=== PATIENT | female | born 1940 | race Caucasian/White ===

== ENCOUNTER 2019-02-13 02:14 | Inpatient (IN) | payer OTHER ==
[~2019-02-13] VITALS: Ht 139.7 cm; Wt 64.0 kg
[2019-02-13] VITALS (17 sets, daily range): BP systolic 117–200; BP diastolic 66–151
[2019-02-13 02:47] LABS: BASO # 0.1 x10^3/uL (0.0-0.2); BASO % 0 % (0-3); EOS % 0 % (0-3); HEMOGLOBIN 13.2 g/dL (12.0-15.5); LYMPH # 1.2 x10^3/uL (1.0-4.8); LYMPH % 4 % (24-48); MEAN CORPUSCULAR HEMOGLOBIN 31 pg (25-35); MEAN CORPUSCULAR HGB CONC 33 g/dL (31-37); MEAN CORPUSCULAR VOLUME 93 fL (79-100); MONO # 1.6 x10^3/uL (0.0-1.1); MONO % 6 % (0-9); NEUT # 24.7 x10^3uL (1.8-7.7); NEUT % 90 % (31-73); PLATELET COUNT 408 x10^3/uL (140-400); RED CELL DISTRIBUTION WIDTH 14.1 % (11.5-14.5); WHITE BLOOD COUNT 27.4 x10^3/uL (4.0-11.0)
--- NOTE | 2019-02-13 02:49 | PHYS DOC ---
Past Medical History Past Medical History: CAD, High Cholesterol, Hypertension Past Surgical History: Coronary Bypass Surgery, Hysterectomy, Oophorectomy, Other (double mastectomy) Smoking: Less than 1pk/day (2 cigarettes per day) Alcohol Use: None Drug Use: None Adult General Chief Complaint Chief Complaint: NAUSEA/VOMITING/DIARRHA HPI HPI Patient is a 78 year old female who presents with nausea and vomiting. Patient states that 3:30 this afternoon she started to experience some nausea and vomited a total of 6 times throughout the afternoon. She states her first episode of vomiting have deferred that she ate for breakfast and agreement. She denies any blood in any of her vomits. Patient also states that she's been having diarrhea today. Her last solid bowel movement was 2 days ago. Food and liquids makes her nausea and vomiting worse. Nothing improves her symptoms. Patient denies any chest pain, shortness of breath, hematochezia, lightheadedness, or dizziness. Review of Systems Review of Systems Constitutional: Denies fever or chills [] Eyes: Denies redness, or eye pain [] HENT: Denies nasal congestion or sore throat [] Respiratory: Denies cough or shortness of breath [] Cardiovascular: Denies chest pain or palpitations[] GI: Reports nausea, vomiting, and diarrhea. Denies abdominal pain and bloody stools[] : Denies dysuria or hematuria [] Musculoskeletal: Denies back pain or joint pain [] Integument: Denies rash or skin lesions [] Neurologic: Denies headache, focal weakness Complete systems were reviewed and found to be within normal limits, except as documented in this note. Current Medications Current Medications Current Medications Medications (Trade) Dose Ordered Sig/Mackenzie Start Time Stop Time Status Last Admin Dose Admin Cefepime HCl (Maxipime) 2 gm 1X ONCE 02/13/19 03:30 02/13/19 03:31 DC 02/13/19 04:01 2 GM Famotidine (Pepcid Vial) 20 mg 1X ONCE 02/13/19 03:00 02/13/19 03:01 DC 02/13/19 02:46 20 MG Hyoscyamine (Anaspaz) 0.125 mg 1X ONCE 02/13/19 03:00 02/13/19 03:01 DC 02/13/19 02:47 0.125 MG Ondansetron HCl (Zofran) 4 mg 1X ONCE 02/13/19 03:30 02/13/19 03:31 DC 02/13/19 03:03 4 MG Sodium Chloride 1,000 ml @ 1,000 mls/hr 1X ONCE 02/13/19 03:30 02/13/19 04:29 DC 02/13/19 04:10 1,000 MLS/HR Allergies Allergies Allergies Coded Allergies Type Severity Reaction Last Updated Verified morphine Allergy Intermediate 02/13/19 Yes Physical Exam Physical Exam Constitutional: Slightly dehydrated, non-toxic appearance. [] HENT: Normocephalic, atraumatic, dry mucous membranes. [] Eyes: EOMI, conjunctiva normal [] Neck: Normal range of motion, no tenderness [] Cardiovascular:Heart rate regular rhythm, no murmur [] Lungs & Thorax: Bilateral breath sounds clear to auscultation, no rhonchi, rails, or wheezes [] Abdomen: Hypoactive bowel sounds, soft, diffuse tenderness, no rebound or rigidity. [] Skin: Warm, dry. [] Back: No tenderness, no CVA tenderness. [] Extremities: No cyanosis, no edema. [] Neurologic: Alert and oriented X 3, no focal deficits noted. [] Psychologic: Affect normal, mood normal. [] Current Patient Data Vital Signs Vital Signs Date Time Temp Pulse Resp B/P (MAP) Pulse Ox O2 Delivery O2 Flow Rate FiO2 02/13/19 02:14 98.2 107 20 194/125 (148) 96 Room Air 98.2 Lab Values Laboratory Tests Test 02/13/19 02:36 02/13/19 03:30 White Blood Count 27.4 x10^3/uL (4.0-11.0) H Red Blood Count 4.30 x10^6/uL (3.50-5.40) Hemoglobin 13.2 g/dL (12.0-15.5) Hematocrit 40.0 % (36.0-47.0) Mean Corpuscular Volume 93 fL (79-100) Mean Corpuscular Hemoglobin 31 pg (25-35) Mean Corpuscular Hemoglobin Concent 33 g/dL (31-37) Red Cell Distribution Width 14.1 % (11.5-14.5) Platelet Count 408 x10^3/uL (140-400) H Neutrophils (%) (Auto) 90 % (31-73) H Lymphocytes (%) (Auto) 4 % (24-48) L Monocytes (%) (Auto) 6 % (0-9) Eosinophils (%) (Auto) 0 % (0-3) Basophils (%) (Auto) 0 % (0-3) Neutrophils # (Auto) 24.7 x10^3uL (1.8-7.7) H Lymphocytes # (Auto) 1.2 x10^3/uL (1.0-4.8) Monocytes # (Auto) 1.6 x10^3/uL (0.0-1.1) H Eosinophils # (Auto) 0.0 x10^3/uL (0.0-0.7) Basophils # (Auto) 0.1 x10^3/uL (0.0-0.2) Segmented Neutrophils % 92 % (35-66) H Lymphocytes % 4 % (24-48) L Monocytes % 4 % (0-10) Hypersegmented Neutrophils Present Toxic Vacuolation Slight Platelet Estimate Adequate (ADEQUATE) Anisocytosis Slight Crenated Cell Present Prothrombin Time 12.3 SEC (11.7-14.0) Prothrombin Time INR 0.9 (0.8-1.1) PTT 29 SEC (24-38) Sodium Level 139 mmol/L (136-145) Potassium Level 2.8 mmol/L (3.5-5.1) *L Chloride Level 95 mmol/L (98-107) L Carbon Dioxide Level 18 mmol/L (21-32) L Anion Gap 26 (6-14) H Blood Urea Nitrogen 32 mg/dL (7-20) H Creatinine 2.7 mg/dL (0.6-1.0) H Estimated GFR (Cockcroft-Gault) 17.1 BUN/Creatinine Ratio 12 (6-20) Glucose Level 226 mg/dL (70-99) H Lactic Acid Level 9.3 mmol/L (0.4-2.0) *H Calcium Level 12.1 mg/dL (8.5-10.1) *H Magnesium Level 1.5 mg/dL (1.8-2.4) L Total Bilirubin 0.4 mg/dL (0.2-1.0) Aspartate Amino Transferase (AST) 44 U/L (15-37) H Alanine Aminotransferase (ALT) 50 U/L (14-59) Alkaline Phosphatase 94 U/L (46-116) Creatine Kinase 223 U/L (26-192) H Creatine Kinase MB (Mass) 4.9 ng/mL (0.0-3.6) H Creatine Kinase MB Relative Index 2.2 % (0-4) Total Protein 8.1 g/dL (6.4-8.2) Albumin 3.5 g/dL (3.4-5.0) Albumin/Globulin Ratio 0.8 (1.0-1.7) L Lipase 312 U/L (73-393) Urine Collection Type Unknown Urine Color Yellow Urine Clarity Cloudy Urine pH 5.5 Urine Specific [place] 1.015 Urine Protein 100 mg/dL (NEG-TRACE) Urine Glucose (UA) Negative mg/dL (NEG) Urine Ketones (Stick) 15 mg/dL (NEG) Urine Blood Large (NEG) Urine Nitrite Negative (NEG) Urine Bilirubin Negative (NEG) Urine Urobilinogen Dipstick 0.2 mg/dL (0.2 mg/dL) Urine Leukocyte Esterase Moderate (NEG) Urine RBC Tntc /HPF (0-2) Urine WBC Tntc /HPF (0-4) Urine Squamous Epithelial Cells Few /LPF Urine Bacteria Many /HPF (0-FEW) Laboratory Tests 02/13/19 02:36 Laboratory Tests 02/13/19 02:36 EKG EKG [] Radiology/Procedures Radiology/Procedures PROCEDURE: CT ABDOMEN PELVIS WO CONTRAST Abdominal and Pelvis CT, Without Contrast: History: Diffuse abdominal pain and nausea and vomiting Comparison: None. Procedure: Axial images are obtained of the abdomen and pelvis, without IV or oral contrast. CT Abdomen without Contrast: Findings: Evaluation of solid organs is limited without contrast. Evaluation of stomach and bowel is limited without oral contrast. Liver: Normal. Spleen: Normal. Pancreas: Normal. Adrenal Glands: Normal. Kidneys: Prominence of the renal pelvises is likely extrarenal pelvises. There is a nonobstructive stone in the left renal pelvis. There is no free air or free fluid. There is no lymphadenopathy. Impression: Please see CT Pelvis without Contrast. End Impression. CT Pelvis without Contrast: Findings: The urinary bladder appears normal. There is no free fluid. There is no lymphadenopathy. There is no pericolonic inflammation identified. The appendix is not seen. Impression: No acute findings. End impression PQRS Compliance Statement: One or more of the following individualized dose reduction techniques were utilized for this examination: 1. Automated exposure control 2. Adjustment of the mA and/or kV according to patient size 3. Use of iterative reconstruction technique Electronically signed by: Joo Galicia III, MD (02/13/2019 3:32 AM) [facility][] Course & Med Decision Making Course & Med Decision Making 78-year-old female presented to the emergency department via EMS for nausea and vomiting. She states she has been nauseous and vomiting since 3:30 this afternoon. She's had a total of 6 episodes of non-bilious nonbloody vomit. Patient received antinausea medication as well as fluids with interval improvement. Pertinent Labs and Imaging studies reviewed. Lab values indicated elevated white blood cell count, and elevated lactic acid. Septic protocol initiated. Symptomatic treatment provided with interval improvement. Patient requiring admission for further evaluation and treatment. Discussed with Dr. Payan who is in agreement with admission. Discussed findings and plan with patient and family, who acknowledge understanding and agreement. (See chart for details) [] Dragon Disclaimer Dragon Disclaimer This electronic medical record was generated, in whole or in part, using a voice recognition dictation system. Departure Departure Impression: Primary Impression: Septic shock Additional Impressions: Nausea and vomiting Hypercalcemia Hypokalemia Hypomagnesemia Lactic acidosis Disposition: ADMITTED INPATIENT Admitting Physician: Edilson Payan Condition: GUARDED Date and Time of Reassessment Date: Feb 13, 2019 Time: 05:33 Fluid Challenge Is the fluid challenge complet: Yes Blood Culture TIme: 03:45 Time Antibiotics Given: 04:01 Vital Signs Vital Signs: Vital Signs Date Time Temp Pulse Resp B/P (MAP) Pulse Ox O2 Delivery O2 Flow Rate FiO2 02/13/19 02:14 98.2 107 20 194/125 (148) 96 Room Air 98.2 Temperature Source: Oral Respirations Respiratory Effort: Normal Respiratory Pattern: Normal Cardiovascular Pulse Rhythm: Regular Heart: Nml rate, reg. rhythm Lung Sounds Breath Sounds: Clear Capillary Refil Capillary Refill: Rt Hand < 3 seconds Peripheral Pulse Pulse Location: Radial Pulse Strength: Normal (2+) Pulse Assessment Method: Monitor Integumentary Skin: Warm, Dry Skin Moisture: Dry Skin Turgor: Normal Skin Color: warm, dry Fingernail Color: WNL Critical Care Time Critical care time was 30 minutes which includes time at bedside, spent in discussion of patient's care with specialists and/or family members, with interpretation of laboratory and/or radiological studies and is exclusive of procedures.. Problem Qualifiers Additional Impressions: Nausea and vomiting Vomiting type: unspecified Vomiting Intractability: unspecified Qualified Codes: R11.2 - Nausea with vomiting, unspecified FABI LU DO Feb 13, 2019 02:49
[2019-02-13 02:55] LABS: PROTHROMBIN TIME PATIENT 12.3 SEC (11.7-14.0)
[2019-02-13] MEDS ORDERED: ONDANSETRON PF 4 MG/2 ML VIAL. IV ONE ×2 (03:00→03:30)
[2019-02-13] MEDS ORDERED: FAMOTIDINE 20 MG/2 ML VIAL IVP ONE (03:00)
[2019-02-13] MEDS ORDERED: IV NORMAL SALINE 1000ML BAG 1,000 ML IV ONE ×2 (03:00→03:30)
[2019-02-13] MEDS ORDERED: HYOSCYAMINE 0.125 MG TAB.RAPDIS PO ONE (03:00)
[2019-02-13 03:02] LABS: ALBUMIN 3.5 g/dL (3.4-5.0); ALBUMIN/GLOBULIN RATIO 0.8 (1.0-1.7); CREATININE 2.7 mg/dL (0.6-1.0); GFR 17.1; MAGNESIUM 1.5 mg/dL (1.8-2.4); TOTAL BILIRUBIN 0.4 mg/dL (0.2-1.0); TOTAL PROTEIN 8.1 g/dL (6.4-8.2)
[2019-02-13 03:05] LABS: CALCIUM 12.1 mg/dL (8.5-10.1); POTASSIUM 2.8 mmol/L (3.5-5.1)
[2019-02-13 03:12] LABS: % LYMPHS 4 % (24-48); % MONOS 4 % (0-10); % SEGS 92 % (35-66); PLT ESTIMATE ADEQUATE (ADEQUATE)
[2019-02-13 03:30] LABS: ANISOCYTOSIS SLIGHT; HYPERSEGS PRESENT; TOXIC VACUOLATION SLIGHT
[2019-02-13] MEDS ORDERED: CEFEPIME HCL IV Push 2 GM VIAL. IVP ONE (03:30)
--- NOTE | 2019-02-13 03:35 | RAD ---
Abdominal and Pelvis CT, Without Contrast: History: Diffuse abdominal pain and nausea and vomiting Comparison: None. Procedure: Axial images are obtained of the abdomen and pelvis, without IV or oral contrast. CT Abdomen without Contrast: Findings: Evaluation of solid organs is limited without contrast. Evaluation of stomach and bowel is limited without oral contrast. Liver: Normal. Spleen: Normal. Pancreas: Normal. Adrenal Glands: Normal. Kidneys: Prominence of the renal pelvises is likely extrarenal pelvises. There is a nonobstructive stone in the left renal pelvis. There is no free air or free fluid. There is no lymphadenopathy. Impression: Please see CT Pelvis without Contrast. End Impression. CT Pelvis without Contrast: Findings: The urinary bladder appears normal. There is no free fluid. There is no lymphadenopathy. There is no pericolonic inflammation identified. The appendix is not seen. Impression: No acute findings. End impression PQRS Compliance Statement: One or more of the following individualized dose reduction techniques were utilized for this examination: 1. Automated exposure control 2. Adjustment of the mA and/or kV according to patient size 3. Use of iterative reconstruction technique Electronically signed by: Joo Galicia III, MD (02/13/2019 3:32 AM) [id number]
[2019-02-13 03:47] LABS: BILIRUBIN,URINE NEGATIVE (NEG); CLARITY,URINE CLOUDY; COLOR,URINE YELLOW; NITRITE,URINE NEGATIVE (NEG); PH,URINE 5.5; PROTEIN,URINE 100 mg/dL (NEG-TRACE); UROBILINOGEN,URINE 0.2 mg/dL (0.2 mg/dL)
[2019-02-13] MEDS ORDERED: ONDANSETRON PF 4 MG/2 ML VIAL. IV PRN (04:00)
[2019-02-13 04:02] LABS: BACTERIA,URINE MANY /HPF (0-FEW); RBC,URINE TNTC /HPF (0-2); SQUAMOUS EPITHELIAL CELL,UR FEW /LPF; WBC,URINE TNTC /HPF (0-4)
[2019-02-13] MEDS ORDERED: POTASSIUM CL 40MEQ IN 0.9%NACL 1,000 ML IV ONE (04:30)
[2019-02-13] MEDS ORDERED: METOCLOPRAMIDE HCL 10 MG/2 ML VIAL. IV ONE (04:30)
[2019-02-13] MEDS ORDERED: LABETALOL 20 MG/4 ML DISP.SYRIN. IVP ONE (04:30)
[2019-02-13] MEDS ORDERED: hydrALAZINE 20 MG/ML VIAL. IVP ONE (05:30)
[2019-02-13] MEDS: POTASSIUM CHLORIDE 10MEQ 100 ML IV SCH ×2 (06:15→07:53)
[2019-02-13] MEDS ORDERED: METOPROLOL TARTRATE 5 MG/5 ML VIAL. IVP PRN (07:30)
--- NOTE | 2019-02-13 07:56 | PDOC ---
Infectious Disease Note Vital Sign Vital Signs Vital Signs Date Time Temp Pulse Resp B/P (MAP) Pulse Ox O2 Delivery O2 Flow Rate FiO2 02/13/19 06:30 112 16 171/107 (128) 98 Room Air 02/13/19 06:00 98.0 98.0 Labs Lab Laboratory Tests Test 02/13/19 02:36 02/13/19 03:30 02/13/19 06:40 White Blood Count 27.4 x10^3/uL (4.0-11.0) Red Blood Count 4.30 x10^6/uL (3.50-5.40) Hemoglobin 13.2 g/dL (12.0-15.5) Hematocrit 40.0 % (36.0-47.0) Mean Corpuscular Volume 93 fL (79-100) Mean Corpuscular Hemoglobin 31 pg (25-35) Mean Corpuscular Hemoglobin Concent 33 g/dL (31-37) Red Cell Distribution Width 14.1 % (11.5-14.5) Platelet Count 408 x10^3/uL (140-400) Neutrophils (%) (Auto) 90 % (31-73) Lymphocytes (%) (Auto) 4 % (24-48) Monocytes (%) (Auto) 6 % (0-9) Eosinophils (%) (Auto) 0 % (0-3) Basophils (%) (Auto) 0 % (0-3) Neutrophils # (Auto) 24.7 x10^3uL (1.8-7.7) Lymphocytes # (Auto) 1.2 x10^3/uL (1.0-4.8) Monocytes # (Auto) 1.6 x10^3/uL (0.0-1.1) Eosinophils # (Auto) 0.0 x10^3/uL (0.0-0.7) Basophils # (Auto) 0.1 x10^3/uL (0.0-0.2) Segmented Neutrophils % 92 % (35-66) Lymphocytes % 4 % (24-48) Monocytes % 4 % (0-10) Hypersegmented Neutrophils Present Toxic Vacuolation Slight Platelet Estimate Adequate (ADEQUATE) Anisocytosis Slight Crenated Cell Present Prothrombin Time 12.3 SEC (11.7-14.0) Prothromb Time International Ratio 0.9 (0.8-1.1) Activated Partial Thromboplast Time 29 SEC (24-38) Sodium Level 139 mmol/L (136-145) Potassium Level 2.8 mmol/L (3.5-5.1) Chloride Level 95 mmol/L (98-107) Carbon Dioxide Level 18 mmol/L (21-32) Anion Gap 26 (6-14) Blood Urea Nitrogen 32 mg/dL (7-20) Creatinine 2.7 mg/dL (0.6-1.0) Estimated GFR (Cockcroft-Gault) 17.1 BUN/Creatinine Ratio 12 (6-20) Glucose Level 226 mg/dL (70-99) Lactic Acid Level 9.3 mmol/L (0.4-2.0) 3.3 mmol/L (0.4-2.0) Calcium Level 12.1 mg/dL (8.5-10.1) Magnesium Level 1.5 mg/dL (1.8-2.4) Total Bilirubin 0.4 mg/dL (0.2-1.0) Aspartate Amino Transf (AST/SGOT) 44 U/L (15-37) Alanine Aminotransferase (ALT/SGPT) 50 U/L (14-59) Alkaline Phosphatase 94 U/L (46-116) Creatine Kinase 223 U/L (26-192) Creatine Kinase MB (Mass) 4.9 ng/mL (0.0-3.6) Creatine Kinase MB Relative Index 2.2 % (0-4) Total Protein 8.1 g/dL (6.4-8.2) Albumin 3.5 g/dL (3.4-5.0) Albumin/Globulin Ratio 0.8 (1.0-1.7) Lipase 312 U/L (73-393) Urine Collection Type Unknown Urine Color Yellow Urine Clarity Cloudy Urine pH 5.5 Urine Specific [place] 1.015 Urine Protein 100 mg/dL (NEG-TRACE) Urine Glucose (UA) Negative mg/dL (NEG) Urine Ketones (Stick) 15 mg/dL (NEG) Urine Blood Large (NEG) Urine Nitrite Negative (NEG) Urine Bilirubin Negative (NEG) Urine Urobilinogen Dipstick 0.2 mg/dL (0.2 mg/dL) Urine Leukocyte Esterase Moderate (NEG) Urine RBC Tntc /HPF (0-2) Urine WBC Tntc /HPF (0-4) Urine Squamous Epithelial Cells Few /LPF Urine Bacteria Many /HPF (0-FEW) Troponin I Quantitative 0.050 ng/mL (0.000-0.055) Objective Assessment Sepsis - POA HTN crisis UTI- POA based on UA 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
--- NOTE | 2019-02-13 08:30 | NUR ---
Consult called for GI as pt with abd pain, nausea unrelieved by Zofran 4mg. [employer] here to see pt and Zofran dose increased. Emesis dark. Abd pain lower abd. No stool. BP up. PRN med rec'd from Dr Payan
--- NOTE | 2019-02-13 09:03 | PDOC2 ---
GI CONSULT Reason For Consult: Abd pain, n/v, diarrhea, lactic acidosis HPI: HPI: Pleasant 78 y/o female evaluated in ER for n/v and abd pain. Initially reported acute onset of symptoms at 3:00 p.m. yesterday, but then says she might have felt achy for a couple days prior and also vomited once on Monday night. Ate fruit for breakfast on Monday. Tells me most abd pain is in the middle and thinks related to retching. Multiple lab abnormalities in the ER - WBC 27.4, Cr 2.7, K 2.8, lactic 9.3 (now 3.3), Ca 12.1, AST 44. Tntc WBC on UA. CT unrevealing. Feels a little better this morning. RN asks for more help w/ additional anti-emetics. Might have had a little reflux before vomiting began but typically no issues w/ this. No dysphagia. No hematemesis. No chronic n/v or abd pain. Had a soft stool on Monday - denies diarrhea and constipation. No hematochezia or melena. No weight loss. Reports normal EGD and colonoscopy @[facility] [place] in 2004. No liver or PUD history. H/o biliary pancreatitis in 2014 when she had a heart attack - cholecystectomy ~9 months later. H/o CAD on Plavix and arthritis on hydrocodone. No NSAIDs. PMH: PMH: CAD s/p CABG and stents, [place], HTN, HLD, CKD, UTI, OA, pancreatitis hysterectomy w/ BSO, cholecystectomy, bilateral mastectomy (benign) FH: Family History: Cancer (breast) Social History: Smoke: <1 pack per day (2 cigarettes daily) ALCOHOL: none ROS: GEN: Denies fevers, chills, sweats HEENT: Denies blurred vision, sore throat CV: Denies chest pain RESP: Denies shortness of air, cough GI: Per HPI : Denies hematuria, dysuria ENDO: Denies weight changes NEURO: Denies confusion, dizziness MSK: +chronic neck and shoulder pain SKIN: Denies jaundice, pruritus Vitals: Vitals: Vital Signs Date Time Temp Pulse Resp B/P (MAP) Pulse Ox O2 Delivery O2 Flow Rate FiO2 02/13/19 07:47 110 199/115 02/13/19 06:30 16 98 Room Air 02/13/19 06:00 98.0 98.0 Labs: Labs: Laboratory Tests Test 02/13/19 02:36 02/13/19 03:30 02/13/19 06:40 White Blood Count 27.4 x10^3/uL (4.0-11.0) Red Blood Count 4.30 x10^6/uL (3.50-5.40) Hemoglobin 13.2 g/dL (12.0-15.5) Hematocrit 40.0 % (36.0-47.0) Mean Corpuscular Volume 93 fL (79-100) Mean Corpuscular Hemoglobin 31 pg (25-35) Mean Corpuscular Hemoglobin Concent 33 g/dL (31-37) Red Cell Distribution Width 14.1 % (11.5-14.5) Platelet Count 408 x10^3/uL (140-400) Neutrophils (%) (Auto) 90 % (31-73) Lymphocytes (%) (Auto) 4 % (24-48) Monocytes (%) (Auto) 6 % (0-9) Eosinophils (%) (Auto) 0 % (0-3) Basophils (%) (Auto) 0 % (0-3) Neutrophils # (Auto) 24.7 x10^3uL (1.8-7.7) Lymphocytes # (Auto) 1.2 x10^3/uL (1.0-4.8) Monocytes # (Auto) 1.6 x10^3/uL (0.0-1.1) Eosinophils # (Auto) 0.0 x10^3/uL (0.0-0.7) Basophils # (Auto) 0.1 x10^3/uL (0.0-0.2) Segmented Neutrophils % 92 % (35-66) Lymphocytes % 4 % (24-48) Monocytes % 4 % (0-10) Hypersegmented Neutrophils Present Toxic Vacuolation Slight Platelet Estimate Adequate (ADEQUATE) Anisocytosis Slight Crenated Cell Present Prothrombin Time 12.3 SEC (11.7-14.0) Prothromb Time International Ratio 0.9 (0.8-1.1) Activated Partial Thromboplast Time 29 SEC (24-38) Sodium Level 139 mmol/L (136-145) Potassium Level 2.8 mmol/L (3.5-5.1) Chloride Level 95 mmol/L (98-107) Carbon Dioxide Level 18 mmol/L (21-32) Anion Gap 26 (6-14) Blood Urea Nitrogen 32 mg/dL (7-20) Creatinine 2.7 mg/dL (0.6-1.0) Estimated GFR (Cockcroft-Gault) 17.1 BUN/Creatinine Ratio 12 (6-20) Glucose Level 226 mg/dL (70-99) Lactic Acid Level 9.3 mmol/L (0.4-2.0) 3.3 mmol/L (0.4-2.0) Calcium Level 12.1 mg/dL (8.5-10.1) Magnesium Level 1.5 mg/dL (1.8-2.4) Total Bilirubin 0.4 mg/dL (0.2-1.0) Aspartate Amino Transf (AST/SGOT) 44 U/L (15-37) Alanine Aminotransferase (ALT/SGPT) 50 U/L (14-59) Alkaline Phosphatase 94 U/L (46-116) Creatine Kinase 223 U/L (26-192) Creatine Kinase MB (Mass) 4.9 ng/mL (0.0-3.6) Creatine Kinase MB Relative Index 2.2 % (0-4) Total Protein 8.1 g/dL (6.4-8.2) Albumin 3.5 g/dL (3.4-5.0) Albumin/Globulin Ratio 0.8 (1.0-1.7) Lipase 312 U/L (73-393) Urine Collection Type Unknown Urine Color Yellow Urine Clarity Cloudy Urine pH 5.5 Urine Specific [place] 1.015 Urine Protein 100 mg/dL (NEG-TRACE) Urine Glucose (UA) Negative mg/dL (NEG) Urine Ketones (Stick) 15 mg/dL (NEG) Urine Blood Large (NEG) Urine Nitrite Negative (NEG) Urine Bilirubin Negative (NEG) Urine Urobilinogen Dipstick 0.2 mg/dL (0.2 mg/dL) Urine Leukocyte Esterase Moderate (NEG) Urine RBC Tntc /HPF (0-2) Urine WBC Tntc /HPF (0-4) Urine Squamous Epithelial Cells Few /LPF Urine Bacteria Many /HPF (0-FEW) Troponin I Quantitative 0.050 ng/mL (0.000-0.055) Allergies: Coded Allergies: morphine (Verified Allergy, Intermediate, 4/3/19) Medications: Current Medications Medications (Trade) Dose Ordered Sig/Mackenzie Route PRN Reason Start Time Stop Time Status Last Admin Dose Admin Ondansetron HCl (Zofran) 4 mg 1X ONCE IV 02/13/19 03:00 02/13/19 03:01 DC 02/13/19 02:40 Famotidine (Pepcid Vial) 20 mg 1X ONCE IVP 02/13/19 03:00 02/13/19 03:01 DC 02/13/19 02:46 Sodium Chloride 1,000 ml @ 1,000 mls/hr 1X ONCE IV 02/13/19 03:00 02/13/19 03:59 DC 02/13/19 02:44 Hyoscyamine (Anaspaz) 0.125 mg 1X ONCE PO 02/13/19 03:00 02/13/19 03:01 DC 02/13/19 02:47 Ondansetron HCl (Zofran) 4 mg 1X ONCE IV 02/13/19 03:30 02/13/19 03:31 DC 02/13/19 03:03 Sodium Chloride 1,000 ml @ 1,000 mls/hr 1X ONCE IV 02/13/19 03:30 02/13/19 04:29 DC 02/13/19 04:10 Cefepime HCl (Maxipime) 2 gm 1X ONCE IVP 02/13/19 03:30 02/13/19 03:31 DC 02/13/19 04:01 Metronidazole 100 ml @ 100 mls/hr 1X ONCE IV 02/13/19 04:30 02/13/19 05:29 DC 02/13/19 04:46 Labetalol HCl (Normodyne Iv Push) 10 mg 1X ONCE IVP 02/13/19 04:30 02/13/19 04:31 DC 02/13/19 04:15 Ondansetron HCl (Zofran) 4 mg PRN Q8HRS PRN IV NAUSEA/VOMITING 1ST CHOICE 02/13/19 04:00 02/14/19 03:59 02/13/19 06:20 Potassium Chloride/Water 100 ml @ 100 mls/hr Q1H IV 02/13/19 05:00 02/13/19 06:59 DC 02/13/19 07:53 Potassium Chloride/Sodium Chloride 1,000 ml @ 125 mls/hr 1X ONCE IV 02/13/19 04:30 02/13/19 12:29 02/13/19 04:45 Metoclopramide HCl (Reglan Vial) 10 mg 1X ONCE IV 02/13/19 04:30 02/13/19 04:31 DC 02/13/19 04:20 Hydralazine HCl (Apresoline Inj) 20 mg 1X ONCE IVP 02/13/19 05:30 02/13/19 05:31 DC 02/13/19 05:25 Metoprolol Tartrate (Lopressor Vial) 10 mg Q4HRS PRN IVP ELEVATED BP, SEE COMMENTS 02/13/19 07:30 02/13/19 07:47 Imaging: Imaging: CT A/P w/o contrast 02/13/19 Impression: No acute findings. PE: GEN: NAD - holding emesis basin HEENT: Atraumatic, PERRL LUNGS: CTAB HEART: tachycardic ABD: quiet BS, soft, non-distended, vague periumbilical discomfort EXTREMITY: SCDs SKIN: No rashes, no jaundice NEURO/PSYCH: A & O 3 A/P: A/P: N/v, abd pain Leukocytosis, lactic acidosis, hypercalcemia, hypokalemia, JUAN CARLOS/CKD, UTI HTN, CAD - on Plavix ?GERD CRC screen - reportedly normal colonoscopy in 2004 @ [facility] [place] H/o biliary pancreatitis, s/p cholecystectomy Chronic pain on hydrocodone -- Supportive care including anti-emetics - can continue Zofran, added Compazine, note also received Reglan x 1. Empiric PPI - IV for now. Recheck calcium and follow troponin. Still nauseated - if improves, consider trying clears. Called by RN - ongoing nausea and abd pain, asks about ischemic colitis possibility - CT (non-contrast) was unrevealing, hasn't stooled, no bleeding. Reviewed chart - has been hypertensive but better now. Is tachycardic and now w / mild elevation in troponin. Cardiology consult pending. Note calcium now normal. Reviewed w/ Dr. Cunha - add Reglan PRN. Will also check KUB. FELIPA JOHN Feb 13, 2019 09:03
[2019-02-13] MEDS: PROCHLORPERAZINE 10 MG/2 ML VIAL. IV PRN ×3 (09:42→23:52)
[2019-02-13] MEDS: DAPTOmycin (GENERIC) IVPB 340 MG in IV NORMAL SALINE 50ML 50 ML IV SCH (09:43)
[2019-02-13] MEDS ORDERED: IV NORMAL SALINE 1000ML BAG 1,000 ML IV SCH (09:45)
[2019-02-13] MEDS: PIPERACILLIN/TAZOBACTAM 2.25 GM in IV NORMAL SALINE 50ML 50 ML IV SCH ×3 (09:51→17:36)
[2019-02-13 10:38] LABS: CREATININE 1.9 mg/dL (0.6-1.0); GFR 25.7; POTASSIUM 3.6 mmol/L (3.5-5.1)
[2019-02-13] MEDS: hydrALAZINE 20 MG/ML VIAL. IVP PRN (10:39)
[2019-02-13] MEDS: PANTOPRAZOLE IV PUSH 40 MG VIAL. IVP SCH (10:39)
--- NOTE | 2019-02-13 10:57 | PDOC ---
Provider Note Provider Note Patient seen. History and Physical dictated. See dictation# [id number] MARLY CHAVARRIA MD Feb 13, 2019 10:57
[2019-02-13] MEDS: ONDANSETRON PF 4 MG/2 ML VIAL. IV PRN (11:21)
--- NOTE | 2019-02-13 11:30 | HP ---
ADMIT DATE: 02/13/2019 HISTORY OF PRESENT ILLNESS: This 78-year-old female started having nausea, vomiting and diarrhea yesterday. Her vomiting was much worse and she also had diffuse abdominal pain and so she came to the Emergency Room. In the Emergency Room, she was noted to have WBC count of 27.4, hemoglobin 13.2. Sodium was 139, potassium was 2.8, BUN 32, creatinine 2.7 and bicarbonate 18, calcium was 12.1, magnesium was 1.5. Lactic acid was 9.3. Albumin was 3.5, total protein 8.1, lipase 312. CK 223, CK-MB 2.2. Urinalysis showed large blood, nitrite negative, rbc's too numerous to count, wbc's too numerous to count and many bacteria. A CT scan of abdomen did not show any acute changes. Because of her sepsis and UTI, abdominal pain with possibility of ischemic colitis, hypokalemia, hypercalcemia and multiple other factors including hypertensive crisis, the patient was admitted for further evaluation and management. The patient's blood pressure in the Emergency Room was 199/108 and currently is 187/95. REVIEW OF SYSTEMS: The patient complains of some diffuse abdominal pain. She denies any nausea or vomiting at this time. She had nausea medication. She denies any fever, chills, cold, cough, congestion, leg pain, dizziness, palpitations, back pain. She recently has not taken any antibiotics. She was recently seen in the office on 01/24/2019, her creatinine was 1.7, BUN 26, calcium 9.9 and WBC count was 9.8. Other systems reviewed and are negative. PAST MEDICAL HISTORY: The patient has a history of coronary artery disease, hyperlipidemia, hypertension that has recently not been controlled. PAST SURGICAL HISTORY: The patient has a history of CABG, hysterectomy, oophorectomy, double mastectomy. SOCIAL HISTORY: Smokes less than 2 cigarettes per day. No history of alcoholism or drug abuse. ALLERGIES: MORPHINE. MEDICATIONS: Reviewed. We will need to reconcile with home medications. Discussed with staff. PHYSICAL EXAMINATION GENERAL: The patient is an elderly female who is alert, oriented, not in acute distress. VITAL SIGNS: Temperature 98, pulse 109 per minute, blood pressure 187/95 mmHg, respirations 18 per minute. LUNGS: Decreased breath sounds at bases. CARDIOVASCULAR: S1, S2 regular. EYES: Pupils equal, reacting to light. Conjunctivae pale. Sclerae muddy. HEENT: Unremarkable. NECK: Supple. JVP normal. No thyromegaly. Trachea midline. ABDOMEN: Soft, mild diffuse tenderness. There is no guarding, no rigidity. Bowel sounds present. EXTREMITIES: No edema. CENTRAL NERVOUS SYSTEM: Alert and oriented. LABORATORY FINDINGS: As noted earlier. IMAGING: CT scan of abdomen and pelvis did not show any acute changes. IMPRESSION: 1. Sepsis, clinically improving. Lactic acid level has decreased to 3. 2. Hypertensive crisis. 3. Urinary tract infection. 4. Abdominal pain, rule out ischemic colitis, possible gastroenteritis. 5. Acute renal failure with chronic kidney disease. 6. Coronary artery disease, status post coronary artery bypass graft. PLAN: Continue IV labetalol and hydralazine. The patient is n.p.o. at this time. If no improvement, she will need IV Nipride. Consult Dr. Kemp for cardiology evaluation and management. For sepsis, consult Dr. Fajardo. She has been started on IV daptomycin, metronidazole, Zosyn and cefepime. Consult Dr. Rodríguez for GI evaluation and management. Keep n.p.o., continue IV fluids, replace potassium, monitor labs. Obtain cultures. Last potassium is 3.6, BUN has decreased to 25 and creatinine is 1.9 and calcium level is decreased to 10. The patient is admitted to ICU, clinically improving. For details, please refer the orders. MARLY CHAVARRIA MD DR: GABBY/isael JOB#: [id number] / [id number]
--- NOTE | 2019-02-13 12:00 | NUR ---
Pt still with unrelieved nausea after extra zofran and compazine as well as cont abd discomfort. 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 Card consult called and elevated Trop reported to her(SHUTTLE VENEERING SUPERVISOR Payton).
[2019-02-13] MEDS ORDERED: METOCLOPRAMIDE HCL 10 MG/2 ML VIAL. IV PRN (12:45)
--- NOTE | 2019-02-13 13:07 | EKG ---
[facility] [address] [place] [address] Test Date: 2019-02-13 Test Time: 12:58:00 Pat Name: ADALBERTO MULLINS Department: Room: 103 1 Gender: F Speech Pathologist Assistant: AT : 1940 Requested By: RENO PINEDA Order Number: [id number] Reading MD: Lei Calderon MD Measurements Intervals Moody Rate: 108 P: LA: QRS: 48 QRSD: 94 T: 5 QT: 378 QTc: 511 Interpretive Statements PROBABLE SR PAC'S NON-SPECIFIC ST/T CHANGES Electronically Signed On 02-14-2019 9:47:25 CDT by Lei Calderon MD
[2019-02-13] MEDS ORDERED: HYDR12.575 PO (13:28)
[2019-02-13] MEDS ORDERED: TIZA4TAB PO (13:28)
[2019-02-13] MEDS ORDERED: ESCITALOPRAM OX10 MG PO (13:28)
[2019-02-13] MEDS ORDERED: DICL100G18 TP (13:28)
[2019-02-13] MEDS ORDERED: CLOP75TA PO (13:28)
[2019-02-13] MEDS ORDERED: TRIA15OI TP (13:28)
[2019-02-13] MEDS ORDERED: OMEG1CAP6 PO (13:28)
[2019-02-13] MEDS ORDERED: ATORVASTATIN CA80 MG PO (13:28)
[2019-02-13] MEDS ORDERED: ASCO-78 PO (13:28)
[2019-02-13] MEDS ORDERED: CLON0.2T PO (13:28)
[2019-02-13] MEDS ORDERED: DILT240C2 PO (13:28)
[2019-02-13] MEDS ORDERED: HYDR-2761 PO (13:28)
[2019-02-13] MEDS ORDERED: MIRT15TA3 PO (13:28)
[2019-02-13] MEDS ORDERED: METO100T7 PO (13:28)
[2019-02-13] MEDS ORDERED: CHOL10003 PO (13:28)
[2019-02-13] MEDS ORDERED: LOSA100T14 PO (13:28)
--- NOTE | 2019-02-13 13:43 | PDOC2 ---
KARLEY PHAN LICENSED HOME INSPECTOR 02/13/19 1343: CARDIAC CONSULT DATE OF CONSULT Date of Consult DATE: 02/13/19 TIME: 13:37 REASON FOR CONSULT Reason for Consult: Hypertensive crisis REFERRING PHYSICIAN Referring Physician: Dr. Paayn SOURCE Source: Chart review, Patient HISTORY OF PRESENT ILLNESS HISTORY OF PRESENT ILLNESS This is a 78 yo female who presented secondary to nausea/vomiting. Symptoms began yesterday. Persisted throughout the day. Was extremely weak. Had soft stools, but no diarrhea. May have had some mild abdominal pain. Multiple lab abnormalities upon arrival. CT abdomen/pelvis unrevealing. BP noted to be elevated upon arrival, which prompted this consult. Was not able to take routine oral meds due to persistent N/V. Patient has a history of hypertension, hyperlipidemia, CKD, and CAD s/p CABG x3 in 2000 and subsequent stenting in 2014, which were conducted at [facility]. 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 No recent echo or stress test. PAST MEDICAL HISTORY Cardiovascular: CAD, HTN, Hyperlipidemia Pulmonary: No pertinent hx CENTRAL NERVOUS SYSTEM: Other (no pertinent hx) GI: GERD, Other (pancreatitis ) Heme/Onc: No pertinent hx Hepatobiliary: No pertinent hx Psych: No pertinent hx Musculoskeletal: Osteoarthritis Rheumatologic: No pertinent hx Infectious disease: No pertinent hx ENT: No pertinent hx Renal/: Chronic renal insuff Endocrine: No pertinent hx Dermatology: No pertinent hx PAST SURGICAL HISTORY Past Surgical History: CABG, Hysterectomy, Other (bilateral mastectomy ) FAMILY HISTORY Family History: Cancer (breast), Hypertension SOCIAL HISTORY Smoke: <1 pack per day (2/day) ALCOHOL: none Drugs: None Lives: Alone CURRENT MEDICATIONS CURRENT MEDICATIONS Current Medications Medications (Trade) Dose Ordered Sig/Mackenzie Route PRN Reason Start Time Stop Time Status Last Admin Dose Admin Ondansetron HCl (Zofran) 4 mg 1X ONCE IV 02/13/19 03:00 02/13/19 03:01 DC 02/13/19 02:40 Famotidine (Pepcid Vial) 20 mg 1X ONCE IVP 02/13/19 03:00 02/13/19 03:01 DC 02/13/19 02:46 Sodium Chloride 1,000 ml @ 1,000 mls/hr 1X ONCE IV 02/13/19 03:00 02/13/19 03:59 DC 02/13/19 02:44 Hyoscyamine (Anaspaz) 0.125 mg 1X ONCE PO 02/13/19 03:00 02/13/19 03:01 DC 02/13/19 02:47 Ondansetron HCl (Zofran) 4 mg 1X ONCE IV 02/13/19 03:30 02/13/19 03:31 DC 02/13/19 03:03 Sodium Chloride 1,000 ml @ 1,000 mls/hr 1X ONCE IV 02/13/19 03:30 02/13/19 04:29 DC 02/13/19 04:10 Cefepime HCl (Maxipime) 2 gm 1X ONCE IVP 02/13/19 03:30 02/13/19 03:31 DC 02/13/19 04:01 Metronidazole 100 ml @ 100 mls/hr 1X ONCE IV 02/13/19 04:30 02/13/19 05:29 DC 02/13/19 04:46 Labetalol HCl (Normodyne Iv Push) 10 mg 1X ONCE IVP 02/13/19 04:30 02/13/19 04:31 DC 02/13/19 04:15 Ondansetron HCl (Zofran) 4 mg PRN Q8HRS PRN IV NAUSEA/VOMITING 1ST CHOICE 02/13/19 04:00 02/13/19 09:14 DC 02/13/19 06:20 Potassium Chloride/Water 100 ml @ 100 mls/hr Q1H IV 02/13/19 05:00 02/13/19 06:59 DC 02/13/19 07:53 Potassium Chloride/Sodium Chloride 1,000 ml @ 125 mls/hr 1X ONCE IV 02/13/19 04:30 02/13/19 12:29 DC 02/13/19 04:45 Metoclopramide HCl (Reglan Vial) 10 mg 1X ONCE IV 02/13/19 04:30 02/13/19 04:31 DC 02/13/19 04:20 Hydralazine HCl (Apresoline Inj) 20 mg 1X ONCE IVP 02/13/19 05:30 02/13/19 05:31 DC 02/13/19 05:25 Hydralazine HCl (Apresoline Inj) 10 mg PRN Q4HRS PRN IVP ELEVATED BP, SEE COMMENTS 02/13/19 07:30 02/13/19 10:39 Metoprolol Tartrate (Lopressor Vial) 10 mg Q4HRS PRN IVP ELEVATED BP, SEE COMMENTS 02/13/19 07:30 02/13/19 07:47 Piperacillin Sod/ Tazobactam Sod 2.25 gm/Sodium Chloride 50 ml @ 100 mls/hr Q6HRS IV 02/13/19 08:00 02/13/19 12:23 Daptomycin 340 mg/ Sodium Chloride 50 ml @ 100 mls/hr Q24H IV 02/13/19 08:00 02/13/19 09:43 Ondansetron HCl (Zofran) 8 mg PRN Q8HRS PRN IV NAUSEA/VOMITING 1ST CHOICE 02/13/19 09:15 02/13/19 11:21 Prochlorperazine Edisylate (Compazine) 10 mg PRN Q6HRS PRN IV NAUSEA/VOMITING 02/13/19 09:15 02/13/19 09:42 Pantoprazole Sodium (PROTONIX VIAL for IV PUSH) 40 mg DAILYAC IVP 02/13/19 10:00 02/13/19 10:39 Potassium Chloride/Sodium Chloride 1,000 ml @ 100 mls/hr Q10H IV 02/13/19 11:30 02/13/19 12:21 ALLERGIES ALLERGIES: Coded Allergies: morphine (Verified Allergy, Intermediate, 02/13/19) ROS Review of System 14 point ROS conducted with pertinent positives noted above in HPI. PHYSICAL EXAM General: Alert, Oriented X3, Cooperative, No acute distress, Other (fatigued ) HEENT: Atraumatic, Mucous membr. moist/pink Lungs: Clear to auscultation Heart: Regular rate (SR/ST), Normal S1, Normal S2 Abdomen: Soft, Other (diffuse tenderness) Extremities: No edema, Normal pulses Skin: No breakdown, No significant lesion Neuro: Normal speech, Sensation intact Psych/Mental Status: Mental status NL, Mood NL MUSCULOSKELETAL: Osteoarthritic changes both hands VITALS VITALS Vital Signs Date Time Temp Pulse Resp B/P (MAP) Pulse Ox O2 Delivery O2 Flow Rate FiO2 02/13/19 13:00 100 28 117/66 (83) 98 Room Air 02/13/19 06:00 98.0 98.0 LABS Lab: Laboratory Tests Test 02/13/19 02:36 02/13/19 03:30 02/13/19 06:40 4/3/19 09:50 White Blood Count 27.4 x10^3/uL (4.0-11.0) Red Blood Count 4.30 x10^6/uL (3.50-5.40) Hemoglobin 13.2 g/dL (12.0-15.5) Hematocrit 40.0 % (36.0-47.0) Mean Corpuscular Volume 93 fL (79-100) Mean Corpuscular Hemoglobin 31 pg (25-35) Mean Corpuscular Hemoglobin Concent 33 g/dL (31-37) Red Cell Distribution Width 14.1 % (11.5-14.5) Platelet Count 408 x10^3/uL (140-400) Neutrophils (%) (Auto) 90 % (31-73) Lymphocytes (%) (Auto) 4 % (24-48) Monocytes (%) (Auto) 6 % (0-9) Eosinophils (%) (Auto) 0 % (0-3) Basophils (%) (Auto) 0 % (0-3) Neutrophils # (Auto) 24.7 x10^3uL (1.8-7.7) Lymphocytes # (Auto) 1.2 x10^3/uL (1.0-4.8) Monocytes # (Auto) 1.6 x10^3/uL (0.0-1.1) Eosinophils # (Auto) 0.0 x10^3/uL (0.0-0.7) Basophils # (Auto) 0.1 x10^3/uL (0.0-0.2) Segmented Neutrophils % 92 % (35-66) Lymphocytes % 4 % (24-48) Monocytes % 4 % (0-10) Hypersegmented Neutrophils Present Toxic Vacuolation Slight Platelet Estimate Adequate (ADEQUATE) Anisocytosis Slight Crenated Cell Present Prothrombin Time 12.3 SEC (11.7-14.0) Prothromb Time International Ratio 0.9 (0.8-1.1) Activated Partial Thromboplast Time 29 SEC (24-38) Sodium Level 139 mmol/L (136-145) 142 mmol/L (136-145) Potassium Level 2.8 mmol/L (3.5-5.1) 3.6 mmol/L (3.5-5.1) Chloride Level 95 mmol/L (98-107) 103 mmol/L (98-107) Carbon Dioxide Level 18 mmol/L (21-32) 22 mmol/L (21-32) Anion Gap 26 (6-14) 17 (6-14) Blood Urea Nitrogen 32 mg/dL (7-20) 25 mg/dL (7-20) Creatinine 2.7 mg/dL (0.6-1.0) 1.9 mg/dL (0.6-1.0) Estimated GFR (Cockcroft-Gault) 17.1 25.7 BUN/Creatinine Ratio 12 (6-20) Glucose Level 226 mg/dL (70-99) 154 mg/dL (70-99) Lactic Acid Level 9.3 mmol/L (0.4-2.0) 3.3 mmol/L (0.4-2.0) Calcium Level 12.1 mg/dL (8.5-10.1) 10.0 mg/dL (8.5-10.1) Magnesium Level 1.5 mg/dL (1.8-2.4) Total Bilirubin 0.4 mg/dL (0.2-1.0) Aspartate Amino Transf (AST/SGOT) 44 U/L (15-37) Alanine Aminotransferase (ALT/SGPT) 50 U/L (14-59) Alkaline Phosphatase 94 U/L (46-116) Creatine Kinase 223 U/L (26-192) Creatine Kinase MB (Mass) 4.9 ng/mL (0.0-3.6) Creatine Kinase MB Relative Index 2.2 % (0-4) Total Protein 8.1 g/dL (6.4-8.2) Albumin 3.5 g/dL (3.4-5.0) Albumin/Globulin Ratio 0.8 (1.0-1.7) Lipase 312 U/L (73-393) Urine Collection Type Unknown Urine Color Yellow Urine Clarity Cloudy Urine pH 5.5 Urine Specific Savanna 1.015 Urine Protein 100 mg/dL (NEG-TRACE) Urine Glucose (UA) Negative mg/dL (NEG) Urine Ketones (Stick) 15 mg/dL (NEG) Urine Blood Large (NEG) Urine Nitrite Negative (NEG) Urine Bilirubin Negative (NEG) Urine Urobilinogen Dipstick 0.2 mg/dL (0.2 mg/dL) Urine Leukocyte Esterase Moderate (NEG) Urine RBC Tntc /HPF (0-2) Urine WBC Tntc /HPF (0-4) Urine Squamous Epithelial Cells Few /LPF Urine Bacteria Many /HPF (0-FEW) Troponin I Quantitative 0.050 ng/mL (0.000-0.055) 0.204 ng/mL (0.000-0.055) Ionized Calcium 1.24 mmol/L (1.13-1.32) ASSESSMENT/PLAN ASSESSMENT/PLAN 1. Malignant hypertension; labile 2. Mild troponin elevation; highest 0.2. type II, demand ischemic. Multifactorial 3. Nausea/vomiting/diarrhea 4. Severe hypokalemia, hypomagnesemia; replaced 5. Leukocytosis, lactic acidosis, ? sepsis; per ID 6. JUAN CARLOS on CKD; improved 7. CAD s/p remote CABG in 2000 with subsequent stents in 2014 8. Hyperlipidemia Recommendations Trend troponin, lipids Echo to assess LV systolic function Obtain cardiac records from [facility] Metoprolol IV q6 while NPO hydralazine IV PRN No ACEi with JUAN CARLOS Caution aggressive BP treatment with underling sepsis. Further recommendations pending review of above. LISA NICOLE MD 02/13/19 1647: CARDIAC CONSULT ASSESSMENT/PLAN ASSESSMENT/PLAN Patient seen and examined. Agree with TALKBACK HOST's assessment and plan. Slight troponin elevation probably demand ischemia. 2-D echo showed normal LV function without any wall motion abnormalities. CAD status clinically stable. Agree with intravenous metoprolol to able to take by mouth for control of blood pressure Potassium and magnesium replaced Continue workup and treatment of N/V/D per IM Thank you for your consultation KARLEY PHAN APRN Feb 13, 2019 13:43 LISA NICOLE MD Feb 13, 2019 16:47
[2019-02-13] MEDS: ASPIRIN ENTERIC COATED 81 MG TABLET.DR. PO SCH (14:30)
--- NOTE | 2019-02-13 15:26 | RAD ---
EXAM: Abdomen, single view. HISTORY: Pain and nausea. COMPARISON: CT obtained on the same date. FINDINGS: A frontal supine view the abdomen is obtained. There are nonspecific air-filled loops of bowel within the abdomen. There is no evidence of bowel obstruction. There is a calcification overlying the inferior left renal shadow due to a renal stone or dystrophic ossification. There are cholecystectomy clips. There is rotatory scoliosis of the lumbar spine and multilevel degenerative change primarily the lower lumbar levels. IMPRESSION: Nonobstructive bowel gas pattern. Electronically signed by: Mirtha Higgins MD (02/13/2019 3:23 PM) [place] [id number]
--- NOTE | 2019-02-13 15:49 | CARD ---
MR#: [id number] Date of Study: 02/13/2019 Ordering Physician: KARLEY PHAN, Referring Physician: MARLY CHAVARRIA, Tech: Yeni Dunham APPROVED REPORT EXAM: Two-dimensional and M-mode echocardiogram with Doppler and color Doppler. Other Information Quality : FairHR: 121bpm Technically limited study due to High Heart Rate INDICATION CAD Elevated Troponin Surgery/Intervention CABG: RISK FACTORS Hypertension Hyperlipidemia 2D DIMENSIONS RVDd3.6 (2.9-3.5cm)Left Atrium(2D)3.7 (1.6-4.0cm) IVSd1.1 (0.7-1.1cm)Aortic Root(2D)2.4 (2.0-3.7cm) LVDd4.5 (3.9-5.9cm)LVOT Diameter2.1 (1.8-2.4cm) PWd1.1 (0.7-1.1cm)LVDs2.4 (2.5-4.0cm) FS (%) 46.2 %SV71.2 ml LVEF(%)77.7 (>50%) Aortic Valve AoV Peak Kaiser.190.9cm/sAoV VTI31.7cm AO Peak GR.14.6mmHgLVOT VTI 15.63cm AO Mean GR.11mmHg Mitral Valve MV E Ozatlzjk34.6cm/sMV DECEL [id number] MV A Nfccuajs77.0cm/sE/A Ratio1.1 TDI Lateral E' P. V9.53cm/sMedial E' P. V6.63cm/s E/Lateral E'7.1E/Medial E'10.2 Tricuspid Valve TR P. Hwixjcfo175mn/sRAP [id number] TR Peak Gr.71txNeVQYH30cpEf LEFT VENTRICLE The left ventricle is normal size. There is borderline to mild concentric left ventricular hypertroph y. The left ventricular systolic function is normal. The Ejection Fraction is 60%. There is normal LV segmental wall motion. The left ventricular diastolic function and filling is normal for age. RIGHT VENTRICLE The right ventricle is normal size. There is normal right ventricular wall thickness. The right ventr icular systolic function is normal. ATRIA The left atrium size is normal. The right atrium size is normal. The interatrial septum is intact wit h no evidence for an atrial septal defect or patent foramen ovale as noted on 2-D or Doppler imaging. AORTIC VALVE The aortic valve is normal in structure and function. Doppler and Color Flow revealed no significant aortic regurgitation. There is no significant aortic valvular stenosis. MITRAL VALVE The mitral valve is normal in structure and function. There is no evidence of mitral valve prolapse. There is no mitral valve stenosis. Doppler and Color-flow revealed trace to mild mitral regurgitation . TRICUSPID VALVE The tricuspid valve is normal in structure and function. Doppler and Color Flow revealed trace tricus pid regurgitation with an estimated PAP of 39 mmHg. There is mild pulmonary hypertension. There is no tricuspid valve stenosis. PULMONIC VALVE The pulmonic valve is not well visualized. Doppler and Color Flow revealed no pulmonic valvular regur gitation. GREAT VESSELS The aortic root is normal in size. The IVC is normal in size and collapses >50% with inspiration. PERICARDIAL EFFUSION There is no evidence of significant pericardial effusion. Critical Notification Critical Value: No <Conclusion> The left ventricular systolic function is normal. The Ejection Fraction is 60%. Trace to mild mitral regurgitation. Trace tricuspid regurgitation with an estimated PAP of 39 mmHg. There is no evidence of significant pericardial effusion. Signed by : Will Isabel, Electronically Approved : 02/13/2019 15:48:42
--- NOTE | 2019-02-13 16:08 | NUR ---
SS following for discharge planning. SS reviewed pt chart. Pt is from home and is currently on room air. SS received referral for DPOA information. SS will provide information to pt.
--- NOTE | 2019-02-13 17:00 | NUR ---
Ptwith occ periods of rambling words. Will answer name,date,family names approp. Low grade temp persists as well as persistent nausea and abd discomfort lower abd. Dr Payan updated on neg KUB, and AMS. CT head no contrast done and reported neg. Dr Lee consult called and he was updated. Ty;enol supp given. Compazine for nausea and pt went to sleep. BP better controlled. Armendariz placed earlier as it was diff for pt to get oob( tachycardia) and pt could not use bedpan. Pt talked to her nephew Primo on the phone earlier. Will cont to monitor closely
--- NOTE | 2019-02-13 17:24 | RAD ---
PQRS Compliance statement: One or more of the following individualized dose reduction techniques were utilized for this examination: 1. Automated exposure control. 2. Adjustment of the mA and/or kV according to patient size. 3. Use of iterative reconstruction technique. Indication:CONFUSION, NO PRIORS TECHNIQUE: CT head without IV contrast COMPARISON:None FINDINGS: No pathologic extra-axial or intra-axial fluid collection. The ventricles and basal cisterns are within normal limits. No acute intracranial bleed. No focal loss of fam-white differentiation. Orbits within normal limits. No suspicious calvarial lesion. Visualized paranasal sinuses and mastoid air cells are clear. IMPRESSION: No acute intracranial process. If concern for acute ischemic stroke is high, please consider MRI brain. Electronically signed by: Perez Payan DO (02/13/2019 5:21 PM) [facility]
[2019-02-13] MEDS: ACETAMINOPHEN 650 MG SUPP.RECT. PR PRN (17:26)
[2019-02-13] MEDS: METOPROLOL TARTRATE 5 MG/5 ML VIAL. IVP SCH (17:36)
--- NOTE | 2019-02-13 20:22 | CONS ---
DATE OF CONSULTATION: 02/13/2019 LOCATION: The patient is in room ICU 3. REQUESTING PHYSICIAN: Dr. Barajas in the ER. REASON FOR CONSULTATION: Septic shock. HISTORY OF PRESENT ILLNESS: The patient is a 78-year-old female who lives in assisted living. Does have a history of hypertension for the last several months and a history of heart disease. For the last several days, she has been complaining of increasing abdominal discomfort as well as some nausea, vomiting and frequent stooling, although not a lot of gross diarrhea. She denies any blood in her stool or vomit. She denies any ill contacts. She has been having some fevers, chills and sweats and mild headaches, no change in vision. No sore throat. No cough. Denies any complications with her urine and no rashes. Because of the nausea, vomiting and abdominal discomfort, she presented to [facility] Emergency Room and was found to have a white blood cell count of 27.4 with 92 segs, 4 lymphs. Creatinine of 2.7, glucose of 226, calcium was 12.1. Lactic acid initially was 9.3, but improved to 3.3, creatinine kinase was 223, lipase was 312. Urinalysis is concerning for urinary tract infection. She underwent a CT scan of the abdomen and pelvis without contrast, which showed no acute findings. She has received a dose of metronidazole and a dose of cefepime and has been admitted to the Intensive Care Unit. She has been afebrile; however, blood pressure was 194/125 at presentation and has gone as high as 246/108. PAST MEDICAL HISTORY: Positive for hypertension, hypercholesterolemia, coronary artery disease. PAST SURGICAL HISTORY: Positive for tonsillectomy, cholecystectomy, appendectomy, hysterectomy with bilateral salpingo-oophorectomy, double mastectomy and coronary artery bypass grafting. REVIEW OF SYSTEMS: Otherwise negative except as mentioned above. SOCIAL HISTORY: She continues to smoke. Denies any alcohol. She has a cat. FAMILY HISTORY: Noncontributory. ALLERGIES: SHE IS ALLERGIC TO MORPHINE. CURRENT MEDICATIONS: Metronidazole, cefepime x 1, Pepcid, hydralazine, Reglan, Zofran. PHYSICAL EXAMINATION: VITAL SIGNS: She has been afebrile. Most recent temperature 98, pulse 112, respirations 16, blood pressure 171/107, satting 98% on room air. CONSTITUTIONAL: She is sitting upright in bed. She is cooperative. Looks tired, a little uncomfortable. She is wearing glasses. HEENT: Pupils equal and reactive. Normal conjunctivae. Oral cavity, pharynx is clear. NECK: Supple. Good range of motion. LUNGS: Clear to auscultation. HEART: S1, S2, mild tachycardic. ABDOMEN: Soft, minimally distended. There is tenderness to palpation. There is no guarding and no gross rebound. EXTREMITIES: No clubbing or cyanosis. No gross edema. SKIN: Warm to touch without signs of rash. IV site is clean. NEUROLOGIC: She is nonfocal and appropriate. PSYCHIATRIC: Affect is appropriate. LABORATORY VALUES: White count 27.4, hemoglobin 13.2, platelets of 408, segs 92, lymphs are 4. Lactic acid has improved to 3.3. Troponin of 0.5, creatinine kinase 223, AST 44, ALT 50, alkaline phosphatase 94, initial calcium was 12.1, glucose of 226, creatinine of 2.7, potassium was 28. RADIOLOGY: Reviewed in the history of present illness. IMPRESSION: 1. Sepsis present on admission. 2. Hypertension crisis. 3. Urinary tract infection based on urinalysis. 4. Acute kidney injury on chronic kidney disease, stage 2 to 3. 5. Leukocytosis. RECOMMENDATIONS: We will dose daptomycin, Zosyn and follow up lab and cultures. Electrolyte abnormalities and blood pressure per primary. Await GI evaluation. This was discussed with nursing. TIME SPENT: I spent 35 minutes critical care time. Thank you for allowing me to participate in the patient's care. Should you have any further questions, please do not hesitate to contact me. JUANA ZHAO MD DR: KEO/isael JOB#: [id number] / [id number]
[2019-02-14] VITALS (25 sets, daily range): BP systolic 115–175; BP diastolic 72–98
[2019-02-14] MEDS: METOPROLOL TARTRATE 5 MG/5 ML VIAL. IVP SCH ×4 (00:04→17:07)
[2019-02-14] MEDS: PIPERACILLIN/TAZOBACTAM 2.25 GM in IV NORMAL SALINE 50ML 50 ML IV SCH ×5 (00:05→23:58)
[2019-02-14 05:42] LABS: BASO % 0 % (0-3); EOS % 0 % (0-3); HEMATOCRIT 33.6 % (36.0-47.0); LYMPH # 0.6 x10^3/uL (1.0-4.8); LYMPH % 2 % (24-48); MEAN CORPUSCULAR HEMOGLOBIN 31 pg (25-35); MEAN CORPUSCULAR HGB CONC 33 g/dL (31-37); MEAN CORPUSCULAR VOLUME 95 fL (79-100); MONO # 1.6 x10^3/uL (0.0-1.1); MONO % 6 % (0-9); NEUT # 25.4 x10^3uL (1.8-7.7); NEUT % 92 % (31-73); PLATELET COUNT 288 x10^3/uL (140-400); RED BLOOD COUNT 3.56 x10^6/uL (3.50-5.40); RED CELL DISTRIBUTION WIDTH 14.4 % (11.5-14.5); WHITE BLOOD COUNT 27.6 x10^3/uL (4.0-11.0)
[2019-02-14] MEDS: fentaNYL PF VIAL 100 MCG/2 ML VIAL IV PRN ×3 (05:48→10:35)
[2019-02-14 06:00] LABS: ALBUMIN 2.7 g/dL (3.4-5.0); ALBUMIN/GLOBULIN RATIO 0.8 (1.0-1.7); CREATININE 1.8 mg/dL (0.6-1.0); GFR 27.4; MAGNESIUM 1.3 mg/dL (1.8-2.4); POTASSIUM 3.3 mmol/L (3.5-5.1); TOTAL BILIRUBIN 0.3 mg/dL (0.2-1.0)
--- NOTE | 2019-02-14 06:15 | PDOC ---
Infectious Disease Note Subjective Subjective Still some pain and nausea but more comfortable NO F/C/S/SOA/Rash ROS ROS o/w neg Vital Sign Vital Signs Vital Signs Date Time Temp Pulse Resp B/P (MAP) Pulse Ox O2 Delivery O2 Flow Rate FiO2 02/14/19 06:00 85 20 154/87 (109) 97 Room Air 02/14/19 04:00 98.8 98.8 Physical Exam PHYSICAL EXAM CONSTITUTIONAL: She is sitting upright in bed. She is cooperative. Looks tired, more comfortable. HEENT: Pupils equal and reactive. Normal conjunctivae. Oral cavity, pharynx is clear. NECK: Supple. Good range of motion. LUNGS: Clear to auscultation. HEART: S1, S2, mild tachycardic. ABDOMEN: Soft, minimally distended. There is less tenderness to palpation. There is no guarding and no gross rebound. : - lawson EXTREMITIES: No clubbing or cyanosis. No gross edema. SKIN: Warm to touch without signs of rash. IV site is clean. NEUROLOGIC: She is nonfocal and appropriate. PSYCHIATRIC: Affect is appropriate Labs Lab Laboratory Tests Test 02/13/19 06:40 02/13/19 09:50 02/13/19 13:55 02/14/19 04:35 Lactic Acid Level 3.3 mmol/L (0.4-2.0) 1.5 mmol/L (0.4-2.0) Troponin I Quantitative 0.050 ng/mL (0.000-0.055) 0.204 ng/mL (0.000-0.055) 0.421 ng/mL (0.000-0.055) Triglycerides Level 184 mg/dL (0-150) Cholesterol Level 142 mg/dL (0-200) LDL Cholesterol, Calculated 57 mg/dL (0-100) VLDL Cholesterol, Calculated 37 mg/dL (0-40) Non-HDL Cholesterol Calculated 94 mg/dL (0-129) HDL Cholesterol 48 mg/dL (40-60) Cholesterol/HDL Ratio 3.0 Sodium Level 142 mmol/L (136-145) 148 mmol/L (136-145) Potassium Level 3.6 mmol/L (3.5-5.1) 3.3 mmol/L (3.5-5.1) Chloride Level 103 mmol/L (98-107) 111 mmol/L (98-107) Carbon Dioxide Level 22 mmol/L (21-32) 19 mmol/L (21-32) Anion Gap 17 (6-14) 18 (6-14) Blood Urea Nitrogen 25 mg/dL (7-20) 22 mg/dL (7-20) Creatinine 1.9 mg/dL (0.6-1.0) 1.8 mg/dL (0.6-1.0) Estimated GFR (Cockcroft-Gault) 25.7 27.4 Glucose Level 154 mg/dL (70-99) 100 mg/dL (70-99) Calcium Level 10.0 mg/dL (8.5-10.1) 9.0 mg/dL (8.5-10.1) Ionized Calcium 1.24 mmol/L (1.13-1.32) White Blood Count 27.6 x10^3/uL (4.0-11.0) Red Blood Count 3.56 x10^6/uL (3.50-5.40) Hemoglobin 11.0 g/dL (12.0-15.5) Hematocrit 33.6 % (36.0-47.0) Mean Corpuscular Volume 95 fL (79-100) Mean Corpuscular Hemoglobin 31 pg (25-35) Mean Corpuscular Hemoglobin Concent 33 g/dL (31-37) Red Cell Distribution Width 14.4 % (11.5-14.5) Platelet Count 288 x10^3/uL (140-400) Neutrophils (%) (Auto) 92 % (31-73) Lymphocytes (%) (Auto) 2 % (24-48) Monocytes (%) (Auto) 6 % (0-9) Eosinophils (%) (Auto) 0 % (0-3) Basophils (%) (Auto) 0 % (0-3) Neutrophils # (Auto) 25.4 x10^3uL (1.8-7.7) Lymphocytes # (Auto) 0.6 x10^3/uL (1.0-4.8) Monocytes # (Auto) 1.6 x10^3/uL (0.0-1.1) Eosinophils # (Auto) 0.0 x10^3/uL (0.0-0.7) Basophils # (Auto) 0.0 x10^3/uL (0.0-0.2) BUN/Creatinine Ratio 12 (6-20) Magnesium Level 1.3 mg/dL (1.8-2.4) Total Bilirubin 0.3 mg/dL (0.2-1.0) Aspartate Amino Transf (AST/SGOT) 66 U/L (15-37) Alanine Aminotransferase (ALT/SGPT) 44 U/L (14-59) Alkaline Phosphatase 62 U/L (46-116) Total Protein 6.0 g/dL (6.4-8.2) Albumin 2.7 g/dL (3.4-5.0) Albumin/Globulin Ratio 0.8 (1.0-1.7) Micro Microbiology 02/13/19 Blood Culture - Preliminary, Resulted NO GROWTH AFTER 1 DAY Objective Assessment Sepsis - POA - Lactic acid better - clinically looks some better Leukocytosis - stable but still elevated HTN crisis - better UTI- POA based on UA Elevated Troponin - increasing JUAN CARLOS on CKD stage 2 to 3 -stable Encephalopathy - better likely lack of sleep/metabolic Electrolyte abnormalities Plan Plan of Care Add Procalcitonin to this am although maybe elevated with Increased Cr Check TSH given increased BP and HTN Await further Card eval Cont Daptomycin and Zosyn F/u labs and cults Electrolyte abnormalities and BP per primary D/w nursing Critically ill JUANA ZHAO MD Feb 14, 2019 06:15
[2019-02-14] MEDS: PANTOPRAZOLE IV PUSH 40 MG VIAL. IVP SCH (07:29)
[2019-02-14] MEDS: ASPIRIN ENTERIC COATED 81 MG TABLET.DR. PO SCH (08:00)
[2019-02-14] MEDS: DAPTOmycin (GENERIC) IVPB 340 MG in IV NORMAL SALINE 50ML 50 ML IV SCH (08:03)
[2019-02-14] MEDS: hydrALAZINE 20 MG/ML VIAL. IVP PRN (09:17)
--- NOTE | 2019-02-14 09:39 | PDOC ---
Subjective: Subjective: Ongoing nausea and pain. Objective: Vital Signs: Vital Signs Date Time Temp Pulse Resp B/P (MAP) Pulse Ox O2 Delivery O2 Flow Rate FiO2 02/14/19 09:17 120 168/98 02/14/19 09:00 28 Room Air 02/14/19 07:00 98.5 96 98.5 Labs: Laboratory Tests Test 02/13/19 09:50 02/13/19 13:55 02/14/19 04:35 Sodium Level 142 mmol/L 148 mmol/L Potassium Level 3.6 mmol/L 3.3 mmol/L Chloride Level 103 mmol/L 111 mmol/L Carbon Dioxide Level 22 mmol/L 19 mmol/L Anion Gap 17 18 Blood Urea Nitrogen 25 mg/dL 22 mg/dL Creatinine 1.9 mg/dL 1.8 mg/dL Estimated GFR (Cockcroft-Gault) 25.7 27.4 Glucose Level 154 mg/dL 100 mg/dL Calcium Level 10.0 mg/dL 9.0 mg/dL Ionized Calcium 1.24 mmol/L Troponin I Quantitative 0.204 ng/mL 0.421 ng/mL Lactic Acid Level 1.5 mmol/L White Blood Count 27.6 x10^3/uL Red Blood Count 3.56 x10^6/uL Hemoglobin 11.0 g/dL Hematocrit 33.6 % Mean Corpuscular Volume 95 fL Mean Corpuscular Hemoglobin 31 pg Mean Corpuscular Hemoglobin Concent 33 g/dL Red Cell Distribution Width 14.4 % Platelet Count 288 x10^3/uL Neutrophils (%) (Auto) 92 % Lymphocytes (%) (Auto) 2 % Monocytes (%) (Auto) 6 % Eosinophils (%) (Auto) 0 % Basophils (%) (Auto) 0 % Neutrophils # (Auto) 25.4 x10^3uL Lymphocytes # (Auto) 0.6 x10^3/uL Monocytes # (Auto) 1.6 x10^3/uL Eosinophils # (Auto) 0.0 x10^3/uL Basophils # (Auto) 0.0 x10^3/uL BUN/Creatinine Ratio 12 Magnesium Level 1.3 mg/dL Total Bilirubin 0.3 mg/dL Aspartate Amino Transf (AST/SGOT) 66 U/L Alanine Aminotransferase (ALT/SGPT) 44 U/L Alkaline Phosphatase 62 U/L Total Protein 6.0 g/dL Albumin 2.7 g/dL Albumin/Globulin Ratio 0.8 Procalcitonin 0.36 ng/mL Thyroid Stimulating Hormone (TSH) 0.389 uIU/mL BLOOD CULTURE Preliminary NO GROWTH AFTER 1 DAY Imaging: KUB 02/13 IMPRESSION: Nonobstructive bowel gas pattern. CT Head 02/13 IMPRESSION: No acute intracranial process. If concern for acute ischemic stroke is high, please consider MRI brain. Echocardiogram 02/13 <Conclusion> The left ventricular systolic function is normal. The Ejection Fraction is 60%. Trace to mild mitral regurgitation. Trace tricuspid regurgitation with an estimated PAP of 39 mmHg. There is no evidence of significant pericardial effusion. PE: GEN: uncomfortable LUNGS: CTAB HEART: tachycardic ABD: quiet, soft, periumbilical tenderness NEURO/PSYCH: A & O 3 A/P: Nausea, abd pain Leukocytosis (stable), lactic acidosis (improved), JUAN CARLOS (better), mildly elevated troponin, UTI HTN -- Ongoing symptoms - will review w/ Dr. Cunha. FELIPA JOHN Feb 14, 2019 09:39
[2019-02-14] MEDS: ACETAMINOPHEN 650 MG SUPP.RECT. PR PRN (10:12)
[2019-02-14] MEDS: ONDANSETRON PF 4 MG/2 ML VIAL. IV PRN (10:12)
--- NOTE | 2019-02-14 11:15 | PDOC ---
KARLEY PHAN METAL TUBE CUTTER 02/14/19 1114: CARDIO Progress Notes Date and Time Date of Service 02/14/19 Time of Evaluation 1045 Subjective Subjective: Other (confused ) Vitals Vitals Vital Signs Date Time Temp Pulse Resp B/P (MAP) Pulse Ox O2 Delivery O2 Flow Rate FiO2 02/14/19 11:00 106 30 137/76 (96) 96 Room Air 02/14/19 07:00 98.5 98.5 Weight Weight [ ] Input and Output Intake and Output Intake and Output 02/14/19 07:00 Intake Total 1500 ml Output Total 2200 ml Balance -700 ml Intake Oral 0 ml IV Total 1500 ml Output Urine Total 2200 ml Laboratory Labs Laboratory Tests Test 02/13/19 13:55 02/14/19 04:35 Lactic Acid Level 1.5 mmol/L (0.4-2.0) Troponin I Quantitative 0.421 ng/mL (0.000-0.055) White Blood Count 27.6 x10^3/uL (4.0-11.0) Red Blood Count 3.56 x10^6/uL (3.50-5.40) Hemoglobin 11.0 g/dL (12.0-15.5) Hematocrit 33.6 % (36.0-47.0) Mean Corpuscular Volume 95 fL (79-100) Mean Corpuscular Hemoglobin 31 pg (25-35) Mean Corpuscular Hemoglobin Concent 33 g/dL (31-37) Red Cell Distribution Width 14.4 % (11.5-14.5) Platelet Count 288 x10^3/uL (140-400) Neutrophils (%) (Auto) 92 % (31-73) Lymphocytes (%) (Auto) 2 % (24-48) Monocytes (%) (Auto) 6 % (0-9) Eosinophils (%) (Auto) 0 % (0-3) Basophils (%) (Auto) 0 % (0-3) Neutrophils # (Auto) 25.4 x10^3uL (1.8-7.7) Lymphocytes # (Auto) 0.6 x10^3/uL (1.0-4.8) Monocytes # (Auto) 1.6 x10^3/uL (0.0-1.1) Eosinophils # (Auto) 0.0 x10^3/uL (0.0-0.7) Basophils # (Auto) 0.0 x10^3/uL (0.0-0.2) Sodium Level 148 mmol/L (136-145) Potassium Level 3.3 mmol/L (3.5-5.1) Chloride Level 111 mmol/L (98-107) Carbon Dioxide Level 19 mmol/L (21-32) Anion Gap 18 (6-14) Blood Urea Nitrogen 22 mg/dL (7-20) Creatinine 1.8 mg/dL (0.6-1.0) Estimated GFR (Cockcroft-Gault) 27.4 BUN/Creatinine Ratio 12 (6-20) Glucose Level 100 mg/dL (70-99) Calcium Level 9.0 mg/dL (8.5-10.1) Magnesium Level 1.3 mg/dL (1.8-2.4) Total Bilirubin 0.3 mg/dL (0.2-1.0) Aspartate Amino Transf (AST/SGOT) 66 U/L (15-37) Alanine Aminotransferase (ALT/SGPT) 44 U/L (14-59) Alkaline Phosphatase 62 U/L (46-116) Total Protein 6.0 g/dL (6.4-8.2) Albumin 2.7 g/dL (3.4-5.0) Albumin/Globulin Ratio 0.8 (1.0-1.7) Procalcitonin 0.36 ng/mL (0.00-0.10) Thyroid Stimulating Hormone (TSH) 0.389 uIU/mL (0.358-3.74) Microbiology Micro Microbiology 02/13/19 Blood Culture - Preliminary, Resulted NO GROWTH AFTER 1 DAY Physical Exam HEENT: Neck Supple W Full Motion Chest: Symmetric LUNGS: Clear to Auscultation, Other (diminished bases) Heart: S1S2, RRR (SR/ST) Abdomen: Other (tenderness) Extremities: No Edema Neurology: alert, confused Assessment Assessment 1. Malignant hypertension; better 2. Mild troponin elevation; highest 0.4. Most probably type II, demand ischemic. Multifactorial. Echo showed preserved LV function 3. Nausea/vomiting/diarrhea; CT abd/pelvis and KUB without acute findings. GI following 4. Severe hypokalemia, hypomagnesemia; replaced 5. Leukocytosis, lactic acidosis, UTI, ? sepsis; blood cultures o growth so far. per ID 6. Tachycardia, sinus. Reactive. Possible arrhythmia; concerns for possible A- flutter. Tele full disclosure review, stirps in concern are artifact due to shaking/tremors 7. JUAN CARLOS on CKD 8. CAD s/p remote CABG in 2000 with subsequent stents in 2014 9. Hyperlipidemia 10. Hypomagnesemia 11. Metabolic encephalopathy Recommendations Repeat troponin to note peak Metoprolol IV q6 while NPO Hydralazine IV PRN Replace Mg, monitor lytes Supportive care. LISA NICOLE MD 02/15/19 0728: CARDIO Progress Notes Assessment Assessment Patient seen and examined 02/14/19. Agree with CUSTODIAN MANAGER's assessment and plan. Non-STEMI most probably type 2/demand ischemia Blood pressure continues to be labile Continue current management for sepsis We will consider ischemic evaluation once active issues resolve KARLEY PHAN APRN Feb 14, 2019 11:14 LISA NICOLE MD Feb 15, 2019 07:28
--- NOTE | 2019-02-14 12:44 | NUR ---
See nursing communication. Dr. Ellis notified of procalcitonin level 0.36. Payton Chirinos ARCHITECTURE CONSULTANT here at 1200 and notified of patient tachycardia and tachypnea, a-flutter uncontrolled, she compared production lead with strips and states patient is sinus tach., flutter waves from patient frequent movement of arms; she was also notified of potassium level 3.3 and magnesium 1.3. Patient forgetful, confused and restless. Her nephew Jesse has called times two to check her status and she verb. understanding and was able to give RN phone number for her assisted living place for him to call. Continue close monitor.
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
[2019-02-14] MEDS ORDERED: MAGNESIUM SULFATE 2GM 50 ML IV ONE (14:00)
--- NOTE | 2019-02-14 14:43 | NUR ---
See nursing communication, troponin 1.379 called to Payton Aguero Cardiac PHOTOGRAPHIC EQUIPMENT TECHNICIAN, to d/w lead applications developer.
--- NOTE | 2019-02-14 15:42 | PDOC ---
PROGRESS NOTES Subjective Subjective pt awake denies pain Objective Objective Vital Signs Date Time Temp Pulse Resp B/P (MAP) Pulse Ox O2 Delivery O2 Flow Rate FiO2 02/14/19 15:00 126 32 140/84 (102) 96 Room Air 02/14/19 12:00 98.4 98.4 Intake and Output 02/14/19 07:00 Intake Total 1500 ml Output Total 2200 ml Balance -700 ml Intake Oral 0 ml IV Total 1500 ml Output Urine Total 2200 ml Physical Exam Abdomen: Soft, Other (diffuse tenderness) Heart: Regular rate (SR/ST), Normal S1, Normal S2 Extremities: No edema, Normal pulses General: Alert, Oriented X3, Cooperative, No acute distress, Other (fatigued ) HEENT: Atraumatic, Mucous membr. moist/pink Lungs: Clear to auscultation MUSCULOSKELETAL: Osteoarthritic changes both hands Neuro: Normal speech, Sensation intact Psych/Mental Status: Mental status NL, Mood NL Skin: No breakdown, No significant lesion Diagnosis Problem List Problems Medical Problems: (1) Hypokalemia Status: Acute (2) Hypomagnesemia Status: Acute (3) Lactic acidosis Status: Acute Assessment Assessment Problems Medical Problems: (1) Hypokalemia Status: Acute (2) Hypomagnesemia Status: Acute (3) Lactic acidosis Status: Acute MPRESSION: luis eduardo troponin 1.3, non stemi 1. Sepsis, clinically improving. Lactic acid level has decreased to 3. 2. Hypertensive crisis. 3. Urinary tract infection. 4. Abdominal pain, rule out ischemic colitis, possible gastroenteritis. 5. Acute renal failure with chronic kidney disease. 6. Coronary artery disease, status post coronary artery bypass graft. PLAN: ? central line iv daptomycin+zosyn. iv fluids ct scan abd and pelvis -ve ct head -neg. blood c/s neg. urine c/s pending seen in ICU wbc 27 high Continue IV labetalol and hydralazine. The patient is n.p.o. at this time. If no improvement, she will need IV Nipride. Consult Dr. Kemp for cardiology evaluation and management. For sepsis, consult Dr. Fajardo. She has been started on IV daptomycin, metronidazole, Zosyn and cefepime. Consult Dr. Rodríguez for GI evaluation and management. Keep n.p.o., continue IV fluids, replace potassium, monitor labs. Obtain cultures. Last potassium is 3.6, BUN has decreased to 25 and creatinine is 1.9 and calcium level is decreased to 10. The patient is admitted to ICU, clinically improving. For details, please refer the orders. Plan Plan of Care Problems Medical Problems: (1) Hypokalemia Status: Acute (2) Hypomagnesemia Status: Acute (3) Lactic acidosis Status: Acute Comment Review of Relevant I have reviewed the following items fartun (where applicable) has been applied. Labs Laboratory Tests Test 02/14/19 04:35 White Blood Count 27.6 x10^3/uL (4.0-11.0) Red Blood Count 3.56 x10^6/uL (3.50-5.40) Hemoglobin 11.0 g/dL (12.0-15.5) Hematocrit 33.6 % (36.0-47.0) Mean Corpuscular Volume 95 fL (79-100) Mean Corpuscular Hemoglobin 31 pg (25-35) Mean Corpuscular Hemoglobin Concent 33 g/dL (31-37) Red Cell Distribution Width 14.4 % (11.5-14.5) Platelet Count 288 x10^3/uL (140-400) Neutrophils (%) (Auto) 92 % (31-73) Lymphocytes (%) (Auto) 2 % (24-48) Monocytes (%) (Auto) 6 % (0-9) Eosinophils (%) (Auto) 0 % (0-3) Basophils (%) (Auto) 0 % (0-3) Neutrophils # (Auto) 25.4 x10^3uL (1.8-7.7) Lymphocytes # (Auto) 0.6 x10^3/uL (1.0-4.8) Monocytes # (Auto) 1.6 x10^3/uL (0.0-1.1) Eosinophils # (Auto) 0.0 x10^3/uL (0.0-0.7) Basophils # (Auto) 0.0 x10^3/uL (0.0-0.2) Sodium Level 148 mmol/L (136-145) Potassium Level 3.3 mmol/L (3.5-5.1) Chloride Level 111 mmol/L (98-107) Carbon Dioxide Level 19 mmol/L (21-32) Anion Gap 18 (6-14) Blood Urea Nitrogen 22 mg/dL (7-20) Creatinine 1.8 mg/dL (0.6-1.0) Estimated GFR (Cockcroft-Gault) 27.4 BUN/Creatinine Ratio 12 (6-20) Glucose Level 100 mg/dL (70-99) Calcium Level 9.0 mg/dL (8.5-10.1) Magnesium Level 1.3 mg/dL (1.8-2.4) Total Bilirubin 0.3 mg/dL (0.2-1.0) Aspartate Amino Transf (AST/SGOT) 66 U/L (15-37) Alanine Aminotransferase (ALT/SGPT) 44 U/L (14-59) Alkaline Phosphatase 62 U/L (46-116) Troponin I Quantitative 1.379 ng/mL (0.000-0.055) Total Protein 6.0 g/dL (6.4-8.2) Albumin 2.7 g/dL (3.4-5.0) Albumin/Globulin Ratio 0.8 (1.0-1.7) Procalcitonin 0.36 ng/mL (0.00-0.10) Thyroid Stimulating Hormone (TSH) 0.389 uIU/mL (0.358-3.74) Microbiology 02/13/19 Blood Culture - Preliminary, Resulted NO GROWTH AFTER 1 DAY Medications Current Medications Acetaminophen (Tylenol Supp) 650 mg PRN Q6HRS PRN [place] MILD PAIN / TEMP Last administered on 02/14/19at 10:12; Start 02/13/19 at 17:15 Magnesium Sulfate 50 ml @ 25 mls/hr 1X ONCE IV Last administered on 02/14/19at 14:30; Start 02/14/19 at 14:00; Stop 02/14/19 at 15:59 Metoprolol Tartrate (Lopressor Vial) 5 mg Q6HRS IVP Last administered on at 12:06; Start 02/13/19 at 18:00 Vitals/I & O Vital Sign - Last 24 Hours 02/13/19 02/13/19 02/13/19 02/13/19 16:00 16:00 17:00 17:36 Temp 98.6 98.6 Pulse 100 116 118 Resp 25 20 B/P (MAP) 173/79 (110) Pulse Ox 100 95 O2 Delivery Room Air Room Air Room Air 02/13/19 02/13/19 02/13/19 02/13/19 18:00 20:00 20:03 21:00 Temp 98.9 98.9 Pulse 92 94 108 Resp 20 18 20 B/P (MAP) 163/85 (111) 171/93 (119) Pulse Ox 96 96 96 O2 Delivery Room Air Room Air Room Air Room Air 02/13/19 02/13/19 02/13/19 02/14/19 22:00 23:00 23:59 00:00 Temp 99.0 98.8 99.0 98.8 Pulse 114 110 100 Resp 20 18 20 B/P (MAP) 171/85 (113) 183/89 (120) 175/91 (119) Pulse Ox 97 95 95 O2 Delivery Nasal Cannula Room Air Room Air Room Air 02/14/19 02/14/19 02/14/19 02/14/19 00:04 01:00 02:00 03:00 Pulse 104 100 102 100 Resp 20 20 20 B/P (MAP) 175/91 158/88 (111) 161/90 (113) 162/84 (110) Pulse Ox 95 96 94 O2 Delivery Room Air Room Air Nasal Cannula 02/14/19 02/14/19 02/14/19 02/14/19 04:00 04:00 05:00 05:36 Temp 98.8 98.8 Pulse 106 102 118 Resp 20 20 B/P (MAP) 162/84 (110) 167/86 (113) 167/96 Pulse Ox 97 98 O2 Delivery Room Air Room Air Room Air 02/14/19 02/14/19 02/14/19 02/14/19 05:48 06:00 07:00 07:50 Temp 98.5 98.5 Pulse 85 106 Resp 20 20 27 B/P (MAP) 154/87 (109) 166/85 (112) Pulse Ox 96 97 96 O2 Delivery Room Air Room Air Room Air Room Air 02/14/19 02/14/19 02/14/19 02/14/19 08:00 08:15 09:00 09:17 Pulse 116 120 120 Resp 29 24 28 B/P (MAP) 164/94 (117) 168/98 (121) 168/98 O2 Delivery Room Air Room Air Room Air 02/14/19 02/14/19 02/14/19/4/19 10:00 10:35 11:00 11:05 Pulse 128 106 Resp 32 30 30 28 B/P (MAP) 119/72 (88) 137/76 (96) Pulse Ox 96 94 96 95 O2 Delivery Room Air Room Air Room Air Room Air 02/14/19 02/14/19 02/14/19 02/14/19 12:00 12:00 12:06 13:00 Temp 98.4 98.4 Pulse 120 124 108 Resp 26 22 B/P (MAP) 142/81 (101) 142/90 148/72 (97) Pulse Ox 94 O2 Delivery Room Air Room Air Room Air 02/14/19 02/14/19 14:00 15:00 Pulse 115 126 Resp 28 32 B/P (MAP) 115/76 (89) 140/84 (102) Pulse Ox 97 96 O2 Delivery Room Air Room Air Intake and Output 02/13/19 02/13/19 02/14/19 15:00 23:00 07:00 Intake Total 1000 ml 500 ml 0 ml Output Total 1030 ml 420 ml 750 ml Balance -30 ml 80 ml -750 ml Nutrition Consultation Dietary Evaluation: Comments: Advance diet per GI-will follow GI recommendations Expected Outcomes/Goals: Diet advancement-once advanced P.O. intake to meet >75% estimated needs Interpretation of weight loss: >5% in 1 month Malnutrition Findings: Weight Status: Overweight RAFIQ SALAS MD Feb 14, 2019 15:41
--- NOTE | 2019-02-14 15:44 | NUR ---
Dr. Oakley here to see patient. Patient more alert, knows she is in ICU, name and birthdate. Speech clear, she verb. understanding anesthesia for Central Line insertion. glass vial filler Larissa and another RN unable to find IV access, patient only has left AC IV. Dr. Oakley ordered anesth. for CL placement. Anesthesia paged. Patient verb. understanding POC, states she has had a CL before. Consents witnessed. Will notify patient's nephew Primo.
--- NOTE | 2019-02-14 15:49 | NUR ---
Anesth. Dr. Aguero states IR does CL. Tiny in IR notified, they are to do CL. See orders.
--- NOTE | 2019-02-14 15:54 | NUR ---
Patient's nephew Primo notified patient to have CL insertion and update on her status, he is going by her apartment and to look for cell phone belt molder she is requesting.
--- NOTE | 2019-02-14 15:58 | EKG ---
[facility] [address] [place] [address] Test Date: 2019-02-14 Test Time: 15:50:50 Pat Name: ADALBERTO MULLINS Department: Room: 103 1 Gender: F [employer]: ANDRE : 1940 Requested By: WILLIAMS FAUST Order Number: [id number] Reading MD: Lei Calderon MD Measurements Intervals [place] Rate: 133 P: HI: QRS: 81 QRSD: 86 T: -47 QT: 336 QTc: 501 Interpretive Statements SVT PROBALBLE FLUTTER Electronically Signed On 02-18-2019 15:51:37 CDT by Lei Calderon MD
--- NOTE | 2019-02-14 16:37 | NUR ---
CL insertion RIJ per Dr. Martinez confirmed by PCXR, see CL insertion record, OK for use.
--- NOTE | 2019-02-14 17:04 | RAD ---
EXAM: Chest, single view. HISTORY: Atrial fibrillation. Central venous catheter placement. COMPARISON: None. FINDINGS: A frontal view of the chest is obtained. There is a right internal jugular central venous catheter with the tip in the right atrium. There is suspected mild pulmonary congestion. There is mild cardiomegaly and evidence of prior CABG. There is no pleural effusion or pneumothorax. There are right axillary clips. IMPRESSION: 1. Right internal jugular catheter with the tip in the right atrium. 2. Suspected mild pulmonary congestion and cardiomegaly. Electronically signed by: Mirtha Higgins MD (02/14/2019 5:02 PM) [place] [id number]
--- NOTE | 2019-02-14 17:28 | NUR ---
RIJ TL CL with good blood return patent for IVF, no swelling or bleeding at site. Patient resting comfortably. Continue cares and monitor.
[2019-02-15] VITALS (13 sets, daily range): BP systolic 103–166; BP diastolic 58–105
[2019-02-15] MEDS: fentaNYL PF VIAL 100 MCG/2 ML VIAL IV PRN ×3 (00:01→05:38)
[2019-02-15] MEDS: METOPROLOL TARTRATE 5 MG/5 ML VIAL. IVP SCH ×2 (00:02→06:00)
[2019-02-15] MEDS: ONDANSETRON PF 4 MG/2 ML VIAL. IV PRN (00:49)
[2019-02-15] MEDS: PIPERACILLIN/TAZOBACTAM 2.25 GM in IV NORMAL SALINE 50ML 50 ML IV SCH ×3 (05:43→17:54)
[2019-02-15 06:06] LABS: BASO % 0 % (0-3); EOS % 0 % (0-3); HEMATOCRIT 31.2 % (36.0-47.0); HEMOGLOBIN 10.3 g/dL (12.0-15.5); LYMPH # 0.7 x10^3/uL (1.0-4.8); LYMPH % 4 % (24-48); MEAN CORPUSCULAR HEMOGLOBIN 32 pg (25-35); MEAN CORPUSCULAR HGB CONC 33 g/dL (31-37); MEAN CORPUSCULAR VOLUME 95 fL (79-100); MONO # 1.2 x10^3/uL (0.0-1.1); MONO % 6 % (0-9); NEUT # 18.4 x10^3uL (1.8-7.7); NEUT % 90 % (31-73); PLATELET COUNT 223 x10^3/uL (140-400); RED BLOOD COUNT 3.27 x10^6/uL (3.50-5.40); RED CELL DISTRIBUTION WIDTH 14.9 % (11.5-14.5); WHITE BLOOD COUNT 20.4 x10^3/uL (4.0-11.0)
[2019-02-15 06:17] LABS: CALCIUM 8.8 mg/dL (8.5-10.1); CREATININE 1.9 mg/dL (0.6-1.0); GFR 25.7; POTASSIUM 3.9 mmol/L (3.5-5.1)
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
[2019-02-15] MEDS: ASPIRIN ENTERIC COATED 81 MG TABLET.DR. PO SCH ×2 (08:00→10:03)
[2019-02-15] MEDS: PANTOPRAZOLE IV PUSH 40 MG VIAL. IVP SCH (08:51)
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
--- NOTE | 2019-02-15 09:14 | PDOC ---
Subjective: Subjective: "Not too good." Has nausea but less. Upper abd and chest pain. Objective: Vital Signs: Vital Signs Date Time Temp Pulse Resp B/P (MAP) Pulse Ox O2 Delivery O2 Flow Rate FiO2 02/15/19 07:00 97.9 124 17 162/101 (121) 96 Room Air 97.9 Labs: Laboratory Tests Test 02/15/19 05:45 White Blood Count 20.4 x10^3/uL Red Blood Count 3.27 x10^6/uL Hemoglobin 10.3 g/dL Hematocrit 31.2 % Mean Corpuscular Volume 95 fL Mean Corpuscular Hemoglobin 32 pg Mean Corpuscular Hemoglobin Concent 33 g/dL Red Cell Distribution Width 14.9 % Platelet Count 223 x10^3/uL Neutrophils (%) (Auto) 90 % Lymphocytes (%) (Auto) 4 % Monocytes (%) (Auto) 6 % Eosinophils (%) (Auto) 0 % Basophils (%) (Auto) 0 % Neutrophils # (Auto) 18.4 x10^3uL Lymphocytes # (Auto) 0.7 x10^3/uL Monocytes # (Auto) 1.2 x10^3/uL Eosinophils # (Auto) 0.0 x10^3/uL Basophils # (Auto) 0.0 x10^3/uL Sodium Level 154 mmol/L Potassium Level 3.9 mmol/L Chloride Level 119 mmol/L Carbon Dioxide Level 17 mmol/L Anion Gap 18 Blood Urea Nitrogen 24 mg/dL Creatinine 1.9 mg/dL Estimated GFR (Cockcroft-Gault) 25.7 Glucose Level 99 mg/dL Calcium Level 8.8 mg/dL Magnesium Level 2.0 mg/dL Troponin I Quantitative 1.479 ng/mL PE: GEN: uncomfortable LUNGS: clear anteriorly HEART: tachycardic ABD: quiet BS, soft, epigastric discomfort into substernal region/midchest NEURO/PSYCH: A & O 3 A/P: Nausea, upper abd/chest pain UTI/sepsis - WBC improved CKD/JUAN CARLOS NSTEMI, h/o CAD - previous cardiology recs for possible ischemia eval once acute issues resolve -- Slow/mild elevation in troponin w/ sepsis. So far, recs for medical therapy per cardiology. Okay to try diet per GI. FELIPA JOHN Feb 15, 2019 09:14
--- NOTE | 2019-02-15 09:31 | NUR ---
SS following up with discharge planning. SS met with pt and provided information on DPOA paperwork. Pt requested that SS leave in her room and she would review it with her nephew. Pt is from [facility]. No discharge needs noted at this time. SS will continue to follow for discharge planning.
--- NOTE | 2019-02-15 10:02 | PDOC ---
PROGRESS NOTES Subjective Subjective pt want to eat Objective Objective Vital Signs Date Time Temp Pulse Resp B/P (MAP) Pulse Ox O2 Delivery O2 Flow Rate FiO2 02/15/19 09:00 97.9 130 16 141/89 (106) 96 Room Air 97.9 Intake and Output 02/15/19 07:00 Intake Total 3410 ml Output Total 1271 ml Balance 2139 ml IV Total 3410 ml Output Urine Total 1271 ml Physical Exam Abdomen: Soft, Other (diffuse tenderness) Heart: Regular rate (SR/ST), Normal S1, Normal S2 Extremities: No edema, Normal pulses General: Alert, Oriented X3, Cooperative, No acute distress, Other (fatigued ) HEENT: Atraumatic, Mucous membr. moist/pink Lungs: Clear to auscultation MUSCULOSKELETAL: Osteoarthritic changes both hands Neuro: Normal speech, Sensation intact Psych/Mental Status: Mental status NL, Mood NL Skin: No breakdown, No significant lesion COMMENT lawson+central line Diagnosis Problem List Problems Medical Problems: (1) Hypokalemia Status: Acute (2) Hypomagnesemia Status: Acute (3) Lactic acidosis Status: Acute Assessment Assessment Problems Medical Problems: (1) Hypokalemia Status: Acute (2) Hypomagnesemia Status: Acute (3) Lactic acidosis Status: Acute IMPRESSION: * luis eduardo troponin 1.3, non stemi 1. Sepsis, clinically improving. Lactic acid level has decreased to 3. 2. Hypertensive crisis. 3. Urinary tract infection. 4. Abdominal pain, rule out ischemic colitis, possible gastroenteritis. 5. Acute renal failure with chronic kidney disease. 6. Coronary artery disease, status post coronary artery bypass graft. PLAN: central line placed iv daptomycin+zosyn. wbc [address] scan abd and pelvis -ve ct head -neg. blood c/s neg. urine c/s E Coli seen in ICU Na 153 , cr 1.9 plocalamine, luis eduardo troponin non stemi Plan Plan of Care Problems Medical Problems: (1) Hypokalemia Status: Acute (2) Hypomagnesemia Status: Acute (3) Lactic acidosis Status: Acute Comment Review of Relevant I have reviewed the following items fartun (where applicable) has been applied. Labs Laboratory Tests Test 02/15/19 05:45 White Blood Count 20.4 x10^3/uL (4.0-11.0) Red Blood Count 3.27 x10^6/uL (3.50-5.40) Hemoglobin 10.3 g/dL (12.0-15.5) Hematocrit 31.2 % (36.0-47.0) Mean Corpuscular Volume 95 fL (79-100) Mean Corpuscular Hemoglobin 32 pg (25-35) Mean Corpuscular Hemoglobin Concent 33 g/dL (31-37) Red Cell Distribution Width 14.9 % (11.5-14.5) Platelet Count 223 x10^3/uL (140-400) Neutrophils (%) (Auto) 90 % (31-73) Lymphocytes (%) (Auto) 4 % (24-48) Monocytes (%) (Auto) 6 % (0-9) Eosinophils (%) (Auto) 0 % (0-3) Basophils (%) (Auto) 0 % (0-3) Neutrophils # (Auto) 18.4 x10^3uL (1.8-7.7) Lymphocytes # (Auto) 0.7 x10^3/uL (1.0-4.8) Monocytes # (Auto) 1.2 x10^3/uL (0.0-1.1) Eosinophils # (Auto) 0.0 x10^3/uL (0.0-0.7) Basophils # (Auto) 0.0 x10^3/uL (0.0-0.2) Sodium Level 154 mmol/L (136-145) Potassium Level 3.9 mmol/L (3.5-5.1) Chloride Level 119 mmol/L (98-107) Carbon Dioxide Level 17 mmol/L (21-32) Anion Gap 18 (6-14) Blood Urea Nitrogen 24 mg/dL (7-20) Creatinine 1.9 mg/dL (0.6-1.0) Estimated GFR (Cockcroft-Gault) 25.7 Glucose Level 99 mg/dL (70-99) Calcium Level 8.8 mg/dL (8.5-10.1) Magnesium Level 2.0 mg/dL (1.8-2.4) Troponin I Quantitative 1.479 ng/mL (0.000-0.055) Microbiology 02/13/19 Blood Culture - Preliminary, Resulted NO GROWTH AFTER 2 DAYS 02/13/19 Urine Culture - Preliminary, Resulted 02/13/19 Urine Culture Result 1 (ABI) - Preliminary, Resulted Medications Current Medications Magnesium Sulfate 50 ml @ 25 mls/hr 1X ONCE IV Last administered on 02/14/19at 14:30; Start 02/14/19 at 14:00; Stop 02/14/19 at 15:59; Status DC Vitals/I & O Vital Sign - Last 24 Hours 02/14/19 02/14/19 02/14/19 02/14/19 10:35 11:00 12:00 12:00 Temp 98.4 98.4 Pulse 106 120 Resp 30 30 26 B/P (MAP) 137/76 (96) 142/81 (101) Pulse Ox 94 96 O2 Delivery Room Air Room Air Room Air Room Air 02/14/19 02/14/19 02/14/19 02/14/19 12:06 13:00 14:00 15:00 Pulse 124 108 115 126 Resp 22 28 32 B/P (MAP) 142/90 148/72 (97) 115/76 (89) 140/84 (102) Pulse Ox 94 97 96 O2 Delivery Room Air Room Air Room Air 02/14/19 02/14/19 02/14/19 02/14/19 16:00 16:00 17:00 17:07 Temp 98.5 98.5 Pulse 128 112 112 Resp 24 23 B/P (MAP) 143/80 (101) 152/85 (107) 152/85 Pulse Ox 97 96 O2 Delivery Room Air Room Air Room Air 02/14/19 02/14/19 02/14/19 02/14/19 18:00 19:00 20:00 20:00 Pulse 103 125 122 Resp 25 33 24 B/P (MAP) 146/82 (103) 133/77 (95) 150/98 (115) Pulse Ox 96 96 96 O2 Delivery Room Air Room Air Room Air Room Air 02/14/19 02/14/19 02/14/19 02/14/19 21:00 22:00 23:00 23:59 Temp 99.3 99.3 Pulse 111 97 111 Resp 31 28 31 B/P (MAP) 151/93 (112) 144/84 (104) 152/96 (114) Pulse Ox 95 98 98 O2 Delivery Room Air Room Air Room Air Room Air 02/14/19 02/15/19 02/15/19 02/15/19 23:59 00:01 00:02 00:31 Temp 97.3 97.3 Pulse 123 110 Resp 20 28 22 B/P (MAP) 149/88 (108) 149/88 Pulse Ox 97 98 O2 Delivery Room Air Room Air 02/15/19 02/15/19 02/15/19 02/15/19 01:00 02:00 02:40 03:00 Pulse 120 113 97 Resp 28 34 32 B/P (MAP) 135/87 (103) 138/84 (102) 112/72 (85) Pulse Ox 96 95 95 98 O2 Delivery Room Air Room Air Room Air Room Air 02/15/19 02/15/19 02/15/19 02/15/19 04:00 04:00 05:00 05:38 Temp 98.3 98.3 Pulse 126 97 Resp 28 32 B/P (MAP) 120/88 (99) 158/79 (105) Pulse Ox 98 98 98 O2 Delivery Room Air Room Air Room Air Room Air 02/15/19 02/15/19 02/15/19 02/15/19 06:00 06:04 06:34 07:00 Temp 97.9 97.9 Pulse 126 93 124 Resp 28 17 B/P (MAP) 158/79 103/58 (73) 162/101 (121) Pulse Ox 99 99 96 O2 Delivery Room Air Room Air Room Air 02/15/19 02/15/19 02/15/19 08:00 08:00 09:00 Temp 98.0 97.9 98.0 97.9 Pulse 128 130 Resp 16 16 B/P (MAP) 157/102 (120) 141/89 (106) Pulse Ox 96 96 O2 Delivery Room Air Room Air Room Air Intake and Output 02/14/19 02/14/19 02/15/19 15:00 23:00 07:00 Intake Total 1100 ml 1010 ml 1300 ml Output Total 691 ml 440 ml 140 ml Balance 409 ml 570 ml 1160 ml Nutrition Consultation Dietary Evaluation: Comments: Advance diet per GI-will follow GI recommendations Expected Outcomes/Goals: Diet advancement-once advanced P.O. intake to meet >75% estimated needs Interpretation of weight loss: >5% in 1 month Malnutrition Findings: Weight Status: Overweight RAFIQ SALAS MD Feb 15, 2019 10:02
[2019-02-15] MEDS: AMINO AC 3%/ELECTROLYTE/GLYCER 1,000 ML IV SCH ×2 (11:04→22:38)
[2019-02-15] MEDS: CITALOPRAM 20 MG TABLET. PO SCH (11:04)
[2019-02-15] MEDS: CLOPIDOGREL BISULFATE 75 MG TABLET PO SCH (11:04)
[2019-02-15] MEDS: METOPROLOL TART IMMED RELEASE 50 MG TABLET. PO SCH ×2 (11:05→20:43)
[2019-02-15] MEDS: DICLOFENAC SODIUM 1% TOPICAL GEL 100GM TUBE. TP SCH ×2 (11:05→20:46)
--- NOTE | 2019-02-15 11:40 | PDOC ---
WILLIAMS FAUST [employer] 02/15/19 1139: CARDIO Progress Notes Date and Time Date of Service 02/15/2019 Time of Evaluation 1100 Subjective Subjective: No Chest Pain, No shortness of breath, No Palpitations, Other ( wants to go home) Vitals Vitals Vital Signs Date Time Temp Pulse Resp B/P (MAP) Pulse Ox O2 Delivery O2 Flow Rate FiO2 02/15/19 11:05 127 144/89 02/15/19 09:00 97.9 16 96 Room Air 97.9 Weight Weight [ ] Input and Output Intake and Output Intake and Output 02/15/19 07:00 Intake Total 3410 ml Output Total 1271 ml Balance 2139 ml IV Total 3410 ml Output Urine Total 1271 ml Laboratory Labs Laboratory Tests Test 02/15/19 05:45 White Blood Count 20.4 x10^3/uL (4.0-11.0) Red Blood Count 3.27 x10^6/uL (3.50-5.40) Hemoglobin 10.3 g/dL (12.0-15.5) Hematocrit 31.2 % (36.0-47.0) Mean Corpuscular Volume 95 fL (79-100) Mean Corpuscular Hemoglobin 32 pg (25-35) Mean Corpuscular Hemoglobin Concent 33 g/dL (31-37) Red Cell Distribution Width 14.9 % (11.5-14.5) Platelet Count 223 x10^3/uL (140-400) Neutrophils (%) (Auto) 90 % (31-73) Lymphocytes (%) (Auto) 4 % (24-48) Monocytes (%) (Auto) 6 % (0-9) Eosinophils (%) (Auto) 0 % (0-3) Basophils (%) (Auto) 0 % (0-3) Neutrophils # (Auto) 18.4 x10^3uL (1.8-7.7) Lymphocytes # (Auto) 0.7 x10^3/uL (1.0-4.8) Monocytes # (Auto) 1.2 x10^3/uL (0.0-1.1) Eosinophils # (Auto) 0.0 x10^3/uL (0.0-0.7) Basophils # (Auto) 0.0 x10^3/uL (0.0-0.2) Sodium Level 154 mmol/L (136-145) Potassium Level 3.9 mmol/L (3.5-5.1) Chloride Level 119 mmol/L (98-107) Carbon Dioxide Level 17 mmol/L (21-32) Anion Gap 18 (6-14) Blood Urea Nitrogen 24 mg/dL (7-20) Creatinine 1.9 mg/dL (0.6-1.0) Estimated GFR (Cockcroft-Gault) 25.7 Glucose Level 99 mg/dL (70-99) Calcium Level 8.8 mg/dL (8.5-10.1) Magnesium Level 2.0 mg/dL (1.8-2.4) Troponin I Quantitative 1.479 ng/mL (0.000-0.055) Microbiology Micro Microbiology 02/13/19 Blood Culture - Preliminary, Resulted NO GROWTH AFTER 2 DAYS 02/13/19 Urine Culture - Preliminary, Resulted 02/13/19 Urine Culture Result 1 (ABI) - Preliminary, Resulted Physical Exam HEENT: Neck Supple W Full Motion Chest: Symmetric LUNGS: Other (diminished bases) Heart: S1S2, irregularly irregular (AFIB RVR) Abdomen: Soft N/T Extremities: No Edema, No Calf Tenderness, Other (trace LE edema) Neurology: alert, oriented, follow commands, confused Assessment Assessment 1. Malignant hypertension; labile episodes but better. 2. NSTEMI: peaked at 1.4, multifactorial, no cardiac symptoms. Type 2, demand mediated. 3. Nausea/vomiting/diarrhea; better 4. Severe hypokalemia, hypomagnesemia: normalized 5. Sepsis POA/UTI: ID following 6. PAFIB/flutter: verbalized past hx. Continue to have paroxysmal episode, currently RVR. 7. JUAN CARLOS on CKD3 with hypernatremia: Cr improving. 8. CAD s/p remote CABG in 2000 with subsequent stents in 2015: clinically stable. EF and WM nml. 9. Hyperlipidemia: TG mild elevated otherwise on goal 10. Metabolic encephalopathy: resolved Recommendations 1. Now able to take PO. DC IV lopressor and restart home dose metoprolol. Dig IV x1. 2. Continue with ASA/plavix. No ACEi/ARB for now. Hydralazine IV PRN 3. Continue with secondary prevention measures. 4. Outpt stress test. 5. Will consider for MCOT and note AFIB burden and note any further need for NOAC, LISA NICOLE MD 02/15/192021: CARDIO Progress Notes Assessment Assessment Patient seen and examined. Agree with RADIO RECORDER's assessment and plan. Plan event monitor and stress test as outpatient Continue current treatment for sepsis Follow up with our office as scheduled WILLIAMS FAUST APRN Feb 15, 2019 11:39 LISA NICOLE MD Feb 15, 2019 20:22
[2019-02-15] MEDS ORDERED: DIGOXIN IV 500 MCG/2 ML AMPUL. IV ONE (11:45)
--- NOTE | 2019-02-15 13:03 | RAD ---
Procedure: Ultrasound-guided placement of right internal jugular central venous catheter02/15/2019 1:00 PM Clinical Indication: Chronically ill. Need for central venous access for multiple IV medications Discussion: The risks and benefits of the procedure were discussed the patient and/or their healthcare sales representative. Informed consent was obtained. A timeout procedure was performed. All elements of maximal sterile barrier technique including the use of a cap, mask, sterile gown, sterile gloves, large sterile sheet, appropriate hand hygiene, and 2% chlorhexidine for cutaneous antisepsis (or acceptable alternative antiseptic per current guidelines) were followed for this procedure. The patient was prepped and draped in the usual sterile fashion. Ultrasound interrogation of the right neck revealed patency and compressibility of the right internal jugular vein. A 21-gauge micropuncture was then used to gain access to this vein under ultrasound guidance. A hard copy ultrasound image was recorded. A guidewire was advanced centrally. 5 Burkinan sheath was placed. Over a wire following dilatation, a triple-lumen central venous catheter was advanced centrally. Catheter was found to flush and aspirate normally. Follow-up chest radiograph demonstrates tip at the cavoatrial junction. Catheter secured in place and a sterile dressing was applied. No immediate complications were identified. Impression: Successful ultrasound-guided placement of right internal jugular triple-lumen central venous catheter
[2019-02-15] MEDS: MIRTAZAPINE 15 MG TABLET PO SCH (20:42)
[2019-02-15] MEDS: ATORVASTATIN CALCIUM 40 MG TABLET. PO SCH (20:42)
--- NOTE | 2019-02-15 22:17 | NUR ---
Patient request "Something to help me sleep." Call to Dr. Edilson Payan's service at [phone]. Service gave number to call Dr. Oakley at [phone]. Called Dr. Oakley and received order for Tiffanie diaz.
[2019-02-15] MEDS: ZOLPIDEM 5 MG TABLET. PO PRN (22:38)
[2019-02-16] MEDS: PIPERACILLIN/TAZOBACTAM 2.25 GM in IV NORMAL SALINE 50ML 50 ML IV SCH ×2 (00:41→06:46)
[2019-02-16 02:58] VITALS: BP 150/103
[2019-02-16 06:04] LABS: BASO % 0 % (0-3); CALCIUM 8.6 mg/dL (8.5-10.1); EOS % 0 % (0-3); GFR 24.2; HEMATOCRIT 30.6 % (36.0-47.0); HEMOGLOBIN 10.2 g/dL (12.0-15.5); LYMPH # 1.3 x10^3/uL (1.0-4.8); LYMPH % 8 % (24-48); MEAN CORPUSCULAR HEMOGLOBIN 32 pg (25-35); MEAN CORPUSCULAR HGB CONC 33 g/dL (31-37); MEAN CORPUSCULAR VOLUME 95 fL (79-100); MONO % 6 % (0-9); NEUT # 14.9 x10^3uL (1.8-7.7); NEUT % 86 % (31-73); PLATELET COUNT 220 x10^3/uL (140-400); POTASSIUM 4.1 mmol/L (3.5-5.1); RED BLOOD COUNT 3.21 x10^6/uL (3.50-5.40); RED CELL DISTRIBUTION WIDTH 15.5 % (11.5-14.5); WHITE BLOOD COUNT 17.3 x10^3/uL (4.0-11.0)
[2019-02-16 07:24] VITALS: BP 155/107
[2019-02-16] MEDS: PANTOPRAZOLE IV PUSH 40 MG VIAL. IVP SCH (08:53)
[2019-02-16] MEDS: METOPROLOL TART IMMED RELEASE 50 MG TABLET. PO SCH ×2 (08:54→21:00)
[2019-02-16] MEDS: ASPIRIN ENTERIC COATED 81 MG TABLET.DR. PO SCH (08:54)
[2019-02-16] MEDS: CITALOPRAM 20 MG TABLET. PO SCH (08:54)
[2019-02-16] MEDS: CLOPIDOGREL BISULFATE 75 MG TABLET PO SCH (08:54)
[2019-02-16] MEDS: DICLOFENAC SODIUM 1% TOPICAL GEL 100GM TUBE. TP SCH ×2 (08:55→21:00)
--- NOTE | 2019-02-16 09:13 | PDOC ---
Infectious Disease Note Subjective Subjective Feeling better, hungry BM last evening Denies F/C/S/SOA/Rash/N/V ROS ROS per HPI Vital Sign Vital Signs Vital Signs Date Time Temp Pulse Resp B/P (MAP) Pulse Ox O2 Delivery O2 Flow Rate FiO2 02/16/19 08:54 107 155/107 02/16/19 07:24 98.0 18 96 Room Air 98.0 Physical Exam PHYSICAL EXAM GENERAL: Propped up in bed, alert, NAD HEENT: Pupils equal and reactive. Normal conjunctivae. Oral cavity, pharynx clear, dentures NECK: Supple. Good range of motion. LUNGS: Clear to auscultation. HEART: S1, S2 ABDOMEN: Soft, no gross distension, nontender : [place] EXTREMITIES: No clubbing or cyanosis. No gross edema. SKIN: Warm to touch without signs of rash. NEUROLOGIC: Nonfocal and appropriate RIJ clean Labs Lab Laboratory Tests Test 02/16/19 05:40 White Blood Count 17.3 x10^3/uL (4.0-11.0) Red Blood Count 3.21 x10^6/uL (3.50-5.40) Hemoglobin 10.2 g/dL (12.0-15.5) Hematocrit 30.6 % (36.0-47.0) Mean Corpuscular Volume 95 fL (79-100) Mean Corpuscular Hemoglobin 32 pg (25-35) Mean Corpuscular Hemoglobin Concent 33 g/dL (31-37) Red Cell Distribution Width 15.5 % (11.5-14.5) Platelet Count 220 x10^3/uL (140-400) Neutrophils (%) (Auto) 86 % (31-73) Lymphocytes (%) (Auto) 8 % (24-48) Monocytes (%) (Auto) 6 % (0-9) Eosinophils (%) (Auto) 0 % (0-3) Basophils (%) (Auto) 0 % (0-3) Neutrophils # (Auto) 14.9 x10^3uL (1.8-7.7) Lymphocytes # (Auto) 1.3 x10^3/uL (1.0-4.8) Monocytes # (Auto) 1.0 x10^3/uL (0.0-1.1) Eosinophils # (Auto) 0.0 x10^3/uL (0.0-0.7) Basophils # (Auto) 0.0 x10^3/uL (0.0-0.2) Sodium Level 143 mmol/L (136-145) Potassium Level 4.1 mmol/L (3.5-5.1) Chloride Level 111 mmol/L (98-107) Carbon Dioxide Level 19 mmol/L (21-32) Anion Gap 13 (6-14) Blood Urea Nitrogen 29 mg/dL (7-20) Creatinine 2.0 mg/dL (0.6-1.0) Estimated GFR (Cockcroft-Gault) 24.2 Glucose Level 122 mg/dL (70-99) Calcium Level 8.6 mg/dL (8.5-10.1) Micro 02/13/19 Blood Culture - Preliminary, Resulted NO GROWTH AFTER 3 DAYS URINE CULTURE RES 1 Final Escherichia coli MICS are expressed in micrograms per mL Antibiotic RSLT#1 Amoxicillin/Clavulanic Acid S<=2 Ampicillin S =8 Cefepime S<=0.12 Ceftriaxone S<=0.25 Cefuroxime S =4 Ciprofloxacin R>=4 Ertapenem S<=0.12 Gentamicin S<=1 Imipenem S<=0.25 Levofloxacin R>=8 Meropenem S<=0.25 Nitrofurantoin S<=16 Piperacillin/Tazobactam S<=4 Tetracycline S =2 Tobramycin S<=1 Trimethoprim/Sulfa S<=20 Objective Assessment Sepsis - POA - Lactic acid better - clinically looks some better. Elevated Procalcitonin but also some renal failure. TSH nml Leukocytosis - improving HTN crisis - better Encephalopathy Ecoli UTI- POA 4/3 Elevated Troponin - increasing JUAN CARLOS on CKD stage 2 to 3 -stable Electrolyte abnormalities Plan Plan of Care Await further Card eval Discont Daptomycin with neg blood cult and cont Zosyn F/u labs and cults D/w nursing Critically ill Attending Co-Sign The patient was seen and interviewed as well as examined at the bedside. The chart was reviewed. The case was discussed. Agree with the plan of care. D/C HERNDON change zosyn to po STEPHANIE Underwood APRN Feb 16, 2019 09:13 ALEIDA WILLIAMSON MD Feb 16, 2019 10:57
[2019-02-16] MEDS: AMINO AC 3%/ELECTROLYTE/GLYCER 1,000 ML IV SCH (11:00)
[2019-02-16 11:31] VITALS: BP 145/89
--- NOTE | 2019-02-16 11:33 | PDOC ---
PROGRESS NOTES Subjective Subjective pt feels better, on soft diet Objective Objective Vital Signs Date Time Temp Pulse Resp B/P (MAP) Pulse Ox O2 Delivery O2 Flow Rate FiO2 02/16/19 08:54 107 155/107 02/16/19 08:00 Room Air 02/16/19 07:24 98.0 18 96 98.0 Intake and Output 02/16/19 07:00 Intake Total 1300 ml Output Total 560 ml Balance 740 ml Intake Oral 300 ml IV Total 1000 ml Output Urine Total 560 ml # Bowel Movements 4 Physical Exam Abdomen: Soft, Other (diffuse tenderness) Heart: Regular rate (SR/ST), Normal S1, Normal S2 Extremities: No edema, Normal pulses General: Alert, Oriented X3, Cooperative, No acute distress, Other (fatigued ) HEENT: Atraumatic, Mucous membr. moist/pink Lungs: Clear to auscultation MUSCULOSKELETAL: Osteoarthritic changes both hands Neuro: Normal speech, Sensation intact Psych/Mental Status: Mental status NL, Mood NL Skin: No breakdown, No significant lesion COMMENT lawson+central line Diagnosis Problem List Problems Medical Problems: (1) Hypokalemia Status: Acute (2) Hypomagnesemia Status: Acute (3) Lactic acidosis Status: Acute Assessment Assessment Problems Medical Problems: (1) Hypokalemia Status: Acute (2) Hypomagnesemia Status: Acute (3) Lactic acidosis Status: Acute IMPRESSION: * luis eduardo troponin 1.3, non stemi 1. Sepsis, clinically improving. Lactic acid level has decreased to 3. 2. Hypertensive crisis. 3. Urinary tract infection. 4. Abdominal pain, rule out ischemic colitis, possible gastroenteritis. 5. Acute renal failure with chronic kidney disease. 6. Coronary artery disease, status post coronary artery bypass graft. PLAN: central line placed d/c iv daptomycin+zosyn. wbc [address] scan abd and pelvis -ve ct head -neg. blood c/s neg. urine c/s E Coli seen in ICU Na 143 , cr 2.0 plocalamine, spoke with ID, po eugenio Plan Plan of Care Problems Medical Problems: (1) Hypokalemia Status: Acute (2) Hypomagnesemia Status: Acute (3) Lactic acidosis Status: Acute Comment Review of Relevant I have reviewed the following items fartun (where applicable) has been applied. Labs Laboratory Tests Test 02/16/19 05:40 White Blood Count 17.3 x10^3/uL (4.0-11.0) Red Blood Count 3.21 x10^6/uL (3.50-5.40) Hemoglobin 10.2 g/dL (12.0-15.5) Hematocrit 30.6 % (36.0-47.0) Mean Corpuscular Volume 95 fL (79-100) Mean Corpuscular Hemoglobin 32 pg (25-35) Mean Corpuscular Hemoglobin Concent 33 g/dL (31-37) Red Cell Distribution Width 15.5 % (11.5-14.5) Platelet Count 220 x10^3/uL (140-400) Neutrophils (%) (Auto) 86 % (31-73) Lymphocytes (%) (Auto) 8 % (24-48) Monocytes (%) (Auto) 6 % (0-9) Eosinophils (%) (Auto) 0 % (0-3) Basophils (%) (Auto) 0 % (0-3) Neutrophils # (Auto) 14.9 x10^3uL (1.8-7.7) Lymphocytes # (Auto) 1.3 x10^3/uL (1.0-4.8) Monocytes # (Auto) 1.0 x10^3/uL (0.0-1.1) Eosinophils # (Auto) 0.0 x10^3/uL (0.0-0.7) Basophils # (Auto) 0.0 x10^3/uL (0.0-0.2) Sodium Level 143 mmol/L (136-145) Potassium Level 4.1 mmol/L (3.5-5.1) Chloride Level 111 mmol/L (98-107) Carbon Dioxide Level 19 mmol/L (21-32) Anion Gap 13 (6-14) Blood Urea Nitrogen 29 mg/dL (7-20) Creatinine 2.0 mg/dL (0.6-1.0) Estimated GFR (Cockcroft-Gault) 24.2 Glucose Level 122 mg/dL (70-99) Calcium Level 8.6 mg/dL (8.5-10.1) Microbiology 02/13/19 Blood Culture - Preliminary, Resulted NO GROWTH AFTER 3 DAYS 02/13/19 Urine Culture - Final, Complete 02/13/19 Urine Culture Result 1 (ABI) - Final, Complete 02/13/19 Antimicrobic Susceptibility - Final, Complete Medications Current Medications Atorvastatin Calcium (Lipitor) 80 mg QHS PO Last administered on 02/15/19 20:42 ; Start 02/15/19 at 21:00 Cefdinir (Omnicef) 300 mg BID PO ; Start 02/16/19 at 12:00 Digoxin (Lanoxin) 500 mcg 1X ONCE IV Last administered on 02/15/19 12:19; Start 02/15/19 at 11:45; Stop 02/15/19 at 11:46; Status DC Mirtazapine (Remeron) 15 mg QHS PO Last administered on 02/15/19at 20:42; Start 02/15/19 at 21:00 Zolpidem Tartrate (Ambien) 5 mg PRN QHS PRN PO INSOMNIA Last administered on 02/15/19at 22:38; Start 02/15/19 at 22:30 Vitals/I & O Vital Sign - Last 24 Hours 02/15/19 02/15/19 02/15/19 02/15/19 12:19 19:33 20:30 20:43 Temp 98.6 98.6 Pulse 130 105 98 Resp 16 B/P (MAP) 145/86 157/93 (114) 154/102 Pulse Ox 95 O2 Delivery Room Air Room Air 02/15/19 02/15/19 02/16/19 02/16/19 22:20 22:39 02:58 07:24 Temp 99.1 97.5 98.0 99.1 97.5 98.0 Pulse 97 80 64 107 Resp 16 18 18 B/P (MAP) 166/105 (125) 157/96 (116) 150/103 (119) 155/107 (123) Pulse Ox 94 95 96 O2 Delivery Room Air Room Air Room Air 02/16/19 02/16/19 08:00 08:54 Pulse 107 B/P (MAP) 155/107 O2 Delivery Room Air Intake and Output 02/15/19 02/15/19 02/16/19 15:00 23:00 07:00 Intake Total 0 ml 1000 ml 300 ml Output Total 160 ml 400 ml Balance -160 ml 1000 ml -100 ml Nutrition Consultation Dietary Evaluation: Recommendations by RD: Increase Calorie Intake, Protein supplementation Comments: Advance diet when able per GI/cardiac, goal diet cardiac, possibly renal restrictions pending labs and pt PO intake REC glucerna (chocolate) BID Expected Outcomes/Goals: Diet advancement-once advanced P.O. intake to meet >75% estimated needs - not met, goal ongoing Interpretation of weight loss: >5% in 1 month Malnutrition Findings: Weight Status: Overweight RAFIQ SALAS MD Feb 16, 2019 11:33
[2019-02-16] MEDS: CEFDINIR 300 MG CAPSULE PO SCH ×2 (13:43→21:00)
[2019-02-16 14:58] VITALS: BP 137/84
--- NOTE | 2019-02-16 16:07 | PDOC ---
PROGRESS NOTES Assessment Problems Medical Problems: (1) Hypokalemia Status: Acute (2) Hypomagnesemia Status: Acute (3) Lactic acidosis Status: Acute Metabolic encephalopathy, with sepsis, lactic acidosis, leukocytosis, hypertensive crisis, urinary tract infection, elevated troponin, acute on chronic kidney injury, and electrolyte disturbances. I find no evidence of stroke, seizure, or intracranial infection. She is improving More insight into delusions Plan Holding off on additional neurological studies. Avoid neuroleptics Observation Subjective no complaints, denies pain Objective Vital Signs Date Time Temp Pulse Resp B/P (MAP) Pulse Ox O2 Delivery O2 Flow Rate FiO2 02/16/19 14:58 97.5 86 18 137/84 (101) 97 Room Air 97.5 Intake and Output 02/16/19 07:00 Intake Total 1300 ml Output Total 560 ml Balance 740 ml Intake Oral 300 ml IV Total 1000 ml Output Urine Total 560 ml # Bowel Movements 4 PHYSICAL EXAM Alert. Oriented to time, place and person, now believes delusion that her boyfriend killed her girlfriend or sister was "long ago" or maybe not real PERRL. EOMI. CN: no focal findings. Muscle tone: normal. Muscle strength: 5/5 DTR: 2+ Plantar reflex: flexor Gait: not examined in bed. Sensory exam: no abnormal findings. No cerebellar signs elicited. Review of Relevant I have reviewed the following items fartun (where applicable) has been applied. Labs Laboratory Tests Test 02/15/19 05:45 02/15/19 18:15 02/16/19 05:40 White Blood Count 20.4 x10^3/uL (4.0-11.0) 17.3 x10^3/uL (4.0-11.0) Red Blood Count 3.27 x10^6/uL (3.50-5.40) 3.21 x10^6/uL (3.50-5.40) Hemoglobin 10.3 g/dL (12.0-15.5) 10.2 g/dL (12.0-15.5) Hematocrit 31.2 % (36.0-47.0) 30.6 % (36.0-47.0) Mean Corpuscular Volume 95 fL (79-100) 95 fL (79-100) Mean Corpuscular Hemoglobin 32 pg (25-35) 32 pg (25-35) Mean Corpuscular Hemoglobin Concent 33 g/dL (31-37) 33 g/dL (31-37) Red Cell Distribution Width 14.9 % (11.5-14.5) 15.5 % (11.5-14.5) Platelet Count 223 x10^3/uL (140-400) 220 x10^3/uL (140-400) Neutrophils (%) (Auto) 90 % (31-73) 86 % (31-73) Lymphocytes (%) (Auto) 4 % (24-48) 8 % (24-48) Monocytes (%) (Auto) 6 % (0-9) 6 % (0-9) Eosinophils (%) (Auto) 0 % (0-3) 0 % (0-3) Basophils (%) (Auto) 0 % (0-3) 0 % (0-3) Neutrophils # (Auto) 18.4 x10^3uL (1.8-7.7) 14.9 x10^3uL (1.8-7.7) Lymphocytes # (Auto) 0.7 x10^3/uL (1.0-4.8) 1.3 x10^3/uL (1.0-4.8) Monocytes # (Auto) 1.2 x10^3/uL (0.0-1.1) 1.0 x10^3/uL (0.0-1.1) Eosinophils # (Auto) 0.0 x10^3/uL (0.0-0.7) 0.0 x10^3/uL (0.0-0.7) Basophils # (Auto) 0.0 x10^3/uL (0.0-0.2) 0.0 x10^3/uL (0.0-0.2) Sodium Level 154 mmol/L (136-145) 143 mmol/L (136-145) Potassium Level 3.9 mmol/L (3.5-5.1) 4.1 mmol/L (3.5-5.1) Chloride Level 119 mmol/L (98-107) 111 mmol/L (98-107) Carbon Dioxide Level 17 mmol/L (21-32) 19 mmol/L (21-32) Anion Gap 18 (6-14) 13 (6-14) Blood Urea Nitrogen 24 mg/dL (7-20) 29 mg/dL (7-20) Creatinine 1.9 mg/dL (0.6-1.0) 2.0 mg/dL (0.6-1.0) Estimated GFR (Cockcroft-Gault) 25.7 24.2 Glucose Level 99 mg/dL (70-99) 122 mg/dL (70-99) Calcium Level 8.8 mg/dL (8.5-10.1) 8.6 mg/dL (8.5-10.1) Magnesium Level 2.0 mg/dL (1.8-2.4) Troponin I Quantitative 1.479 ng/mL (0.000-0.055) Clostridium difficile Toxin B Gene Negative (Negative) Laboratory Tests Test 02/15/19 18:15 02/16/19 05:40 Clostridium difficile Toxin B Gene Negative (Negative) White Blood Count 17.3 x10^3/uL (4.0-11.0) Red Blood Count 3.21 x10^6/uL (3.50-5.40) Hemoglobin 10.2 g/dL (12.0-15.5) Hematocrit 30.6 % (36.0-47.0) Mean Corpuscular Volume 95 fL (79-100) Mean Corpuscular Hemoglobin 32 pg (25-35) Mean Corpuscular Hemoglobin Concent 33 g/dL (31-37) Red Cell Distribution Width 15.5 % (11.5-14.5) Platelet Count 220 x10^3/uL (140-400) Neutrophils (%) (Auto) 86 % (31-73) Lymphocytes (%) (Auto) 8 % (24-48) Monocytes (%) (Auto) 6 % (0-9) Eosinophils (%) (Auto) 0 % (0-3) Basophils (%) (Auto) 0 % (0-3) Neutrophils # (Auto) 14.9 x10^3uL (1.8-7.7) Lymphocytes # (Auto) 1.3 x10^3/uL (1.0-4.8) Monocytes # (Auto) 1.0 x10^3/uL (0.0-1.1) Eosinophils # (Auto) 0.0 x10^3/uL (0.0-0.7) Basophils # (Auto) 0.0 x10^3/uL (0.0-0.2) Sodium Level 143 mmol/L (136-145) Potassium Level 4.1 mmol/L (3.5-5.1) Chloride Level 111 mmol/L (98-107) Carbon Dioxide Level 19 mmol/L (21-32) Anion Gap 13 (6-14) Blood Urea Nitrogen 29 mg/dL (7-20) Creatinine 2.0 mg/dL (0.6-1.0) Estimated GFR (Cockcroft-Gault) 24.2 Glucose Level 122 mg/dL (70-99) Calcium Level 8.6 mg/dL (8.5-10.1) Microbiology 02/13/19 Blood Culture - Preliminary, Resulted NO GROWTH AFTER 3 DAYS 02/13/19 Urine Culture - Final, Complete 02/13/19 Urine Culture Result 1 (ABI) - Final, Complete 02/13/19 Antimicrobic Susceptibility - Final, Complete Medications Current Medications Ondansetron HCl (Zofran) 4 mg 1X ONCE IV Last administered on 02/13/19at 02:40; Start 02/13/19 at 03:00; Stop 02/13/19 at 03:01; Status DC Famotidine (Pepcid Vial) 20 mg 1X ONCE IVP Last administered on 02/13/19at 02:46 ; Start 02/13/19 at 03:00; Stop 02/13/19 at 03:01; Status DC Sodium Chloride 1,000 ml @ 1,000 mls/hr 1X ONCE IV Last administered on at 02:44; Start 02/13/19 at 03:00; Stop 02/13/19 at 03:59; Status DC Hyoscyamine (Anaspaz) 0.125 mg 1X ONCE PO Last administered on 02/13/19at 02:47 ; Start 02/13/19 at 03:00; Stop 02/13/19 at 03:01; Status DC Ondansetron HCl (Zofran) 4 mg 1X ONCE IV Last administered on 02/13/19at 03:03; Start 02/13/19 at 03:30; Stop 02/13/19 at 03:31; Status DC Sodium Chloride 1,000 ml @ 1,000 mls/hr 1X ONCE IV Last administered on 04:10; Start 02/13/19 at 03:30; Stop 02/13/19 at 04:29; Status DC Cefepime HCl (Maxipime) 2 gm 1X ONCE IVP Last administered on 02/13/19 04:01; Start 02/13/19 at 03:30; Stop 02/13/19 at 03:31; Status DC Metronidazole 100 ml @ 100 mls/hr 1X ONCE IV Last administered on 02/13/19 04 :46; Start 02/13/19 at 04:30; Stop 02/13/19 at 05:29; Status DC Labetalol HCl (Normodyne Iv Push) 10 mg 1X ONCE IVP Last administered on 04:15; Start 02/13/19 at 04:30; Stop 02/13/19 at 04:31; Status DC Ondansetron HCl (Zofran) 4 mg PRN Q8HRS PRN IV NAUSEA/VOMITING 1ST CHOICE Last administered on 02/13/19 06:20; Start 02/13/19 at 04:00; Stop 02/13/19 at 09:14; Status DC Fentanyl Citrate (Fentanyl 2ml Vial) 50 mcg PRN Q2HRS PRN IV SEVERE PAIN Last administered on 02/15/19 05:38; Start 02/13/19 at 04:00 Potassium Chloride/Water 100 ml @ 100 mls/hr Q1H IV Last administered on 07:53; Start 02/13/19 at 05:00; Stop 02/13/19 at 06:59; Status DC Potassium Chloride/Sodium Chloride 1,000 ml @ 125 mls/hr 1X ONCE IV Last administered on 02/13/19 04:45; Start 02/13/19 at 04:30; Stop 02/13/19 at 12:29; Status DC Metoclopramide HCl (Reglan Vial) 10 mg 1X ONCE IV Last administered on 04:20; Start 02/13/19 at 04:30; Stop 02/13/19 at 04:31; Status DC Hydralazine HCl (Apresoline Inj) 20 mg 1X ONCE IVP Last administered on 05:25; Start 02/13/19 at 05:30; Stop 02/13/19 at 05:31; Status DC Hydralazine HCl (Apresoline Inj) 10 mg PRN Q4HRS PRN IVP ELEVATED BP, SEE COMMENTS Last administered on 02/14/19at 09:17; Start 02/13/19 at 07:30 Metoprolol Tartrate (Lopressor Vial) 10 mg Q4HRS PRN IVP ELEVATED BP, SEE COMMENTS Last administered on 02/13/19at 07:47; Start 02/13/19 at 07:30; Stop at 15:47; Status DC Piperacillin Sod/ Tazobactam Sod 2.25 gm/Sodium Chloride 50 ml @ 100 mls/hr Q6HRS IV Last administered on 02/16/19at 06:46; Start 02/13/19 at 08:00; Stop 02/16 at 10:59; Status DC Daptomycin 340 mg/ Sodium Chloride 50 ml @ 100 mls/hr Q24H IV Last administered on 02/14/19at 08:03; Start 02/13/19 at 08:00; Stop 02/15/19 at 07:35; Status DC Ondansetron HCl (Zofran) 8 mg PRN Q8HRS PRN IV NAUSEA/VOMITING 1ST CHOICE Last administered on 02/15/19at 00:49; Start 02/13/19 at 09:15 Prochlorperazine Edisylate (Compazine) 10 mg PRN Q6HRS PRN IV NAUSEA/VOMITING, 2ND CHOICE Last administered on 02/13/19at 23:52; Start 02/13/19 at 09:15 Pantoprazole Sodium (PROTONIX VIAL for IV PUSH) 40 mg DAILYAC IVP Last administered on 02/16/19at 08:53; Start 02/13/19 at 10:00 Sodium Chloride 1,000 ml @ 100 mls/hr Q10H IV ; Start 02/13/19 at 09:45; Stop at 10:57; Status DC Potassium Chloride/Sodium Chloride 1,000 ml @ 100 mls/hr Q10H IV Last administered on 02/15/19at 04:23; Start 02/13/19 at 11:30; Stop 02/15/19 at 10:06; Status DC Metoclopramide HCl (Reglan Vial) 5 mg PRN Q6HRS PRN IV NAUSEA/VOMITING, 3RD CHOICE Last administered on 02/13/19 15:00; Start 02/13/19 at 12:45 Aspirin (Ecotrin) 81 mg [id number] PO Last administered on 02/16/19 08:54; Start 02/13/19 at 14:30 Metoprolol Tartrate (Lopressor Vial) 5 mg Q6HRS IVP Last administered on 06:00; Start 02/13/19 at 18:00; Stop 02/15/19 at 11:29; Status DC Acetaminophen (Tylenol Supp) 650 mg PRN Q6HRS PRN AR MILD PAIN / TEMP Last administered on 02/14/19 10:12; Start 02/13/19 at 17:15 Magnesium Sulfate 50 ml @ 25 mls/hr 1X ONCE IV Last administered on 02/14/19 14:30; Start 02/14/19 at 14:00; Stop 02/14/19 at 15:59; Status DC Amino Acids/ Glycerin/ Electrolytes 1,000 ml @ 80 mls/hr [id number] IV Last administered on 02/15/19 22:38; Start 02/15/19 at 10:00 Clopidogrel Bisulfate (Plavix) 75 mg DAILY PO Last administered on 02/16/19 08: 54; Start 02/15/19 at 10:00 Diclofenac Sodium (Voltaren) 1 pauline BID TP Last administered on 02/15/19 11:05; Start 02/15/19 at 10:00 Atorvastatin Calcium (Lipitor) 80 mg QHS PO Last administered on 02/15/19 20:42 ; Start 02/15/19 at 21:00 Citalopram Hydrobromide (CeleXA) 20 mg DAILY PO Last administered on 02/16/19 08:54; Start 02/15/19 at 11:00 Metoprolol Tartrate (Lopressor) 100 mg BID PO Last administered on 02/16/19 08: 54; Start 02/15/19 at 10:00 Mirtazapine (Remeron) 15 mg QHS PO Last administered on 02/15/19 20:42; Start 02/15/19 at 21:00 Digoxin (Lanoxin) 500 mcg 1X ONCE IV Last administered on 4/5/19at 12:19; Start 02/15/19 at 11:45; Stop 02/15/19 at 11:46; Status DC Zolpidem Tartrate (Ambien) 5 mg PRN QHS PRN PO INSOMNIA Last administered on 02/15/19at 22:38; Start 02/15/19 at 22:30 Cefdinir (Omnicef) 300 mg BID PO Last administered on 02/16/19at 13:43; Start 02/16/19 at 12:00 Active Scripts Active Reported Triamcinolone Acetonide 0.1% Oint (Triamcinolone Acetonide) 15 Gm Oint...g. 1 Pauline TP BID MIX WITH EUCERIN DIRECTED BY PHYSICIAN Hydrocodone-Apap 5-325 (Hydrocodone Bit/Acetaminophen) 1 Tab Tablet 1 Tab PO PRN Q6HRS PRN Voltaren (Diclofenac Sodium) 100 Gm Gel..gram. 1 Gm TP BID Vitamin D3 (Cholecalciferol (Vitamin D3)) 1,000 Unit Tablet 2 Tab PO DAILY Vitamin C (Ascorbate Calcium) 500 Mg Tablet 500 Mg PO DAILY Tizanidine Hcl 4 Mg Tablet 1 Tab PO QHS Clopidogrel (Clopidogrel Bisulfate) 75 Mg Tablet 1 Tab PO DAILY Mirtazapine 15 Mg Tablet 1 Tab PO QHS Metoprolol Tartrate 100 Mg Tablet 1 Tab PO BID Losartan Potassium 100 Mg Tablet 100 Mg PO DAILY Escitalopram Oxalate 10 Mg Tablet 1 Tab PO DAILY Hydrochlorothiazide Capsule (Hydrochlorothiazide) 12.5 Mg Capsule 25 Mg PO DAILY Fish Oil 1,000 Mg Capsule (Cumming-3 Fatty Acids/Fish Oil) 1 Each Capsule 2 Each PO BID Clonidine Hcl 0.2 Mg Tablet 1 Tab PO TID Cardizem Cd (Diltiazem Hcl) 240 Mg Cap.er.24h 0.5 Cap PO DAILY Atorvastatin Calcium 80 Mg Tablet 1 Tab PO DAILY Vitals/I & O Vital Sign - Last 24 Hours 02/15/19 02/15/19 02/15/19 02/15/19 19:33 20:30 20:43 22:20 Temp 98.6 99.1 98.6 99.1 Pulse 105 98 97 Resp 16 16 B/P (MAP) 157/93 (114) 154/102 166/105 (125) Pulse Ox 95 94 O2 Delivery Room Air Room Air Room Air 02/15/19 02/16/19 02/16/196/19 22:39 02:58 07:24 08:00 Temp 97.5 98.0 97.5 98.0 Pulse 80 64 107 Resp 18 B/P (MAP) 157/96 (116) 150/103 (119) 155/107 (123) Pulse Ox 95 96 O2 Delivery Room Air Room Air Room Air 02/16/19 02/16/19 02/16/19 08:54 11:31 14:58 Temp 98.3 97.5 98.3 97.5 Pulse 107 107 86 Resp 18 B/P (MAP) 155/107 145/89 (107) 137/84 (101) Pulse Ox 96 97 O2 Delivery Room Air Room Air Intake and Output 02/15/19 02/15/19 02/16/19 15:00 23:00 07:00 Intake Total 0 ml 1000 ml 300 ml Output Total 160 ml 400 ml Balance -160 ml 1000 ml -100 ml MACKENZIE BAILEY MD Feb 16, 2019 16:06
[2019-02-16 19:20] VITALS: BP 160/99
[2019-02-16] MEDS: MIRTAZAPINE 15 MG TABLET PO SCH (21:00)
[2019-02-16] MEDS: ZOLPIDEM 5 MG TABLET. PO PRN (21:00)
[2019-02-16] MEDS: ATORVASTATIN CALCIUM 40 MG TABLET. PO SCH (21:01)
[2019-02-16 23:42] VITALS: BP 155/92
[2019-02-17 03:51] VITALS: BP 171/92
[2019-02-17] MEDS: fentaNYL PF VIAL 100 MCG/2 ML VIAL IV PRN ×2 (04:28→08:54)
[2019-02-17 04:48] LABS: BASO % 0 % (0-3); EOS % 0 % (0-3); LYMPH # 1.1 x10^3/uL (1.0-4.8); LYMPH % 9 % (24-48); MEAN CORPUSCULAR HEMOGLOBIN 32 pg (25-35); MEAN CORPUSCULAR HGB CONC 33 g/dL (31-37); MEAN CORPUSCULAR VOLUME 95 fL (79-100); MONO # 0.9 x10^3/uL (0.0-1.1); MONO % 7 % (0-9); NEUT # 10.8 x10^3uL (1.8-7.7); NEUT % 84 % (31-73); PLATELET COUNT 204 x10^3/uL (140-400); RED BLOOD COUNT 3.16 x10^6/uL (3.50-5.40); RED CELL DISTRIBUTION WIDTH 15.4 % (11.5-14.5); WHITE BLOOD COUNT 12.9 x10^3/uL (4.0-11.0)
[2019-02-17 05:20] LABS: CREATININE 1.8 mg/dL (0.6-1.0); GFR 27.4
[2019-02-17] MEDS: PANTOPRAZOLE IV PUSH 40 MG VIAL. IVP SCH (06:05)
[2019-02-17 07:29] VITALS: BP 152/98
[2019-02-17] MEDS: CEFDINIR 300 MG CAPSULE PO SCH ×2 (08:48→21:09)
[2019-02-17] MEDS: CLOPIDOGREL BISULFATE 75 MG TABLET PO SCH (08:49)
[2019-02-17] MEDS: CITALOPRAM 20 MG TABLET. PO SCH (08:49)
[2019-02-17] MEDS: METOPROLOL TART IMMED RELEASE 50 MG TABLET. PO SCH ×2 (08:49→21:09)
[2019-02-17] MEDS: DICLOFENAC SODIUM 1% TOPICAL GEL 100GM TUBE. TP SCH ×2 (08:49→21:08)
[2019-02-17] MEDS: ASPIRIN ENTERIC COATED 81 MG TABLET.DR. PO SCH (08:49)
--- NOTE | 2019-02-17 09:21 | PDOC ---
Infectious Disease Note Subjective Subjective Comfortable, denies pain Had a "wonderful breakfast" Walked some walker No further diarrhea Denies F/C/S/SOA/Rash/N/V/D ROS ROS per HPI Vital Sign Vital Signs Vital Signs Date Time Temp Pulse Resp B/P (MAP) Pulse Ox O2 Delivery O2 Flow Rate FiO2 02/17/19 08:54 16 Room Air 02/17/19 08:49 88 152/98 02/17/19 07:29 98.0 99 98.0 Physical Exam PHYSICAL EXAM GENERAL: Propped up in bed, alert, smiling HEENT: Pupils equal and reactive. Normal conjunctivae. Oral cavity, pharynx clear, dentures NECK: Supple. Good range of motion. LUNGS: Clear to auscultation. HEART: S1, S2 ABDOMEN: Soft and nontender EXTREMITIES: No clubbing or cyanosis. No gross edema. SKIN: Warm to touch without signs of rash. NEUROLOGIC: Alert, oriented and appropriate [facility] clean Labs Lab Laboratory Tests Test 02/17/19 04:40 White Blood Count 12.9 x10^3/uL (4.0-11.0) Red Blood Count 3.16 x10^6/uL (3.50-5.40) Hemoglobin 10.0 g/dL (12.0-15.5) Hematocrit 30.0 % (36.0-47.0) Mean Corpuscular Volume 95 fL (79-100) Mean Corpuscular Hemoglobin 32 pg (25-35) Mean Corpuscular Hemoglobin Concent 33 g/dL (31-37) Red Cell Distribution Width 15.4 % (11.5-14.5) Platelet Count 204 x10^3/uL (140-400) Neutrophils (%) (Auto) 84 % (31-73) Lymphocytes (%) (Auto) 9 % (24-48) Monocytes (%) (Auto) 7 % (0-9) Eosinophils (%) (Auto) 0 % (0-3) Basophils (%) (Auto) 0 % (0-3) Neutrophils # (Auto) 10.8 x10^3uL (1.8-7.7) Lymphocytes # (Auto) 1.1 x10^3/uL (1.0-4.8) Monocytes # (Auto) 0.9 x10^3/uL (0.0-1.1) Eosinophils # (Auto) 0.0 x10^3/uL (0.0-0.7) Basophils # (Auto) 0.0 x10^3/uL (0.0-0.2) Sodium Level 141 mmol/L (136-145) Potassium Level 4.0 mmol/L (3.5-5.1) Chloride Level 109 mmol/L (98-107) Carbon Dioxide Level 20 mmol/L (21-32) Anion Gap 12 (6-14) Blood Urea Nitrogen 28 mg/dL (7-20) Creatinine 1.8 mg/dL (0.6-1.0) Estimated GFR (Cockcroft-Gault) 27.4 Glucose Level 102 mg/dL (70-99) Calcium Level 9.0 mg/dL (8.5-10.1) Micro 02/13/19 Blood Culture - Preliminary, Resulted NO GROWTH AFTER 4 DAYS URINE CULTURE RES 1 Final Escherichia coli MICS are expressed in micrograms per mL Antibiotic RSLT#1 Amoxicillin/Clavulanic Acid S<=2 Ampicillin S =8 Cefepime S<=0.12 Ceftriaxone S<=0.25 Cefuroxime S =4 Ciprofloxacin R>=4 Ertapenem S<=0.12 Gentamicin S<=1 Imipenem S<=0.25 Levofloxacin R>=8 Meropenem S<=0.25 Nitrofurantoin S<=16 Piperacillin/Tazobactam S<=4 Tetracycline S =2 Tobramycin S<=1 Trimethoprim/Sulfa S<=20 Objective Assessment Sepsis - POA - Lactic acid better - clinically looks some better. Elevated Procalcitonin but also some renal failure. 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 diff neg, 4/5 Plan Plan of Care Clinically improving Continue cefdinir PT/OT Attending Co-Sign The patient was seen and interviewed as well as examined at the bedside. The chart was reviewed. The case was discussed. Agree with the plan of care. STEPHANIE RENEE APRN Feb 17, 2019 09:21 ALEIDA WILLIAMSON MD Feb 17, 2019 09:44
--- NOTE | 2019-02-17 10:16 | PDOC ---
PROGRESS NOTES Subjective Subjective feeling better Objective Objective Vital Signs Date Time Temp Pulse Resp B/P (MAP) Pulse Ox O2 Delivery O2 Flow Rate FiO2 02/17/19 08:54 16 Room Air 02/17/19 08:49 88 152/98 02/17/19 07:29 98.0 99 98.0 Intake and Output 02/17/19 06:59 Intake Total 760 ml Output Total 100 ml Balance 660 ml Intake Oral 760 ml Output Urine Total 100 ml # Voids 2 Physical Exam Abdomen: Soft, Other (diffuse tenderness) Heart: Regular rate (SR/ST), Normal S1, Normal S2 Extremities: No edema, Normal pulses General: Alert, Oriented X3, Cooperative, No acute distress, Other (fatigued ) HEENT: Atraumatic, Mucous membr. moist/pink Lungs: Clear to auscultation MUSCULOSKELETAL: Osteoarthritic changes both hands Neuro: Normal speech, Sensation intact Psych/Mental Status: Mental status NL, Mood NL Skin: No breakdown, No significant lesion COMMENT d/kristina lawson+central line present Diagnosis Problem List Problems Medical Problems: (1) Hypokalemia Status: Acute (2) Hypomagnesemia Status: Acute (3) Lactic acidosis Status: Acute Assessment Assessment Problems Medical Problems: (1) Hypokalemia Status: Acute (2) Hypomagnesemia Status: Acute (3) Lactic acidosis Status: Acute IMPRESSION:E coli sepsis * luis eduardo troponin 1.3, non stemi, demand ischemia 1. Sepsis, clinically improving. Lactic acid level has decreased to 3. 2. Hypertensive crisis. 3. Urinary tract infection. 4. Abdominal pain, rule out ischemic colitis, possible gastroenteritis. 5. Acute renal failure with chronic kidney disease. 6. Coronary artery disease, status post coronary artery bypass graft. PLAN: d/c central line d/kristina iv antibiotics wbc [address] scan abd and pelvis -ve ct head -neg. blood c/s neg. urine c/s E Coli Na 143 , cr 1.9 spoke with ID, po vantin home with home health Plan Plan of Care Problems Medical Problems: (1) Hypokalemia Status: Acute (2) Hypomagnesemia Status: Acute (3) Lactic acidosis Status: Acute Comment Review of Relevant I have reviewed the following items fartun (where applicable) has been applied. Labs Laboratory Tests Test 02/17/19 04:40 White Blood Count 12.9 x10^3/uL (4.0-11.0) Red Blood Count 3.16 x10^6/uL (3.50-5.40) Hemoglobin 10.0 g/dL (12.0-15.5) Hematocrit 30.0 % (36.0-47.0) Mean Corpuscular Volume 95 fL (79-100) Mean Corpuscular Hemoglobin 32 pg (25-35) Mean Corpuscular Hemoglobin Concent 33 g/dL (31-37) Red Cell Distribution Width 15.4 % (11.5-14.5) Platelet Count 204 x10^3/uL (140-400) Neutrophils (%) (Auto) 84 % (31-73) Lymphocytes (%) (Auto) 9 % (24-48) Monocytes (%) (Auto) 7 % (0-9) Eosinophils (%) (Auto) 0 % (0-3) Basophils (%) (Auto) 0 % (0-3) Neutrophils # (Auto) 10.8 x10^3uL (1.8-7.7) Lymphocytes # (Auto) 1.1 x10^3/uL (1.0-4.8) Monocytes # (Auto) 0.9 x10^3/uL (0.0-1.1) Eosinophils # (Auto) 0.0 x10^3/uL (0.0-0.7) Basophils # (Auto) 0.0 x10^3/uL (0.0-0.2) Sodium Level 141 mmol/L (136-145) Potassium Level 4.0 mmol/L (3.5-5.1) Chloride Level 109 mmol/L (98-107) Carbon Dioxide Level 20 mmol/L (21-32) Anion Gap 12 (6-14) Blood Urea Nitrogen 28 mg/dL (7-20) Creatinine 1.8 mg/dL (0.6-1.0) Estimated GFR (Cockcroft-Gault) 27.4 Glucose Level 102 mg/dL (70-99) Calcium Level 9.0 mg/dL (8.5-10.1) Microbiology 02/13/19 Blood Culture - Preliminary, Resulted NO GROWTH AFTER 4 DAYS 02/13/19 Urine Culture - Final, Complete 02/13/19 Urine Culture Result 1 (ABI) - Final, Complete 4/3/19 Antimicrobic Susceptibility - Final, Complete Medications Current Medications Acetaminophen/ Hydrocodone Bitart (Lortab 5/325) 1 tab PRN Q4HRS PRN PO PAIN; Start 02/17/19 at 10:15 Cefdinir (Omnicef) 300 mg BID PO Last administered on 02/17/19at 08:48; Start 02/16/19 at 12:00 Vitals/I & O Vital Sign - Last 24 Hours 02/16/19 02/16/19 02/16/19 02/16/19 11:31 14:58 19:20 20:00 Temp 98.3 97.5 97.6 98.3 97.5 97.6 Pulse 107 86 98 Resp 18 18 18 B/P (MAP) 145/89 (107) 137/84 (101) 160/99 (119) Pulse Ox 96 97 96 O2 Delivery Room Air Room Air Room Air Room Air 02/16/19 02/16/19 02/17/19 02/17/19 21:00 23:42 03:51 07:29 Temp 97.8 97.8 98.0 97.8 97.8 98.0 Pulse 98 83 110 88 Resp 17 24 18 B/P (MAP) 160/99 155/92 (113) 171/92 (118) 152/98 (116) Pulse Ox 96 96 99 O2 Delivery Room Air Room Air Room Air 02/17/19 02/17/19 02/17/19 08:17 08:49 08:54 Pulse 88 Resp 16 B/P (MAP) 152/98 O2 Delivery Room Air Room Air Intake and Output 02/16/19 02/16/19 02/17/19 14:59 22:59 06:59 Intake Total 180 ml 180 ml 400 ml Output Total 100 ml Balance 80 ml 180 ml 400 ml Nutrition Consultation Dietary Evaluation: Recommendations by RD: Increase Calorie Intake, Protein supplementation Comments: Advance diet when able per GI/cardiac, goal diet cardiac, possibly renal restrictions pending labs and pt PO intake REC glucerna (chocolate) BID Expected Outcomes/Goals: Diet advancement-once advanced P.O. intake to meet >75% estimated needs - not met, goal ongoing Interpretation of weight loss: >5% in 1 month Malnutrition Findings: Weight Status: Overweight RAFIQ SALAS MD Feb 17, 2019 10:16
[2019-02-17 11:36] VITALS: BP 135/82
[2019-02-17] MEDS: HYDROcodone/APAP 5/325MG 1 TAB TABLET PO PRN ×2 (12:47→17:10)
[2019-02-17 14:46] VITALS: BP 143/90
[2019-02-17 19:20] VITALS: BP 154/87
[2019-02-17] MEDS: MIRTAZAPINE 15 MG TABLET PO SCH (21:09)
[2019-02-17] MEDS: ATORVASTATIN CALCIUM 40 MG TABLET. PO SCH (21:09)
[2019-02-17] MEDS: ZOLPIDEM 5 MG TABLET. PO PRN (21:12)
[2019-02-17 23:05] VITALS: BP 171/77
--- NOTE | 2019-02-18 02:30 | NUR ---
pt is agitated, saying someone woke her up asking her all kinds of questions. pt requested a pain pill for pain in her neck which she says is chronic. bp at 184/91. pt doesnt want to be woke up. lcrn
[2019-02-18] MEDS: HYDROcodone/APAP 5/325MG 1 TAB TABLET PO PRN ×3 (02:34→11:48)
[2019-02-18 03:19] VITALS: BP 184/91
[2019-02-18 07:00] VITALS: BP 147/83
[2019-02-18] MEDS: PANTOPRAZOLE IV PUSH 40 MG VIAL. IVP SCH (07:30)
[2019-02-18] MEDS: ASPIRIN ENTERIC COATED 81 MG TABLET.DR. PO SCH (07:52)
[2019-02-18] MEDS: CEFDINIR 300 MG CAPSULE PO SCH (07:52)
[2019-02-18] MEDS: CITALOPRAM 20 MG TABLET. PO SCH (07:52)
[2019-02-18] MEDS: CLOPIDOGREL BISULFATE 75 MG TABLET PO SCH (07:52)
[2019-02-18] MEDS: DICLOFENAC SODIUM 1% TOPICAL GEL 100GM TUBE. TP SCH (07:53)
[2019-02-18] MEDS: METOPROLOL TART IMMED RELEASE 50 MG TABLET. PO SCH (07:53)
--- NOTE | 2019-02-18 09:01 | PDOC ---
Subjective: Subjective: Feeling better - tolerating PO, likes breakfast the best. Stooling without issue. Chronic neck pain. Objective: Objective: D/w RN - DC today? Looks like IV PPI has been held - no IV access. Vital Signs: Vital Signs Date Time Temp Pulse Resp B/P (MAP) Pulse Ox O2 Delivery O2 Flow Rate FiO2 02/18/19 07:53 82 147/83 02/18/19 07:52 20 97 Room Air 02/18/19 07:00 97.7 97.7 PE: GEN: NAD - eating eggs and toast, looks much better compared to last week LUNGS: room air HEART: RRR ABD: S/ND/NT NEURO/PSYCH: A & O 3 A/P: Nausea, upper abd/chest pain - resolved NSTEMI and h/o CAD, UTI, CKD Normocytic anemia -- Improved. DC per primary. Follow-up w/ GI PRN - consider screening colonoscopy (as last done in [address] @ [facility] – [place] ). FELIPA JOHN Feb 18, 2019 09:01
--- NOTE | 2019-02-18 09:26 | PDOC ---
Infectious Disease Note Subjective Subjective feeling good ROS ROS no n/v/d/sob Vital Sign Vital Signs Vital Signs Date Time Temp Pulse Resp B/P (MAP) Pulse Ox O2 Delivery O2 Flow Rate FiO2 02/18/19 08:52 20 97 Room Air 02/18/19 07:53 82 147/83 02/18/19 07:00 97.7 97.7 Physical Exam PHYSICAL EXAM GENERAL: Propped up in bed, alert, smiling HEENT: Pupils equal and reactive. Normal conjunctivae. Oral cavity, pharynx clear, dentures NECK: Supple. Good range of motion. LUNGS: Clear to auscultation. HEART: S1, S2 ABDOMEN: Soft and nontender EXTREMITIES: No clubbing or cyanosis. No gross edema. SKIN: Warm to touch without signs of rash. NEUROLOGIC: Alert, oriented and appropriate ME[facility] clean Labs Micro Microbiology 02/13/19 Blood Culture - Final, Complete NO GROWTH AFTER 5 DAYS 02/13/19 Urine Culture - Final, Complete 02/13/19 Urine Culture Result 1 (ABI) - Final, Complete 02/13/19 Antimicrobic Susceptibility - Final, Complete Objective Assessment Sepsis - POA - Lactic acid better - clinically looks some better. Elevated Procalcitonin but also some renal failure. 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 diff neg, 02/15 Plan Plan of Care Clinically improving Continue cefdinir x 7 days PT/OT ok to d/c ALEIDA WILLIAMSON MD Feb 18, 2019 09:26
[2019-02-18] MEDS ORDERED: ASPI-612 PO (09:27)
[2019-02-18] MEDS ORDERED: CEFD300C PO (09:27)
--- NOTE | 2019-02-18 10:46 | SNU/HH DC ---
DISCHARGE WITH HOME HEALTH DISCHARGE INFORMATION: Final Diagnosis: Problems Medical Problems: (1) Hypokalemia Status: Acute (2) Hypomagnesemia Status: Acute (3) Lactic acidosis Status: Acute Condition on Discharge: Stable HOME HEALTH: Face to Face: I certify this patient is under my care and that I, or a nurse practitioner or physician's scheduling assistant working with me, had a face to face encounter that meets the physician face to face encounter requirements with this patient on February 18, 2019. Medical Complications: Other (sepsis) RN For Eval/Treatment: Yes Physical Therapy For: Evalulation/Treatment Pt Meets Homebound Status: Fatigue w/ amb. POST DISCHARGE ORDERS: Activity Instructions for Disc: Activity as tolerated DIET AFTER DISCHARGE: Cardiac Wound/Incision Care: No wound care needed CHECKS AFTER DISCHARGE: Checks after discharge: Check blood press - daily FOLLOW-UP: Follow up with: Amy for event monitor/stress test as outpatient. Follow Up With: Dr. MARLY Chavarria in 5 days TREATMENT/EQUIPMENT ORDERS: Adaptive Equipment Issued: Walker CERTIFICATION STATEMENT: Certification Statement: Certification Statement: Based on the above finding, I certify that this patient is confined to the home and needs intermittent detention care, physical therapy and/or speech therapy, or continues to need occupational therapy.~ This patient is under my care, and I have initiated the establishment of the plan of care.~ This patient will be followed by myself or a community physician who will periodically review the plan of care. Home Meds Active Scripts Aspirin (ASPIRIN EC) 81 Mg Tablet., 81 MG PO DAILYWBKFT for CAD for 30 Days, # 30 TAB.SR 4 Refills Prov:MARLY CHAVARRIA MD 02/18/19 Cefdinir (CEFDINIR) 300 Mg Capsule, 300 MG PO BID for UTI for 7 Days, #14 CAP Prov:MARLY CHAVARRIA MD 02/18/19 Reported Medications Triamcinolone Acetonide (TRIAMCINOLONE ACETONIDE 0.1% OINT) 15 Gm Oint...g., 1 LIMA TP BID for WOUND CARE, #1 TUBE MIX WITH EUCERIN DIRECTED BY PHYSICIAN 02/13/19 Hydrocodone Bit/Acetaminophen (HYDROCODONE-APAP 5-325 ) 1 Tab Tablet, 1 TAB PO PRN Q6HRS PRN for PAIN, TAB 0 Refills 02/13/19 Diclofenac Sodium (VOLTAREN) 100 Gm Gel..gram., 1 GM TP BID for pain, #100 GM 2 Refills 02/13/19 Cholecalciferol (Vitamin D3) (VITAMIN D3) 1,000 Unit Tablet, 2 TAB PO DAILY for vitamin supplement, #30 TAB 5 Refills 02/13/19 Ascorbate Calcium (VITAMIN C) 500 Mg Tablet, 500 MG PO DAILY for vitamin supplement, TAB 02/13/19 Clopidogrel Bisulfate (CLOPIDOGREL) 75 Mg Tablet, 1 TAB PO DAILY for antoplatelet, #90 TAB 1 Refill 02/13/19 Mirtazapine (MIRTAZAPINE) 15 Mg Tablet, 1 TAB PO QHS for antipepressant, #30 TAB 3 Refills 02/13/19 Metoprolol Tartrate (METOPROLOL TARTRATE) 100 Mg Tablet, 1 TAB PO BID for hypertension, #60 TAB 5 Refills 02/13/19 Losartan Potassium (LOSARTAN POTASSIUM) 100 Mg Tablet, 100 MG PO DAILY for HYPERTENSION, TAB 02/13/19 Escitalopram Oxalate (ESCITALOPRAM OXALATE) 10 Mg Tablet, 1 TAB PO DAILY for anti dep, #30 TAB 3 Refills 02/13/19 Hydrochlorothiazide (HYDROCHLOROTHIAZIDE CAPSULE ) 12.5 Mg Capsule, 25 MG PO DAILY for DIURETIC, CAP 0 Refills 02/13/19 [place]-3 Fatty Acids/Fish Oil (FISH OIL 1,000 MG CAPSULE) 1 Each Capsule, 2 EACH PO BID for cardiac, CAP 02/13/19 Diltiazem Hcl (CARDIZEM CD) 240 Mg Cap.er.24h, 0.5 CAP PO DAILY for hypertension , #30 CAP 5 Refills 02/13/19 Atorvastatin Calcium (ATORVASTATIN CALCIUM) 80 Mg Tablet, 1 TAB PO DAILY for cholestrol, #30 TAB 5 Refills 02/13/19 Discontinued Reported Medications Tizanidine Hcl (TIZANIDINE HCL) 4 Mg Tablet, 1 TAB PO QHS for muscle relaxant, # 30 TAB 02/13/19 Clonidine Hcl (CLONIDINE HCL) 0.2 Mg Tablet, 1 TAB PO TID for hypertension, #60 TAB 5 Refills 02/13/19 MARLY CHAVARRIA MD Feb 18, 2019 10:46
--- NOTE | 2019-02-18 10:52 | PDOC3 ---
IM DISCHARGE SUMMARY Date of Admission Date of Admission Date of Admission: Feb 13, 2019 at 03:55 Date of Discharge Date of Discharge February 18, 2019 Primary Diagnosis Primary Diagnosis 1. Sepsis, due to Escherichia coli infection. 2. Hypertensive crisis. 3. Urinary tract infection. 4. Abdominal pain, rule out ischemic colitis, possible gastroenteritis. 5. Acute renal failure with chronic kidney disease. 6. Coronary artery disease, status post coronary artery bypass graft. 7. Escherichia coli UTI. Consults Consults Douglas Ramirez MD Labs Labs Laboratory Tests Test 02/15/19 18:15 02/16/19 05:40 02/17/19 04:40 Clostridium difficile Toxin B Gene Negative (Negative) White Blood Count 17.3 x10^3/uL (4.0-11.0) 12.9 x10^3/uL (4.0-11.0) Red Blood Count 3.21 x10^6/uL (3.50-5.40) 3.16 x10^6/uL (3.50-5.40) Hemoglobin 10.2 g/dL (12.0-15.5) 10.0 g/dL (12.0-15.5) Hematocrit 30.6 % (36.0-47.0) 30.0 % (36.0-47.0) Mean Corpuscular Volume 95 fL (79-100) 95 fL (79-100) Mean Corpuscular Hemoglobin 32 pg (25-35) 32 pg (25-35) Mean Corpuscular Hemoglobin Concent 33 g/dL (31-37) 33 g/dL (31-37) Red Cell Distribution Width 15.5 % (11.5-14.5) 15.4 % (11.5-14.5) Platelet Count 220 x10^3/uL (140-400) 204 x10^3/uL (140-400) Neutrophils (%) (Auto) 86 % (31-73) 84 % (31-73) Lymphocytes (%) (Auto) 8 % (24-48) 9 % (24-48) Monocytes (%) (Auto) 6 % (0-9) 7 % (0-9) Eosinophils (%) (Auto) 0 % (0-3) 0 % (0-3) Basophils (%) (Auto) 0 % (0-3) 0 % (0-3) Neutrophils # (Auto) 14.9 x10^3uL (1.8-7.7) 10.8 x10^3uL (1.8-7.7) Lymphocytes # (Auto) 1.3 x10^3/uL (1.0-4.8) 1.1 x10^3/uL (1.0-4.8) Monocytes # (Auto) 1.0 x10^3/uL (0.0-1.1) 0.9 x10^3/uL (0.0-1.1) Eosinophils # (Auto) 0.0 x10^3/uL (0.0-0.7) 0.0 x10^3/uL (0.0-0.7) Basophils # (Auto) 0.0 x10^3/uL (0.0-0.2) 0.0 x10^3/uL (0.0-0.2) Sodium Level 143 mmol/L (136-145) 141 mmol/L (136-145) Potassium Level 4.1 mmol/L (3.5-5.1) 4.0 mmol/L (3.5-5.1) Chloride Level 111 mmol/L (98-107) 109 mmol/L (98-107) Carbon Dioxide Level 19 mmol/L (21-32) 20 mmol/L (21-32) Anion Gap 13 (6-14) 12 (6-14) Blood Urea Nitrogen 29 mg/dL (7-20) 28 mg/dL (7-20) Creatinine 2.0 mg/dL (0.6-1.0) 1.8 mg/dL (0.6-1.0) Estimated GFR (Cockcroft-Gault) 24.2 27.4 Glucose Level 122 mg/dL (70-99) 102 mg/dL (70-99) Calcium Level 8.6 mg/dL (8.5-10.1) 9.0 mg/dL (8.5-10.1) Brief hospital course Brief hospital course This 78-year-old female started having nausea, vomiting and diarrhea yesterday. Her vomiting was much worse and she also had diffuse abdominal pain and so she came to the Emergency Room. In the Emergency Room, she was noted to have WBC count of 27.4, hemoglobin 13.2. Sodium was 139, potassium was 2.8, BUN 32, creatinine 2.7 and bicarbonate 18, calcium was 12.1, magnesium was 1.5. Lactic acid was 9.3. Albumin was 3.5, total protein 8.1, lipase 312. CK 223, CK-MB 2.2. Urinalysis showed large blood, nitrite negative, rbc's too numerous to count, wbc's too numerous to count and many bacteria. A CT scan of abdomen did not show any acute changes. Because of her sepsis and UTI, abdominal pain with possibility of ischemic colitis, hypokalemia, hypercalcemia and multiple other factors including hypertensive crisis, the patient was admitted for further evaluation and management. The patient's blood pressure in the Emergency Room was 199/108 and currently is 187/95. For more details regarding the past history, family history, social history, surgical history and other details, please refer to History and Physical. Continue IV labetalol and hydralazine. The patient is n.p.o. at this time. If no improvement, she will need IV Nipride. Consult Dr. Kemp for cardiology evaluation and management. For sepsis, consult Dr. Fajardo. She has been started on IV daptomycin, metronidazole, Zosyn and cefepime. Consult Dr. Rodríguez for GI evaluation and management. Keep n.p.o., continue IV fluids, replace potassium, monitor labs. Obtain cultures. Last potassium is 3.6, BUN has decreased to 25 and creatinine is 1.9 and calcium level is decreased to 10. The patient is initially admitted to ICU and then and then transferred to the telemetry unit. Patient was noted to have Escherichia coli UTI and also Escherichia coli sepsis but the blood cultures were negative. He responded to IV antibodies. WBC count was 12.9 yesterday and creatinine 1.8. Clinically improving. She is starting to get mild fluid retention. Clinically she is doing better. She does not want to go to a shelter unit so she'll be discharged home with home health services. She'll see me in the office in 5 days where we'll recheck her labs. Restart hydrochlorothiazide tomorrow morning. Continue to hold her clonidine and tizanidine at home. If the blood pressure starts going up we'll reconsider restarting clonidine. Continue cefdinir 300 mg twice daily for 7 days. Condition at the time of discharge much better. Patient will also follow-up with Dr. Kemp as outpatient for event monitor and possible stress test. Medications Medications reviewed and reconciled for discharge. Allergy Allergies Coded Allergies Type Severity Reaction Last Updated Verified morphine Allergy Intermediate 02/17/19 Yes Follow up in 5 days. DISPOSITION: Home health services Comments Discharge Management - 35 minutes. For other details please refer to discharge instructions MARLY CHAVARRIA MD Feb 18, 2019 10:52
[2019-02-18 11:05] VITALS: BP 138/74
--- NOTE | 2019-02-18 11:11 | NUR ---
SS following for discharge planning. SS reviewed pt chart. PT recommended [facility]. SS met with pt to discuss [facility] unit and discharge planning. Pt reported that she lives in an [facility] residential community and receives a lot of help at home. Pt declined [facility] unit and reported that she would be agreeable to home healthcare. Chanel from [facility] met with pt to provide education and information about home healthcare. Pt agreeable to [facility], ; fax [phone], at discharge. Pt's RN notified.
--- NOTE | 2019-02-18 11:21 | NUR ---
SS following for discharge planning. Discharge orders received for home healthcare. SS phoned and faxed discharge orders and referral to [facility], ; fax [phone]. Pt's RN notified.
[2019-02-18] MEDS ORDERED: PANTOPRAZOLE 40 MG TABLET.DR. PO SCH (11:30)
--- NOTE | 2019-02-18 13:34 | PDOC ---
KARLEY PHAN AGRICULTURAL SALES REPRESENTATIVE 02/18/19 1334: CARDIO Progress Notes Date and Time Date of Service 02/18/19 Time of Evaluation 1140 Subjective Subjective: No Chest Pain, No shortness of breath, No Palpitations Vitals Vitals Vital Signs Date Time Temp Pulse Resp B/P (MAP) Pulse Ox O2 Delivery O2 Flow Rate FiO2 02/18/19 11:48 Room Air 02/18/19 11:05 98.3 76 16 138/74 (95) 95 98.3 Weight Weight [ ] Input and Output Intake and Output Intake and Output 02/18/19 07:00 Intake Total 1180 ml Balance 1180 ml Intake Oral 1180 ml # Voids 1 Microbiology Micro Microbiology 02/13/19 Blood Culture - Final, Complete NO GROWTH AFTER 5 DAYS 02/13/19 Urine Culture - Final, Complete 02/13/19 Urine Culture Result 1 (ABI) - Final, Complete 02/13/19 Antimicrobic Susceptibility - Final, Complete Physical Exam HEENT: Neck Supple W Full Motion Chest: Symmetric LUNGS: Other (diminished bases) Heart: S1S2, irregularly irregular (AFIB RVR) Abdomen: Soft N/T Extremities: No Edema, No Calf Tenderness, Other (trace LE edema) Neurology: alert, oriented, follow commands, confused Assessment Assessment 1. Malignant hypertension; better controlled with resumption of oral meds 2. NSTEMI: peaked at 1.4, multifactorial, no cardiac symptoms. Type 2, demand mediated. 3. Nausea/vomiting/diarrhea; resolved 4. Severe hypokalemia, hypomagnesemia: normalized 5. Sepsis POA/UTI: ID following 6. PAFIB/flutter: maintaining SR 7. JUAN CARLOS on CKD3 with hypernatremia: Cr improved 8. CAD s/p remote CABG in 2000 with subsequent stents in 2014: clinically stable. EF and WM nml. 9. Hyperlipidemia: TG mild elevated otherwise on goal 10. Metabolic encephalopathy: resolved Recommendations Secondary prevention measures Continue with ASA/plavix. No ACEi/ARB for now with JUAN CARLOS. May discharge from a CV standpoint F/u in our office with Dr. Isabel in 1 month as scheduled Will arrange for outpatient stress test Also outpatient event monitor to note arrhythmias burden. LISA ISABEL MD 02/18/19 1632: CARDIO Progress Notes Assessment Assessment Patient seen and examined. Agree with WAIT STAFF's assessment and plan. Patient being discharged home today. Plan ischemic evaluation with [facility] as outpatient. KARLEY PHAN APRN Feb 18, 2019 13:34 LISA ISABEL MD Feb 18, 2019 16:32
--- NOTE | 2019-02-18 13:50 | NUR ---
Discharge Note: ANTONIO MULLINS [facility] Discharge instructions and discharge home medications reviewed with Patient and a copy given. All questions have been answered and understanding verbalized. The following instructions and handouts were given: discharge instructions, asa & cefdinir info. Discontinued lines and drains: Peripheral IV intact. Patient discharged to Home w/services with via wheelchair with transportation at 1350.
--- NOTE | 2019-02-18 14:27 | PDOC ---
PROGRESS NOTES Assessment Assessment IMPRESSION: Metabolic encephalopathy. Confusion. Delusion. Leukocytosis. Hypernatremia. Renal failure. CAD. Elevated Troponin. HTN. HLD. Obesity. RECOMMENDATIONS/PLAN: Continue Plavix 75 mg daily. Continue Lipitor HS. Treat medical diseases. OT/PT. Past Medical History Cardiovascular: CAD, HTN, MS, Hyperlipidemia Heme/Onc: Cancer (breast) Musculoskeletal: Osteoarthritis Renal/: Chronic renal insuff, UTI, Other (nephrolithiasis) Past Surgical History Cholecystectomy, CABG, Mastectomy, Hysterectomy, Other (coronary stent) Family History CAD Social History , no alcohol or tobacco Allergies Coded Allergies: Morphine (Verified Allergy, Intermediate, 02/13/19) ROS Negative for fever, chills, weight loss, shortness of breath, chest pain, indigestion, hematochezia, melena, and dysuria. Full 14-point review of systems is negative. MEDICATIONS: Refer to MAR PHYSICAL EXAMINATION: General appearance in no acute distress. HEENT: Normocephalic and nontraumatic. Eyes, nose, ears, and throat are unremarkable. Neck is supple. No lymphadenopathy. No bruits are heard over the carotid artery. No Crepitus. Cardiovascular: S1, S2, regular rate and rhythm. Pulmonary: Clear to auscultation bilaterally. Abdomen: Bowel sounds are positive. Extremities: No rash, lesions, or edema. No restriction of range of motion NEUROLOGICAL EXAMINATION: Awake. Oriented to time, place and person, but reaction was slow. PERRL. EOMI. CN: no focal findings. Muscle tone: within normal. Muscle strength: 4+ DTR: 2- Plantar reflex: Neutral response bilaterally Gait: not examined in chair. Sensory exam: no abnormal findings. No cerebellar signs elicited. F-T-N test fine. Objective Objective Vital Signs Date Time Temp Pulse Resp B/P (MAP) Pulse Ox O2 Delivery O2 Flow Rate FiO2 02/18/19 11:48 Room Air 02/18/19 11:05 98.3 76 16 138/74 (95) 95 98.3 Intake and Output 02/18/19 07:00 Intake Total 1180 ml Balance 1180 ml Intake Oral 1180 ml # Voids 1 Vitals Signs Vitals VS - Last 72 Hours, by Label Date Time Temp Pulse Resp B/P (MAP) Pulse Ox O2 Delivery O2 Flow Rate FiO2 02/18/19 11:48 Room Air 4/8/19 11:05 98.3 76 16 138/74 (95) 95 Room Air 98.3 02/18/19 08:52 20 97 Room Air 02/18/19 08:00 Room Air 02/18/19 07:53 82 147/83 02/18/19 07:52 20 97 Room Air 02/18/19 07:00 97.7 82 16 147/83 (104) 97 Room Air 97.7 02/18/19 03:19 98.2 77 18 184/91 (122) 97 Room Air 98.2 02/17/19 23:05 98.1 72 18 171/77 (108) 97 Room Air 98.1 02/17/19 21:09 83 154/87 02/17/19 20:00 Room Air 02/17/19 19:20 98.4 83 18 154/87 (109) 96 Room Air 98.4 02/17/19 17:10 18 02/17/19 14:46 98.2 84 18 143/90 (107) 93 Room Air 98.2 02/17/19 12:47 16 02/17/19 11:36 97.4 84 18 135/82 (99) 95 Room Air 97.4 02/17/19 09:24 16 Room Air 02/17/19 08:54 16 Room Air 02/17/19 08:49 88 152/98 02/17/19 08:17 Room Air 02/17/19 07:29 98.0 88 18 152/98 (116) 99 Room Air 98.0 Laboratory Laboratory Microbiology 02/13/19 Blood Culture - Final, Complete NO GROWTH AFTER 5 DAYS 02/13/19 Urine Culture - Final, Complete 02/13/19 Urine Culture Result 1 (ABI) - Final, Complete 02/13/19 Antimicrobic Susceptibility - Final, Complete Medication Medications Current Medications Pantoprazole Sodium (Protonix) 40 mg DAILYAC PO Last administered on 02/18/19at 11:45; Start 02/18/19 at 11:30 Comment Review of Relevant I have reviewed the following items fartun (where applicable) has been applied. SOLOMON DALLAS MD Feb 18, 2019 14:27
== END 2019-02-18 13:50 | disposition home health service (06) | DRG 871 ==
LOC: ER 02:14 → 1 WEST ICU 03:55 → 2 SOUTH 02-15 13:59
PROVIDERS: ADMIT Internal Medicine; ATTEND Internal Medicine
PROC: 02HV33Z Insertion of Infusion Device into Superior Vena Cava, Percutaneous Approach (ICD-10-PCS; principal; 2019-02-14)
PROC: B548ZZA Ultrasonography of Superior Vena Cava, Guidance (ICD-10-PCS; 2019-02-14)
DX: A41.51 Sepsis due to Escherichia coli [E. coli] (principal); G93.41 Metabolic encephalopathy; I21.4 Non-ST elevation (NSTEMI) myocardial infarction; E87.0 Hyperosmolality and hypernatremia; I16.9 Hypertensive crisis, unspecified; N17.9 Acute kidney failure, unspecified; N39.0 Urinary tract infection, site not specified; K55.9 Vascular disorder of intestine, unspecified; I48.92 Unspecified atrial flutter; I48.0 Paroxysmal atrial fibrillation; D64.9 Anemia, unspecified; E66.9 Obesity, unspecified; Z68.32 Body mass index [BMI] 32.0-32.9, adult; E78.00 Pure hypercholesterolemia, unspecified; E78.5 Hyperlipidemia, unspecified; E83.42 Hypomagnesemia; E83.52 Hypercalcemia; E87.6 Hypokalemia; F17.210 Nicotine dependence, cigarettes, uncomplicated; G89.29 Other chronic pain; I12.9 Hypertensive chronic kidney disease with stage 1 through stage 4 chronic kidney disease, or unspecified chronic kidney disease; K21.9 Gastro-esophageal reflux disease without esophagitis; N18.3 Chronic kidney disease, stage 3 (moderate); M19.90 Unspecified osteoarthritis, unspecified site; I25.10 Atherosclerotic heart disease of native coronary artery without angina pectoris; K52.9 Noninfective gastroenteritis and colitis, unspecified; F22 Delusional disorders; I25.2 Old myocardial infarction; Z79.02 Long term (current) use of antithrombotics/antiplatelets; Z80.3 Family history of malignant neoplasm of breast; Z82.49 Family history of ischemic heart disease and other diseases of the circulatory system; Z85.3 Personal history of malignant neoplasm of breast; Z87.442 Personal history of urinary calculi; Z90.13 Acquired absence of bilateral breasts and nipples; Z90.710 Acquired absence of both cervix and uterus; Z95.1 Presence of aortocoronary bypass graft; Z95.5 Presence of coronary angioplasty implant and graft; Z90.721 Acquired absence of ovaries, unilateral; Z88.5 Allergy status to narcotic agent; Z90.49 Acquired absence of other specified parts of digestive tract
CPT/HCPCS: 36415; 36556; 70450; 71045; 74018; 74176; 76937; 80048; 80053; 80061; 81001; 82310; 82553; 83605; 83690; 83735; 84145; 84443; 84484; 85007; 85025; 85610; 85730; 87040; 87086; 87186; 87493; 87641; 93005; 93306; 96361; 96365; 96375; 99291; C1892; C9113; J0360; J0692; J0780; J0878; J1160; J2405; J2543; J2765; J3010; J3475; J3480; J3490; J7030; 97116

== ENCOUNTER 2020-07-10 00:31 | Inpatient (IN) | payer OTHER ==
[~2020-07-10] VITALS: Ht 157.5 cm; Wt 68.1 kg
[~2020-07-10 00:31] MED LIST: ASCO-78 PO; ASPI-886 PO; ATORVASTATIN CA80 MG PO; CEFD300C PO; CHOL10003 PO; CLON0.2T PO; CLOP75TA PO; DICL100G54 TP; DILT240C2 PO; ESCITALOPRAM OX10 MG PO; HYDR-2761 PO; HYDR12.575 PO; LOSA100T14 PO; METO100T7 PO; MIRT15TA3 PO; OMEG1CAP6 PO; TIZA4TAB2 PO; TRIA15OI TP
[2020-07-10 01:03] LABS: BASO % 1 % (0-3); EOS # 0.2 x10^3/uL (0.0-0.7); EOS % 3 % (0-3); HEMATOCRIT 34.8 % (36.0-47.0); LYMPH # 1.8 x10^3/uL (1.0-4.8); LYMPH % 19 % (24-48); MEAN CORPUSCULAR HEMOGLOBIN 31 pg (25-35); MEAN CORPUSCULAR HGB CONC 34 g/dL (31-37); MEAN CORPUSCULAR VOLUME 90 fL (79-100); MONO # 0.8 x10^3/uL (0.0-1.1); MONO % 9 % (0-9); NEUT # 6.4 x10^3/uL (1.8-7.7); NEUT % 69 % (31-73); PLATELET COUNT 332 x10^3/uL (140-400); RED BLOOD COUNT 3.88 x10^6/uL (3.50-5.40); RED CELL DISTRIBUTION WIDTH 14.2 % (11.5-14.5); WHITE BLOOD COUNT 9.3 x10^3/uL (4.0-11.0)
--- NOTE | 2020-07-10 01:09 | PHYS DOC ---
Past Medical History Past Medical History: A-Fib, High Cholesterol, Hypertension, [place], Renal Failure Additional Past Medical Histor: STAGE II RENAL FAILURE Past Surgical History: Cholecystectomy, Coronary Bypass Surgery, Hysterectomy, Oophorectomy, Other Additional Past Surgical Histo: BILATERAL MASTECTOMY, STENT PLACMENT Smoking Status: Current Every Day Smoker Alcohol Use: None Drug Use: None General Adult EDM: Chief Complaint: WEAKNESS/GENERALIZED HPI: HPI: Patient is a 80 year old female who presents with generalized weakness. Patient has had nausea vomiting for about 10 days. 3 days ago she had a syncope event and fell and hit her head on the right side. Since then she has continued to have nausea vomiting and felt weak. Patient denies any fevers or chills. Patient denies any chest pain shortness of breath or cough. Patient has had a right-sided headache. Pain is mild in intensity and worse with activity. Review of Systems: Review of Systems: Constitutional: Denies fever or chills. [] Eyes: Denies change in visual acuity. [] HENT: Denies nasal congestion or sore throat. [] Respiratory: Denies cough or shortness of breath. [] Cardiovascular: Denies chest pain or edema. [] GI: Denies abdominal pain, but has nausea, and vomiting, denies diarrhea : Denies dysuria. [] Musculoskeletal: Denies back pain or joint pain. [] Integument: Denies rash. [] Neurologic: Complains of mild headache but no focal weakness or sensory changes. [] Endocrine: Denies polyuria or polydipsia. [] Lymphatic: Denies swollen glands. [] Psychiatric: Denies depression or anxiety. [] Heart Score: Risk Factors: Risk Factors: DM, Current or recent (<one month) smoker, HTN, HLP, family h istory of CAD, obesity. Risk Scores: Score 0 - 3: 2.5% MACE over next 6 weeks - Discharge Home Score 4 - 6: 20.3% MACE over next 6 weeks - Admit for Clinical Observation Score 7 - 10: 72.7% MACE over next 6 weeks - Early Invasive Strategies Allergies: Allergies: Allergies Coded Allergies Type Severity Reaction Last Updated Verified ciprofloxacin Allergy Severe 07/10/20 Yes morphine Allergy Intermediate 02/17/19 Yes senna Allergy Intermediate 07/10/20 Yes meperidine Adverse Reaction Intermediate 07/10/20 Yes Physical Exam: PE: Constitutional: Well developed, well nourished, no acute distress, non-toxic appearance. [] HENT: Right periorbital ecchymosis, bilateral external ears normal, oropharynx moist, no oral exudates, nose normal. [] Eyes: PERRLA, EOMI, conjunctiva normal, no discharge. [] Right periorbital ecchymosis Neck: Normal range of motion, no tenderness, supple, no stridor. [] Cardiovascular:Heart rate regular rhythm, cap refill brisk, peripheral pulses intact Lungs & Thorax: Bilateral breath sounds clear, no respiratory distress Abdomen: soft, no tenderness, no masses, no pulsatile masses. [] Skin: Warm, dry, no erythema, no rash. [] Back: No tenderness, no CVA tenderness. [] Extremities: No tenderness, no cyanosis, no clubbing, ROM intact, no edema. [] Neurologic: Alert and oriented X 3, normal motor function, normal sensory function, no focal deficits noted. [] Psychologic: Affect normal, judgement normal, mood normal. [] Current Patient Data: Labs: Laboratory Tests Test 07/10/20 00:45 White Blood Count 9.3 x10^3/uL (4.0-11.0) Red Blood Count 3.88 x10^6/uL (3.50-5.40) Hemoglobin 12.0 g/dL (12.0-15.5) Hematocrit 34.8 % (36.0-47.0) L Mean Corpuscular Volume 90 fL (79-100) Mean Corpuscular Hemoglobin 31 pg (25-35) Mean Corpuscular Hemoglobin Concent 34 g/dL (31-37) Red Cell Distribution Width 14.2 % (11.5-14.5) Platelet Count 332 x10^3/uL (140-400) Neutrophils (%) (Auto) 69 % (31-73) Lymphocytes (%) (Auto) 19 % (24-48) L Monocytes (%) (Auto) 9 % (0-9) Eosinophils (%) (Auto) 3 % (0-3) Basophils (%) (Auto) 1 % (0-3) Neutrophils # (Auto) 6.4 x10^3/uL (1.8-7.7) Lymphocytes # (Auto) 1.8 x10^3/uL (1.0-4.8) Monocytes # (Auto) 0.8 x10^3/uL (0.0-1.1) Eosinophils # (Auto) 0.2 x10^3/uL (0.0-0.7) Basophils # (Auto) 0.0 x10^3/uL (0.0-0.2) Laboratory Tests 07/10/20 00:45 Vital Signs: Vital Signs Date Time Temp Pulse Resp B/P (MAP) Pulse Ox O2 Delivery O2 Flow Rate FiO2 07/10/20 00:31 98.1 60 18 150/86 (107) 98 Room Air 98.1 EKG: EKG: EKG interpreted by ms sinus bradycardia rate of 58 normal axis normal intervals T wave inversions and V1 through V4 normal QTC [] Radiology/Procedures: Radiology/Procedures: [][address] [address] IMAGING REPORT Signed PATIENT: ADALBERTO MULLINS ACCOUNT: [id number] : 1940 LOCATION: ER AGE: 80 SEX: F EXAM STATUS: REG ER ORD. PHYSICIAN: SÁNCHEZ BAXTER MD REASON: FALL, SYNCOPE PROCEDURE: CT HEAD WO CONTRAST STUDY: CT head without contrast INDICATION: Fall. Syncope. COMPARISON: 02/13/2019 TECHNIQUE: Axial CT imaging through the head without the use of intravenous contrast. Sagittal and coronal reformats were obtained. One or more of the following individualized dose reduction techniques were utilized for this examination: 1. Automated exposure control 2. Adjustment of the mA and/or kV according to patient size 3. Use of iterative reconstruction technique. FINDINGS: No acute intracranial hemorrhage. No mass effect, midline shift or hydrocephalus. Grier-white matter differentiation is maintained. Parenchymal volume loss which is not atypical for patient age. Intracranial atherosclerotic calcifications. Intact calvarium. IMPRESSION: No acute intracranial abnormality by CT. No significant change from the 02/13/2019 comparison. Electronically signed by: SALVATORE GARRETT MD (07/10/2020 2:08 AM) [id number] DICTATED and SIGNED BY: SALVATORE GARRETT MD DATE: 07/10/20 0208 [address] [place] [address] IMAGING REPORT Signed PATIENT: ADALBERTO MULLINS ACCOUNT: [id number] : 1940 LOCATION: ER AGE: 80 SEX: F EXAM STATUS: REG ER ORD. PHYSICIAN: SÁNCHEZ BAXTER MD REASON: FALL PROCEDURE: PORTABLE CHEST 1V Study: CR PORTABLE CHEST 1V Indication: Fall. Comparison: 02/14/2019 Findings: Status post median sternotomy. Surgical clips projecting along the right lateral chest wall. Unchanged cardiomediastinal silhouette and haider. Atherosclerotic calcifications. No pneumothorax, large effusion or lobar consolidation. Redemonstration of generalized increased lung markings. Scattered chronic osseous findings to include a high riding left humeral head with remodeling of the acromial undersurface. Impression: No acute radiographic abnormality of the chest. Several chronic findings as discussed above. Electronically signed by: SALVATORE GARRETT MD (07/10/2020 2:27 AM) [id number] DICTATED and SIGNED BY: SALVATORE GARRETT MD DATE: 07/10/20 0227 Course & Med Decision Making: Course & Med Decision Making Pertinent Labs and Imaging studies reviewed. (See chart for details) [] 80-year-old female presents with generalized weakness and had a fall couple days ago. Due to her age and head injury a CT was done which was negative. Patient found to have a urinary tract infection was placed on antibiotics. Patient will be admitted to Dr. Payan for further evaluation treatment. Wilfredo Disclaimer: Wilfredo Disclaimer: This electronic medical record was generated, in whole or in part, using a voice recognition dictation system. Departure Departure Impression: Primary Impression: UTI (urinary tract infection) Additional Impressions: Weakness Vomiting Head injury Hyponatremia Disposition: ADMITTED INPATIENT Admitting Physician: Marly Payan Condition: STABLE Referrals: MARLY PAYAN MD (PCP) Justicifation of Admission Dx: Justifications for Admission: Justification of Admission Dx: Yes SÁNCHEZ BAXTER MD Jul 10, 2020 01:09
[2020-07-10 01:21] LABS: CALCIUM 10.8 mg/dL (8.5-10.1); CREATININE 2.4 mg/dL (0.6-1.0); GFR 19.5; POTASSIUM 3.4 mmol/L (3.5-5.1); PROTHROMBIN TIME PATIENT 12.4 SEC (11.7-14.0)
[2020-07-10 01:27] LABS: ALBUMIN 3.1 g/dL (3.4-5.0); ALBUMIN/GLOBULIN RATIO 0.9 (1.0-1.7); TOTAL BILIRUBIN 0.4 mg/dL (0.2-1.0); TOTAL PROTEIN 6.5 g/dL (6.4-8.2)
[2020-07-10] MEDS ORDERED: ONDANSETRON PF 4 MG/2 ML VIAL. IVP ONE (02:00)
--- NOTE | 2020-07-10 02:12 | RAD ---
STUDY: CT head without contrast INDICATION: Fall. Syncope. COMPARISON: 02/13/2019 TECHNIQUE: Axial CT imaging through the head without the use of intravenous contrast. Sagittal and coronal reformats were obtained. One or more of the following individualized dose reduction techniques were utilized for this examination: 1. Automated exposure control 2. Adjustment of the mA and/or kV according to patient size 3. Use of iterative reconstruction technique. FINDINGS: No acute intracranial hemorrhage. No mass effect, midline shift or hydrocephalus. Grier-white matter differentiation is maintained. Parenchymal volume loss which is not atypical for patient age. Intracranial atherosclerotic calcifications. Intact calvarium. IMPRESSION: No acute intracranial abnormality by CT. No significant change from the 02/13/2019 comparison. Electronically signed by: SALVATORE GARRETT MD (07/10/2020 2:08 AM) [id number]
--- NOTE | 2020-07-10 02:30 | RAD ---
Study: CR PORTABLE CHEST 1V Indication: Fall. Comparison: 02/14/2019 Findings: Status post median sternotomy. Surgical clips projecting along the right lateral chest wall. Unchanged cardiomediastinal silhouette and haider. Atherosclerotic calcifications. No pneumothorax, large effusion or lobar consolidation. Redemonstration of generalized increased lung markings. Scattered chronic osseous findings to include a high riding left humeral head with remodeling of the acromial undersurface. Impression: No acute radiographic abnormality of the chest. Several chronic findings as discussed above. Electronically signed by: SALVATORE GARRETT MD (07/10/2020 2:27 AM) [id number]
[2020-07-10] MEDS ORDERED: IV NORMAL SALINE 500ML BAG 500 ML IV ONE (03:00)
[2020-07-10 05:06] LABS: BILIRUBIN,URINE NEGATIVE (NEG); CLARITY,URINE CLEAR; COLOR,URINE YELLOW; NITRITE,URINE NEGATIVE (NEG); PROTEIN,URINE NEGATIVE (NEG-TRACE); UROBILINOGEN,URINE 0.2 mg/dL (0.2 mg/dL)
[2020-07-10 05:13] LABS: BACTERIA,URINE MANY /HPF (0-FEW); RBC,URINE OCC /HPF (0-2); SQUAMOUS EPITHELIAL CELL,UR MOD /LPF; WBC,URINE 20-40 /HPF (0-4)
[2020-07-10 05:14] LABS: HYALINE CASTS, URINE FEW /HPF
[2020-07-10] MEDS ORDERED: ONDANSETRON PF 4 MG/2 ML VIAL. IV PRN (05:30)
[2020-07-10] MEDS ORDERED: cefTRIAXone IV Push 1 GM VIAL. IVP ONE (06:00)
--- NOTE | 2020-07-10 07:19 | EKG ---
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
[2020-07-10] MEDS ORDERED: ACETAMINOPHEN 325 MG TABLET. PO PRN (09:30)
--- NOTE | 2020-07-10 10:34 | PDOC ---
Provider Note Provider Note H&P dictated #[id number] Justifications for Admission Other Justification MARLY CHAVARRIA MD Jul 10, 2020 10:34
--- NOTE | 2020-07-10 11:20 | HP ---
ADMIT DATE: 07/10/2020 HISTORY OF PRESENT ILLNESS: This 80-year-old female who was having nausea and vomiting, progressively getting worse for last 10 days. She was not eating well. She denied any fever, chills, or dysuria. However, 3 days ago on Monday, she fell and hit her right side of the head. She states that the retail assistant store manager at the facility saw her and she told her that she had passed out. However, she did not seek any medical attention at that time. She came to the Emergency Room as she keeps getting weaker and continued to have persistent nausea and vomiting. In the Emergency Room, the patient had a chest x-ray that did not show any acute abnormalities. CT scan of head showed no acute abnormalities. Urinalysis showed small blood in the urine, large leukocyte esterase, 20-40 wbc's, occasional rbc's, and many bacteria. The patient has a history of recurrent urinary tract infection. The patient's sodium was 129, potassium was 3.4, BUN 42, creatinine 2.4. Calcium was 10.8. BNP 1264. Troponin less than 0.017. Albumin 3.1. Lactic acid 0.7. WBC count 9.3 and hemoglobin 12. Because of the acute renal failure with her baseline creatinine around 1.8, syncope, head trauma, UTI, hyponatremia, hypokalemia, fall, and persistent vomiting, the patient is admitted for further evaluation and management. REVIEW OF SYSTEMS: The patient has had nausea, vomiting, weakness, headaches, dizziness. She denies any fever or chills. She denies any chest pains, palpitations, cold, cough, or congestion. She denies any diarrhea or constipation. She does admit to joint pains and weakness. Other systems reviewed and are negative. PAST MEDICAL HISTORY: The patient was last admitted here in 02/2019 for sepsis due to Escherichia coli infection as well as UTI. She has a history of hypertension with chronic kidney disease 3, hyperlipidemia, coronary artery disease. PAST SURGICAL HISTORY: Includes history of coronary artery bypass graft, hysterectomy, oophorectomy, double mastectomy. SOCIAL HISTORY: Past history of smoking less than 2 cigarettes per day. No history of alcoholism or drug abuse. ALLERGIES: ALLERGIC TO MORPHINE. MEDICATIONS: Reviewed and reconciled. PHYSICAL EXAMINATION: GENERAL: The patient is an elderly female who is alert and oriented. Has generalized weakness. She is in the ER at this time. She has bruising and laceration of the right forehead. There is a dressing in place. SKIN: Warm and dry. She has some bruising. EYES: Pupils reacting to light. Conjunctivae pale. Sclerae muddy. HENT: Unremarkable. NECK: JVP normal. No thyromegaly. LUNGS: Decreased breath sounds at bases. CARDIOVASCULAR: S1, S2 regular. ABDOMEN: Soft, nontender, no guarding, no rigidity. Bowel sounds present. EXTREMITIES: Trace edema of both lower extremities. No cyanosis or calf tenderness. CENTRAL NERVOUS SYSTEM: Alert and oriented, generalized weakness. Moves extremities. LABORATORY FINDINGS: As noted earlier. IMPRESSION: 1. Syncope with fall and head trauma, likely due to dehydration and urinary tract infection. 2. Persistent nausea and vomiting. 3. Acute renal failure with chronic kidney disease stage 3. 4. Urinary tract infection. 5. Hyponatremia. 6. Hypokalemia. 7. Physical deconditioning. 8. Osteoarthritis. 9. Coronary artery disease. 10. Status post CABG 11. Hypertension. 12. History of bilateral mastectomy. PLAN: 1. Syncope. This may be due to dehydration. Continue IV fluids. CT scan of head is negative. 2. Acute renal failure. Continue IV fluids with potassium supplements. 3. Acute urinary tract infection. Start IV Rocephin. The patient has a history of recurrent UTI. 4. Hyponatremia. Order IV normal saline. 5. Hypokalemia. Replace with IV potassium. 6. Vomiting. Consult Dr. Rodríguez for GI evaluation and management. 7. Falls. Consult Dr. Lopez for rehab evaluation and management. Order PT, OT. 8. I will also start her on Protonix for GI prophylaxis as well as subcutaneous heparin for DVT prophylaxis. For further details, please refer to the orders. MARLY CHAVARRIA MD DR: GABBY/isael JOB#: [id number] / [id number]
[2020-07-10] MEDS: ONDANSETRON PF 4 MG/2 ML VIAL. IVP PRN ×3 (11:31→22:08)
--- NOTE | 2020-07-10 11:39 | PDOC2 ---
GI CONSULT Date of Service: DATE: 07/10/20 TIME: 11:39 Reason For Consult: n/v HPI: HPI: 80 y/o female seen in ER. 10 days of not feeling well - nausea, not eating m uch, "a little" vomiting. Also reports hypotension and "passing out" a couple times - fell, has bruising on face. Ate breakfast this morning w/o issue. Has UTI. We saw her in 02/2019 for n/v - had NSTEMI and UTI then. Occasional reflux - untreated. No dysphagia, hematemesis, abd pain, diarrhea, constipation, hematochezia, or melena. Assumes weight loss. EGD and colonoscopy @ [facility] – [place] in 2004 - reportedly normal. H/o biliary pancreatitis in 2014 w/ WI, had cholecystectomy ~9 months ago. No liver or pUD history. H/o CAD on Plavix and ASA, h/o arthritis on hydrocodone. PMH: PMH: CAD s/p CABG and stents, WI, HTN, HLD, CKD, UTI, OA hysterectomy w/ BSO, cholecystectomy, bilateral mastectomy (benign) FH: Family History: Cancer (breast) Social History: Smoke: <1 pack per day ALCOHOL: none ROS: GEN: Denies fevers, chills, sweats HEENT: Denies blurred vision, sore throat CV: Denies chest pain RESP: Denies shortness of air, cough GI: Per HPI : Denies hematuria, dysuria ENDO: +weight loss NEURO: Denies confusion, dizziness MSK: +weakness +falls SKIN: +bruising Vitals: Vitals: Vital Signs Date Time Temp Pulse Resp B/P (MAP) Pulse Ox O2 Delivery O2 Flow Rate FiO2 07/10/20 06:06 54 100 07/10/20 00:31 98.1 18 150/86 (107) Room Air 98.1 Labs: Labs: Laboratory Tests Test 07/10/20 00:45 07/10/20 04:32 07/10/20 07:07 White Blood Count 9.3 x10^3/uL (4.0-11.0) Red Blood Count 3.88 x10^6/uL (3.50-5.40) Hemoglobin 12.0 g/dL (12.0-15.5) Hematocrit 34.8 % (36.0-47.0) Mean Corpuscular Volume 90 fL (79-100) Mean Corpuscular Hemoglobin 31 pg (25-35) Mean Corpuscular Hemoglobin Concent 34 g/dL (31-37) Red Cell Distribution Width 14.2 % (11.5-14.5) Platelet Count 332 x10^3/uL (140-400) Neutrophils (%) (Auto) 69 % (31-73) Lymphocytes (%) (Auto) 19 % (24-48) Monocytes (%) (Auto) 9 % (0-9) Eosinophils (%) (Auto) 3 % (0-3) Basophils (%) (Auto) 1 % (0-3) Neutrophils # (Auto) 6.4 x10^3/uL (1.8-7.7) Lymphocytes # (Auto) 1.8 x10^3/uL (1.0-4.8) Monocytes # (Auto) 0.8 x10^3/uL (0.0-1.1) Eosinophils # (Auto) 0.2 x10^3/uL (0.0-0.7) Basophils # (Auto) 0.0 x10^3/uL (0.0-0.2) Prothrombin Time 12.4 SEC (11.7-14.0) Prothromb Time International Ratio 1.0 (0.8-1.1) Activated Partial Thromboplast Time 29 SEC (24-38) Sodium Level 129 mmol/L (136-145) Potassium Level 3.4 mmol/L (3.5-5.1) Chloride Level 92 mmol/L (98-107) Carbon Dioxide Level 25 mmol/L (21-32) Anion Gap 12 (6-14) Blood Urea Nitrogen 42 mg/dL (7-20) Creatinine 2.4 mg/dL (0.6-1.0) Estimated GFR (Cockcroft-Gault) 19.5 BUN/Creatinine Ratio 18 (6-20) Glucose Level 104 mg/dL (70-99) Calcium Level 10.8 mg/dL (8.5-10.1) Total Bilirubin 0.4 mg/dL (0.2-1.0) Aspartate Amino Transf (AST/SGOT) 26 U/L (15-37) Alanine Aminotransferase (ALT/SGPT) 32 U/L (14-59) Alkaline Phosphatase 105 U/L (46-116) Troponin I Quantitative < 0.017 ng/mL (0.000-0.055) [id number]-Mvk-[id number]-Type Natriuretic Peptide 1264 pg/mL (0-449) Total Protein 6.5 g/dL (6.4-8.2) Albumin 3.1 g/dL (3.4-5.0) Albumin/Globulin Ratio 0.9 (1.0-1.7) Lipase 78 U/L (73-393) Urine Collection Type U cath Urine Color Yellow Urine Clarity Clear Urine pH 5.0 (<5.0-8.0) Urine Specific [place] 1.010 (1.000-1.030) Urine Protein Negative mg/dL (NEG-TRACE) Urine Glucose (UA) Negative mg/dL (NEG) Urine Ketones (Stick) Negative mg/dL (NEG) Urine Blood Small (NEG) Urine Nitrite Negative (NEG) Urine Bilirubin Negative (NEG) Urine Urobilinogen Dipstick 0.2 mg/dL (0.2 mg/dL) Urine Leukocyte Esterase Large (NEG) Urine RBC Occ /HPF (0-2) Urine WBC 20-40 /HPF (0-4) Urine Squamous Epithelial Cells Mod /LPF Urine Bacteria Many /HPF (0-FEW) Urine Hyaline Casts Few /HPF Urine Mucus Slight /LPF Lactic Acid Level 0.7 mmol/L (0.4-2.0) Allergies: Coded Allergies: ciprofloxacin (Verified Allergy, Severe, 07/10/20) morphine (Verified Allergy, Intermediate, 02/17/19) takes LORTAB at home senna (Verified Allergy, Intermediate, 07/10/20) meperidine (Verified Adverse Reaction, Intermediate, 07/10/20) Medications: Current Medications Medications (Trade) Dose Ordered Sig/Mackenzie Route PRN Reason Start Time Stop Time Status Last Admin Dose Admin Ondansetron HCl (Zofran) 4 mg 1X ONCE IVP 07/10/20 02:00 07/10/20 02:01 DC 07/10/20 01:45 Sodium Chloride 500 ml @ 500 mls/hr 1X ONCE IV 07/10/20 03:00 07/10/20 03:59 DC 07/10/20 04:44 Ceftriaxone Sodium (Rocephin) 1 gm 1X ONCE IVP 07/10/20 06:00 8/28/20 06:01 DC 07/10/20 06:31 Potassium Chloride/Sodium Chloride 1,000 ml @ 75 mls/hr [id number] IV 07/10/20 09:30 07/10/20 10:26 Ondansetron HCl (Zofran) 4 mg PRN Q6HRS PRN IVP Nausea 07/10/20 09:30 07/10/20 11:31 Imaging: Imaging: Head CT IMPRESSION: No acute intracranial abnormality by CT. No significant change from the 02/13/2019 comparison. CXR Impression: No acute radiographic abnormality of the chest. Several chronic findings as discussed above. PE: GEN: NAD HEENT: Atraumatic, PERRL LUNGS: CTAB HEART: RRR ABD: NABS, S/ND/NT EXTREMITY: No edema SKIN: right periorbital ecchymosis NEURO/PSYCH: A & O 3 A/P: A/P: Falls, ?syncope, n/v UTI, JUAN CARLOS/CKD, elevated BNP, hypercalcemia Heartburn - untreated, reports normal EGD in 2004 CRC screen - reportedly normal in 2004 H/o biliary pancreatitis, s/p cholecystectomy H/o CAD on Plavix and ASA Chronic pain on hydrocodone -- Ate breakfast, no vomiting. Treat other issues. Consider additional GI workup later if unimproved. PPI for GERD. KUB for completeness. FELIPA JOHN Jul 10, 2020 11:39
[2020-07-10] MEDS: PANTOPRAZOLE 40 MG TABLET.DR. PO SCH (14:20)
[2020-07-10] MEDS: HYDROcodone/APAP 5/325MG 1 TAB TABLET PO PRN ×2 (14:59→22:03)
--- NOTE | 2020-07-10 16:19 | RAD ---
Exam: Abdomen one view INDICATION: Nausea vomiting TECHNIQUE: Frontal view of the abdomen Comparisons: None FINDINGS: Air and stool are noted throughout the colon to level the rectum in a nonobstructive bowel gas pattern. No suspicious masses or calcifications. Multilevel degenerative change in lumbar spine with a scoliotic curvature. No acute fractures seen. IMPRESSION: Nonobstructive bowel gas pattern. Electronically signed by: Terri Oliver MD (07/10/2020 4:16 PM) [id number]
[2020-07-10 18:13] VITALS: BP 132/105
[2020-07-10] MEDS: DICLOFENAC SODIUM 1% TOPICAL GEL 100GM TUBE. TP SCH (21:00)
[2020-07-10] MEDS: METOPROLOL TART IMMED RELEASE 50 MG TABLET. PO SCH (22:07)
[2020-07-10 22:18] VITALS: BP 157/91
[2020-07-10] MEDS: MIRTAZAPINE 15 MG TABLET PO SCH (22:20)
[2020-07-10] MEDS: HEPARIN for SUB-Q USE 5,000 UNIT/ML VIAL. SQ SCH (22:23)
[2020-07-11] MEDS ORDERED: CLON0.3T PO (00:45)
[2020-07-11 03:00] VITALS: BP 134/76
[2020-07-11] MEDS: HYDROcodone/APAP 5/325MG 1 TAB TABLET PO PRN ×3 (04:11→16:53)
[2020-07-11 07:00] VITALS: BP 137/68
[2020-07-11 07:20] LABS: BASO # 0.1 x10^3/uL (0.0-0.2); BASO % 1 % (0-3); EOS # 0.2 x10^3/uL (0.0-0.7); EOS % 2 % (0-3); HEMATOCRIT 32.6 % (36.0-47.0); HEMOGLOBIN 11.1 g/dL (12.0-15.5); LYMPH # 1.5 x10^3/uL (1.0-4.8); LYMPH % 17 % (24-48); MEAN CORPUSCULAR HEMOGLOBIN 31 pg (25-35); MEAN CORPUSCULAR HGB CONC 34 g/dL (31-37); MEAN CORPUSCULAR VOLUME 91 fL (79-100); MONO % 12 % (0-9); NEUT # 6.1 x10^3/uL (1.8-7.7); NEUT % 69 % (31-73); PLATELET COUNT 312 x10^3/uL (140-400); RED CELL DISTRIBUTION WIDTH 14.5 % (11.5-14.5); WHITE BLOOD COUNT 8.8 x10^3/uL (4.0-11.0)
[2020-07-11 07:40] LABS: ALBUMIN 2.6 g/dL (3.4-5.0); ALBUMIN/GLOBULIN RATIO 0.8 (1.0-1.7); CALCIUM 9.4 mg/dL (8.5-10.1); CREATININE 1.7 mg/dL (0.6-1.0); GFR 29.1; MAGNESIUM 1.5 mg/dL (1.8-2.4); POTASSIUM 4.3 mmol/L (3.5-5.1); TOTAL BILIRUBIN 0.4 mg/dL (0.2-1.0); TOTAL PROTEIN 5.9 g/dL (6.4-8.2)
[2020-07-11] MEDS: PANTOPRAZOLE 40 MG TABLET.DR. PO SCH (08:27)
[2020-07-11] MEDS: CHOLECALCIFEROL (VITAMIN D3) 1,000 UNIT TABLET PO SCH (08:27)
[2020-07-11] MEDS: METOPROLOL TART IMMED RELEASE 50 MG TABLET. PO SCH ×2 (08:27→20:49)
[2020-07-11] MEDS: ASPIRIN ENTERIC COATED 81 MG TABLET.DR. PO SCH (08:27)
[2020-07-11] MEDS: CLOPIDOGREL BISULFATE 75 MG TABLET PO SCH (08:27)
[2020-07-11] MEDS: HEPARIN for SUB-Q USE 5,000 UNIT/ML VIAL. SQ SCH ×2 (08:38→21:01)
[2020-07-11] MEDS: DICLOFENAC SODIUM 1% TOPICAL GEL 100GM TUBE. TP SCH ×2 (09:00→20:52)
[2020-07-11] MEDS: cefTRIAXone IV Push 1 GM VIAL. IVP SCH (09:12)
--- NOTE | 2020-07-11 10:41 | PDOC ---
IM PROGRESS NOTES- Subjective Subjective No complaints of pain, dyspnea or abdominal pain. Still has nausea Objective Vitals/I&O Vital Signs Date Time Temp Pulse Resp B/P (MAP) Pulse Ox O2 Delivery O2 Flow Rate FiO2 07/11/20 10:21 Room Air 07/11/20 08:27 59 137/68 07/11/20 07:00 98.4 18 98 98.4 I & O 07/10/20 07/10/20 07/11/20 15:00 23:00 07:00 Intake Total 1170 ml Balance 1170 ml Physical Exam Physical Exam General appearance - alert,well appearing, and in no distress and oriented to person, place, and time Mental Status - alert, oriented to person, place, and time, affect appropriate to mood Head - normal Chest -decreased breath sounds at bases Heart - S1 and S2 normal Abdomen - soft, nontender Neurological - alert and oriented Extremities -decreased pedal edema Skin - warm and dry Labs Laboratory Tests Test 07/11/20 05:40 White Blood Count 8.8 x10^3/uL (4.0-11.0) Red Blood Count 3.60 x10^6/uL (3.50-5.40) Hemoglobin 11.1 g/dL (12.0-15.5) L Hematocrit 32.6 % (36.0-47.0) L Mean Corpuscular Volume 91 fL (79-100) Mean Corpuscular Hemoglobin 31 pg (25-35) Mean Corpuscular Hemoglobin Concent 34 g/dL (31-37) Red Cell Distribution Width 14.5 % (11.5-14.5) Platelet Count 312 x10^3/uL (140-400) Neutrophils (%) (Auto) 69 % (31-73) Lymphocytes (%) (Auto) 17 % (24-48) L Monocytes (%) (Auto) 12 % (0-9) H Eosinophils (%) (Auto) 2 % (0-3) Basophils (%) (Auto) 1 % (0-3) Neutrophils # (Auto) 6.1 x10^3/uL (1.8-7.7) Lymphocytes # (Auto) 1.5 x10^3/uL (1.0-4.8) Monocytes # (Auto) 1.0 x10^3/uL (0.0-1.1) Eosinophils # (Auto) 0.2 x10^3/uL (0.0-0.7) Basophils # (Auto) 0.1 x10^3/uL (0.0-0.2) Sodium Level 138 mmol/L (136-145) Potassium Level 4.3 mmol/L (3.5-5.1) Chloride Level 105 mmol/L (98-107) Carbon Dioxide Level 25 mmol/L (21-32) Anion Gap 8 (6-14) Blood Urea Nitrogen 30 mg/dL (7-20) H Creatinine 1.7 mg/dL (0.6-1.0) H Estimated GFR (Cockcroft-Gault) 29.1 BUN/Creatinine Ratio 18 (6-20) Glucose Level 77 mg/dL (70-99) Calcium Level 9.4 mg/dL (8.5-10.1) Magnesium Level 1.5 mg/dL (1.8-2.4) L Total Bilirubin 0.4 mg/dL (0.2-1.0) Aspartate Amino Transferase (AST) 27 U/L (15-37) Alanine Aminotransferase (ALT) 26 U/L (14-59) Alkaline Phosphatase 73 U/L (46-116) Total Protein 5.9 g/dL (6.4-8.2) L Albumin 2.6 g/dL (3.4-5.0) L Albumin/Globulin Ratio 0.8 (1.0-1.7) L Laboratory Tests 07/11/20 05:40 Laboratory Tests 07/11/20 05:40 Meds Current Medications Medications (Trade) Dose Ordered Sig/Mackenzie Route PRN Reason Start Time Stop Time Status Last Admin Dose Admin Heparin Sodium (Porcine) (Heparin Sodium) 5,000 unit Q12HR SQ 07/10/20 21:00 07/11/20 08:38 Aspirin (Ecotrin) 81 mg [id number] PO 07/11/20 08:00 07/11/20 08:27 Vitamin D (Vitamin D3) 2,000 unit DAILY PO 07/11/20 09:00 07/11/20 08:27 Clopidogrel Bisulfate (Plavix) 75 mg DAILY PO 07/11/20 09:00 07/11/20 08:27 Diltiazem HCl (Cardizem 24hr Cd) 120 mg DAILY PO 07/11/20 09:00 07/11/20 08:26 Mirtazapine (Remeron) 15 mg QHS PO 07/10/20 21:00 07/10/20 22:20 Metoprolol Tartrate (Lopressor) 100 mg BID PO 07/10/20 21:00 07/11/20 08:27 Ceftriaxone Sodium (Rocephin) 1 gm Q24H IVP 07/11/20 09:00 07/11/20 09:12 Pantoprazole Sodium (Protonix) 40 mg DAILYAC PO 07/10/20 12:00 07/11/20 08:27 Assessment Assessment 1. Syncope with fall and head trauma, likely due to dehydration and urinary tract infection. 2. Persistent nausea and vomiting. 3. Acute renal failure with chronic kidney disease stage 3. 4. Urinary tract infection. 5. Hyponatremia. 6. Hypokalemia. 7. Physical deconditioning. 8. Osteoarthritis. 9. Coronary artery disease. 10. Status post CABG 11. Hypertension. 12. History of bilateral mastectomy. PLAN: 1. Syncope. This may be due to dehydration. Continue IV fluids. CT scan of head is negative. 2. Acute renal failure. Continue IV fluids with potassium supplements. Improving. Creatinine has decreased to 1.7. 3. Acute urinary tract infection. Start IV Rocephin. The patient has a history of recurrent UTI. Urine culture shows 100,000 K gram-negative rods. 4. Hyponatremia. Order IV normal saline. Corrected. Sodium has increased to 138. 5. Hypokalemia. Replace with IV potassium. 6. Vomiting. Consult Dr. Rodríguez for GI evaluation and management. Still has nausea. 7. Falls. Consult Dr. Lopez for rehab evaluation and management. Order PT, OT. 8. I will also start her on Protonix for GI prophylaxis as well as subcutaneous heparin for DVT prophylaxis. For further details, please refer to the orders. Plan Plan For more details regarding further plans, please refer to the orders. Justifications for Admission Other Justification MARLY CHAVARRIA MD Jul 11, 2020 10:41
[2020-07-11 11:00] VITALS: BP 172/77
[2020-07-11] MEDS: ONDANSETRON PF 4 MG/2 ML VIAL. IVP PRN (11:03)
[2020-07-11] MEDS: cloNIDine HCL 0.3 MG TABLET PO SCH ×2 (12:16→20:48)
[2020-07-11 15:00] VITALS: BP 132/60
--- NOTE | 2020-07-11 18:42 | CONS ---
DATE OF CONSULTATION: 07/11/2020 LOCATION: She is in room 504. ATTENDING PHYSICIAN: Edilson Payan MD REASON FOR CONSULTATION: The patient was seen at the request of Dr. Payan for rehab. HISTORY OF PRESENT ILLNESS: This is a 80-year-old female who lives alone. No stairs for her to manage. The patient was admitted through the Emergency Room having nausea and vomiting, progressively getting worse for about 10 days, not eating well. Denied any fever, chills, dysuria. She fell on 07/07/2020 and hit the right side of her head. She had bruise to her right eye. She complains of chronic neck and shoulder area pain. She denies any radiation of pain to the hands or any tingling, numbness sensation in the hand. She admits to some left knee pain. She denies any giving out or locking up sensation of her knees. She apparently had passed out after the fall, she did not seek any medical attention at that time. The patient had chest x-ray, which failed to reveal any acute abnormality. CT scan of the brain failed to reveal any acute abnormalities. Urinalysis revealed small blood in the urine, large leukocyte esterase and 20-40 wbc's, occasional RBCs and many bacteria. The patient had history of recurrent urinary tract infection. The patient had history of chronic kidney disease with creatinine baseline at 1.8. She was noted with creatinine of 2.2 in the Emergency Room. The patient was admitted for further evaluation and treatment. She was also noted with hyponatremia and hypokalemia. PAST MEDICAL HISTORY: Includes urosepsis in 02/2019 due to Escherichia coli; hypertension; hyperlipidemia; coronary artery disease, status post coronary artery bypass graft; hysterectomy; oophorectomy; double mastectomy; history of smoking less than 2 cigarettes per day. KNOWN ALLERGIC TO MORPHINE. The patient had this neck and shoulder pain going on for about 6 years, had tried physical therapy 3 times without much help. PHYSICAL EXAMINATION: The patient on physical examination today revealed an elderly female. She is alert and oriented to time, place, person and circumstance and follows commands appropriately, moves all 4 extremities voluntarily where she had 4/5 to 4+/5 grade muscle strength with significant weakness of rotator cuff muscles and shoulder abductors, left side more than right side. She had crepitus on range of motion of her left knee and she had painful limited movements of her shoulders, especially on the left side, tenderness to palpation over cervical paraspinal and posterior shoulder girdle muscles both shoulders, both anterior and posterior aspect and over medial and lateral knee joint line. She had pain free range of motion of both hip joints. She had equal perception of touch and pinprick sensation bilaterally, absent knee and ankle jerks. She had mild knee joint effusion, left side more than right side. She is receiving IV fluids. She has been getting up and walking using a roller walker to the bathroom. She had a bruised skin around right eye. ASSESSMENT AND PLAN: Elderly female with recent urinary tract infection, hypokalemia, hyponatremia and acute kidney failure in a setting of chronic kidney disease, peripheral neuropathy, degenerative joint disease of both knees with painful left knee degenerative disk disease and degenerative joint disease of cervical vertebrae with cervical paraspinal and posterior shoulder girdle muscle strain, chronic and tendinitis, both shoulders with adhesive capsulitis, left shoulder. Hypertension, hyperlipidemia, coronary artery disease, status post coronary artery bypass graft and status post double mastectomy. RECOMMENDATIONS: Agree with the plans for physical therapy and occupational therapy to get her up as tolerated. Hopefully, home with outpatient followup when medically stable. Dr. Payan, I appreciate asking me to participate in the care of this interesting patient. I will be glad to see her for followup on as needed basis. At this time, she is not interested in any injection to her neck, shoulder and left knee. ALEX DALY MD DR: SPIKE/isael JOB#: [id number] / [id number]
[2020-07-11 19:00] VITALS: BP 106/64
[2020-07-11] MEDS: MIRTAZAPINE 15 MG TABLET PO SCH (20:48)
[2020-07-11] MEDS: LACTOBACILLUS RHAMNOSUS GG 1 CAPSULE. PO SCH (20:53)
[2020-07-11 23:02] VITALS: BP 97/49
[2020-07-12] MEDS: HYDROcodone/APAP 5/325MG 1 TAB TABLET PO PRN ×4 (00:04→18:15)
[2020-07-12 03:02] VITALS: BP 118/45
[2020-07-12] MEDS: PANTOPRAZOLE 40 MG TABLET.DR. PO SCH (05:56)
[2020-07-12 07:00] VITALS: BP 114/51
[2020-07-12] MEDS: cloNIDine HCL 0.3 MG TABLET PO SCH ×2 (09:28→21:04)
[2020-07-12] MEDS: cefTRIAXone IV Push 1 GM VIAL. IVP SCH (09:28)
[2020-07-12] MEDS: CLOPIDOGREL BISULFATE 75 MG TABLET PO SCH (09:28)
[2020-07-12] MEDS: ASPIRIN ENTERIC COATED 81 MG TABLET.DR. PO SCH (09:28)
[2020-07-12] MEDS: CHOLECALCIFEROL (VITAMIN D3) 1,000 UNIT TABLET PO SCH (09:28)
[2020-07-12] MEDS: LACTOBACILLUS RHAMNOSUS GG 1 CAPSULE. PO SCH ×2 (09:29→21:04)
--- NOTE | 2020-07-12 09:35 | PDOC ---
IM PROGRESS NOTES- Subjective Subjective No complaints of pain, dyspnea or abdominal pain. Still has nausea Objective Vitals/I&O Vital Signs Date Time Temp Pulse Resp B/P (MAP) Pulse Ox O2 Delivery O2 Flow Rate FiO2 07/12/20 07:08 18 98 Room Air 07/12/20 03:02 97.5 49 118/45 (69) 97.5 I & O 07/11/20 07/11/20 07/12/20 15:00 23:00 07:00 Intake Total 360 ml 220 ml Balance 360 ml 220 ml Physical Exam Physical Exam General appearance - alert,well appearing, and in no distress and oriented to person, place, and time Mental Status - alert, oriented to person, place, and time, affect appropriate to mood Head - normal Chest -decreased breath sounds at bases Heart - S1 and S2 normal Abdomen - soft, nontender Neurological - alert and oriented Extremities -decreased pedal edema Skin - warm and dry Meds Current Medications Medications (Trade) Dose Ordered Sig/Mackenzie Route PRN Reason Start Time Stop Time Status Last Admin Dose Admin Clonidine HCl (Catapres) 0.3 mg BID PO 07/11/20 11:30 07/11/20 20:48 Lactobacillus Rhamnosus (Culturelle) 1 cap BID PO 07/11/20 21:00 07/11/20 20:53 Assessment Assessment 1. Syncope with fall and head trauma, likely due to dehydration and urinary tract infection. 2. Persistent nausea and vomiting. 3. Acute renal failure with chronic kidney disease stage 3. 4. Urinary tract infection. 5. Hyponatremia. 6. Hypokalemia. 7. Physical deconditioning. 8. Osteoarthritis. 9. Coronary artery disease. 10. Status post CABG 11. Hypertension. 12. History of bilateral mastectomy. PLAN: 1. Syncope. This may be due to dehydration. Continue IV fluids. CT scan of head is negative. 2. Acute renal failure. Continue IV fluids with potassium supplements. Improving. Creatinine has decreased to 1.7. 3. Acute urinary tract infection. Start IV Rocephin. The patient has a history of recurrent UTI. Urine culture shows 100,000 K E. coli, sensitive to cephalosporins.. 4. Hyponatremia. Order IV normal saline. Corrected. Sodium has increased to 138. 5. Hypokalemia. Replace with IV potassium. 6. Vomiting. Consult Dr. Rodríguez for GI evaluation and management. Still has nausea. 7. Falls. Consult Dr. Lopez for rehab evaluation and management. Order PT, OT. 8. I will also start her on Protonix for GI prophylaxis as well as subcutaneous heparin for DVT prophylaxis. For further details, please refer to the orders. Plan Plan For more details regarding further plans, please refer to the orders. Justifications for Admission Other Justification MARLY CHAVARRIA MD Jul 12, 2020 09:35
[2020-07-12] MEDS: HEPARIN for SUB-Q USE 5,000 UNIT/ML VIAL. SQ SCH ×2 (09:37→21:25)
[2020-07-12] MEDS: DICLOFENAC SODIUM 1% TOPICAL GEL 100GM TUBE. TP SCH ×2 (09:37→21:00)
[2020-07-12 11:00] VITALS: BP 136/52
[2020-07-12] MEDS: ONDANSETRON PF 4 MG/2 ML VIAL. IVP PRN (11:01)
[2020-07-12] MEDS: METOPROLOL TART IMMED RELEASE 50 MG TABLET. PO SCH ×2 (12:14→21:04)
--- NOTE | 2020-07-12 12:44 | PDOC ---
G I PROGRESS NOTE Subjective Some nausea, but improved. Physical Exam Lungs clear. RRR Abdomen soft, not tender nor distended. Review of Relevant I have reviewed the following items fartun (where applicable) has been applied. Labs Laboratory Tests Test 07/11/20 05:40 White Blood Count 8.8 x10^3/uL (4.0-11.0) Red Blood Count 3.60 x10^6/uL (3.50-5.40) Hemoglobin 11.1 g/dL (12.0-15.5) Hematocrit 32.6 % (36.0-47.0) Mean Corpuscular Volume 91 fL (79-100) Mean Corpuscular Hemoglobin 31 pg (25-35) Mean Corpuscular Hemoglobin Concent 34 g/dL (31-37) Red Cell Distribution Width 14.5 % (11.5-14.5) Platelet Count 312 x10^3/uL (140-400) Neutrophils (%) (Auto) 69 % (31-73) Lymphocytes (%) (Auto) 17 % (24-48) Monocytes (%) (Auto) 12 % (0-9) Eosinophils (%) (Auto) 2 % (0-3) Basophils (%) (Auto) 1 % (0-3) Neutrophils # (Auto) 6.1 x10^3/uL (1.8-7.7) Lymphocytes # (Auto) 1.5 x10^3/uL (1.0-4.8) Monocytes # (Auto) 1.0 x10^3/uL (0.0-1.1) Eosinophils # (Auto) 0.2 x10^3/uL (0.0-0.7) Basophils # (Auto) 0.1 x10^3/uL (0.0-0.2) Sodium Level 138 mmol/L (136-145) Potassium Level 4.3 mmol/L (3.5-5.1) Chloride Level 105 mmol/L (98-107) Carbon Dioxide Level 25 mmol/L (21-32) Anion Gap 8 (6-14) Blood Urea Nitrogen 30 mg/dL (7-20) Creatinine 1.7 mg/dL (0.6-1.0) Estimated GFR (Cockcroft-Gault) 29.1 BUN/Creatinine Ratio 18 (6-20) Glucose Level 77 mg/dL (70-99) Calcium Level 9.4 mg/dL (8.5-10.1) Magnesium Level 1.5 mg/dL (1.8-2.4) Total Bilirubin 0.4 mg/dL (0.2-1.0) Aspartate Amino Transf (AST/SGOT) 27 U/L (15-37) Alanine Aminotransferase (ALT/SGPT) 26 U/L (14-59) Alkaline Phosphatase 73 U/L (46-116) Total Protein 5.9 g/dL (6.4-8.2) Albumin 2.6 g/dL (3.4-5.0) Albumin/Globulin Ratio 0.8 (1.0-1.7) Microbiology 07/10/20 Blood Culture - Preliminary, Resulted NO GROWTH AFTER 2 DAYS 07/10/20 Urine Culture - Final, Complete 07/10/20 Antimicrobic Susceptibility - Final, Complete Vitals/I & O Vital Sign - Last 24 Hours 07/11/20 07/11/20 07/11/20 07/11/20 15:00 16:53 18:28 19:00 Temp 98.7 98.0 98.7 98.0 Pulse 59 57 Resp 18 20 B/P (MAP) 132/60 (84) 106/64 (78) Pulse Ox 98 98 O2 Delivery Room Air Room Air Room Air 07/11/20 07/11/20 07/11/20 07/11/20 20:00 20:48 20:49 23:02 Temp 98.2 98.2 Pulse 57 57 54 Resp 16 B/P (MAP) 106/64 106/64 97/49 (65) Pulse Ox 99 O2 Delivery Room Air Room Air 07/12/20 07/12/20 07/12/20 07/12/20 00:04 01:04 03:02 05:56 Temp 97.5 97.5 Pulse 49 Resp 18 18 18 18 B/P (MAP) 118/45 (69) Pulse Ox 99 99 98 98 O2 Delivery Room Air Room Air Room Air Room Air 07/12/20 07/12/20 07/12/20 07/12/20 07:00 07:08 08:05 09:28 Temp 97.9 97.9 Pulse 53 53 Resp 16 18 B/P (MAP) 114/51 (72) 114/51 Pulse Ox 98 O2 Delivery Room Air Room Air 07/12/20 07/12/20 07/12/20 07/12/20 09:29 11:00 12:12 12:14 Temp 98.5 98.5 Pulse 53 60 60 Resp 16 B/P (MAP) 114/51 136/52 (80) 136/52 Pulse Ox 99 O2 Delivery Room Air Room Air Intake and Output 07/11/20 07/11/20 07/12/20 15:00 23:00 07:00 Intake Total 360 ml 220 ml Balance 360 ml 220 ml Problem List Problems Medical Problems: (1) Head injury Status: Acute (2) Hyponatremia Status: Acute (3) UTI (urinary tract infection) Status: Acute (4) Vomiting Status: Acute (5) Weakness Status: Acute Assessment Nausea, suspect from GERD. Improving. Plan of Care Note Continue PPI. Justicifation of Admission Dx: Justifications for Admission: Justification of Admission Dx: Yes FABI CAM MD Jul 12, 2020 12:44
[2020-07-12 15:30] VITALS: BP 127/52
[2020-07-12 19:00] VITALS: BP 119/47
[2020-07-12] MEDS: MIRTAZAPINE 15 MG TABLET PO SCH (21:04)
[2020-07-12 23:00] VITALS: BP 121/44
[2020-07-13] MEDS: HYDROcodone/APAP 5/325MG 1 TAB TABLET PO PRN ×2 (00:19→06:27)
[2020-07-13 03:00] VITALS: BP 122/38
[2020-07-13] MEDS: ONDANSETRON PF 4 MG/2 ML VIAL. IVP PRN (06:27)
[2020-07-13 07:00] VITALS: BP 131/59
[2020-07-13 07:23] LABS: CALCIUM 8.1 mg/dL (8.5-10.1); CREATININE 1.3 mg/dL (0.6-1.0); GFR 39.6; POTASSIUM 4.9 mmol/L (3.5-5.1)
[2020-07-13] MEDS: DICLOFENAC SODIUM 1% TOPICAL GEL 100GM TUBE. TP SCH (08:35)
[2020-07-13] MEDS: METOPROLOL TART IMMED RELEASE 50 MG TABLET. PO SCH (08:37)
[2020-07-13] MEDS: CLOPIDOGREL BISULFATE 75 MG TABLET PO SCH (08:38)
[2020-07-13] MEDS: cloNIDine HCL 0.3 MG TABLET PO SCH (08:38)
[2020-07-13] MEDS: ASPIRIN ENTERIC COATED 81 MG TABLET.DR. PO SCH (08:38)
[2020-07-13] MEDS: cefTRIAXone IV Push 1 GM VIAL. IVP SCH (08:38)
[2020-07-13] MEDS: LACTOBACILLUS RHAMNOSUS GG 1 CAPSULE. PO SCH (08:38)
[2020-07-13] MEDS: PANTOPRAZOLE 40 MG TABLET.DR. PO SCH (08:38)
[2020-07-13] MEDS: HEPARIN for SUB-Q USE 5,000 UNIT/ML VIAL. SQ SCH (08:46)
[2020-07-13] MEDS: CHOLECALCIFEROL (VITAMIN D3) 1,000 UNIT TABLET PO SCH (09:51)
[2020-07-13] MEDS ORDERED: PANT40TA77 PO (10:00)
[2020-07-13] MEDS ORDERED: ONDA4TAB12 PO (10:00)
[2020-07-13] MEDS ORDERED: CEPH-264 PO (10:00)
[2020-07-13] MEDS ORDERED: LACT1CAP19 PO (10:00)
--- NOTE | 2020-07-13 10:05 | SNU/HH DC ---
DISCHARGE WITH HOME HEALTH DISCHARGE INFORMATION: Final Diagnosis: Problems Medical Problems: (1) Head injury Status: Acute (2) Hyponatremia Status: Acute (3) UTI (urinary tract infection) Status: Acute (4) Vomiting Status: Acute (5) Weakness Status: Acute Condition on Discharge: Stable HOME HEALTH: Face to Face: I certify this patient is under my care and that I, or a nurse practitioner or physician's dental hygiene administrative assistant working with me, had a face to face encounter that meets the physician face to face encounter requirements with this patient on July 13, 2020. Medical Complications: Falls RN For Eval/Treatment: Yes Physical Therapy For: Evalulation/Treatment Occupational Therapy For: Evaluation/Treatment Pt Meets Homebound Status: Unsteady balance w/ amb, POST DISCHARGE ORDERS: Activity Instructions for Disc: No restrictions, Activity as tolerated (Walk with walker) DIET AFTER DISCHARGE: Cardiac Wound/Incision Care: No wound care needed CHECKS AFTER DISCHARGE: Checks after discharge: Check blood press - daily FOLLOW-UP: PCP to follow Home Health: Yes Follow up with: Dr. Marly Chavarria in 5 days TREATMENT/EQUIPMENT ORDERS: Adaptive Equipment Issued: Walker CERTIFICATION STATEMENT: Certification Statement: Certification Statement: Based on the above finding, I certify that this patient is confined to the home and needs intermittent halfway care, physical therapy and/or speech therapy, or continues to need occupational therapy.~ This patient is under my care, and I have initiated the establishment of the plan of care.~ This patient will be followed by myself or a community physician who will periodically review the plan of care. Home Meds Active Scripts Ondansetron (ONDANSETRON ODT) 4 Mg Tab.rapdis, 4 MG PO BID PRN for NAUSEA/VOMITING for 7 Days, #14 TAB Prov:MARLY CHAVARRIA MD 07/13/20 Cephalexin (KEFLEX) 500 Mg Capsule, 1 CAP PO BID for UTI for 7 Days, #14 CAP 0 Refills Prov:MARLY CHAVARRIA MD 07/13/20 Lactobacillus Rhamnosus Gg (CULTURELLE) 1 Each Cap.sprink, 1 CAP PO BID for antibiotic use for 14 Days, #28 CAP Prov:MARLY CHAVARRIA MD 07/13/20 Pantoprazole Sodium (PANTOPRAZOLE SODIUM ) 40 Mg Tablet.dr, 40 MG PO DAILYAC for GERD for 30 Days, #30 TAB.SR 5 Refills Prov:MARLY CHAVARRIA MD 07/13/20 Aspirin (ASPIRIN EC) 81 Mg Tablet.dr, 81 MG PO DAILYWBKFT for CAD for 30 Days, #30 TAB.SR 4 Refills Prov:MARLY CHAVARRIA MD 02/18/19 Reported Medications Clonidine Hcl (CLONIDINE HCL) 0.3 Mg Tablet, 0.3 MG PO BID for htn, TAB 07/11/20 Triamcinolone Acetonide (TRIAMCINOLONE ACETONIDE 0.1% OINT) 15 Gm Oint...g., 1 LIMA TP BID for WOUND CARE, #1 TUBE MIX WITH EUCERIN DIRECTED BY PHYSICIAN 02/13/19 Hydrocodone Bit/Acetaminophen (HYDROCODONE-APAP 5-325 ) 1 Tab Tablet, 1 TAB PO PRN Q6HRS PRN for PAIN, TAB 0 Refills 02/13/19 Diclofenac Sodium (VOLTAREN) 100 Gm Gel..gram., 1 GM TP BID for pain, #100 GM 2 Refills 02/13/19 Cholecalciferol (Vitamin D3) (VITAMIN D3) 1,000 Unit Tablet, 2 TAB PO DAILY for vitamin supplement, #30 TAB 5 Refills 02/13/19 Clopidogrel Bisulfate (CLOPIDOGREL) 75 Mg Tablet, 1 TAB PO DAILY for antoplatelet, #90 TAB 1 Refill 02/13/19 Mirtazapine (MIRTAZAPINE) 15 Mg Tablet, 1 TAB PO QHS for antipepressant, #30 TAB 3 Refills 02/13/19 Metoprolol Tartrate (METOPROLOL TARTRATE) 100 Mg Tablet, 1 TAB PO BID for hypertension, #60 TAB 5 Refills 02/13/19 Losartan Potassium (LOSARTAN POTASSIUM) 100 Mg Tablet, 100 MG PO DAILY for HYPERTENSION, TAB 02/13/19 Escitalopram Oxalate (ESCITALOPRAM OXALATE) 10 Mg Tablet, 1 TAB PO DAILY for anti dep, #30 TAB 3 Refills 02/13/19 Hydrochlorothiazide (HYDROCHLOROTHIAZIDE CAPSULE ) 12.5 Mg Capsule, 25 MG PO DAILY for DIURETIC, CAP 0 Refills 02/13/19 [place]-3 Fatty Acids/Fish Oil (FISH OIL 1,000 MG CAPSULE) 1 Each Capsule, 2 EACH PO BID for cardiac, CAP 02/13/19 Diltiazem Hcl (CARDIZEM CD) 240 Mg Cap.er.24h, 0.5 CAP PO DAILY for hypertension, #30 CAP 5 Refills 02/13/19 Atorvastatin Calcium (ATORVASTATIN CALCIUM) 80 Mg Tablet, 1 TAB PO DAILY for cholestrol, #30 TAB 5 Refills 02/13/19 Discontinued Reported Medications Ascorbate Calcium (VITAMIN C) 500 Mg Tablet, 500 MG PO DAILY for vitamin supplement, TAB 02/13/19 Discontinued Scripts Cefdinir (CEFDINIR) 300 Mg Capsule, 300 MG PO BID for UTI for 7 Days, #14 CAP Prov:MARLY CHAVARRIA MD 02/18/19 MARLY CHAVARRIA MD Jul 13, 2020 10:05
--- NOTE | 2020-07-13 10:08 | PDOC3 ---
IM DISCHARGE SUMMARY Date of Admission Date of Admission Date of Admission: Jul 10, 2020 at 06:31 Date of Discharge Date of Discharge July 13, 2020 Primary Diagnosis Primary Diagnosis 1. Syncope with fall and head trauma, likely due to dehydration and urinary tract infection. 2. Persistent nausea and vomiting. 3. Acute renal failure with chronic kidney disease stage 3. 4. Urinary tract infection. 5. Hyponatremia. 6. Hypokalemia. 7. Physical deconditioning. 8. Osteoarthritis. 9. Coronary artery disease. 10. Status post CABG 11. Hypertension. 12. History of bilateral mastectomy. Consults Consults Lalit Lopez MD; Xiang Rodríguez MD Labs Labs Laboratory Tests Test 07/13/20 05:10 Sodium Level 140 mmol/L (136-145) Potassium Level 4.9 mmol/L (3.5-5.1) Chloride Level 111 mmol/L (98-107) H Carbon Dioxide Level 21 mmol/L (21-32) Anion Gap 8 (6-14) Blood Urea Nitrogen 13 mg/dL (7-20) Creatinine 1.3 mg/dL (0.6-1.0) H Estimated GFR (Cockcroft-Gault) 39.6 Glucose Level 91 mg/dL (70-99) Calcium Level 8.1 mg/dL (8.5-10.1) L Laboratory Tests 07/13/20 05:10 Brief hospital course Brief hospital course This 80-year-old female who was having nausea and vomiting, progressively getting worse for last 10 days. She was not eating well. She denied any fever, chills, or dysuria. However, 3 days ago on Monday, she fell and hit her right side of the head. She states that the library technical assistant at the facility saw her and she told her that she had passed out. However, she did not seek any medical attention at that time. She came to the Emergency Room as she keeps getting weaker and continued to have persistent nausea and vomiting. In the Emergency Room, the patient had a chest x-ray that did not show any acute abnormalities. CT scan of head showed no acute abnormalities. Urinalysis showed small blood in the urine, large leukocyte esterase, 20-40 wbc's, occasional rbc's, and many bacteria. The patient has a history of recurrent urinary tract infection. The patient's sodium was 129, potassium was 3.4, BUN 42, creatinine 2.4. Calcium was 10.8. BNP 1264. Troponin less than 0.017. Albumin 3.1. Lactic acid 0.7. WBC count 9.3 and hemoglobin 12. Because of the acute renal failure with her baseline creatinine around 1.8, syncope, head trauma, UTI, hyponatremia, hypokalemia, fall, and persistent vomiting, the patient is admitted for further evaluation and management. For more details regarding the past history, family history, social history, surgical history and other details, please refer to History and Physical. 1. Syncope. This may be due to dehydration. Continue IV fluids. CT scan of head is negative. 2. Acute renal failure. Continue IV fluids with potassium supplements. Improving. Creatinine has decreased to 1.7. 3. Acute urinary tract infection. Start IV Rocephin. The patient has a history of recurrent UTI. Urine culture shows 100,000 K E. coli, sensitive to cephalosporins. Discharged on Keflex 500 mg p.o. twice daily for 7 days. 4. Hyponatremia. Order IV normal saline. Corrected. Sodium has increased to 138. 5. Hypokalemia. Replace with IV potassium. 6. Vomiting. Consult Dr. Rodríguez for GI evaluation and management. Still has nausea. 7. Falls. Consult Dr. Lopez for rehab evaluation and management. Order PT, OT. 8. I will also start her on Protonix for GI prophylaxis as well as subcutaneous heparin for DVT prophylaxis. The patient is improving and will discharge home with home health services. Medications Medications reviewed and reconciled for discharge. Allergy Allergies Coded Allergies Type Severity Reaction Last Updated Verified ciprofloxacin Allergy Severe 07/10/20 Yes morphine Allergy Intermediate 02/17/19 Yes senna Allergy Intermediate 07/10/20 Yes meperidine Adverse Reaction Intermediate 07/10/20 Yes Follow up in 5 days. DISPOSITION: Home health services Comments Discharge Management - 35 minutes. For other details please refer to discharge instructions Justicifation of Admission Dx: Justifications for Admission: Justification of Admission Dx: Yes MARLY CHAVARRIA MD Jul 13, 2020 10:08
[2020-07-13 10:57] VITALS: BP 143/53
--- NOTE | 2020-07-13 11:01 | NUR ---
SW following. Discussed with RN, pt from home alone (has nephew who helps), room air, cardiac diet. PT recommending home health. Discharge order for home with home health. Lizzy Buchanan RN checking if pt has had [facility] before and verifying insurance, then will meet with pt to discuss home health. SW will continue to follow. Addendum: 07/13/20 at 1258 by BELÉN KELLER Pt accepted with [facility]. Pt had services with [facility] in 2019. Transportation home arranged by RN for 1330. No further SW needs.
--- NOTE | 2020-07-13 11:15 | PDOC ---
Date of Service: DATE: 07/13/20 TIME: 11:11 Subjective: Subjective: Better - tolerating diet w/o vomiting. Occasional nausea. Stooling. Neck pain currently. Objective: Vital Signs: Vital Signs Date Time Temp Pulse Resp B/P (MAP) Pulse Ox O2 Delivery O2 Flow Rate FiO2 07/13/20 10:57 97.7 55 18 143/53 (83) 99 Room Air 97.7 Labs: Laboratory Tests Test 07/13/20 05:10 Sodium Level 140 mmol/L Potassium Level 4.9 mmol/L Chloride Level 111 mmol/L Carbon Dioxide Level 21 mmol/L Anion Gap 8 Blood Urea Nitrogen 13 mg/dL Creatinine 1.3 mg/dL Estimated GFR (Cockcroft-Gault) 39.6 Glucose Level 91 mg/dL Calcium Level 8.1 mg/dL BLOOD CULTURE Preliminary NO GROWTH AFTER 3 DAYS URINE CULTURE Final Final GREATER THAN 100,000 CFU/ML GRAM NEGATIVE RODS on 07/11/20 at 0959 FINAL ID= [ESCHERICHIA COLI] Imaging: KUB 07/10 IMPRESSION: Nonobstructive bowel gas pattern. PE: GEN: NAD LUNGS: CTAB HEART: RRR, ABD: NABS, S/ND/NT NEURO/PSYCH: A & O 3 A/P: UTI N/v - resolving H/o GERD -- Dc orders noted - okay per GI. 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 Follow-up w/ GI PRN. Justicifation of Admission Dx: Justifications for Admission: Justification of Admission Dx: Yes FELIPA JOHN Jul 13, 2020 11:15
--- NOTE | 2020-07-13 13:34 | PDOC ---
PROGRESS NOTES Date of Service DATE: 07/13/20 TIME: 13:31 Subjective Subjective She feels better and eager to go home. Objective Objective Vital Signs Date Time Temp Pulse Resp B/P (MAP) Pulse Ox O2 Delivery O2 Flow Rate FiO2 07/13/20 10:57 97.7 55 18 143/53 (83) 99 Room Air 97.7 Intake and Output 07/13/20 07:00 Intake Total 1540 ml Balance 1540 ml Intake Oral 540 ml IV Total 1000 ml # Voids 6 Physical Exam Physical Exam She continues with neck and shoulder area pain from DDD and DJD of cervical vertebrae with associated tendinitis of shoulders and chronic cervical paraspinal and posterior shoulder girdle muscle strain. She is not interested in injections to ease her pain at this time. Assessment Assessment Problems Medical Problems: (1) Head injury Status: Acute (2) Hyponatremia Status: Acute (3) UTI (urinary tract infection) Status: Acute (4) Vomiting Status: Acute (5) Weakness Status: Acute Plan Plan of Care Agree with plans for home with out patient follow up and I have reviewed with her home exercises and to use cane or walker while up. Comment Review of Relevant I have reviewed the following items fartun (where applicable) has been applied. Labs Laboratory Tests Test 07/13/20 05:10 Sodium Level 140 mmol/L (136-145) Potassium Level 4.9 mmol/L (3.5-5.1) Chloride Level 111 mmol/L (98-107) Carbon Dioxide Level 21 mmol/L (21-32) Anion Gap 8 (6-14) Blood Urea Nitrogen 13 mg/dL (7-20) Creatinine 1.3 mg/dL (0.6-1.0) Estimated GFR (Cockcroft-Gault) 39.6 Glucose Level 91 mg/dL (70-99) Calcium Level 8.1 mg/dL (8.5-10.1) Laboratory Tests Test 07/13/20 05:10 Sodium Level 140 mmol/L (136-145) Potassium Level 4.9 mmol/L (3.5-5.1) Chloride Level 111 mmol/L (98-107) Carbon Dioxide Level 21 mmol/L (21-32) Anion Gap 8 (6-14) Blood Urea Nitrogen 13 mg/dL (7-20) Creatinine 1.3 mg/dL (0.6-1.0) Estimated GFR (Cockcroft-Gault) 39.6 Glucose Level 91 mg/dL (70-99) Calcium Level 8.1 mg/dL (8.5-10.1) Microbiology 07/10/20 Blood Culture - Preliminary, Resulted NO GROWTH AFTER 3 DAYS 07/10/20 Urine Culture - Final, Complete 07/10/20 Antimicrobic Susceptibility - Final, Complete Medications Current Medications Ondansetron HCl (Zofran) 4 mg 1X ONCE IVP Last administered on 07/10/20at 01:45; Start 07/10/20 at 02:00; Stop 07/10/20 at 02:01; Status DC Sodium Chloride 500 ml @ 500 mls/hr 1X ONCE IV Last administered on 07/10/20at 04:44; Start 07/10/20 at 03:00; Stop 07/10/20 at 03:59; Status DC Ceftriaxone Sodium (Rocephin) 1 gm 1X ONCE IVP Last administered on 07/10/20at 06:31; Start 07/10/20 at 06:00; Stop 07/10/20 at 06:01; Status DC Ondansetron HCl (Zofran) 4 mg PRN Q8HRS PRN IV NAUSEA/VOMITING 1st choice; Start 07/10/20 at 05:30; Stop 07/11/20 at 05:29; Status DC Potassium Chloride/Sodium Chloride 1,000 ml @ 75 mls/hr [id number] IV Last administered on 07/13/20at 06:31; Start 07/10/20 at 09:30; Stop 07/13/20 at 09:55; Status DC Heparin Sodium (Porcine) (Heparin Sodium) 5,000 unit Q12HR SQ Last administered on 07/13/20at 08:46; Start 07/10/20 at 21:00 Aspirin (Ecotrin) 81 mg DAILYWBKFT PO Last administered on 07/13/20at 08:38; Start 07/11/20 at 08:00 Vitamin D (Vitamin D3) 2,000 unit DAILY PO Last administered on 07/13/20at 09:51; Start 07/11/20 at 09:00 Clopidogrel Bisulfate (Plavix) 75 mg DAILY PO Last administered on 07/13/20at 08:38; Start 07/11/20 at 09:00 Diclofenac Sodium (Voltaren) 1 pauline BID TP Last administered on 07/13/20 08:35; Start 07/10/20 at 21:00 Diltiazem HCl (Cardizem 24hr Cd) 120 mg DAILY PO Last administered on 07/13/20 08:38; Start 07/11/20 at 09:00 Acetaminophen/ Hydrocodone Bitart (Lortab 5/325) 1 tab PRN Q6HRS PRN PO MODERATE-SEVERE PAIN Last administered on 07/13/20 06:27; Start 07/10/20 at 09:30 Mirtazapine (Remeron) 15 mg QHS PO Last administered on 07/12/20 21:04; Start 07/10/20 at 21:00 Metoprolol Tartrate (Lopressor) 100 mg BID PO Last administered on 07/13/20 08:37; Start 07/10/20 at 21:00 Ondansetron HCl (Zofran) 4 mg PRN Q6HRS PRN IVP Nausea Last administered on 07/13/20 06:27; Start 07/10/20 at 09:30 Acetaminophen (Tylenol) 650 mg PRN Q6HRS PRN PO MILD PAIN / TEMP > 100.3'F; Start 07/10/20 at 09:30 Ceftriaxone Sodium (Rocephin) 1 gm Q24H IVP Last administered on 07/12/20 09:28; Start 07/11/20 at 09:00 Pantoprazole Sodium (Protonix) 40 mg DAILYAC PO Last administered on 07/13/20 08:38; Start 07/10/20 at 12:00 Clonidine HCl (Catapres) 0.3 mg BID PO Last administered on 07/13/20 08:38; Start 07/11/20 at 11:30 Lactobacillus Rhamnosus (Culturelle) 1 cap BID PO Last administered on 07/13/20 08:38; Start 07/11/20 at 21:00 Active Scripts Active Ondansetron Odt (Ondansetron) 4 Mg Tab.rapdis 4 Mg PO BID PRN 7 Days Keflex (Cephalexin) 500 Mg Capsule 1 Cap PO BID 7 Days Culturelle (Lactobacillus Rhamnosus Gg) 1 Each Cap.sprink 1 Cap PO BID 14 Days Pantoprazole Sodium (Pantoprazole Sodium) 40 Mg Tablet. 40 Mg PO DAILYAC 30 Days Aspirin Ec (Aspirin) 81 Mg Tablet. 81 Mg PO DAILYWBKFT 30 Days Reported Clonidine Hcl 0.3 Mg Tablet 0.3 Mg PO BID Triamcinolone Acetonide 0.1% Oint (Triamcinolone Acetonide) 15 Gm Oint...g. 1 Pauline TP BID MIX WITH EUCERIN DIRECTED BY PHYSICIAN Hydrocodone-Apap 5-325 (Hydrocodone Bit/Acetaminophen) 1 Tab Tablet 1 Tab PO PRN Q6HRS PRN Voltaren (Diclofenac Sodium) 100 Gm Gel..gram. 1 Gm TP BID Vitamin D3 (Cholecalciferol (Vitamin D3)) 1,000 Unit Tablet 2 Tab PO DAILY Clopidogrel (Clopidogrel Bisulfate) 75 Mg Tablet 1 Tab PO DAILY Mirtazapine 15 Mg Tablet 1 Tab PO QHS Metoprolol Tartrate 100 Mg Tablet 1 Tab PO BID Losartan Potassium 100 Mg Tablet 100 Mg PO DAILY Escitalopram Oxalate 10 Mg Tablet 1 Tab PO DAILY Hydrochlorothiazide Capsule (Hydrochlorothiazide) 12.5 Mg Capsule 25 Mg PO DAILY Fish Oil 1,000 Mg Capsule ([place]-3 Fatty Acids/Fish Oil) 1 Each Capsule 2 Each PO BID Cardizem Cd (Diltiazem Hcl) 240 Mg Cap.er.24h 0.5 Cap PO DAILY Atorvastatin Calcium 80 Mg Tablet 1 Tab PO DAILY Vitals/I & O Vital Sign - Last 24 Hours 07/12/20 07/12/20 07/12/20 07/12/20 15:30 18:15 19:00 19:21 Temp 97.5 97.6 97.5 97.6 Pulse 95 52 Resp 16 18 B/P (MAP) 127/52 (77) 119/47 (71) Pulse Ox 96 98 O2 Delivery Room Air Room Air Room Air Room Air 07/12/20 07/12/20 07/12/20 07/12/20 20:45 21:04 21:04 23:00 Temp 97.4 97.4 Pulse 52 52 48 Resp 16 B/P (MAP) 119/47 119/47 121/44 (69) Pulse Ox 97 O2 Delivery Room Air Room Air 07/13/20 07/13/20 07/13/20 07/13/20 00:19 01:19 03:00 06:27 Temp 97.6 97.6 Pulse 48 Resp 18 18 16 20 B/P (MAP) 122/38 (66) Pulse Ox 98 O2 Delivery Room Air Room Air Room Air Room Air 07/13/20 07/13/20 07/13/20 07/13/20 07:00 07:41 08:00 08:37 Temp 97.6 97.6 Pulse 62 62 Resp 18 B/P (MAP) 131/59 (83) 131/59 Pulse Ox 98 O2 Delivery Room Air Room Air Room Air 07/13/20 07/13/20 07/13/20 08:38 08:38 10:57 Temp 97.7 97.7 Pulse 62 62 55 Resp 18 B/P (MAP) 131/59 131/59 143/53 (83) Pulse Ox 99 O2 Delivery Room Air Intake and Output 07/12/20 07/12/20 07/13/20 15:00 23:00 07:00 Intake Total 240 ml 1200 ml 100 ml Balance 240 ml 1200 ml 100 ml Justifications for Admission Other Justification ALEX DALY MD Jul 13, 2020 13:34
--- NOTE | 2020-07-13 13:49 | NUR ---
Discharge Note: PT DISCHARGED HOME WITH [facility] AT 1340. PT LEFT FACILITY VIA [facility] TRANSPORT [facility]. PT STABLE AND ALERT UPON DISCHARGE. PT PIV REMOVED FROM R FA WITHOUT COMPLICATIONS, BANDAGE APPLIED. PT EDUCATED ABOUT DISCHARGE INSTRUCTIONS, DISCHARGE MEDICATIONS, AND FOLLOW-UP CARE. PT VOICED NO CONCERNS AT THIS TIME. PT LEFT WITH ALL PERSONAL BELONGINGS. JUNIOR MULLINS Discharge instructions and discharge home medications reviewed with Patient and a copy given. All questions have been answered and understanding verbalized.
== END 2020-07-13 13:40 | disposition home health service (06) | DRG 683 ==
LOC: ER 00:31 → ED HOLD 06:31 → 5 NORTH 17:41
PROVIDERS: ADMIT Internal Medicine; ATTEND Internal Medicine
DX: N17.9 Acute kidney failure, unspecified (principal); E87.1 Hypo-osmolality and hyponatremia; N39.0 Urinary tract infection, site not specified; E86.0 Dehydration; E78.00 Pure hypercholesterolemia, unspecified; E78.5 Hyperlipidemia, unspecified; E83.52 Hypercalcemia; E87.6 Hypokalemia; F17.210 Nicotine dependence, cigarettes, uncomplicated; I12.9 Hypertensive chronic kidney disease with stage 1 through stage 4 chronic kidney disease, or unspecified chronic kidney disease; I25.10 Atherosclerotic heart disease of native coronary artery without angina pectoris; I25.2 Old myocardial infarction; I48.91 Unspecified atrial fibrillation; K21.9 Gastro-esophageal reflux disease without esophagitis; M17.0 Bilateral primary osteoarthritis of knee; N18.3 Chronic kidney disease, stage 3 (moderate); B96.20 Unspecified Escherichia coli [E. coli] as the cause of diseases classified elsewhere; S00.83XA Contusion of other part of head, initial encounter; X58.XXXA Exposure to other specified factors, initial encounter; Z80.3 Family history of malignant neoplasm of breast; Z87.440 Personal history of urinary (tract) infections; Z88.5 Allergy status to narcotic agent; Z90.13 Acquired absence of bilateral breasts and nipples; Z90.49 Acquired absence of other specified parts of digestive tract; Z90.710 Acquired absence of both cervix and uterus; Z95.1 Presence of aortocoronary bypass graft; G62.9 Polyneuropathy, unspecified; M47.812 Spondylosis without myelopathy or radiculopathy, cervical region; Z88.8 Allergy status to other drugs, medicaments and biological substances; W18.39XA Other fall on same level, initial encounter; Y93.89 Activity, other specified; Y92.89 Other specified places as the place of occurrence of the external cause; Y99.8 Other external cause status
CPT/HCPCS: 36415; 70450; 71045; 74018; 80048; 80053; 81001; 83605; 83690; 83735; 83880; 84484; 85025; 85610; 85730; 87040; 87077; 87086; 87186; 93005; 96361; 96374; 96375; 99285; J0696; J1644; J2405; J3480; J7040; G0378

== ENCOUNTER 2020-11-30 16:45 | Inpatient (IN) | payer MEDICARE, OTHER ==
[~2020-11-30] VITALS: Ht 139.7 cm; Wt 54.2 kg
[~2020-11-30 16:45] MED LIST changes: +CEPH-264 PO; +CLON0.3T PO; +LACT1CAP19 PO; +MIRT-7 PO; -MIRT15TA3 PO; +ONDA4TAB12 PO; +PANT40TA77 PO
[2020-11-30] MEDS ORDERED: fentaNYL PF VIAL 100 MCG/2 ML VIAL IV PRN ×2 (17:30→23:00)
--- NOTE | 2020-11-30 17:51 | RAD ---
Single view chest dated 11/30/2020. Comparison made 07/10/2020. Clinical data indication: Weakness. FINDINGS: Single upright portable exam performed. Heart and mediastinal contours are stable. Patient is status post median sternotomy. Prominent linear markings at the perihilar regions, similar to prior study. N o consolidation or pleural effusion. No pneumothorax. IMPRESSION: 1. No acute radiographic abnormality. Stable findings compared to 07/10/2020. Electronically signed by: Xiang Vázquez MD (11/30/2020 5:49 PM) [id number]
--- NOTE | 2020-11-30 18:03 | RAD ---
Exam: CT head INDICATION: Weakness TECHNIQUE: Sequential axial images through the head were obtained without the administration of IV co ntrast. Comparisons: 07/10/2020 FINDINGS: No focal parenchymal lesion or hemorrhage is identified. There is no midline shift or sulcal effaceme nt. Patchy hypodensity in the periventricular white matter, similar to prior exam. No acute vascular terr itory infarction is identified. Grier-white distinction is preserved. The ventricular system is within normal limits without compression hydrocephalus. The basal cisterns are well maintained. The visualized portions of the paranasal sinuses and mastoid air cells are well-pneumatized. No acute fractures. IMPRESSION: No acute intracranial abnormality. Exposure: One or more of the following in the visualized dose reduction techniques were utilized for this examination: 1. Automated exposure control 2. Adjustment of the MA and/or KV according to patient size Use of iterative of reconstructive technique Electronically signed by: Terri Oliver MD (11/30/2020 6:01 PM) [id number]
[2020-11-30 18:12] LABS: BASO % 1 % (0-3); EOS # 0.1 x10^3/uL (0.0-0.7); EOS % 1 % (0-3); HEMATOCRIT 33.9 % (36.0-47.0); HEMOGLOBIN 11.5 g/dL (12.0-15.5); LYMPH # 1.3 x10^3/uL (1.0-4.8); LYMPH % 15 % (24-48); MEAN CORPUSCULAR HEMOGLOBIN 33 pg (25-35); MEAN CORPUSCULAR HGB CONC 34 g/dL (31-37); MEAN CORPUSCULAR VOLUME 98 fL (79-100); MONO # 0.7 x10^3/uL (0.0-1.1); MONO % 8 % (0-9); NEUT # 6.2 x10^3/uL (1.8-7.7); NEUT % 75 % (31-73); PLATELET COUNT 319 x10^3/uL (140-400); RED BLOOD COUNT 3.48 x10^6/uL (3.50-5.40); RED CELL DISTRIBUTION WIDTH 14.7 % (11.5-14.5); WHITE BLOOD COUNT 8.4 x10^3/uL (4.0-11.0)
[2020-11-30 18:24] LABS: CALCIUM 9.5 mg/dL (8.5-10.1); CREATININE 1.5 mg/dL (0.6-1.0); GFR 33.6; POTASSIUM 4.2 mmol/L (3.5-5.1)
[2020-11-30 18:33] LABS: ALBUMIN/GLOBULIN RATIO 0.5 (1.0-1.7); MAGNESIUM 1.9 mg/dL (1.8-2.4); TOTAL BILIRUBIN 0.4 mg/dL (0.2-1.0); TOTAL PROTEIN 5.7 g/dL (6.4-8.2)
--- NOTE | 2020-11-30 22:52 | PHYS DOC ---
Past Medical History Past Medical History: A-Fib, High Cholesterol, Hypertension, OH, Renal Failure Additional Past Medical Histor: STAGE II RENAL FAILURE Past Surgical History: Cholecystectomy, Coronary Bypass Surgery, Hysterectomy, Oophorectomy, Other Additional Past Surgical Histo: BILATERAL MASTECTOMY, STENT PLACMENT Smoking Status: Current Every Day Smoker Alcohol Use: None Drug Use: None General Adult EDM: Chief Complaint: WEAKNESS/GENERALIZED HPI: HPI: Patient is a 80 year old female with history of A. fib, hypertension, high cholesterol, OH, stage II kidney disease who presents to the ED today complaining of generalized weakness for the last 3 months that has progressively gotten worse that she states she cannot stand up and cook for herself. She states the last 1 or 2 weeks she is having difficult time standing on her feet to do any activity that involves standing. She states she is not been able to eat a decent meal for almost 1 week because she cannot be on her feet cooking due to weakness is also fear of falling. Denies any chest pain or shortness of breath. Denies any fever. She states her feet are also swollen more than normal. Denies any chest pain or shortness of breath. Review of Systems: Review of Systems: Constitutional: Reports generalized weakness. Denies fever or chills. [] Eyes: Denies change in visual acuity. [] HENT: Denies nasal congestion or sore throat. [] Respiratory: Denies cough or shortness of breath. [] Cardiovascular: Denies chest pain or edema. [] GI: Denies abdominal pain, nausea, vomiting, bloody stools or diarrhea. [] : Denies dysuria. [] Musculoskeletal: Reports lower extremity swelling. Denies back pain or joint pain. [] Integument: Denies rash. [] Neurologic: Denies headache, focal weakness or sensory changes. [] Psychiatric: Denies depression or anxiety. [] Heart Score: Risk Factors: Risk Factors: DM, Current or recent (<one month) smoker, HTN, HLP, family history of CAD, obesity. Risk Scores: Score 0 - 3: 2.5% MACE over next 6 weeks - Discharge Home Score 4 - 6: 20.3% MACE over next 6 weeks - Admit for Clinical Observation Score 7 - 10: 72.7% MACE over next 6 weeks - Early Invasive Strategies Current Medications: Current Medications Medications (Trade) Dose Ordered Sig/Mackenzie Start Time Stop Time Status Last Admin Dose Admin Fentanyl Citrate (Fentanyl 2ml Vial) 50 mcg PRN Q15MIN PRN 11/30/20 17:30 12/01/20 17:29 Allergies: Allergies: Allergies Coded Allergies Type Severity Reaction Last Updated Verified ciprofloxacin Allergy Severe 07/10/20 Yes morphine Allergy Intermediate 02/17/19 Yes senna Allergy Intermediate 07/10/20 Yes meperidine Adverse Reaction Intermediate 07/10/20 Yes Physical Exam: PE: Constitutional: Well developed, well nourished, no acute distress, non-toxic appearance. [] HENT: Normocephalic, atraumatic, bilateral external ears normal, oropharynx moist, no oral exudates, nose normal. [] Eyes: PERRLA, EOMI, conjunctiva normal, no discharge. [] Neck: Normal range of motion, no tenderness, supple, no stridor. [] Cardiovascular:Heart rate regular rhythm, no murmur [] Lungs & Thorax: Bilateral breath sounds clear to auscultation [] Abdomen: Bowel sounds normal, soft, no tenderness, no masses, no pulsatile masses. [] Skin: Warm, dry, no rash. [] Back: No tenderness, no CVA tenderness. [] Extremities: No tenderness, no cyanosis, no clubbing, ROM intact, +2 bilateral lower extremity edema, +1 right upper extremity edema. Neurologic: Alert and oriented X 3, normal motor function, normal sensory function, no focal deficits noted. Cranial nerves II through XII intact Psychologic: Affect normal, judgement normal, mood normal. [] Current Patient Data: Labs: Laboratory Tests Test 11/30/20 18:00 11/30/20 21:15 White Blood Count 8.4 x10^3/uL (4.0-11.0) Red Blood Count 3.48 x10^6/uL (3.50-5.40) L Hemoglobin 11.5 g/dL (12.0-15.5) L Hematocrit 33.9 % (36.0-47.0) L Mean Corpuscular Volume 98 fL (79-100) Mean Corpuscular Hemoglobin 33 pg (25-35) Mean Corpuscular Hemoglobin Concent 34 g/dL (31-37) Red Cell Distribution Width 14.7 % (11.5-14.5) H Platelet Count 319 x10^3/uL (140-400) Neutrophils (%) (Auto) 75 % (31-73) H Lymphocytes (%) (Auto) 15 % (24-48) L Monocytes (%) (Auto) 8 % (0-9) Eosinophils (%) (Auto) 1 % (0-3) Basophils (%) (Auto) 1 % (0-3) Neutrophils # (Auto) 6.2 x10^3/uL (1.8-7.7) Lymphocytes # (Auto) 1.3 x10^3/uL (1.0-4.8) Monocytes # (Auto) 0.7 x10^3/uL (0.0-1.1) Eosinophils # (Auto) 0.1 x10^3/uL (0.0-0.7) Basophils # (Auto) 0.0 x10^3/uL (0.0-0.2) Sodium Level 135 mmol/L (136-145) L Potassium Level 4.2 mmol/L (3.5-5.1) Chloride Level 102 mmol/L (98-107) Carbon Dioxide Level 24 mmol/L (21-32) Anion Gap 9 (6-14) Blood Urea Nitrogen 24 mg/dL (7-20) H Creatinine 1.5 mg/dL (0.6-1.0) H Estimated GFR (Cockcroft-Gault) 33.6 BUN/Creatinine Ratio 16 (6-20) Glucose Level 108 mg/dL (70-99) H Calcium Level 9.5 mg/dL (8.5-10.1) Magnesium Level 1.9 mg/dL (1.8-2.4) Total Bilirubin 0.4 mg/dL (0.2-1.0) Aspartate Amino Transferase (AST) 44 U/L (15-37) H Alanine Aminotransferase (ALT) 37 U/L (14-59) Alkaline Phosphatase 90 U/L (46-116) Troponin I Quantitative < 0.017 ng/mL (0.000-0.055) < 0.017 ng/mL (0.000-0.055) DK-Mui-X-Type Natriuretic Peptide 4248 pg/mL (0-449) H Total Protein 5.7 g/dL (6.4-8.2) L Albumin 2.0 g/dL (3.4-5.0) L Albumin/Globulin Ratio 0.5 (1.0-1.7) L Thyroid Stimulating Hormone (TSH) 1.436 uIU/mL (0.358-3.74) Laboratory Tests 11/30/20 18:00 Laboratory Tests 11/30/20 18:00 Vital Signs: Vital Signs Date Time Temp Pulse Resp B/P (MAP) Pulse Ox O2 Delivery O2 Flow Rate FiO2 11/30/20 21:30 54 20 99 11/30/20 17:01 98.6 139/71 (93) Room Air 98.6 EKG: EKG: [] Radiology/Procedures: Radiology/Procedures: []PROCEDURE: CT HEAD WO CONTRAST Exam: CT head INDICATION: Weakness TECHNIQUE: Sequential axial images through the head were obtained without the administration of IV contrast. Comparisons: 07/10/2020 FINDINGS: No focal parenchymal lesion or hemorrhage is identified. There is no midline shift or sulcal effacement. Patchy hypodensity in the periventricular white matter, similar to prior exam. No acute vascular territory infarction is identified. Grier-white distinction is preserved. The ventricular system is within normal limits without compression hydrocephalus. The basal cisterns are well maintained. The visualized portions of the paranasal sinuses and mastoid air cells are well-pneumatized. No acute fractures. IMPRESSION: No acute intracranial abnormality. Exposure: One or more of the following in the visualized dose reduction techniques were utilized for this examination: 1. Automated exposure control 2. Adjustment of the MA and/or KV according to patient size Use of iterative of reconstructive technique Electronically signed by: Terri Montalvo MD (11/30/2020 6:01 PM) [id number] DICTATED and SIGNED BY: TERRI MONTALVO MD DATE: 11/30/20 [id number] PROCEDURE: PORTABLE CHEST 1V Single view chest dated 11/30/2020. Comparison made 07/10/2020. Clinical data indication: Weakness. FINDINGS: Single upright portable exam performed. Heart and mediastinal contours are stable. Patient is status post median sternotomy. Prominent linear markings at the perihilar regions, similar to prior study. No consolidation or pleural effusion. No pneumothorax. IMPRESSION: 1. No acute radiographic abnormality. Stable findings compared to 07/10/2020. Electronically signed by: Xiang Vázquez MD (11/30/2020 5:49 PM) [id number] DICTATED and SIGNED BY: XIANG VÁZQUEZ MD DATE: 11/30/20 [id number] Course & Med Decision Making: Course & Med Decision Making Pertinent Labs and Imaging studies reviewed. (See chart for details) This is a 80-year-old female patient presenting to the ED today complaining of generalized weakness, bilateral lower extremity swelling, symptoms have been going on for 3 months and have gotten worse in the last [address] of the head is negative, chest x-ray is negative, patient's labs are negative for any acute findings. Spoke with Dr. Payan who accepted patient for admission He requested routine consult for Dr. Lopez which was done Wilfredo Disclaimer: Wilfredo Disclaimer: This electronic medical record was generated, in whole or in part, using a voice recognition dictation system. Departure Departure Impression: Primary Impression: Generalized weakness Additional Impression: Chronic kidney disease Qualified Codes: N18.2 - Chronic kidney disease, stage 2 (mild) Disposition: 09 ADMITTED INPT THIS HOSP Condition: STABLE Referrals: MARLY PAYAN MD (PCP) DENTON ALEJANDRA APRN Nov 30, 2020 22:52
[2020-11-30 23:47] LABS: BILIRUBIN,URINE NEGATIVE (NEG); CLARITY,URINE CLOUDY; COLOR,URINE YELLOW; NITRITE,URINE NEGATIVE (NEG); PROTEIN,URINE NEGATIVE (NEG-TRACE); UROBILINOGEN,URINE 0.2 mg/dL (0.2 mg/dL)
[2020-11-30 23:53] LABS: BARBITURATES NEG (NEG); BENZODIAZEPINES NEG (NEG); CANNABINOIDS NEG (NEG); COCAINE NEG (NEG); METHADONE NEG (NEG); OPIATES POS (NEG); PHENCYCLIDINE NEG (NEG)
[2020-11-30 23:54] LABS: AMPHETAMINE/METHAMPHETAMINE NEG (NEG)
[2020-12-01 00:06] LABS: BACTERIA,URINE MANY /HPF (0-FEW); HYALINE CASTS, URINE FEW /HPF; RBC,URINE OCC /HPF (0-2); WBC,URINE TNTC /HPF (0-4); YEAST,URINE PRESENT /HPF
[2020-12-01] MEDS: ONDANSETRON PF 4 MG/2 ML VIAL. IV PRN ×3 (00:48→21:36)
[2020-12-01 02:35] VITALS: BP 128/60
[2020-12-01] MEDS ORDERED: trazodone (03:09)
--- NOTE | 2020-12-01 05:13 | EKG ---
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
[2020-12-01 07:18] VITALS: BP 129/59
[2020-12-01] MEDS ORDERED: ACETAMINOPHEN 325 MG TABLET. PO PRN (09:30)
--- NOTE | 2020-12-01 10:28 | PDOC ---
Provider Note Date of Service: DATE: 12/01/20 TIME: 10:28 Provider Note H&P dictated #[id number] Justifications for Admission Other Justification MARLY CHAVARRIA MD Dec 01, 2020 10:28
[2020-12-01] MEDS: CHOLECALCIFEROL (VITAMIN D3) 1,000 UNIT TABLET PO SCH (10:29)
[2020-12-01] MEDS: ASPIRIN ENTERIC COATED 81 MG TABLET.DR. PO SCH (10:30)
[2020-12-01] MEDS: LOSARTAN POTASSIUM 50 MG TABLET. PO SCH (10:30)
[2020-12-01] MEDS: PANTOPRAZOLE 40 MG TABLET.DR. PO SCH (10:30)
[2020-12-01] MEDS: METOPROLOL TART IMMED RELEASE 50 MG TABLET. PO SCH ×2 (10:30→21:00)
[2020-12-01] MEDS: CLOPIDOGREL BISULFATE 75 MG TABLET PO SCH (10:30)
[2020-12-01] MEDS: HYDROcodone/APAP 5/325MG 1 TAB TABLET PO PRN ×3 (10:31→23:45)
[2020-12-01] MEDS: CITALOPRAM 20 MG TABLET. PO SCH (10:31)
--- NOTE | 2020-12-01 11:00 | HP ---
ADMIT DATE: 11/30/2020 HISTORY OF PRESENT ILLNESS: This 80-year-old female started getting very weak since last week. On Monday, she fell, that was 2 days ago prior to admission and EMT were called and they got her back up. However, she became so weak that she has remained in her chair and slept in her chair for last 2 days and finally yesterday she called the ambulance to come to the Emergency Room. She has remained very weak and has not been able to access food also. In the Emergency Room, the patient was noted to have significant weakness. She was given IV fluids and because of the weakness, the patient was admitted for further evaluation and management. She also was noted to have urinary tract infection on the urinalysis. Urinalysis shows large leukocyte esterase, wbc's count too numerous to count, urine bacteria many, urine yeast present. Toxicology is positive for opiates. Sodium 135, potassium 4.2, BUN 24, creatinine 1.5, magnesium 1.9, albumin 2. WBC count 8.4, hemoglobin 11.5, polys 75. CT scan of head was negative for any acute abnormalities. Chest x-ray was also negative for any acute abnormalities. Because of the weakness and UTI and recurrent falls, the patient was admitted for further evaluation and management. REVIEW OF SYSTEMS: The patient complains of weakness. No complaints of dysuria, fever, chills, cold, cough, congestion. She denies any abdominal pain, nausea, vomiting. Her oral intake has decreased, but her baseline creatinine is around 1.8. Other systems reviewed and are negative. PAST MEDICAL HISTORY: The patient was admitted last year in 06/2020 for syncope, UTI and dehydration and acute renal failure. She has a history of recurrent E. coli UTI, hypertension with chronic kidney disease 3, hyperlipidemia, and coronary artery disease. She has significant osteoarthritis and is on pain medications such as hydrocodone. PAST SURGICAL HISTORY: Includes history of coronary artery bypass graft, hysterectomy, oophorectomy, double mastectomy. SOCIAL HISTORY: Past history of smoking less than 2 cigarettes per day. No history of alcoholism or drug abuse. ALLERGIES: ALLERGIC TO MORPHINE. MEDICATIONS: Reviewed and reconciled. The patient is not taking clonidine. She is on metoprolol twice daily. PHYSICAL EXAMINATION: GENERAL: The patient is an elderly female who is alert, oriented and has generalized weakness. VITAL SIGNS: Temperature 97.4, pulse 61 per minute, yesterday the pulse was 53 per minute, respirations 20 per minute, blood pressure 128/60 mmHg. The patient is alert and oriented, not in acute distress. EYES: Pupils reacting to light. Conjunctivae pale. Sclerae muddy. HENT: Unremarkable. NECK: Supple. JVP normal. No thyromegaly. Trachea midline. LUNGS: Decreased breath sounds at bases. CARDIOVASCULAR: S1, S2 regular. ABDOMEN: Soft, nontender, no guarding, no rigidity. Bowel sounds present. EXTREMITIES: Trace to 1+ edema, chronic. CENTRAL NERVOUS SYSTEM: Generalized weakness, alert and oriented. LABORATORY FINDINGS: As noted in the history of present illness. BNP was 4248. TSH 1.436. Troponin less than 0.017. IMPRESSION: 1. Acute urinary tract infection. 2. Falls, frequent. 3. Weakness, severe. 4. Hypertension. 5. Coronary artery disease. 6. Status post coronary artery bypass grafting. 7. Chronic kidney disease 3. 8. Osteoarthritis. 9. Physical deconditioning. 10. History of bilateral mastectomy. PLAN: 1. UTI. Start IV Rocephin. Ordered a urine culture. 2. Physical deconditioning. Order PT, OT. Consult Dr. Lopez. COVID-19 test is pending. 3. Continue hydrocodone and other medications. Please refer to the orders. The patient was given IV fluids yesterday. We will monitor oral intake and give more IV fluids if needed. I will discontinue hydrochlorothiazide and clonidine. Continue metoprolol. Hold losartan today. For details, please refer to the orders. MARLY CHAVARRIA MD DR: GABBY/isael JOB#: [id number] / [id number]
[2020-12-01] MEDS: cefTRIAXone IV Push 1 GM VIAL. IVP SCH (11:07)
[2020-12-01 11:11] VITALS: BP 158/74
[2020-12-01 12:02] LABS: ALBUMIN 1.8 g/dL (3.4-5.0); ALBUMIN/GLOBULIN RATIO 0.5 (1.0-1.7); CALCIUM 9.2 mg/dL (8.5-10.1); CREATININE 1.5 mg/dL (0.6-1.0); GFR 33.6; POTASSIUM 4.8 mmol/L (3.5-5.1); TOTAL BILIRUBIN 0.3 mg/dL (0.2-1.0); TOTAL PROTEIN 5.2 g/dL (6.4-8.2)
--- NOTE | 2020-12-01 13:54 | NUR ---
SW following for discharge planning. Spoke with RN and reviewed chart. Pt from home with Lizzy KELLEY. ARIANNA coordinated care with Suze. Clinicals sent. PT/OT to evaluate. Pt COVID pending, IV pain medications, room air, cardiac diet. SW following.
[2020-12-01 15:00] VITALS: BP 120/60
[2020-12-01] MEDS: DICLOFENAC SODIUM 1% TOPICAL GEL 100GM TUBE. TP SCH ×2 (16:23→21:00)
[2020-12-01 19:00] VITALS: BP 132/68
[2020-12-01] MEDS: HEPARIN for SUB-Q USE 5,000 UNIT/ML VIAL. SQ SCH (21:34)
[2020-12-01] MEDS: LACTOBACILLUS RHAMNOSUS GG 1 CAPSULE. PO SCH (21:35)
[2020-12-01] MEDS: OMEGA-3 FATTY ACIDS/FISH OIL 1,000 MG CAPSULE. PO SCH (21:35)
[2020-12-01] MEDS: MIRTAZAPINE 15 MG TABLET PO SCH (21:35)
[2020-12-01] MEDS: ATORVASTATIN CALCIUM 40 MG TABLET. PO SCH (21:36)
[2020-12-01 23:00] VITALS: BP 130/74
[2020-12-02 03:13] VITALS: BP 125/62
[2020-12-02] MEDS: HYDROcodone/APAP 5/325MG 1 TAB TABLET PO PRN ×3 (07:43→20:03)
[2020-12-02] MEDS: CHOLECALCIFEROL (VITAMIN D3) 1,000 UNIT TABLET PO SCH (07:43)
[2020-12-02] MEDS: PANTOPRAZOLE 40 MG TABLET.DR. PO SCH (07:44)
[2020-12-02] MEDS: ASPIRIN ENTERIC COATED 81 MG TABLET.DR. PO SCH (07:44)
[2020-12-02] MEDS: METOPROLOL TART IMMED RELEASE 50 MG TABLET. PO SCH ×2 (07:44→20:01)
[2020-12-02] MEDS: LOSARTAN POTASSIUM 50 MG TABLET. PO SCH (07:44)
[2020-12-02] MEDS: MULTIVITAMIN with MINERAL TABLET. PO SCH (07:44)
[2020-12-02] MEDS: CLOPIDOGREL BISULFATE 75 MG TABLET PO SCH (07:44)
[2020-12-02] MEDS: LACTOBACILLUS RHAMNOSUS GG 1 CAPSULE. PO SCH ×2 (07:44→20:02)
[2020-12-02] MEDS: CITALOPRAM 20 MG TABLET. PO SCH (07:44)
[2020-12-02] MEDS: OMEGA-3 FATTY ACIDS/FISH OIL 1,000 MG CAPSULE. PO SCH ×2 (07:44→20:02)
[2020-12-02] MEDS: DICLOFENAC SODIUM 1% TOPICAL GEL 100GM TUBE. TP SCH ×2 (07:45→21:00)
[2020-12-02] MEDS: HEPARIN for SUB-Q USE 5,000 UNIT/ML VIAL. SQ SCH ×2 (07:55→20:04)
[2020-12-02 07:58] VITALS: BP 127/69
[2020-12-02 08:10] LABS: BASO % 0 % (0-3); EOS # 0.1 x10^3/uL (0.0-0.7); EOS % 2 % (0-3); HEMATOCRIT 31.7 % (36.0-47.0); HEMOGLOBIN 10.8 g/dL (12.0-15.5); LYMPH % 14 % (24-48); MEAN CORPUSCULAR HEMOGLOBIN 34 pg (25-35); MEAN CORPUSCULAR HGB CONC 34 g/dL (31-37); MEAN CORPUSCULAR VOLUME 99 fL (79-100); MONO # 0.5 x10^3/uL (0.0-1.1); MONO % 8 % (0-9); NEUT # 5.5 x10^3/uL (1.8-7.7); NEUT % 76 % (31-73); PLATELET COUNT 264 x10^3/uL (140-400); RED CELL DISTRIBUTION WIDTH 15.1 % (11.5-14.5); WHITE BLOOD COUNT 7.2 x10^3/uL (4.0-11.0)
[2020-12-02 08:43] LABS: CALCIUM 9.1 mg/dL (8.5-10.1); CREATININE 1.4 mg/dL (0.6-1.0); GFR 36.4; MAGNESIUM 1.8 mg/dL (1.8-2.4)
--- NOTE | 2020-12-02 09:28 | PDOC ---
IM PROGRESS NOTES- Subjective Subjective Complaints of joint pains and weakness. Objective Vitals/I&O Vital Signs Date Time Temp Pulse Resp B/P (MAP) Pulse Ox O2 Delivery O2 Flow Rate FiO2 12/02/20 07:58 97.2 63 18 127/69 (88) 96 Room Air 97.2 I & O 12/01/20 12/01/20 12/02/20 15:00 23:00 07:00 Intake Total 300 ml 250 ml 600 ml Balance 300 ml 250 ml 600 ml Physical Exam Physical Exam General appearance - alert,ill appearing, and in no distress and oriented to person, place, and time Mental Status - alert, oriented to person, place, and time, affect appropriate to mood Head - normal Chest -decreased breath sounds at bases Heart - S1 and S2 normal Abdomen - soft, non tender Neurological - alert and oriented Musculoskeletal -weak Extremities - no pedal edema Skin - warm and dry Labs Laboratory Tests Test 12/02/20 07:15 White Blood Count 7.2 x10^3/uL (4.0-11.0) Red Blood Count 3.20 x10^6/uL (3.50-5.40) L Hemoglobin 10.8 g/dL (12.0-15.5) L Hematocrit 31.7 % (36.0-47.0) L Mean Corpuscular Volume 99 fL (79-100) Mean Corpuscular Hemoglobin 34 pg (25-35) Mean Corpuscular Hemoglobin Concent 34 g/dL (31-37) Red Cell Distribution Width 15.1 % (11.5-14.5) H Platelet Count 264 x10^3/uL (140-400) Neutrophils (%) (Auto) 76 % (31-73) H Lymphocytes (%) (Auto) 14 % (24-48) L Monocytes (%) (Auto) 8 % (0-9) Eosinophils (%) (Auto) 2 % (0-3) Basophils (%) (Auto) 0 % (0-3) Neutrophils # (Auto) 5.5 x10^3/uL (1.8-7.7) Lymphocytes # (Auto) 1.0 x10^3/uL (1.0-4.8) Monocytes # (Auto) 0.5 x10^3/uL (0.0-1.1) Eosinophils # (Auto) 0.1 x10^3/uL (0.0-0.7) Basophils # (Auto) 0.0 x10^3/uL (0.0-0.2) Sodium Level 139 mmol/L (136-145) Potassium Level 4.0 mmol/L (3.5-5.1) Chloride Level 105 mmol/L (98-107) Carbon Dioxide Level 25 mmol/L (21-32) Anion Gap 9 (6-14) Blood Urea Nitrogen 20 mg/dL (7-20) Creatinine 1.4 mg/dL (0.6-1.0) H Estimated GFR (Cockcroft-Gault) 36.4 Glucose Level 79 mg/dL (70-99) Calcium Level 9.1 mg/dL (8.5-10.1) Magnesium Level 1.8 mg/dL (1.8-2.4) Laboratory Tests 12/02/20 07:15 Laboratory Tests 12/02/20 07:15 Meds Current Medications Medications (Trade) Dose Ordered Sig/Mackenzie Route PRN Reason Start Time Stop Time Status Last Admin Dose Admin Aspirin (Ecotrin) 81 mg DAILYWBKFT PO 12/01/20 10:30 12/02/20 07:44 Vitamin D (Vitamin D3) 2,000 unit DAILY PO 12/01/20 10:30 12/02/20 07:43 Clopidogrel Bisulfate (Plavix) 75 mg DAILY PO 12/01/20 10:30 12/02/20 07:44 Diltiazem HCl (Cardizem 24hr Cd) 120 mg DAILY PO 12/01/20 10:30 12/02/20 07:43 Acetaminophen/ Hydrocodone Bitart (Lortab 5/325) 1 tab PRN Q6HRS PRN PO MODERATE-SEVERE PAIN 12/01/20 09:30 12/02/20 07:43 Lactobacillus Rhamnosus (Culturelle) 1 cap BID PO 12/01/20 21:00 12/02/20 07:44 Mirtazapine (Remeron) 15 mg QHS PO 12/01/20 21:00 12/01/20 21:35 Fish Oil (Fish Oil) 1,000 mg BID PO 12/01/20 21:00 12/02/20 07:44 Pantoprazole Sodium (Protonix) 40 mg DAILYAC PO 12/01/20 10:30 12/02/20 07:44 Atorvastatin Calcium (Lipitor) 80 mg QHS PO 12/01/20 21:00 12/01/20 21:36 Citalopram Hydrobromide (CeleXA) 20 mg DAILY PO 12/01/20 10:30 12/02/20 07:44 Losartan Potassium (Cozaar) 100 mg DAILY PO 12/01/20 10:30 12/02/20 07:44 Metoprolol Tartrate (Lopressor) 100 mg BID PO 12/01/20 10:30 12/02/20 07:44 Ceftriaxone Sodium (Rocephin) 1 gm Q24H IVP 12/01/20 11:00 12/01/20 11:07 Heparin Sodium (Porcine) (Heparin Sodium) 5,000 unit Q12HR SQ 12/01/20 21:00 12/02/20 07:55 Multivitamins (Thera M Plus) 1 tab DAILY PO 12/02/20 09:00 12/02/20 07:44 Assessment Assessment 1. Acute urinary tract infection. 2. Falls, frequent. 3. Weakness, severe. 4. Hypertension. 5. Coronary artery disease. 6. Status post coronary artery bypass grafting. 7. Chronic kidney disease 3. 8. Osteoarthritis. 9. Physical deconditioning. 10. History of bilateral mastectomy. PLAN: 1. UTI. Start IV Rocephin. Urine culture shows E. coli. Sensitivity pending.. 2. Physical deconditioning. Order PT, OT. Consult Dr. Lopez. COVID-19 test is negative. Discussed with . He has ordered an MRI. Patient would like a wheelchair. 3. Continue hydrocodone and other medications. Please refer to the orders. The patient was given IV fluids yesterday. We will monitor oral intake and give more IV fluids if needed. I will discontinue hydrochlorothiazide and clonidine. Continue metoprolol. Hold losartan today. For details, please refer to the orders. COVID-19 PCR test is negative. Plan Plan For more details regarding further plans, please refer to the orders. Justifications for Admission Other Justification MARLY CHAVARRIA MD Dec 02, 2020 09:28
[2020-12-02] MEDS ORDERED: DOCUSATE SODIUM 283 MG/5 ML ENEMA. PR PRN (09:30)
[2020-12-02] MEDS ORDERED: BISACODYL 10 MG SUPP.RECT. PR PRN (09:30)
[2020-12-02] MEDS ORDERED: methylPREDNISolone ACETATE 40 MG/ML VIAL. IM ONE (09:45)
[2020-12-02] MEDS ORDERED: methylPREDNISolone ACETATE 40 MG/ML VIAL. INJ ONE (09:45)
[2020-12-02] MEDS ORDERED: BUPIVACAINE MPF 0.25% 10 ML VIAL. IJ ONE (09:45)
--- NOTE | 2020-12-02 10:16 | CONS ---
DATE OF CONSULTATION: 12/02/2020 ATTENDING PHYSICIAN: Dr. Edilson Payan. REASON FOR CONSULTATION: The patient was seen at the request of Dr. Payan for rehab evaluation. HISTORY OF PRESENT ILLNESS: This is a 80-year-old right-handed female, retired, lives alone. The patient had been independent with her mobility and self-care skills until about 3 months ago when she started suddenly with lower extremity weakness and unable to get up and walk without any assistive devices. Prior to that one, she used to walk without assistive devices. She has some chronic neck and lower back and shoulder area pain. The patient also admits chronic constipation, has to go to the bathroom only once in 4 days. The patient fell on 11/28/2020, and she became so weak, she remained in her chair and slept in the chair for about 2 days, and finally, on 11/30/2020, she called ambulance to come to the Emergency Room. She remained very weak and was unable to access to food also. In the Emergency Room, she was noted with significant weakness, given IV fluids. She is being treated with a tentative diagnosis of urinary tract infection. She denies any dysuria. Urinalysis revealed large leukocyte esterase, high wbc count and many bacteria. Toxicology was positive for opiates. The patient was noted with creatinine of 1.5. The patient had CT scan of the head, which was negative for any acute abnormalities. Chest x-ray was also negative. She was tested negative for COVID-19 infection. The patient was hospitalized last time at this medical center in 08/2020 for syncopal episode, urinary tract infection, dehydration and acute renal failure. Also, history of recurrent Escherichia coli urinary tract infections, hypertension, chronic kidney disease stage 3, hyperlipidemia, coronary artery disease, osteoarthritis of both shoulders and knees. The patient is status post coronary artery bypass graft, hysterectomy, oophorectomy, double mastectomies. Past history of smoking less than 2 cigarettes per day. ALLERGIES: SHE IS KNOWN ALLERGIC TO MORPHINE, CIPRO AND SENNA. PHYSICAL EXAMINATION: The patient on physical examination today revealed an elderly female. She is alert, oriented to time, place, person and circumstance, follows commands appropriately, moves all 4 extremities voluntarily where she had generalized muscle weakness, more so of shoulder girdle muscles and also relatively increased weakness of both hip abductors and adductors. She had decreased deep tendon reflexes overall with absent knee and ankle jerks, and she had decreased touch and pinprick sensation over both feet when compared to proximal aspects of her lower extremities. She had tenderness to palpation over cervical, thoracic and lumbar paraspinal muscles extending over to sacroiliac joint area and left trochanteric bursa and medial aspect of both knee joints and both shoulders. She had crepitus on range of motion of her shoulder and knee joints. Straight leg raising test is negative bilaterally. She had pain-free range of motion of both hip joints. She requires some help with bed mobility. I have not tested her transfers or ambulation skills at this time, but she was seen by Physical Therapy yesterday and she required minimal assistance with bed mobility and transfers, sit to stand using a roller walker; and with minimal assistance, she walked for 3 feet at bedside using a roller walker with slow liza step to gait, narrow base of support; and Physical Therapy recommended her to go to a fdc care unit. The patient would like to have a wheelchair when she goes home. ASSESSMENT: Mobility and self-care limitation in a patient with chronic neck and back pain, to rule out associated degenerative disk disease and degenerative joint disease of cervical, thoracic and lumbar vertebrae and also lumbar spinal stenosis; she also presents with degenerative joint disease of both knees and shoulders with bilateral rotator cuff arthropathy and left trochanteric bursitis, clinical evidence of peripheral neuropathy; the patient with chronic constipation and frequent urinary tract infections, to rule out neurogenic bladder and recent fall; the patient with known hypertension, coronary artery disease, status post coronary artery bypass graft, chronic kidney disease stage 3. RECOMMENDATIONS: To obtain MRI scan of her lumbar vertebrae to rule out lumbar spinal stenosis causing her lower extremity weakness. To obtain x-rays of her cervical and thoracic spine, both shoulders and knees. To start her on a bowel and bladder training program. To consider injecting painful sacroiliac joint area and left trochanteric bursa and knees and shoulders on an as-needed basis. Agree with the plans for transfer to skilled or rehab unit when medically stable. Dr. Payan, I appreciate asking me to participate in the care of this interesting patient. I will be glad to follow her with you on an as-needed basis. ALEX DALY MD DR: SPIKE/isael JOB#: [id number] / [id number]
[2020-12-02] MEDS: cefTRIAXone IV Push 1 GM VIAL. IVP SCH (10:38)
[2020-12-02] MEDS: BISACODYL 5 MG TABLET.DR. PO SCH (10:38)
[2020-12-02 11:18] VITALS: BP 144/73
[2020-12-02] MEDS: ONDANSETRON ODT 4 MG TAB.RAPDIS. PO PRN (12:07)
--- NOTE | 2020-12-02 12:48 | RAD ---
EXAM: Bilateral knees, standing view. HISTORY: Pain. COMPARISON: None. FINDINGS: A frontal standing view both knees is obtained. There is mild bilateral medial compartment joint space narrowing and spurring. There is suspected bone demineralization. There are vascular clip s within the left thigh and calf. IMPRESSION: 1. Mild medial compartment osteoarthritis of both knees. 2. Suspected bone demineralization. Electronically signed by: Mirtha Higgins MD (12/02/2020 12:46 PM) [id number]
[2020-12-02 15:11] VITALS: BP 134/70
--- NOTE | 2020-12-02 16:12 | RAD ---
EXAM: C-spine 3 views INDICATION: Neck pain. COMPARISON: None. TECHNIQUE: AP, lateral, and odontoid views of the cervical spine were obtained. FINDINGS: The cervical spine is straightened but shows grade 1 anterolisthesis of C2 on C3 of 2 mm, and of C3 o n C4 of 4 mm. The bones are demineralized. No acute fracture or aggressive osseous lesions are seen. The discs showed multilevel disc space narrowing, most conspicuously at C4-C5, C5-C6 and C7-T1. The facet joints show relatively minimal facet hypertrophic change. No jumped facets or fractures are apparent. Neuroforamina appear narrowed at C4-C5 and C5-C6. The prevertebral soft tissues show no swelling or abnormal soft tissue gas. There are calcifications in the neck suggesting carotid calcifications more conspicuous on the left. Post CABG surgical change s are incidentally noted in the included upper chest. IMPRESSION: 1. Multilevel cervical degenerative spondylosis with grade 1 anterolisthesis of C2 on C3 and C3 on C 4. No fracture or aggressive osseous lesions. 2. Left carotid calcifications. EXAM: Bilateral shoulders 3 views each. INDICATION: Severe bilateral shoulder pain. COMPARISON: None. TECHNIQUE: Internal rotation, external rotation and scapular Y views of the bilateral shoulders were obtained. FINDINGS: Right shoulder shows moderately advanced acromioclavicular joint degenerative changes with osteophyti c spurring. There is no shoulder dislocation, fracture or aggressive appearing bony lesion. There is mild narrowing of the subacromial space. Incidental surgical clips in the right axilla are also noted . No soft tissue calcifications or loose bodies are identified. Left shoulder shows acromioclavicular degenerative changes as well but there is cephalad migration of the humeral head with remodeling of the undersurface of the acromion, compatible with the sequelae o f chronic rotator cuff pathology. No acute fracture or aggressive appearing bony lesions are seen. No soft tissue calcifications or joint loose bodies are identified. IMPRESSION: Bilateral degenerative changes in the acromioclavicular joints with subacromial space narrowing sugge sting left greater than right rotator cuff pathology. No acute fracture or aggressive osseous lesions identified. No dislocation. Thoracic spine single view INDICATION: Back pain. COMPARISON: Portable chest x-ray of 07/10/2020 FINDINGS: The bones are demineralized. There is no listhesis. There is subtle loss of height at T11 that could be an artifact of scoliotic spinal curvature in positioning. No acute fracture is apparent. No parasp inal hematoma seen. There are trace bilateral pleural effusions. Post CABG surgical changes are incid entally noted. IMPRESSION: No acute pathology in the demineralized thoracic spine with subtle loss of height at T11 favored to r eflect artifact of scoliosis in positioning. This can be further evaluated if clinically warranted wi CT or MRI. Electronically signed by: Marcial Brito MD (12/02/2020 4:10 PM) [id number]
--- NOTE | 2020-12-02 16:34 | NUR ---
SW following for discharge planning. Spoke with RN and reviewed chart. Pt's COVID result came back negative. Pt on room air, IV Rocephin. Dr. Lopez and PT recommendation is SNU. ARIANNA met with pt. Pt stated she will consider SNU and call her landlord to see if she can feed her cat while in a SNU. Pt stated no preference in provider and agreed to allow SW to send out a referral. Patient choice of vendor form completed. Referral phoned and faxed to [facility]. ARIANNA following. Addendum: 12/02/20 at 1639 by SHIREEN KELLER ARIANNA also faxed a referral to [facility].
[2020-12-02 19:00] VITALS: BP 148/67
[2020-12-02] MEDS: MIRTAZAPINE 15 MG TABLET PO SCH (20:02)
[2020-12-02] MEDS: SENNOSIDES/DOCUSATE 8.6/50MG TABLET. PO SCH (20:02)
[2020-12-02] MEDS: ATORVASTATIN CALCIUM 40 MG TABLET. PO SCH (20:02)
[2020-12-02 23:00] VITALS: BP 134/61
[2020-12-03 03:00] VITALS: BP 125/58
[2020-12-03 07:00] VITALS: BP 137/101
[2020-12-03] MEDS: CHOLECALCIFEROL (VITAMIN D3) 1,000 UNIT TABLET PO SCH (08:21)
[2020-12-03] MEDS: CLOPIDOGREL BISULFATE 75 MG TABLET PO SCH (08:21)
[2020-12-03] MEDS: ASPIRIN ENTERIC COATED 81 MG TABLET.DR. PO SCH (08:21)
[2020-12-03] MEDS: MULTIVITAMIN with MINERAL TABLET. PO SCH (08:21)
[2020-12-03] MEDS: PANTOPRAZOLE 40 MG TABLET.DR. PO SCH (08:22)
[2020-12-03] MEDS: LACTOBACILLUS RHAMNOSUS GG 1 CAPSULE. PO SCH ×2 (08:22→21:34)
[2020-12-03] MEDS: METOPROLOL TART IMMED RELEASE 50 MG TABLET. PO SCH ×2 (08:22→21:35)
[2020-12-03] MEDS: CITALOPRAM 20 MG TABLET. PO SCH (08:22)
[2020-12-03] MEDS: OMEGA-3 FATTY ACIDS/FISH OIL 1,000 MG CAPSULE. PO SCH ×2 (08:22→21:00)
[2020-12-03] MEDS: LOSARTAN POTASSIUM 50 MG TABLET. PO SCH (08:22)
[2020-12-03] MEDS: DICLOFENAC SODIUM 1% TOPICAL GEL 100GM TUBE. TP SCH ×2 (08:23→21:00)
[2020-12-03] MEDS: HYDROcodone/APAP 5/325MG 1 TAB TABLET PO PRN ×2 (08:24→18:20)
[2020-12-03] MEDS: BISACODYL 5 MG TABLET.DR. PO SCH (08:24)
[2020-12-03] MEDS: SENNOSIDES/DOCUSATE 8.6/50MG TABLET. PO SCH ×2 (08:24→21:34)
[2020-12-03] MEDS: HEPARIN for SUB-Q USE 5,000 UNIT/ML VIAL. SQ SCH ×2 (08:25→21:41)
[2020-12-03] MEDS ORDERED: ACET325T9 PO (09:33)
--- NOTE | 2020-12-03 09:37 | SNU/HH DC ---
DISCHARGE ORDERS DISCHARGE INFORMATION: FINAL DIAGNOSIS Problems Medical Problems: (1) Chronic kidney disease Status: Acute (2) Generalized weakness Status: Acute CONDITION ON DISCHARGE: Stable SHELTER: SNF STAY <30 DAYS: Yes POST DISCHARGE ORDERS: ACTIVITY ORDERS: Activity as tolerated (With walker, wheelchair and physical therapy) WEIGHT BEARING STATUS: No restrictions, Full weight bearing, As tolerated DIET AFTER DISCHARGE: Cardiac WOUND/INCISION CARE: No wound care needed OTHER ORDERS: Fall precautions CHECKS AFTER DISCHARGE: CHECKS AFTER DISCHARGE: Check blood press - daily, Check your Temp as needed FOLLOW-UP: PHYSICIAN FOLLOW-UP: Dr.Pratip Chavarria in 5 days after discharge LAB ORDERS FOR FOLLOW-UP: CBC, CMP once a week for 3 weeks TREATMENT/EQUIPMENT ORDERS: ADAPTIVE EQUIPMENT NEEDED: None Physical Therapy For: Evalulation/Treatment Occupational Therapy For: Evaluation/Treatment DISCHARGE MEDICATIONS: Home Meds Active Scripts Acetaminophen (TYLENOL) 325 Mg Tablet, 650 MG PO PRN Q6HRS PRN for MILD PAIN / TEMP > 100.3'F for 14 Days, #30 TAB Prov:MARLY CHAVARRIA MD 12/03/20 Ondansetron (ONDANSETRON ODT) 4 Mg Tab.rapdis, 4 MG PO BID PRN for NAUSEA/VOMITING for 7 Days, #14 TAB Prov:MARLY CHAVARRIA MD 07/13/20 Cephalexin (KEFLEX) 500 Mg Capsule, 1 CAP PO BID for UTI for 7 Days, #14 CAP 0 Refills Prov:MARLY CHAVARRIA MD 07/13/20 Lactobacillus Rhamnosus Gg (CULTURELLE) 1 Each Cap.sprink, 1 CAP PO BID for antibiotic use for 14 Days, #28 CAP Prov:MARLY CHAVARRIA MD 07/13/20 Pantoprazole Sodium (PANTOPRAZOLE SODIUM ) 40 Mg Tablet., 40 MG PO DAILYAC for GERD for 30 Days, #30 TAB.SR 5 Refills Prov:MRALY CHAVARRIA MD 07/13/20 Aspirin (ASPIRIN EC) 81 Mg Tablet., 81 MG PO DAILYWBKFT for CAD for 30 Days, #30 TAB.SR 4 Refills Prov:MARLY CHAVARRIA MD 02/18/19 Reported Medications Clonidine Hcl (CLONIDINE HCL) 0.3 Mg Tablet, 0.3 MG PO BID for htn, TAB 07/11/20 Triamcinolone Acetonide (TRIAMCINOLONE ACETONIDE 0.1% OINT) 15 Gm Oint...g., 1 LIMA TP BID for WOUND CARE, #1 TUBE MIX WITH EUCERIN DIRECTED BY PHYSICIAN 02/13/19 Hydrocodone Bit/Acetaminophen (HYDROCODONE-APAP 5-325 ) 1 Tab Tablet, 1 TAB PO PRN Q6HRS PRN for PAIN, TAB 0 Refills 02/13/19 Diclofenac Sodium (VOLTAREN) 100 Gm Gel..gram., 1 GM TP BID for pain, #100 GM 2 Refills 02/13/19 Cholecalciferol (Vitamin D3) (VITAMIN D3) 1,000 Unit Tablet, 2 TAB PO DAILY for vitamin supplement, #30 TAB 5 Refills 02/13/19 Clopidogrel Bisulfate (CLOPIDOGREL) 75 Mg Tablet, 1 TAB PO DAILY for antoplatelet, #90 TAB 1 Refill 02/13/19 Mirtazapine (MIRTAZAPINE) 15 Mg Tablet, 1 TAB PO QHS for antipepressant, #30 TAB 3 Refills 02/13/19 Metoprolol Tartrate (METOPROLOL TARTRATE) 100 Mg Tablet, 1 TAB PO BID for hypertension, #60 TAB 5 Refills 02/13/19 Losartan Potassium (LOSARTAN POTASSIUM) 100 Mg Tablet, 100 MG PO DAILY for HYPERTENSION, TAB 02/13/19 Escitalopram Oxalate (ESCITALOPRAM OXALATE) 10 Mg Tablet, 1 TAB PO DAILY for anti dep, #30 TAB 3 Refills 02/13/19 Hydrochlorothiazide (HYDROCHLOROTHIAZIDE CAPSULE ) 12.5 Mg Capsule, 25 MG PO DAILY for DIURETIC, CAP 0 Refills 02/13/19 [place]-3 Fatty Acids/Fish Oil (FISH OIL 1,000 MG CAPSULE) 1 Each Capsule, 2 EACH PO BID for cardiac, CAP 02/13/19 Diltiazem Hcl (CARDIZEM CD) 240 Mg Cap.er.24h, 0.5 CAP PO DAILY for hypertension, #30 CAP 5 Refills 02/13/19 Atorvastatin Calcium (ATORVASTATIN CALCIUM) 80 Mg Tablet, 1 TAB PO DAILY for cholestrol, #30 TAB 5 Refills 02/13/19 Discontinued Reported Medications [trazodone] No Conflict Check 12/01/20 MARLY CHAVARRIA MD Dec 03, 2020 09:37
--- NOTE | 2020-12-03 09:41 | PDOC3 ---
IM DISCHARGE SUMMARY Date of Admission Date of Admission Date of Admission: Nov 30, 2020 at 21:37 Date of Discharge Date of Discharge December 04, 2020 Primary Diagnosis Primary Diagnosis 1. Acute urinary tract infection. 2. Falls, frequent. 3. Weakness, severe. 4. Hypertension. 5. Coronary artery disease. 6. Status post coronary artery bypass grafting. 7. Chronic kidney disease 3. 8. Osteoarthritis. 9. Physical deconditioning. 10. History of bilateral mastectomy. 11. Lumbar spinal stenosis with lumbar radiculopathy Consults Consults Lalit Lopez MD Brief hospital course Brief hospital course This 80-year-old female started getting very weak since last week. On Monday, she fell, that was 2 days ago prior to admission and EMT were called and they got her back up. However, she became so weak that she has remained in her chair and slept in her chair for last 2 days and finally yesterday she called the ambulance to come to the Emergency Room. She has remained very weak and has not been able to access food also. In the Emergency Room, the patient was noted to have significant weakness. She was given IV fluids and because of the weakness, the patient was admitted for further evaluation and management. She also was noted to have urinary tract infection on the urinalysis. Urinalysis shows large leukocyte esterase, wbc's count too numerous to count, urine bacteria many, urine yeast present. Toxicology is positive for opiates. Sodium 135, potassium 4.2, BUN 24, creatinine 1.5, magnesium 1.9, albumin 2. WBC count 8.4, hemoglobin 11.5, polys 75. CT scan of head was negative for any acute abnormalities. Chest x-ray was also negative for any acute abnormalities. Because of the weakness and UTI and recurrent falls, the patient was admitted for further evaluation and management. For more details regarding the past history, family history, social history, surgical history and other details, please refer to History and Physical. 1. UTI. Start IV Rocephin. Urine culture shows E. coli. Sensitive to cephalosporins. Change IV Rocephin to Keflex for 1 more week. 2. Physical deconditioning. Order PT, OT. Consult Dr. Lopez. COVID-19 test is negative. Discussed with . He has ordered an MRI. MRI is pending. Patient would like a wheelchair. 3. Continue hydrocodone and other medications. Please refer to the orders. The patient was given IV fluids yesterday. We will monitor oral intake and give more IV fluids if needed. I will discontinue hydrochlorothiazide and clonidine. Continue metoprolol. Hold losartan for 1 day.. For details, please refer to the orders. Lumbar radiculopathy and lumbar spinal stenosis MRI of the lumbar spine on December 03, 2020 IMPRESSION: The changes of degenerative disc disease are seen throughout the lumbar spine. These findings result in mild central spinal canal stenosis at L3- 4 and moderate to severe central spinal canal stenosis at L4-5. Mild bilateral neural foraminal stenosis is seen at L3-4. Mild to moderate bilateral neural foraminal stenosis is seen at L4-5. Mild left neural foraminal stenosis is seen at L5-S1. Discussed with Dr. Munoz. Patient needs surgery but patient does not want any surgery at this time. She wants a wheelchair. Continue PT OT. Transfer to intermediate unit for further management. Medications Current Medications Medications (Trade) Dose Ordered Sig/Mackenzie Route PRN Reason Start Time Stop Time Status Last Admin Dose Admin Bisacodyl (Dulcolax Tab) 10 mg DAILY PO 12/02/20 10:00 12/03/20 08:24 Senna/Docusate Sodium (Senna Plus) 1 tab BID PO 12/02/20 21:00 12/03/20 08:24 Medications reviewed and reconciled for discharge. Allergy Allergies Coded Allergies Type Severity Reaction Last Updated Verified ciprofloxacin Allergy Severe 07/10/20 Yes morphine Allergy Intermediate 02/17/19 Yes senna Allergy Intermediate 07/10/20 Yes meperidine Adverse Reaction Intermediate 07/10/20 Yes Follow up in 5 days. DISPOSITION: [facility] facility Comments Discharge Management - 35 minutes. For other details please refer to discharge instructions Justicifation of Admission Dx: Justifications for Admission: Justification of Admission Dx: Yes MARLY CHAVARRIA MD Dec 03, 2020 09:41
[2020-12-03] MEDS: cefTRIAXone IV Push 1 GM VIAL. IVP SCH (10:52)
[2020-12-03] MEDS: ONDANSETRON ODT 4 MG TAB.RAPDIS. PO PRN (11:01)
[2020-12-03 11:12] VITALS: BP 135/68
--- NOTE | 2020-12-03 12:48 | PDOC ---
PROGRESS NOTES Date of Service DATE: 12/03/20 TIME: 12:43 Subjective Subjective No new complaints. Objective Objective Vital Signs Date Time Temp Pulse Resp B/P (MAP) Pulse Ox O2 Delivery O2 Flow Rate FiO2 12/03/20 11:12 97.5 64 16 135/68 (90) 98 Room Air 97.5 Intake and Output 12/03/20 07:00 Intake Total 290 ml Output Total 1 ml Balance 289 ml Intake Oral 290 ml Output Urine/Stool Mix 1 ml # Voids 1 Physical Exam Physical Exam She is alert,sitting in bedside chair and seems to be comfortable and x-rays revealed narrowing of knee joint lines and severe rotator cuff arthropathy and DDD and DJD changes in cervical vertebrae. She wants to have a wheel chair for use at home at time of discharge and she is considering going home verses SNF transfer. Still waiting for mri scan to determine any lumbar spine pathology that is responsible for her lower extremity weakness and difficulty walking in the last 3 months. She is emptying her bladder godd and she had a bowel movement. Assessment Assessment Problems Medical Problems: (1) Chronic kidney disease Status: Acute (2) Generalized weakness Status: Acute Plan Plan of Care To await MRI scan results and she admits no significant knee joint pain for injection. To continue present rehab efforts as tolerated. Comment Review of Relevant I have reviewed the following items fartun (where applicable) has been applied. Labs Laboratory Tests Test 12/02/20 07:15 White Blood Count 7.2 x10^3/uL (4.0-11.0) Red Blood Count 3.20 x10^6/uL (3.50-5.40) Hemoglobin 10.8 g/dL (12.0-15.5) Hematocrit 31.7 % (36.0-47.0) Mean Corpuscular Volume 99 fL (79-100) Mean Corpuscular Hemoglobin 34 pg (25-35) Mean Corpuscular Hemoglobin Concent 34 g/dL (31-37) Red Cell Distribution Width 15.1 % (11.5-14.5) Platelet Count 264 x10^3/uL (140-400) Neutrophils (%) (Auto) 76 % (31-73) Lymphocytes (%) (Auto) 14 % (24-48) Monocytes (%) (Auto) 8 % (0-9) Eosinophils (%) (Auto) 2 % (0-3) Basophils (%) (Auto) 0 % (0-3) Neutrophils # (Auto) 5.5 x10^3/uL (1.8-7.7) Lymphocytes # (Auto) 1.0 x10^3/uL (1.0-4.8) Monocytes # (Auto) 0.5 x10^3/uL (0.0-1.1) Eosinophils # (Auto) 0.1 x10^3/uL (0.0-0.7) Basophils # (Auto) 0.0 x10^3/uL (0.0-0.2) Sodium Level 139 mmol/L (136-145) Potassium Level 4.0 mmol/L (3.5-5.1) Chloride Level 105 mmol/L (98-107) Carbon Dioxide Level 25 mmol/L (21-32) Anion Gap 9 (6-14) Blood Urea Nitrogen 20 mg/dL (7-20) Creatinine 1.4 mg/dL (0.6-1.0) Estimated GFR (Cockcroft-Gault) 36.4 Glucose Level 79 mg/dL (70-99) Calcium Level 9.1 mg/dL (8.5-10.1) Magnesium Level 1.8 mg/dL (1.8-2.4) Microbiology 12/01/20 Urine Culture - Final, Complete 12/01/20 Antimicrobic Susceptibility - Final, Complete Medications Current Medications Fentanyl Citrate (Fentanyl 2ml Vial) 50 mcg PRN Q15MIN PRN IV PAIN GREATER THAN 3/10 Last administered on 12/01/20at 00:48; Start 11/30/20 at 17:30; Stop 12/01/20 at 17:29; Status DC Ondansetron HCl (Zofran) 4 mg PRN Q8HRS PRN IV NAUSEA/VOMITING 1ST CHOICE Last administered on 12/01/20at 21:36; Start 11/30/20 at 23:00; Stop 12/01/20 at 22:59; Status DC Fentanyl Citrate (Fentanyl 2ml Vial) 50 mcg PRN Q1HR PRN IV SEVERE PAIN 7-10 Last administered on 12/01/20at 09:16; Start 11/30/20 at 23:00; Stop 12/01/20 at 22:59; Status DC Aspirin (Ecotrin) 81 mg DAILYWBKFT PO Last administered on 12/03/20at 08:21; Start 12/01/20 at 10:30 Vitamin D (Vitamin D3) 2,000 unit DAILY PO Last administered on 12/03/20at 08:21; Start 12/01/20 at 10:30 Clopidogrel Bisulfate (Plavix) 75 mg DAILY PO Last administered on 12/03/20at 08:21; Start 12/01/20 at 10:30 Diclofenac Sodium (Voltaren) 1 pauline BID TP ; Start 12/01/20 at 10:30 Diltiazem HCl (Cardizem 24hr Cd) 120 mg DAILY PO Last administered on 12/03/20at 08:21; Start 12/01/20 at 10:30 Acetaminophen/ Hydrocodone Bitart (Lortab 5/325) 1 tab PRN Q6HRS PRN PO MODERATE-SEVERE PAIN Last administered on 12/03/20at 08:24; Start 12/01/20 at 09:30 Lactobacillus Rhamnosus (Culturelle) 1 cap BID PO Last administered on 12/03/20at 08:22; Start 12/01/20 at 21:00 Mirtazapine (Remeron) 15 mg QHS PO Last administered on 12/02/20at 20:02; Start 12/01/20 at 21:00 Fish Oil (Fish Oil) 1,000 mg BID PO Last administered on 12/03/20at 08:22; Start 12/01/20 at 21:00 Ondansetron HCl (Zofran Odt) 4 mg PRN BID PRN PO NAUSEA/VOMITING Last administered on 12/03/20at 11:01; Start 12/01/20 at 09:30 Pantoprazole Sodium (Protonix) 40 mg DAILYAC PO Last administered on 12/03/20at 08:22; Start 12/01/20 at 10:30 Atorvastatin Calcium (Lipitor) 80 mg QHS PO Last administered on 12/02/20at 20:02; Start 12/01/20 at 21:00 Citalopram Hydrobromide (CeleXA) 20 mg DAILY PO Last administered on 12/03/20at 08:22; Start 12/01/20 at 10:30 Losartan Potassium (Cozaar) 100 mg DAILY PO Last administered on 12/03/20at 08:22; Start 12/01/20 at 10:30 Metoprolol Tartrate (Lopressor) 100 mg BID PO Last administered on 12/03/20at 08:22; Start 12/01/20 at 10:30 Acetaminophen (Tylenol) 650 mg PRN Q6HRS PRN PO MILD PAIN / TEMP > 100.3'F; Start 12/01/20 at 09:30 Ceftriaxone Sodium (Rocephin) 1 gm Q24H IVP Last administered on 12/03/20at 10:52; Start 12/01/20 at 11:00 Heparin Sodium (Porcine) (Heparin Sodium) 5,000 unit Q12HR SQ Last administered on 12/03/20at 08:25; Start 12/01/20 at 21:00 Multivitamins (Thera M Plus) 1 tab DAILY PO Last administered on 12/03/20at 08:21; Start 12/02/20 at 09:00 Bisacodyl (Dulcolax Tab) 10 mg DAILY PO Last administered on 12/03/20at 08:24; Start 12/02/20 at 10:00 Bisacodyl (Dulcolax Supp) 10 mg PRN DAILY PRN [place] CONSTIPATION; Start 12/02/20 at 09:30 Senna/Docusate Sodium (Senna Plus) 1 tab BID PO Last administered on 12/03/20at 08:24; Start 12/02/20 at 21:00 Docusate Sodium (Enemeez) 283 mg PRN DAILY PRN [place] CONSTIPATION; Start 12/02/20 at 09:30 Methylprednisolone Acetate (DEPO-Medrol 40MG VIAL) 40 mg 1X ONCE IM ; Start 12/02/20 at 09:45; Stop 12/02/20 at 09:46; Status DC Methylprednisolone Acetate (DEPO-Medrol 40MG VIAL) 40 mg 1X ONCE INJ ; Start 12/02/20 at 09:45; Stop 12/02/20 at 09:46; Status DC Bupivacaine HCl (Sensorcaine-Mpf 0.25%) 10 ml 1X ONCE IJ ; Start 12/02/20 at 09:45; Stop 12/02/20 at 09:46; Status DC Active Scripts Active Tylenol (Acetaminophen) 325 Mg Tablet 650 Mg PO PRN Q6HRS PRN 14 Days Ondansetron Odt (Ondansetron) 4 Mg Tab.rapdis 4 Mg PO BID PRN 7 Days Keflex (Cephalexin) 500 Mg Capsule 1 Cap PO BID 7 Days Culturelle (Lactobacillus Rhamnosus Gg) 1 Each Cap.sprink 1 Cap PO BID 14 Days Pantoprazole Sodium (Pantoprazole Sodium) 40 Mg Tablet. 40 Mg PO DAILYAC 30 Days Aspirin Ec (Aspirin) 81 Mg Tablet.dr 81 Mg PO DAILYWBKFT 30 Days Reported Clonidine Hcl 0.3 Mg Tablet 0.3 Mg PO BID Triamcinolone Acetonide 0.1% Oint (Triamcinolone Acetonide) 15 Gm Oint...g. 1 Pauline TP BID MIX WITH EUCERIN DIRECTED BY PHYSICIAN Hydrocodone-Apap 5-325 (Hydrocodone Bit/Acetaminophen) 1 Tab Tablet 1 Tab PO PRN Q6HRS PRN Voltaren (Diclofenac Sodium) 100 Gm Gel..gram. 1 Gm TP BID Vitamin D3 (Cholecalciferol (Vitamin D3)) 1,000 Unit Tablet 2 Tab PO DAILY Clopidogrel (Clopidogrel Bisulfate) 75 Mg Tablet 1 Tab PO DAILY Mirtazapine 15 Mg Tablet 1 Tab PO QHS Metoprolol Tartrate 100 Mg Tablet 1 Tab PO BID Losartan Potassium 100 Mg Tablet 100 Mg PO DAILY Escitalopram Oxalate 10 Mg Tablet 1 Tab PO DAILY Hydrochlorothiazide Capsule (Hydrochlorothiazide) 12.5 Mg Capsule 25 Mg PO DAILY Fish Oil 1,000 Mg Capsule ([place]-3 Fatty Acids/Fish Oil) 1 Each Capsule 2 Each PO BID Cardizem Cd (Diltiazem Hcl) 240 Mg Cap.er.24h 0.5 Cap PO DAILY Atorvastatin Calcium 80 Mg Tablet 1 Tab PO DAILY Vitals/I & O Vital Sign - Last 24 Hours 12/02/20 12/02/20 12/02/20 12/02/20 14:10 15:11 19:00 20:00 Temp 97.8 97.7 97.8 97.7 Pulse 55 60 Resp 18 17 B/P (MAP) 134/70 (91) 148/67 (94) Pulse Ox 94 96 O2 Delivery Room Air Room Air Room Air Room Air 12/02/20 12/02/20 12/02/20 12/03/20 20:01 20:03 23:00 03:00 Temp 97.8 97.7 97.8 97.7 Pulse 60 52 56 Resp 17 18 B/P (MAP) 148/67 134/61 (85) 125/58 (80) Pulse Ox 96 94 O2 Delivery Room Air Room Air Room Air 12/03/20 12/03/20 12/03/20 12/03/20 07:00 08:00 08:21 08:22 Temp 96.5 96.5 Pulse 88 88 88 Resp 18 B/P (MAP) 137/101 (113) 137/101 137/101 Pulse Ox 91 O2 Delivery Room Air Room Air 12/03/20 12/03/20 08:22 11:12 Temp 97.5 97.5 Pulse 88 64 Resp 16 B/P (MAP) 137/101 135/68 (90) Pulse Ox 98 O2 Delivery Room Air Intake and Output 12/02/20 12/02/20 12/03/20 15:00 23:00 07:00 Intake Total 170 ml 120 ml Output Total 1 ml Balance 169 ml 120 ml Justifications for Admission Other Justification ALEX DALY MD Dec 03, 2020 12:48
--- NOTE | 2020-12-03 14:30 | NUR ---
ARIANNA following for discharge planning. Spoke with RN and reviewed chart. Pt is actually being considered by [facility] and not [facility]. Spoke with pt and pt's nephew Primo and the long-term plan is for pt to move to [place] to be closer to Primo. ARIANNA called [facility] in [place] and [facility] in [place] and neither take pt's BCBS Medicare. ARIANNA did fax a referral to [facility] though per approval from pt and pt's nephew. Spoke with [facility] and they did accept pt clinically and got insurance approval for discharge on 12/04. Luli from the facility arranged for 11am transportation time and ARIANNA notified Dr. Payan and pt's nephew (pt sleeping). [facility] stated they will work with pt and family to assist with getting pt transitioned to [place] on discharge from their SNU. ARIANNA following.
[2020-12-03 15:59] VITALS: BP 148/70
--- NOTE | 2020-12-03 16:00 | RAD ---
MRI of the lumbar spine without contrast 12/03/2020 CLINICAL HISTORY: Low back pain. Lower extremity weakness. TECHNIQUE: Unenhanced T1-weighted and T2-weighted sagittal and axial and inversion recovery sagittal images of the lumbar spine were obtained. FINDINGS: Mild to moderate S-shaped curvature of the thoracolumbar spine is seen. Degenerative signal changes and loss of height are seen involving all of the disks of the lumbar spine. Degenerative sig nal changes are seen within the marrow surrounding these discs. The conus medullaris is normal morpho logy, position and signal characteristics. At the L1-2 disc space there is a mild generalized disc bulge. Degenerative changes are seen involvin g the facet joints bilaterally. There are small facet joint effusions bilaterally. There is mild liga mentum flavum hypertrophy bilaterally. These findings when combined do not result in significant cent ral spinal canal or neural foraminal stenosis. At the L2-3 disc space there is a mild generalized disc bulge. Degenerative changes are seen involvin g the facet joints bilaterally. There are small facet joint effusions bilaterally. There is mild to m oderate ligamentum flavum hypertrophy bilaterally. These findings when combined do not result in sign ificant central spinal canal stenosis. Mild to moderate right greater than left neural foraminal sten osis is seen. At the L3-4 disc space there is a mild generalized disc bulge. This is eccentric to the left. Degener ative changes are seen involving the facet joints bilaterally. These findings when combined result in mild central spinal canal stenosis. Mild bilateral neural foraminal stenosis is seen. At the L4-5 disc space there is a moderate generalized disc bulge. Degenerative changes are seen invo lving the facet joints bilaterally. There is mild ligamentum flavum hypertrophy bilaterally. These fi ndings when combined result in moderate to severe central spinal canal stenosis. Mild to moderate kathleen ateral neural foraminal stenosis is seen. At the L5-S1 disc space there is a mild generalized disc bulge. Degenerative changes are seen involvi ng the facet joints, left greater than right. There are small facet joint effusions bilaterally. Ther e is mild to moderate ligamentum flavum hypertrophy bilaterally. These findings when combined do not result in significant central spinal canal stenosis. Mild left neural foraminal stenosis is seen. The right neural foramen is patent. IMPRESSION: The changes of degenerative disc disease are seen throughout the lumbar spine. These find ings result in mild central spinal canal stenosis at L3-4 and moderate to severe central spinal canal stenosis at L4-5. Mild bilateral neural foraminal stenosis is seen at L3-4. Mild to moderate bilater al neural foraminal stenosis is seen at L4-5. Mild left neural foraminal stenosis is seen at L5-S1. Electronically signed by: Christiano Dior MD (12/03/2020 3:58 PM) [id number]
--- NOTE | 2020-12-03 18:07 | NUR ---
pt transferred to room 426. Report called to TONYA Romero via telephone. All belongings with patient at the time of transfer. Pt transported via telephone. Addendum: 12/03/20 at 1808 by VERONICA BEDOLLA RN Pt transported via wheelchair.
--- NOTE | 2020-12-03 18:14 | NUR ---
Pt. here from 674 and placed in bed, pt given call light. Rates pain at 7/10.
[2020-12-03 19:00] VITALS: BP 132/62
[2020-12-03] MEDS: ATORVASTATIN CALCIUM 40 MG TABLET. PO SCH (21:34)
[2020-12-03] MEDS: MIRTAZAPINE 15 MG TABLET PO SCH (21:34)
[2020-12-03 23:00] VITALS: BP 133/66
[2020-12-04 03:07] VITALS: BP 118/51
[2020-12-04 07:00] VITALS: BP 148/63
[2020-12-04] MEDS: PANTOPRAZOLE 40 MG TABLET.DR. PO SCH (07:12)
[2020-12-04] MEDS: HYDROcodone/APAP 5/325MG 1 TAB TABLET PO PRN (07:12)
[2020-12-04] MEDS: CITALOPRAM 20 MG TABLET. PO SCH (08:52)
[2020-12-04] MEDS: ASPIRIN ENTERIC COATED 81 MG TABLET.DR. PO SCH (08:52)
[2020-12-04] MEDS: CLOPIDOGREL BISULFATE 75 MG TABLET PO SCH (08:52)
[2020-12-04] MEDS: LACTOBACILLUS RHAMNOSUS GG 1 CAPSULE. PO SCH (08:53)
[2020-12-04] MEDS: LOSARTAN POTASSIUM 50 MG TABLET. PO SCH (08:53)
[2020-12-04] MEDS: OMEGA-3 FATTY ACIDS/FISH OIL 1,000 MG CAPSULE. PO SCH (08:53)
[2020-12-04] MEDS: BISACODYL 5 MG TABLET.DR. PO SCH (08:53)
[2020-12-04] MEDS: MULTIVITAMIN with MINERAL TABLET. PO SCH (08:53)
[2020-12-04] MEDS: CHOLECALCIFEROL (VITAMIN D3) 1,000 UNIT TABLET PO SCH (08:53)
[2020-12-04] MEDS: SENNOSIDES/DOCUSATE 8.6/50MG TABLET. PO SCH (08:53)
[2020-12-04] MEDS: DICLOFENAC SODIUM 1% TOPICAL GEL 100GM TUBE. TP SCH (08:55)
[2020-12-04] MEDS: METOPROLOL TART IMMED RELEASE 50 MG TABLET. PO SCH (08:55)
[2020-12-04] MEDS: HEPARIN for SUB-Q USE 5,000 UNIT/ML VIAL. SQ SCH (09:00)
--- NOTE | 2020-12-04 09:17 | PDOC ---
IM PROGRESS NOTES- Subjective Subjective Complaints of joint pains and weakness. Objective Vitals/I&O Vital Signs Date Time Temp Pulse Resp B/P (MAP) Pulse Ox O2 Delivery O2 Flow Rate FiO2 12/04/20 08:55 64 148/63 12/04/20 08:52 Room Air 12/04/20 07:00 98.3 18 93 98.3 I & O 12/03/20 12/03/20 12/04/20 15:00 23:00 07:00 Intake Total 380 ml 180 ml 120 ml Output Total 0 ml Balance 380 ml 180 ml 120 ml Physical Exam Physical Exam General appearance - alert,weak and in no distress and oriented to person, place, and time Mental Status - alert, oriented to person, place, and time, affect appropriate to mood Head - normal Chest -decreased breath sounds at bases Heart - S1 and S2 normal Abdomen - soft, non tender Neurological - alert and oriented Musculoskeletal -weak Extremities - no pedal edema Skin - warm and dry Assessment Assessment 1. Acute urinary tract infection. 2. Falls, frequent. 3. Weakness, severe. 4. Hypertension. 5. Coronary artery disease. 6. Status post coronary artery bypass grafting. 7. Chronic kidney disease 3. 8. Osteoarthritis. 9. Physical deconditioning. 10. History of bilateral mastectomy. PLAN: 1. UTI. Start IV Rocephin. Urine culture shows E. coli. Sensitivity pending.. 2. Physical deconditioning. Order PT, OT. Consult Dr. Lopez. COVID-19 test is negative. Discussed with . He has ordered an MRI. Patient would like a wheelchair. 3. Continue hydrocodone and other medications. Please refer to the orders. The patient was given IV fluids yesterday. We will monitor oral intake and give more IV fluids if needed. I will discontinue hydrochlorothiazide and clonidine. Continue metoprolol. Hold losartan for 1 day. for details, please refer to the orders. COVID-19 PCR test is negative. Lumbar radiculopathy and lumbar spinal stenosis MRI of the lumbar spine on December 03, 2020 IMPRESSION: The changes of degenerative disc disease are seen throughout the lumbar spine. These findings result in mild central spinal canal stenosis at L3- 4 and moderate to severe central spinal canal stenosis at L4-5. Mild bilateral neural foraminal stenosis is seen at L3-4. Mild to moderate bilateral neural foraminal stenosis is seen at L4-5. Mild left neural foraminal stenosis is seen at L5-S1. Discussed with Dr. Munoz. Patient needs surgery but patient does not want any surgery at this time. She wants a wheelchair. Continue PT OT. Transfer to halfway unit for further management. Plan Plan For more details regarding further plans, please refer to the orders. Justifications for Admission Other Justification MARLY CHAVARRIA MD Dec 04, 2020 09:17
--- NOTE | 2020-12-04 09:24 | PDOC ---
PROGRESS NOTES Date of Service DATE: 12/04/20 TIME: 09:20 Subjective Subjective No new complaints. 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 She complained more of neck pain to physical therapy yesterday and declined to get up. Assessment Assessment Problems Medical Problems: (1) Chronic kidney disease Status: Acute (2) Generalized weakness Status: Acute Plan Plan of Care Agree with plans for SNF transfer when medically stable. Comment Review of Relevant I have reviewed the following items fartun (where applicable) has been applied. Labs Microbiology 12/01/20 Urine Culture - Final, Complete 12/01/20 Antimicrobic Susceptibility - Final, Complete Medications Current Medications Fentanyl Citrate (Fentanyl 2ml Vial) 50 mcg PRN Q15MIN PRN IV PAIN GREATER THAN 3/10 Last administered on 12/01/20at 00:48; Start 11/30/20 at 17:30; Stop 12/01/20 at 17:29; Status DC Ondansetron HCl (Zofran) 4 mg PRN Q8HRS PRN IV NAUSEA/VOMITING 1ST CHOICE Last administered on 12/01/20at 21:36; Start 11/30/20 at 23:00; Stop 12/01/20 at 22:5 9; Status DC Fentanyl Citrate (Fentanyl 2ml Vial) 50 mcg PRN Q1HR PRN IV SEVERE PAIN 7-10 Last administered on 12/01/20at 09:16; Start 11/30/20 at 23:00; Stop 12/01/20 at 22:59; Status DC Aspirin (Ecotrin) 81 mg DAILYWBKFT PO Last administered on 12/04/20at 08:52; Start 12/01/20 at 10:30 Vitamin D (Vitamin D3) 2,000 unit DAILY PO Last administered on 12/04/20at 08:53; Start 12/01/20 at 10:30 Clopidogrel Bisulfate (Plavix) 75 mg DAILY PO Last administered on 12/04/20at 08:52; Start 12/01/20 at 10:30 Diclofenac Sodium (Voltaren) 1 pauline BID TP ; Start 12/01/20 at 10:30 Diltiazem HCl (Cardizem 24hr Cd) 120 mg DAILY PO Last administered on 12/04/20at 08:54; Start 12/01/20 at 10:30 Acetaminophen/ Hydrocodone Bitart (Lortab 5/325) 1 tab PRN Q6HRS PRN PO MODERATE-SEVERE PAIN Last administered on 12/04/20at 07:12; Start 12/01/20 at 09:30 Lactobacillus Rhamnosus (Culturelle) 1 cap BID PO Last administered on 12/04/20at 08:53; Start 12/01/20 at 21:00 Mirtazapine (Remeron) 15 mg QHS PO Last administered on 12/03/20at 21:34; Start 12/01/20 at 21:00 Fish Oil (Fish Oil) 1,000 mg BID PO Last administered on 12/03/20at 08:22; Start 12/01/20 at 21:00 Ondansetron HCl (Zofran Odt) 4 mg PRN BID PRN PO NAUSEA/VOMITING Last administered on 12/03/20at 11:01; Start 12/01/20 at 09:30 Pantoprazole Sodium (Protonix) 40 mg DAILYAC PO Last administered on 12/04/20at 07:12; Start 12/01/20 at 10:30 Atorvastatin Calcium (Lipitor) 80 mg QHS PO Last administered on 12/03/20at 21:34; Start 12/01/20 at 21:00 Citalopram Hydrobromide (CeleXA) 20 mg DAILY PO Last administered on 12/04/20at 08:52; Start 12/01/20 at 10:30 Losartan Potassium (Cozaar) 100 mg DAILY PO Last administered on 12/04/20at 08:53; Start 12/01/20 at 10:30 Metoprolol Tartrate (Lopressor) 100 mg BID PO Last administered on 12/03/20at 21:35; Start 12/01/20 at 10:30 Acetaminophen (Tylenol) 650 mg PRN Q6HRS PRN PO MILD PAIN / TEMP > 100.3'F; Start 12/01/20 at 09:30 Ceftriaxone Sodium (Rocephin) 1 gm Q24H IVP Last administered on 12/03/20at 10:52; Start 12/01/20 at 11:00 Heparin Sodium (Porcine) (Heparin Sodium) 5,000 unit Q12HR SQ Last administered on 12/04/20at 09:00; Start 12/01/20 at 21:00 Multivitamins (Thera M Plus) 1 tab DAILY PO Last administered on 12/04/20at 08:53; Start 12/02/20 at 09:00 Bisacodyl (Dulcolax Tab) 10 mg DAILY PO Last administered on 12/03/20at 08:24; Start 12/02/20 at 10:00 Bisacodyl (Dulcolax Supp) 10 mg PRN DAILY PRN AL CONSTIPATION; Start 12/02/20 at 09:30 Senna/Docusate Sodium (Senna Plus) 1 tab BID PO Last administered on 12/03/20at 21:34; Start 12/02/20 at 21:00 Docusate Sodium (Enemeez) 283 mg PRN DAILY PRN AL CONSTIPATION; Start 12/02/20 at 09:30 Methylprednisolone Acetate (DEPO-Medrol 40MG VIAL) 40 mg 1X ONCE IM ; Start 12/02/20 at 09:45; Stop 12/02/20 at 09:46; Status DC Methylprednisolone Acetate (DEPO-Medrol 40MG VIAL) 40 mg 1X ONCE INJ ; Start 12/02/20 at 09:45; Stop 12/02/20 at 09:46; Status DC Bupivacaine HCl (Sensorcaine-Mpf 0.25%) 10 ml 1X ONCE IJ ; Start 12/02/20 at 09:45; Stop 12/02/20 at 09:46; Status DC Active Scripts Active Tylenol (Acetaminophen) 325 Mg Tablet 650 Mg PO PRN Q6HRS PRN 14 Days Ondansetron Odt (Ondansetron) 4 Mg Tab.rapdis 4 Mg PO BID PRN 7 Days Keflex (Cephalexin) 500 Mg Capsule 1 Cap PO BID 7 Days Culturelle (Lactobacillus Rhamnosus Gg) 1 Each Cap.sprink 1 Cap PO BID 14 Days Pantoprazole Sodium (Pantoprazole Sodium) 40 Mg Tablet. 40 Mg PO DAILYAC 30 Days Aspirin Ec (Aspirin) 81 Mg Tablet. 81 Mg PO DAILYWBKFT 30 Days Reported Clonidine Hcl 0.3 Mg Tablet 0.3 Mg PO BID Triamcinolone Acetonide 0.1% Oint (Triamcinolone Acetonide) 15 Gm Oint...g. 1 Pauline TP BID MIX WITH EUCERIN DIRECTED BY PHYSICIAN Hydrocodone-Apap 5-325 (Hydrocodone Bit/Acetaminophen) 1 Tab Tablet 1 Tab PO PRN Q6HRS PRN Voltaren (Diclofenac Sodium) 100 Gm Gel..gram. 1 Gm TP BID Vitamin D3 (Cholecalciferol (Vitamin D3)) 1,000 Unit Tablet 2 Tab PO DAILY Clopidogrel (Clopidogrel Bisulfate) 75 Mg Tablet 1 Tab PO DAILY Mirtazapine 15 Mg Tablet 1 Tab PO QHS Metoprolol Tartrate 100 Mg Tablet 1 Tab PO BID Losartan Potassium 100 Mg Tablet 100 Mg PO DAILY Escitalopram Oxalate 10 Mg Tablet 1 Tab PO DAILY Hydrochlorothiazide Capsule (Hydrochlorothiazide) 12.5 Mg Capsule 25 Mg PO DAILY Fish Oil 1,000 Mg Capsule ([place]-3 Fatty Acids/Fish Oil) 1 Each Capsule 2 Each PO BID Cardizem Cd (Diltiazem Hcl) 240 Mg Cap.er.24h 0.5 Cap PO DAILY Atorvastatin Calcium 80 Mg Tablet 1 Tab PO DAILY Vitals/I & O Vital Sign - Last 24 Hours 12/03/20 12/03/20 12/03/20 12/03/20 11:12 15:59 18:20 19:00 Temp 97.5 98.5 97.7 97.5 98.5 97.7 Pulse 64 67 59 Resp 16 20 20 B/P (MAP) 135/68 (90) 148/70 (96) 132/62 (85) Pulse Ox 98 98 99 O2 Delivery Room Air Room Air Room Air Room Air 12/03/20 12/03/20 12/03/20 12/03/20 19:20 19:40 21:35 23:00 Temp 97.8 97.8 Pulse 59 61 Resp 20 20 B/P (MAP) 132/62 133/66 (88) Pulse Ox 97 O2 Delivery Room Air Room Air Room Air 12/04/20 12/04/20 12/04/20 12/04/20 03:07 07:00 07:12 07:20 Temp 97.6 98.3 97.6 98.3 Pulse 58 54 Resp 20 18 B/P (MAP) 118/51 (73) 148/63 (91) Pulse Ox 95 93 O2 Delivery Room Air Room Air Room Air Room Air 12/04/20 12/04/20 12/04/20 12/04/20 08:52 08:53 08:54 08:55 Pulse 54 64 64 B/P (MAP) 148/63 148/63 148/63 O2 Delivery Room Air Intake and Output 12/03/20 12/03/20 12/04/20 15:00 23:00 07:00 Intake Total 380 ml 180 ml 120 ml Output Total 0 ml Balance 380 ml 180 ml 120 ml Justifications for Admission Other Justification ALEX DALY MD Dec 04, 2020 09:24
--- NOTE | 2020-12-04 09:41 | SNU/HH DC ---
DISCHARGE WITH HOME HEALTH DISCHARGE INFORMATION: Final Diagnosis: Problems Medical Problems: (1) Chronic kidney disease Status: Acute (2) Generalized weakness Status: Acute Condition on Discharge: Stable HOME HEALTH: Face to Face: I certify this patient is under my care and that I, or a nurse practitioner or physician's assistant infant toddler teacher working with me, had a face to face encounter that meets the physician face to face encounter requirements with this patient on December 04, 2020 RN For Eval/Treatment: Yes Physical Therapy For: Evalulation/Treatment Occupational Therapy For: Evaluation/Treatment IT SECURITY CONSULTING DIRECTOR For: Community Resources Pt Meets Homebound Status: Unsteady balance w/ amb, POST DISCHARGE ORDERS: Activity Instructions for Disc: Activity as tolerated (With walker, wheelchair and physical therapy) Weight Bearing Status after Di: No restrictions, Full weight bearing, As tolerated DIET AFTER DISCHARGE: Cardiac Wound/Incision Care: No wound care needed DC TO SNF OTHER: Fall precautions CHECKS AFTER DISCHARGE: Checks after discharge: Check blood press - daily, Check your Temp as needed FOLLOW-UP: Follow up with: Dr.Pratip Chavarria in 5 days after discharge TREATMENT/EQUIPMENT ORDERS: Adaptive Equipment Issued: Wheelchair CERTIFICATION STATEMENT: Certification Statement: Certification Statement: Based on the above finding, I certify that this patient is confined to the home and needs intermittent shelter care, physical therapy and/or speech therapy, or continues to need occupational therapy.~ This patient is under my care, and I have initiated the establishment of the plan of care.~ This patient will be followed by myself or a community physician who will periodically review the plan of care. Home Meds Active Scripts Acetaminophen (TYLENOL) 325 Mg Tablet, 650 MG PO PRN Q6HRS PRN for MILD PAIN / TEMP > 100.3'F for 14 Days, #30 TAB Prov:MARLY CHAVARRIA MD 12/03/20 Ondansetron (ONDANSETRON ODT) 4 Mg Tab.rapdis, 4 MG PO BID PRN for NAUSEA/VOMITING for 7 Days, #14 TAB Prov:MARLY CHAVARRIA MD 07/13/20 Cephalexin (KEFLEX) 500 Mg Capsule, 1 CAP PO BID for UTI for 7 Days, #14 CAP 0 Refills Prov:MARLY CHAVARRIA MD 07/13/20 Lactobacillus Rhamnosus Gg (CULTURELLE) 1 Each Cap.sprink, 1 CAP PO BID for antibiotic use for 14 Days, #28 CAP Prov:MARLY CHAVARRIA MD 07/13/20 Pantoprazole Sodium (PANTOPRAZOLE SODIUM ) 40 Mg Tablet., 40 MG PO DAILYAC for GERD for 30 Days, #30 TAB.SR 5 Refills Prov:MARLY CHAVARRIA MD 07/13/20 Aspirin (ASPIRIN EC) 81 Mg Tablet., 81 MG PO DAILYWBKFT for CAD for 30 Days, #30 TAB.SR 4 Refills Prov:MARLY CHAVARRIA MD 02/18/19 Reported Medications Clonidine Hcl (CLONIDINE HCL) 0.3 Mg Tablet, 0.3 MG PO BID for htn, TAB 07/11/20 Triamcinolone Acetonide (TRIAMCINOLONE ACETONIDE 0.1% OINT) 15 Gm Oint...g., 1 LIMA TP BID for WOUND CARE, #1 TUBE MIX WITH EUCERIN DIRECTED BY PHYSICIAN 02/13/19 Hydrocodone Bit/Acetaminophen (HYDROCODONE-APAP 5-325 ) 1 Tab Tablet, 1 TAB PO PRN Q6HRS PRN for PAIN, TAB 0 Refills 02/13/19 Diclofenac Sodium (VOLTAREN) 100 Gm Gel..gram., 1 GM TP BID for pain, #100 GM 2 Refills 02/13/19 Cholecalciferol (Vitamin D3) (VITAMIN D3) 1,000 Unit Tablet, 2 TAB PO DAILY for vitamin supplement, #30 TAB 5 Refills 02/13/19 Clopidogrel Bisulfate (CLOPIDOGREL) 75 Mg Tablet, 1 TAB PO DAILY for antoplatelet, #90 TAB 1 Refill 02/13/19 Mirtazapine (MIRTAZAPINE) 15 Mg Tablet, 1 TAB PO QHS for antipepressant, #30 TAB 3 Refills 02/13/19 Metoprolol Tartrate (METOPROLOL TARTRATE) 100 Mg Tablet, 1 TAB PO BID for hypertension, #60 TAB 5 Refills 02/13/19 Losartan Potassium (LOSARTAN POTASSIUM) 100 Mg Tablet, 100 MG PO DAILY for HYPERTENSION, TAB 02/13/19 Escitalopram Oxalate (ESCITALOPRAM OXALATE) 10 Mg Tablet, 1 TAB PO DAILY for anti dep, #30 TAB 3 Refills 02/13/19 Hydrochlorothiazide (HYDROCHLOROTHIAZIDE CAPSULE ) 12.5 Mg Capsule, 25 MG PO DAILY for DIURETIC, CAP 0 Refills 02/13/19 [place]-3 Fatty Acids/Fish Oil (FISH OIL 1,000 MG CAPSULE) 1 Each Capsule, 2 EACH PO BID for cardiac, CAP 02/13/19 Diltiazem Hcl (CARDIZEM CD) 240 Mg Cap.er.24h, 0.5 CAP PO DAILY for hypertension, #30 CAP 5 Refills 02/13/19 Atorvastatin Calcium (ATORVASTATIN CALCIUM) 80 Mg Tablet, 1 TAB PO DAILY for cholestrol, #30 TAB 5 Refills 02/13/19 Discontinued Reported Medications [trazodone] No Conflict Check 12/01/20 MARLY CHAVARRIA MD Dec 04, 2020 09:41
--- NOTE | 2020-12-04 10:13 | NUR ---
SW following. Discussed with RN, per Lyn SHETTY's note, pt was to discharge to [facility] at 11am today. RN contacted SW to advise pt does not want to go to rehab and wants to go home. Dr. Payan changing discharge orders to home health. Pt current with [facility]. SW notified [facility] and [facility].
--- NOTE | 2020-12-04 10:26 | NUR ---
Cephalexin 500mg PO BID #14 called to [facility]. [phone]. They stated they would try to add it to pt's meds set to be delivered today.
[2020-12-04] MEDS: cefTRIAXone IV Push 1 GM VIAL. IVP SCH (10:50)
[2020-12-04 11:00] VITALS: BP 124/76
--- NOTE | 2020-12-04 12:00 | NUR ---
Pt. discharged to home with Rx, verbalized understanding of discharge instructions. Pt. taken home via per [facility] transportation van.
[2020-12-30] MEDS ORDERED: CLON0.1T PO (10:17)
[2020-12-30] MEDS ORDERED: NYST15PO2 TP (10:17)
[2020-12-30] MEDS ORDERED: METR500T PO (10:17)
[2020-12-30] MEDS ORDERED: POTA20TA4 PO (10:17)
[2020-12-30] MEDS ORDERED: HYDR-2869 PO (10:17)
[2020-12-30] MEDS ORDERED: CEFD300C PO (10:17)
== END 2020-12-04 12:02 | disposition home health service (06) | DRG 689 ==
LOC: ER 16:45 → ED HOLD 21:37 → 6 SOUTH 12-01 02:48 → 4 NORTH 12-03 18:02
PROVIDERS: ADMIT Internal Medicine; ATTEND Internal Medicine
DX: N39.0 Urinary tract infection, site not specified (principal); E43 Unspecified severe protein-calorie malnutrition; I12.9 Hypertensive chronic kidney disease with stage 1 through stage 4 chronic kidney disease, or unspecified chronic kidney disease; I25.10 Atherosclerotic heart disease of native coronary artery without angina pectoris; N18.30 Chronic kidney disease, stage 3 unspecified; M19.90 Unspecified osteoarthritis, unspecified site; Z90.13 Acquired absence of bilateral breasts and nipples; Z95.1 Presence of aortocoronary bypass graft; R29.6 Repeated falls; E78.00 Pure hypercholesterolemia, unspecified; E78.5 Hyperlipidemia, unspecified; G89.29 Other chronic pain; I48.91 Unspecified atrial fibrillation; K59.09 Other constipation; M19.011 Primary osteoarthritis, right shoulder; M19.012 Primary osteoarthritis, left shoulder; M48.061 Spinal stenosis, lumbar region without neurogenic claudication; M51.36 Other intervertebral disc degeneration, lumbar region; Z20.822 Contact with and (suspected) exposure to COVID-19; W18.39XA Other fall on same level, initial encounter; Z87.440 Personal history of urinary (tract) infections; Z87.891 Personal history of nicotine dependence; Z90.710 Acquired absence of both cervix and uterus; Z88.8 Allergy status to other drugs, medicaments and biological substances; I25.2 Old myocardial infarction; Y93.89 Activity, other specified; Y92.89 Other specified places as the place of occurrence of the external cause; Y99.8 Other external cause status; Z60.2 Problems related to living alone; B96.20 Unspecified Escherichia coli [E. coli] as the cause of diseases classified elsewhere
CPT/HCPCS: 36415; 70450; 71045; 72020; 72040; 72148; 73565; 80048; 80053; 80307; 81001; 83735; 83880; 84443; 84484; 85025; 87077; 87086; 87186; 93005; 96374; J0696; J1644; J2405; J3010; U0003; 73030-50; 97110-GO; 97110-GP; 97116-GP; 97530-GP; 97535-GO; 99285-25; G0378

== ENCOUNTER 2020-12-12 22:01 | Inpatient (IN) | payer MEDICARE ==
[~2020-12-12] VITALS: Ht 139.7 cm; Wt 54.6 kg
[~2020-12-12 22:01] MED LIST changes: +ACET325T9 PO; +trazodone
--- NOTE | 2020-12-12 23:19 | RAD ---
AP chest x-ray HISTORY: Shortness of breath. COMPARISON: Chest x-ray November 30, 2020. FINDINGS: Heart size stable. Coronary bypass surgery. Mild tortuosity thoracic aorta stable. No pneum othorax, pulmonary opacities or pleural effusions. Lower thoracic scoliosis. IMPRESSION: No acute process. Electronically signed by: Luis Lewis MD (12/12/2020 11:11 PM) [facility]
[2020-12-12 23:53] LABS: BASO % 0 % (0-3); EOS # 0.2 x10^3/uL (0.0-0.7); EOS % 2 % (0-3); HEMATOCRIT 29.3 % (36.0-47.0); LYMPH % 9 % (24-48); MEAN CORPUSCULAR HEMOGLOBIN 35 pg (25-35); MEAN CORPUSCULAR HGB CONC 34 g/dL (31-37); MEAN CORPUSCULAR VOLUME 101 fL (79-100); MONO # 1.1 x10^3/uL (0.0-1.1); MONO % 10 % (0-9); NEUT # 8.8 x10^3/uL (1.8-7.7); NEUT % 79 % (31-73); PLATELET COUNT 387 x10^3/uL (140-400); RED BLOOD COUNT 2.91 x10^6/uL (3.50-5.40); WHITE BLOOD COUNT 11.1 x10^3/uL (4.0-11.0)
[2020-12-13 00:04] LABS: CALCIUM 9.2 mg/dL (8.5-10.1); CREATININE 1.7 mg/dL (0.6-1.0); GFR 29.1; POTASSIUM 4.8 mmol/L (3.5-5.1)
[2020-12-13 00:09] LABS: ALBUMIN 1.8 g/dL (3.4-5.0); ALBUMIN/GLOBULIN RATIO 0.5 (1.0-1.7); TOTAL BILIRUBIN 0.3 mg/dL (0.2-1.0); TOTAL PROTEIN 5.6 g/dL (6.4-8.2)
--- NOTE | 2020-12-13 00:18 | PHYS DOC ---
Past Medical History Past Medical History: A-Fib, High Cholesterol, Hypertension, NE, Renal Failure Additional Past Medical Histor: STAGE II RENAL FAILURE Past Surgical History: Cholecystectomy, Coronary Bypass Surgery, Hysterectomy, Oophorectomy, Other Additional Past Surgical Histo: BILATERAL MASTECTOMY, STENT PLACMENT Smoking Status: Former Smoker Alcohol Use: None Drug Use: None General Adult EDM: Chief Complaint: LOWER EXTREMITY SWELLING HPI: HPI: Patient is a 80 year old female who was brought here by EMS from home due to right lower extremity swelling and generalized weakness.. Patient lives at home by herself, she had a history of lymphedema in her lower extremities, for the last 3 days her right lower extremity has been more swollen, warm to the touch, she was not able to ambulate around with a walker due to weakness. The swelling is getting worse so she called EMS to take her here for evaluation. Patient was admitted here on the of this month for generalized weakness and lower extremity swelling. Patient did receive physical therapy and she was discharged home. Patient denies any cough or fever. Patient denies any chest pain, no abdominal pain, no nausea vomiting. Patient denies any pain in her extremity. Review of Systems: Review of Systems: Constitutional: Denies fever or chills. [] Positive for generalized weakness. Eyes: Denies change in visual acuity. [] HENT: Denies nasal congestion or sore throat. [] Respiratory: Denies cough or shortness of breath. [] Cardiovascular: Denies chest pain or edema. [] GI: Denies abdominal pain, nausea, vomiting, bloody stools or diarrhea. [] : Denies dysuria. [] Musculoskeletal: Denies back pain or joint pain. Positive for right lower extremity swelling. Integument: Denies rash. [] Neurologic: Denies headache, focal weakness or sensory changes. [] Endocrine: Denies polyuria or polydipsia. [] Lymphatic: Denies swollen glands. [] Psychiatric: Denies depression or anxiety. [] Heart Score: Risk Factors: Risk Factors: DM, Current or recent (<one month) smoker, HTN, HLP, family history of CAD, obesity. Risk Scores: Score 0 - 3: 2.5% MACE over next 6 weeks - Discharge Home Score 4 - 6: 20.3% MACE over next 6 weeks - Admit for Clinical Observation Score 7 - 10: 72.7% MACE over next 6 weeks - Early Invasive Strategies Current Medications: Current Medications Medications (Trade) Dose Ordered Sig/Mackenzie Start Time Stop Time Status Last Admin Dose Admin Enoxaparin Sodium (Lovenox 60mg Syringe) 55 mg 1X ONCE 12/13/20 00:15 12/13/20 00:16 UNV Allergies: Allergies: Allergies Coded Allergies Type Severity Reaction Last Updated Verified ciprofloxacin Allergy Severe 07/10/20 Yes morphine Allergy Intermediate 02/17/19 Yes senna Allergy Intermediate 07/10/20 Yes meperidine Adverse Reaction Intermediate 07/10/20 Yes Physical Exam: PE: Constitutional: Well developed, well nourished, no acute distress, non-toxic appearance. [] HENT: Normocephalic, atraumatic, bilateral external ears normal, oropharynx moist, no oral exudates, nose normal. [] Eyes: PERRLA, EOMI, conjunctiva normal, no discharge. [] Neck: Normal range of motion, no tenderness, supple, no stridor. [] Cardiovascular:Heart rate regular rhythm, no murmur [] Lungs & Thorax: Bilateral breath sounds clear to auscultation [] Abdomen: Bowel sounds normal, soft, no tenderness, no masses, no pulsatile masses. [] Skin: Warm, dry, no erythema, no rash. [] Back: No tenderness, no CVA tenderness. [] Extremities: Right lower extremity is swollen significantly compared to the left, it is warm to touch. Neurologic: Alert and oriented X 3, normal motor function, normal sensory function, no focal deficits noted. [] Psychologic: Affect normal, judgement normal, mood normal. [] Current Patient Data: Labs: Laboratory Tests Test 12/12/20 22:48 White Blood Count 11.1 x10^3/uL (4.0-11.0) H Red Blood Count 2.91 x10^6/uL (3.50-5.40) L Hemoglobin 10.0 g/dL (12.0-15.5) L Hematocrit 29.3 % (36.0-47.0) L Mean Corpuscular Volume 101 fL (79-100) H Mean Corpuscular Hemoglobin 35 pg (25-35) Mean Corpuscular Hemoglobin Concent 34 g/dL (31-37) Red Cell Distribution Width 15.0 % (11.5-14.5) H Platelet Count 387 x10^3/uL (140-400) Neutrophils (%) (Auto) 79 % (31-73) H Lymphocytes (%) (Auto) 9 % (24-48) L Monocytes (%) (Auto) 10 % (0-9) H Eosinophils (%) (Auto) 2 % (0-3) Basophils (%) (Auto) 0 % (0-3) Neutrophils # (Auto) 8.8 x10^3/uL (1.8-7.7) H Lymphocytes # (Auto) 1.0 x10^3/uL (1.0-4.8) Monocytes # (Auto) 1.1 x10^3/uL (0.0-1.1) Eosinophils # (Auto) 0.2 x10^3/uL (0.0-0.7) Basophils # (Auto) 0.0 x10^3/uL (0.0-0.2) Sodium Level 137 mmol/L (136-145) Potassium Level 4.8 mmol/L (3.5-5.1) Chloride Level 103 mmol/L (98-107) Carbon Dioxide Level 26 mmol/L (21-32) Anion Gap 8 (6-14) Blood Urea Nitrogen 37 mg/dL (7-20) H Creatinine 1.7 mg/dL (0.6-1.0) H Estimated GFR (Cockcroft-Gault) 29.1 BUN/Creatinine Ratio 22 (6-20) H Glucose Level 81 mg/dL (70-99) Calcium Level 9.2 mg/dL (8.5-10.1) Magnesium Level 2.0 mg/dL (1.8-2.4) Total Bilirubin 0.3 mg/dL (0.2-1.0) Aspartate Amino Transferase (AST) 142 U/L (15-37) H Alanine Aminotransferase (ALT) 182 U/L (14-59) H Alkaline Phosphatase 98 U/L (46-116) Troponin I Quantitative < 0.017 ng/mL (0.000-0.055) DA-Lll-K-Type Natriuretic Peptide 6474 pg/mL (0-449) H Total Protein 5.6 g/dL (6.4-8.2) L Albumin 1.8 g/dL (3.4-5.0) L Albumin/Globulin Ratio 0.5 (1.0-1.7) L Laboratory Tests 12/12/20 22:48 Laboratory Tests 12/12/20 22:48 Vital Signs: Vital Signs Date Time Temp Pulse Resp B/P (MAP) Pulse Ox O2 Delivery O2 Flow Rate FiO2 12/12/20 22:05 98.4 73 20 120/57 (78) 98 Room Air 98.4 EKG: EKG: [] Radiology/Procedures: Radiology/Procedures: [][facility] [address] [place] [address] IMAGING REPORT Signed PATIENT: ADALBERTO MULLINS ACCOUNT: [id number] : 1940 LOCATION: ER AGE: 80 SEX: F EXAM STATUS: REG ER ORD. PHYSICIAN: ELENI RO DO REASON: soa PROCEDURE: CHEST AP ONLY AP chest x-ray HISTORY: Shortness of breath. COMPARISON: Chest x-ray November 30, 2020. FINDINGS: Heart size stable. Coronary bypass surgery. Mild tortuosity thoracic aorta stable. No pneumothorax, pulmonary opacities or pleural effusions. Lower thoracic scoliosis. IMPRESSION: No acute process. Electronically signed by: Surekha Lewis MD (12/12/2020 11:11 PM) [facility] [place] SIGNED BY: SUREKHA LEWIS MD DATE: 12/12/20 [id number] 0 Course & Med Decision Making: Course & Med Decision Making Pertinent Labs and Imaging studies reviewed. (See chart for details) Patient is a 80-year-old female who was brought here by EMS from home due to right lower extremity swelling, generalized weakness. Patient said the weakness and the swelling in her right lower extremity has hindered her ability to walk with a walker at home. Patient lives at home by herself, she cannot take care of herself due to her condition. Patient has been laying down in her bed most of the time for the last 3 days, with the swelling of the right lower extremity, I suspected that she might develop DVT lower extremity. Patient was given 1 mg/kg of Lovenox subcu in ER. Patient will be admitted to hospital, venous Doppler her right lower extremity will be done in the morning to evaluate for DVT. Patient might need to have fci placement for rehab. Discussed with Dr. Oakley who agreed to admit the patient for Dr. Payan. Wilfredo Disclaimer: Wilfredo Disclaimer: This electronic medical record was generated, in whole or in part, using a voice recognition dictation system. Departure Departure Impression: Primary Impression: Swelling of right lower extremity Additional Impressions: Weakness Chronic renal disease, stage II Person under investigation for COVID-19 Disposition: ADMITTED INPT THIS HOSP Admitting Physician: Marly Payan Condition: STABLE Referrals: MARLY PAYAN MD (PCP) ELENI RO DO Dec 13, 2020 00:18
[2020-12-13] MEDS: ONDANSETRON PF 4 MG/2 ML VIAL. IV PRN ×2 (00:42→18:27)
[2020-12-13 02:35] VITALS: BP 129/63
[2020-12-13] MEDS ORDERED: HYDR-2765 PO (03:34)
[2020-12-13] MEDS: HYDROcodone/APAP 10/325 1 TAB TABLET PO PRN ×3 (03:48→20:08)
[2020-12-13 07:00] VITALS: BP 127/65
--- NOTE | 2020-12-13 07:52 | RAD ---
Examination: Right Lower Extremity Venous Doppler Ultrasound History: Right leg swelling Comparison: None Procedure: Grier scale, color flow 2D and spectal waveform analysis images are obtained with and witho ut compression in the area of the common femoral vein, superficial femoral vein - femoral vein juncti on, main femoral vein (superficial femoral vein) and popliteal vein. Veins of the proximal calf are a lso imaged. Findings: There is normal duplex flow, color flow and compressibility of all visualized vein segments. No evide nce of deep venous thrombus is present. Impression: No evidence of DVT in the right lower extremity venous system. Electronically signed by: Bryant Murillo MD (12/13/2020 7:36 AM) [id number]
[2020-12-13 11:00] VITALS: BP 107/53
[2020-12-13] MEDS ORDERED: TRIAMCINOLONE ACETONIDE 0.1% TOPICAL OINTMENT 15GM TUBE. TP PRN (11:11)
--- NOTE | 2020-12-13 11:44 | PDOC ---
Provider Note Date of Service: DATE: 12/13/20 TIME: 11:44 Provider Note H&P dictated #[id number] Justifications for Admission Other Justification AMRLY CHAVARRIA MD Dec 13, 2020 11:44
--- NOTE | 2020-12-13 11:59 | HP ---
ADMIT DATE: 12/13/2020 HISTORY OF PRESENT ILLNESS: This 80-year-old female who was recently discharged from this institution on 12/04 after being treated for acute urinary tract infection and frequent falls was in the process of moving to a half-way permanently. However, she has become very weak and has not been able to get up. She also has had increased swelling, especially of her right lower extremity. She was recently treated for acute E. coli UTI. She is still taking cephalexin. Previously, she had lumbar spinal stenosis with lumbar radiculopathy diagnosed during the previous admission, but the patient did not want any surgery. In the Emergency Room, the patient was evaluated and because of the congestive heart failure and weakness, the patient was admitted for further evaluation and management. Venous Doppler of the right lower extremity did not show any DVT. She has chronic lymphedema. REVIEW OF SYSTEMS: Reviewed with complaints of generalized weakness. Denies any abdominal pain, nausea, vomiting, diarrhea. She does not have any increased dyspnea more than her usual status. Denies any fever, chills, cough, congestion, diarrhea or constipation. Does admit to back pain, joint pains and weakness. Other systems reviewed and are negative. PAST MEDICAL HISTORY: The patient has a history of syncope, recurrent UTI, dehydration, renal failure, hypertension with chronic kidney disease stage 3, hyperlipidemia, coronary artery disease, lumbar spinal stenosis with lumbar radiculopathy, significant osteoarthritis. PAST SURGICAL HISTORY: Includes history of coronary artery bypass graft, hysterectomy, oophorectomy, and double mastectomy. SOCIAL HISTORY: Past history of smoking less than 2 cigarettes per day. No history of alcoholism or drug abuse. ALLERGIES: THE PATIENT IS ALLERGIC TO MORPHINE. MEDICATIONS: Reviewed and reconciled. The patient states that she does take clonidine at home. She also takes Cardizem and metoprolol. PHYSICAL EXAMINATION: GENERAL: The patient is an elderly female who is alert and oriented x 3. The patient is not in acute distress. She is chronically ill. EYES: Pupils reacting to light. Conjunctivae pale. Sclerae muddy. HENT: Unremarkable. NECK: Supple. JVP normal. No thyromegaly. Trachea midline. LUNGS: Decreased breath sounds at bases. CARDIOVASCULAR: S1, S2 regular. ABDOMEN: Soft, obese, nontender, no guarding, no rigidity. Bowel sounds present. EXTREMITIES: A 3+ edema of both lower extremities, slightly more on the right side. No calf tenderness noted. Range of motion is decreased due to arthritis. Lumbosacral spine, mild tenderness. CENTRAL NERVOUS SYSTEM: Generalized weakness. Moves lower extremities. LABORATORY FINDINGS: WBC count 11.1, hemoglobin 10. Sodium 137, potassium 4.8, BUN 37, creatinine 1.7, BNP 6474, AST 142, ALT 182, albumin 1.8. A chest x-ray does not show any acute changes. Right lower extremity venous Doppler is negative for DVT. BNP is 6474. Troponin less than 0.017. IMPRESSION: 1. Congestive heart failure. Blood pressure is somewhat on the low side, so I will resume some of the medications tomorrow. BNP is elevated, but clinically appears to be stable. 2. Weakness, multifactorial including due to osteoarthritis, physical deconditioning and lumbar radiculopathy and lumbar spinal stenosis. 3. Lymphedema. 4. Hypertension. 5. Severe malnutrition. 6. Escherichia coli urinary tract infection 7. Osteoarthritis. 8. Chronic lymphedema of the lower extremities. 9. Hypertension with chronic kidney disease stage 3. PLAN: 1. Congestive heart failure. Consult Dr. Isabel for cardiology evaluation and management. Resume some of the medications tomorrow because of low blood pressure today. 2. Weakness and lumbar spinal stenosis and lumbar radiculopathy. Start PT/OT once COVID-19 is ruled out. Currently, she is in the COVID unit. The patient is agreeable to go to a [facility] unit at this time. 3. Lymphedema. Continue present treatment. 4. Escherichia coli urinary tract infection. Continue cephalexin. 5. Osteoarthritis. Continue hydrocodone, PT/OT. For details, please refer to the orders. MARLY CHAVARRIA MD DR: GABBY/isael JOB#: [id number] / [id number]
[2020-12-13] MEDS ORDERED: LOSARTAN POTASSIUM 50 MG TABLET. PO SCH (12:00)
[2020-12-13] MEDS: DICLOFENAC SODIUM 1% TOPICAL GEL 100GM TUBE. TP SCH ×3 (12:00→20:09)
[2020-12-13] MEDS ORDERED: METOPROLOL TART IMMED RELEASE 50 MG TABLET. PO SCH (12:00)
[2020-12-13] MEDS ORDERED: hydroCHLOROthiazide 25 MG TABLET PO SCH (12:00)
[2020-12-13] MEDS ORDERED: cloNIDine HCL 0.3 MG TABLET PO SCH (12:00)
[2020-12-13] MEDS: OMEGA-3 FATTY ACIDS/FISH OIL 1,000 MG CAPSULE. PO SCH ×3 (12:00→20:09)
[2020-12-13] MEDS: LACTOBACILLUS RHAMNOSUS GG 1 CAPSULE. PO SCH ×2 (12:15→20:08)
[2020-12-13] MEDS: PANTOPRAZOLE 40 MG TABLET.DR. PO SCH (12:15)
[2020-12-13] MEDS: CHOLECALCIFEROL (VITAMIN D3) 1,000 UNIT TABLET PO SCH (12:15)
[2020-12-13] MEDS: CLOPIDOGREL BISULFATE 75 MG TABLET PO SCH (12:15)
[2020-12-13] MEDS: ASPIRIN ENTERIC COATED 81 MG TABLET.DR. PO SCH (12:15)
[2020-12-13] MEDS: CITALOPRAM 20 MG TABLET. PO SCH (12:15)
[2020-12-13] MEDS: CEPHALEXIN 250 MG CAPSULE. PO SCH ×2 (12:16→20:06)
[2020-12-13] MEDS: HEPARIN for SUB-Q USE 5,000 UNIT/ML VIAL. SQ SCH ×2 (12:20→20:13)
[2020-12-13 15:00] VITALS: BP 119/83
[2020-12-13 19:50] VITALS: BP 147/67
[2020-12-13] MEDS: cloNIDine HCL 0.3 MG TABLET PO SCH (20:06)
[2020-12-13] MEDS: ATORVASTATIN CALCIUM 40 MG TABLET. PO SCH (20:08)
[2020-12-13] MEDS: MIRTAZAPINE 15 MG TABLET PO SCH (20:08)
[2020-12-13] MEDS: METOPROLOL TART IMMED RELEASE 50 MG TABLET. PO SCH (20:09)
[2020-12-13 22:56] VITALS: BP 110/56
[2020-12-14 03:29] VITALS: BP 118/59
[2020-12-14] MEDS: HYDROcodone/APAP 10/325 1 TAB TABLET PO PRN (03:43)
[2020-12-14 07:00] VITALS: BP 133/61
[2020-12-14] MEDS: CEPHALEXIN 250 MG CAPSULE. PO SCH ×2 (08:17→20:00)
[2020-12-14] MEDS: CHOLECALCIFEROL (VITAMIN D3) 1,000 UNIT TABLET PO SCH (08:17)
[2020-12-14] MEDS: ASPIRIN ENTERIC COATED 81 MG TABLET.DR. PO SCH (08:17)
[2020-12-14] MEDS: LACTOBACILLUS RHAMNOSUS GG 1 CAPSULE. PO SCH ×2 (08:17→20:01)
[2020-12-14] MEDS: PANTOPRAZOLE 40 MG TABLET.DR. PO SCH (08:18)
[2020-12-14] MEDS: CLOPIDOGREL BISULFATE 75 MG TABLET PO SCH (08:18)
[2020-12-14] MEDS: hydroCHLOROthiazide 25 MG TABLET PO SCH (08:18)
[2020-12-14] MEDS: CITALOPRAM 20 MG TABLET. PO SCH (08:18)
[2020-12-14] MEDS: cloNIDine HCL 0.3 MG TABLET PO SCH ×4 (08:21→23:24)
[2020-12-14] MEDS: METOPROLOL TART IMMED RELEASE 50 MG TABLET. PO SCH ×3 (08:22→23:23)
[2020-12-14] MEDS: LOSARTAN POTASSIUM 50 MG TABLET. PO SCH (08:25)
[2020-12-14] MEDS: OMEGA-3 FATTY ACIDS/FISH OIL 1,000 MG CAPSULE. PO SCH (09:00)
[2020-12-14] MEDS: DICLOFENAC SODIUM 1% TOPICAL GEL 100GM TUBE. TP SCH ×3 (09:00→21:00)
[2020-12-14] MEDS: HEPARIN for SUB-Q USE 5,000 UNIT/ML VIAL. SQ SCH ×2 (09:15→20:09)
[2020-12-14] MEDS ORDERED: VITS A & D/LANOLIN TOPICAL OINTMENT 42GM TUBE. TP PRN (09:30)
--- NOTE | 2020-12-14 09:34 | PDOC ---
IM PROGRESS NOTES- Subjective Subjective Continues to have some weakness. Did walk with PT yesterday. Objective Vitals/I&O Vital Signs Date Time Temp Pulse Resp B/P (MAP) Pulse Ox O2 Delivery O2 Flow Rate FiO2 12/14/20 08:25 69 133/61 12/14/20 07:00 97.9 18 98 Room Air 97.9 I & O 12/13/20 12/13/20 12/14/20 15:00 23:00 07:00 Intake Total 600 ml 240 ml Output Total 400 ml 350 ml Balance 600 ml -160 ml -350 ml Physical Exam Physical Exam General appearance - alert,well appearing, and in no distress and oriented to person, place, and time Mental Status - alert, oriented to person, place, and time, affect appropriate to mood Head - normal Chest -decreased breath sounds at bases Heart - S1 and S2 normal Abdomen - soft, non tender Neurological - alert and oriented Musculoskeletal -pain with movement of lumbar spine Extremities -3+ edema bilateral Skin - warm and dry Meds Current Medications Medications (Trade) Dose Ordered Sig/Mackenzie Route PRN Reason Start Time Stop Time Status Last Admin Dose Admin Aspirin (Ecotrin) 81 mg DAILYWBKFT PO 12/13/20 12:00 12/14/20 08:17 Vitamin D (Vitamin D3) 2,000 unit DAILY PO 12/13/20 12:00 12/14/20 08:17 Clopidogrel Bisulfate (Plavix) 75 mg DAILY PO 12/13/20 11:00 12/14/20 08:18 Lactobacillus Rhamnosus (Culturelle) 1 cap BID PO 12/13/20 12:00 12/14/20 08:17 Mirtazapine (Remeron) 15 mg QHS PO 12/13/20 21:00 12/13/20 20:08 Pantoprazole Sodium (Protonix) 40 mg DAILYAC PO 12/13/20 11:30 12/14/20 08:18 Atorvastatin Calcium (Lipitor) 80 mg QHS PO 12/13/20 21:00 12/13/20 20:08 Citalopram Hydrobromide (CeleXA) 20 mg DAILY PO 12/13/20 12:00 12/14/20 08:18 Heparin Sodium (Porcine) (Heparin Sodium) 5,000 unit Q12HR SQ 12/13/20 12:00 12/14/20 09:15 Cephalexin HCl (Keflex) 500 mg BID PO 12/13/20 12:00 12/14/20 08:17 Clonidine HCl (Catapres) 0.3 mg BID PO 12/13/20 21:00 12/14/20 08:21 Diltiazem HCl (Cardizem 24hr Cd) 120 mg DAILY PO 12/14/20 09:00 12/14/20 08:23 Metoprolol Tartrate (Lopressor) 100 mg BID PO 12/13/20 21:00 12/14/20 08:22 Hydrochlorothiazide (Hydrodiuril) 25 mg DAILY PO 12/14/20 09:00 12/14/20 08:18 Losartan Potassium (Cozaar) 100 mg DAILY PO 12/14/20 09:00 12/14/20 08:25 Assessment Assessment 1. Congestive heart failure. Blood pressure is somewhat on the low side, so I will resume some of the medications tomorrow. BNP is elevated, but clinically appears to be stable. 2. Weakness, multifactorial including due to osteoarthritis, physical deconditioning and lumbar radiculopathy and lumbar spinal stenosis. 3. Lymphedema. 4. Hypertension. 5. Severe malnutrition. 6. Escherichia coli urinary tract infection 7. Osteoarthritis. 8. Chronic lymphedema of the lower extremities. 9. Hypertension with chronic kidney disease stage 3. PLAN: 1. Congestive heart failure. Consult Dr. Isabel for cardiology evaluation and management. Resume some of the medications tomorrow because of low blood pressure today. 2. Weakness and lumbar spinal stenosis and lumbar radiculopathy. Start PT/OT once COVID-19 is ruled out. Currently, she is in the COVID unit. Discussed with patient. Patient states that she would like to get few weeks of acute rehab and then if no improvement she will consider surgery. Consult Dr. Lopez for rehab evaluation and management. 3. Lymphedema. Continue present treatment. 4. Escherichia coli urinary tract infection. Continue cephalexin. 5. Osteoarthritis. Continue hydrocodone, PT/OT. For details, please refer to the orders. COVID-19 test is pending. Today's labs are pending. Plan Plan For more details regarding further plans, please refer to the orders. Justifications for Admission Other Justification MARLY CHAVARRIA MD Dec 14, 2020 09:34
[2020-12-14] MEDS: HYDROcodone/APAP 7.5/325MG 1 TAB TABLET PO PRN ×3 (09:36→23:36)
[2020-12-14] MEDS: ONDANSETRON ODT 4 MG TAB.RAPDIS. PO PRN (09:36)
--- NOTE | 2020-12-14 09:38 | SNU/HH DC ---
DISCHARGE ORDERS DISCHARGE INFORMATION: FINAL DIAGNOSIS Problems Medical Problems: (1) Chronic renal disease, stage II Status: Acute (2) Person under investigation for COVID-19 Status: Acute (3) Swelling of right lower extremity Status: Acute (4) Weakness Status: Acute CONDITION ON DISCHARGE: Stable [facility]: SNF STAY <30 DAYS: Yes POST DISCHARGE ORDERS: ACTIVITY ORDERS: Activity as tolerated (Use walker, wheelchair with PT assistance as needed) WEIGHT BEARING STATUS: No restrictions, Full weight bearing, As tolerated DIET AFTER DISCHARGE: Cardiac WOUND/INCISION CARE: No wound care needed OTHER ORDERS: Fall precautions CHECKS AFTER DISCHARGE: CHECKS AFTER DISCHARGE: Check blood press - daily, Check your Temp as needed COMMENTS: Hold metoprolol and hydrochlorothiazide if SBP<110 FOLLOW-UP: PHYSICIAN FOLLOW-UP: see Dr.Pratip Chavarria in 5 days after discharge LAB ORDERS FOR FOLLOW-UP: CBC,CMP once a week TREATMENT/EQUIPMENT ORDERS: ADAPTIVE EQUIPMENT NEEDED: Wheelchair Physical Therapy For: Evalulation/Treatment Occupational Therapy For: Evaluation/Treatment DISCHARGE MEDICATIONS: Home Meds Active Scripts Acetaminophen (TYLENOL) 325 Mg Tablet, 650 MG PO PRN Q6HRS PRN for MILD PAIN / TEMP > 100.3'F for 14 Days, #30 TAB Prov:MARLY CHAVARRIA MD 12/03/20 Ondansetron (ONDANSETRON ODT) 4 Mg Tab.rapdis, 4 MG PO BID PRN for NAUSEA/VOMITING for 7 Days, #14 TAB Prov:MARLY CHAVARRIA MD 07/13/20 Lactobacillus Rhamnosus Gg (CULTURELLE) 1 Each Cap.sprink, 1 CAP PO BID for antibiotic use for 14 Days, #28 CAP Prov:MARLY CHAVARRIA MD 07/13/20 Pantoprazole Sodium (PANTOPRAZOLE SODIUM ) 40 Mg Tablet., 40 MG PO DAILYAC for GERD for 30 Days, #30 TAB.SR 5 Refills Prov:MARLY CHAVARRIA MD 07/13/20 Aspirin (ASPIRIN EC) 81 Mg Tablet., 81 MG PO DAILYWBKFT for CAD for 30 Days, #30 TAB.SR 4 Refills Prov:MARLY CHAVARRIA MD 02/18/19 Reported Medications Hydrocodone Bit/Acetaminophen (HYDROCODONE-APAP 7.5-325 ) 1 Tab Tablet, 1 TAB PO PRN Q6HRS PRN for PAIN, TAB 0 Refills 12/13/20 Triamcinolone Acetonide (TRIAMCINOLONE ACETONIDE 0.1% OINT) 15 Gm Oint...g., 1 LIMA TP BID for WOUND CARE, #1 TUBE MIX WITH EUCERIN DIRECTED BY PHYSICIAN 02/13/19 Cholecalciferol (Vitamin D3) (VITAMIN D3) 1,000 Unit Tablet, 2 TAB PO DAILY for vitamin supplement, #30 TAB 5 Refills 02/13/19 Clopidogrel Bisulfate (CLOPIDOGREL) 75 Mg Tablet, 1 TAB PO DAILY for antoplatelet, #90 TAB 1 Refill 02/13/19 Mirtazapine (MIRTAZAPINE) 15 Mg Tablet, 1 TAB PO QHS for antipepressant, #30 TAB 3 Refills 02/13/19 Metoprolol Tartrate (METOPROLOL TARTRATE) 100 Mg Tablet, 1 TAB PO BID for hypertension, #60 TAB 5 Refills 02/13/19 Escitalopram Oxalate (ESCITALOPRAM OXALATE) 10 Mg Tablet, 1 TAB PO DAILY for anti dep, #30 TAB 3 Refills 02/13/19 Hydrochlorothiazide (HYDROCHLOROTHIAZIDE CAPSULE ) 12.5 Mg Capsule, 25 MG PO DAILY for DIURETIC, CAP 0 Refills 02/13/19 Atorvastatin Calcium (ATORVASTATIN CALCIUM) 80 Mg Tablet, 1 TAB PO DAILY for cholestrol, #30 TAB 5 Refills 02/13/19 Discontinued Reported Medications Clonidine Hcl (CLONIDINE HCL) 0.3 Mg Tablet, 0.3 MG PO BID for htn, TAB 07/11/20 Diltiazem Hcl (CARDIZEM CD) 240 Mg Cap.er.24h, 0.5 CAP PO DAILY for hypertension, #30 CAP 5 Refills 02/13/19 Diclofenac Sodium (VOLTAREN) 100 Gm Gel..gram., 1 GM TP BID for pain, #100 GM 2 Refills 02/13/19 Discontinued Scripts Cephalexin (KEFLEX) 500 Mg Capsule, 1 CAP PO BID for UTI for 7 Days, #14 CAP 0 Refills Prov:MARLY CHAVARRIA MD 07/13/20 MARLY CHAVARRIA MD Dec 14, 2020 09:38
--- NOTE | 2020-12-14 10:06 | PDOC2 ---
KARLEY PHAN THERMOPLASTIC TECHNICIAN 12/14/20 1006: CARDIAC CONSULT DATE OF CONSULT Date of Consult DATE: 12/14/20 TIME: 09:55 REASON FOR CONSULT Reason for Consult: CHF REFERRING PHYSICIAN Referring Physician: Dr. Payan SOURCE Source: Chart review, Patient HISTORY OF PRESENT ILLNESS HISTORY OF PRESENT ILLNESS This is a 80 yo female who presented secondary to worsening LE edema and generalized weakness. Has a history of chronic LE lymphedema. Edema has progressively worsened over the last 3-4 days and she has had difficulty ambulating with her walker. Denies any shortness of breath, dizziness, diaphoresis, chest pain, or nausea/vomiting. PAST MEDICAL HISTORY Past Medical History Cardiovascular: CAD, HTN, Hyperlipidemia, LE lymphedema, PAFIB, CHF Pulmonary: No pertinent hx CENTRAL NERVOUS SYSTEM: Other (no pertinent hx) GI: GERD, Other (pancreatitis ) Heme/Onc: No pertinent hx Hepatobiliary: No pertinent hx Psych: No pertinent hx Musculoskeletal: Osteoarthritis Rheumatologic: No pertinent hx Infectious disease: No pertinent hx ENT: No pertinent hx Renal/: Chronic renal insuff Endocrine: No pertinent hx Dermatology: No pertinent hx PAST SURGICAL HISTORY Past Surgical History CABG, Hysterectomy, Other (bilateral mastectomy ) FAMILY HISTORY Family History Cancer (breast), Hypertension SOCIAL HISTORY Social History Smoke: <1 pack per day (2/day) ALCOHOL: none Drugs: None Lives: Alone CURRENT MEDICATIONS CURRENT MEDICATIONS Current Medications Medications (Trade) Dose Ordered Sig/Mackenzie Route PRN Reason Start Time Stop Time Status Last Admin Dose Admin Aspirin (Ecotrin) 81 mg DAILYWBKFT PO 12/13/20 12:00 12/14/20 08:17 Vitamin D (Vitamin D3) 2,000 unit DAILY PO 12/13/20 12:00 12/14/20 08:17 Clopidogrel Bisulfate (Plavix) 75 mg DAILY PO 12/13/20 11:00 12/14/20 08:18 Acetaminophen/ Hydrocodone Bitart (Lortab 7.5/325) 1 tab PRN Q6HRS PRN PO MODERATE PAIN 12/13/20 11:00 12/14/20 09:36 Lactobacillus Rhamnosus (Culturelle) 1 cap BID PO 12/13/20 12:00 12/14/20 08:17 Mirtazapine (Remeron) 15 mg QHS PO 12/13/20 21:00 12/13/20 20:08 Ondansetron HCl (Zofran Odt) 4 mg BID PRN PO NAUSEA/VOMITING 12/13/20 11:00 12/14/20 09:36 Pantoprazole Sodium (Protonix) 40 mg DAILYAC PO 12/13/20 11:30 12/14/20 08:18 Atorvastatin Calcium (Lipitor) 80 mg QHS PO 12/13/20 21:00 12/13/20 20:08 Citalopram Hydrobromide (CeleXA) 20 mg DAILY PO 12/13/20 12:00 12/14/20 08:18 Heparin Sodium (Porcine) (Heparin Sodium) 5,000 unit Q12HR SQ 12/13/20 12:00 12/14/20 09:15 Cephalexin HCl (Keflex) 500 mg BID PO 12/13/20 12:00 12/14/20 08:17 Clonidine HCl (Catapres) 0.3 mg BID PO 12/13/20 21:00 12/14/20 08:21 Diltiazem HCl (Cardizem 24hr Cd) 120 mg DAILY PO 12/14/20 09:00 12/14/20 08:23 Metoprolol Tartrate (Lopressor) 100 mg BID PO 12/13/20 21:00 12/14/20 08:22 Hydrochlorothiazide (Hydrodiuril) 25 mg DAILY PO 12/14/20 09:00 12/14/20 08:18 Losartan Potassium (Cozaar) 100 mg DAILY PO 12/14/20 09:00 12/14/20 08:25 ALLERGIES ALLERGIES: Coded Allergies: ciprofloxacin (Verified Allergy, Severe, 07/10/20) morphine (Verified Allergy, Intermediate, 02/17/19) takes LORTAB at home senna (Verified Allergy, Intermediate, 07/10/20) meperidine (Verified Adverse Reaction, Intermediate, 07/10/20) ROS Review of System 14 point ROS conducted with pertinent positives noted above in hPI PHYSICAL EXAM General: Alert, Oriented X3, Cooperative, No acute distress HEENT: Atraumatic Lungs: Clear to auscultation Heart: Regular rate (SR/SB) Abdomen: Soft, No tenderness Extremities: Other (1+ bilateral LE edema ) Skin: No significant lesion Neuro: Normal speech, Sensation intact Psych/Mental Status: Mental status NL, Mood NL MUSCULOSKELETAL: Osteoarthritic changes both hands VITALS/I&O VITALS/I&O: Vital Signs Date Time Temp Pulse Resp B/P (MAP) Pulse Ox O2 Delivery O2 Flow Rate FiO2 12/14/20 09:36 19 98 Room Air 12/14/20 08:25 69 133/61 12/14/20 07:00 97.9 97.9 I & O 12/13/20 12/13/20 12/14/20 15:00 23:00 07:00 Intake Total 600 ml 240 ml Output Total 400 ml 350 ml Balance 600 ml -160 ml -350 ml ASSESSMENT/PLAN ASSESSMENT/PLAN 1. Chronic LE lymphedema 2. Mild acute on chronic CHF; NT Pro BNP elevated, but CXR without vascular congestion 3. Hypertension; controlled 4. JUAN CARLOS on CKD 5. PAFIB/flutter; maintaining SR/SB 6. CAD s/p remote CABG in 2000 with subsequent stents in 2014: clinically stable. 7. Hyperlipidemia: Recommendations Mild diuresis with monitoring of renal function Compression stocking LE elevation Continue metoprolol, Cardizem for rate control Monitor for bradycardia as patient is on above along with Clonidine Secondary prevention including ASA, Plavix, statin, and BB therapy LISA NICOLE MD 12/14/201936: CARDIAC CONSULT ASSESSMENT/PLAN ASSESSMENT/PLAN Patient seen and examined. Agree with EMBLEM MAKER's assessment and plan. Mild acute on chronic probably diastolic HF better compensated with diuresis PAF maintaining SR CAD clinically stable Plan for 2D echo and ischemic evaluation as outpatient Thank you for your consultation KARLEY PHAN APRN Dec 14, 2020 10:06 LISA NICOLE MD Dec 14, 2020 19:37
[2020-12-14 10:13] LABS: BASO % 0 % (0-3); EOS # 0.3 x10^3/uL (0.0-0.7); EOS % 4 % (0-3); HEMATOCRIT 28.2 % (36.0-47.0); HEMOGLOBIN 9.4 g/dL (12.0-15.5); LYMPH % 11 % (24-48); MEAN CORPUSCULAR HEMOGLOBIN 34 pg (25-35); MEAN CORPUSCULAR HGB CONC 34 g/dL (31-37); MEAN CORPUSCULAR VOLUME 100 fL (79-100); MONO # 0.7 x10^3/uL (0.0-1.1); MONO % 7 % (0-9); NEUT # 7.5 x10^3/uL (1.8-7.7); NEUT % 79 % (31-73); PLATELET COUNT 382 x10^3/uL (140-400); RED BLOOD COUNT 2.82 x10^6/uL (3.50-5.40); RED CELL DISTRIBUTION WIDTH 15.2 % (11.5-14.5); WHITE BLOOD COUNT 9.5 x10^3/uL (4.0-11.0)
[2020-12-14 10:46] LABS: ALBUMIN 1.4 g/dL (3.4-5.0); ALBUMIN/GLOBULIN RATIO 0.4 (1.0-1.7); CALCIUM 8.8 mg/dL (8.5-10.1); CREATININE 1.4 mg/dL (0.6-1.0); GFR 36.4; POTASSIUM 4.7 mmol/L (3.5-5.1); TOTAL BILIRUBIN 0.3 mg/dL (0.2-1.0); TOTAL PROTEIN 4.7 g/dL (6.4-8.2)
[2020-12-14 11:00] VITALS: BP 118/59
--- NOTE | 2020-12-14 12:05 | CONS ---
DATE OF CONSULTATION: 12/14/2020 ATTENDING PHYSICIAN: Edilson Payan MD REASON FOR CONSULTATION: The patient was seen at the request of Dr. Payan for rehab evaluation. HISTORY OF PRESENT ILLNESS: This is a 80-year-old right-handed female, retired, lives alone. The patient has been independent with her mobility and self-care skills until around 3 months ago when she started having suddenly, lower extremity weakness and unable to get up and walks without any assistive devices. Prior to that one, she used to walk without any assistive devices. She had some chronic neck and lower back and shoulder area pain and stiffness, admits chronic constipation. She was admitted on 11/30/2020, after she fell and became weak and unable to get up and walk, and has to sleep in a reclining chair. The patient at that time was treated with urinary tract infection and I saw her at that time. I noted her with lumbar spinal stenosis confirmed by MRI scan, but at that time, she was not interested in having any surgery. The patient is supposed to go to [facility] care unit, but she went home, she is supposed to have a wheelchair. She bought one, which is too big for her. The patient continues to require significant help with her mobility and self-care skills. She was admitted on 12/12/2020. At this time, she is willing to go to [facility] care unit or rehab unit. ALLERGIES: THE PATIENT IS KNOWN ALLERGIC TO MORPHINE, CIPRO AND SENNA. SOCIAL HISTORY: She used to smoke 2 packs of cigarettes per day in the past. The patient is status post coronary artery bypass graft, hysterectomy, oophorectomy, double mastectomies. PAST MEDICAL HISTORY: Frequent urinary tract infections, hypertension, chronic kidney disease stage 3, hyperlipidemia, coronary artery disease, osteoarthritis of both shoulders and knees. The patient also had a syncopal episode for which she was hospitalized at this medical center in 08/2020. At the time, she was treated for urinary tract infection, dehydration and acute renal failure. PHYSICAL EXAMINATION: On physical examination today revealed an elderly female. She is alert, oriented to time, place, person and circumstance and follows commands appropriately. Moves all 4 extremities voluntarily where she had generalized muscle weakness, more so in her shoulder girdle muscles. The patient had absent knee and ankle jerks. She had crepitus on range of motion of her knee joints. She had tenderness to palpation around both shoulders, knees, back, neck and even her legs. The patient had edema of her feet and legs. The patient had decreased sensory perception over her feet when compared to proximal aspects of her lower extremities. She had crepitus on range of motion of her shoulder and knee joints. The patient had negative straight leg raising test bilaterally. No significant pain on range of motion of her hip joints. The patient requires significant assistance with bed mobility and transfers. I have not tested her ambulation skills at present time. Physical therapy saw her and noted her requiring continued care, probably to a [facility] care unit level. ASSESSMENT: 1. Mobility and self-care limitation in a patient with chronic neck and lower back pain with associated degenerative disk disease and degenerative joint disease of cervical, thoracic and lumbar vertebrae with lumbar spinal stenosis. 2. Degenerative joint disease of both knees and shoulders with bilateral rotator cuff arthropathy, left trochanteric bursitis. 3. Peripheral neuropathy. 4. Lower extremity edema. 5. Recurrent urinary tract infections. 6. History of hypertension, coronary artery disease, status post coronary artery bypass graft, chronic kidney disease stage 3. RECOMMENDATIONS: Agree with the plan for physical therapy and occupational therapy to get her up as tolerated. I think she will be better in a [facility] care unit than acute rehab unit, as I am not sure if she can tolerate 3 hours of therapy required in acute rehabilitation unit. Dr. Payan, I appreciate asking me to participate in the care of this interesting patient. I will be glad to see her for followup with you on as needed basis. ALEX DALY MD DR: SPIKE/isael JOB#: [id number] / [id number]
[2020-12-14 15:00] VITALS: BP 118/58
--- NOTE | 2020-12-14 15:40 | NUR ---
SW following for discharge planning. Spoke with RN and reviewed chart. Pt COVID negative, room air. PT recommendation is SNU. SW familiar with this pt from previous admission. Pt discharged home with Lizzy on 12/04 after refusing SNU. Pt had been accepted at [facility] and then pt changed her mind and requested HH. Spoke with Suze from [facility] who stated pt would benefit from SNU. Pt agreeable to referral to [facility] again this admission. Pt choice of vendor form completed. Clinicals faxed. SW following.
[2020-12-14] MEDS ORDERED: FUROSEMIDE 20 MG/2 ML VIAL. IVP ONE (17:00)
--- NOTE | 2020-12-14 17:06 | NUR ---
Wound/Ostomy Care Wound Type/Assessment: consult for pressure ulcer to buttocks. Pt has yast rash with IAD causing buttocks to peel and be very red and painful. Treatment Recommendations/Plan: Cleansed area well and applied A&D ointment with nystatin powder mixed in. recommend to reapply BID and PRN Education provided:PU prevention, WC POC Offloading surface/device: P500, wedge Recommended Referrals/Tests: na Discharge Recommendations for dressings: continue as above noted.
[2020-12-14 19:55] VITALS: BP 117/58
[2020-12-14] MEDS: ATORVASTATIN CALCIUM 40 MG TABLET. PO SCH (20:00)
[2020-12-14] MEDS: MIRTAZAPINE 15 MG TABLET PO SCH (20:01)
[2020-12-14] MEDS: NYSTATIN TOPICAL POWDER 15GM BOTTLE. TP SCH (20:02)
[2020-12-14 23:58] VITALS: BP 136/61
[2020-12-15] VITALS (7 sets, daily range): BP systolic 80–104; BP diastolic 44–56
[2020-12-15] MEDS: LACTOBACILLUS RHAMNOSUS GG 1 CAPSULE. PO SCH ×2 (08:21→20:21)
[2020-12-15] MEDS: CITALOPRAM 20 MG TABLET. PO SCH (08:21)
[2020-12-15] MEDS: CHOLECALCIFEROL (VITAMIN D3) 1,000 UNIT TABLET PO SCH (08:21)
[2020-12-15] MEDS: HEPARIN for SUB-Q USE 5,000 UNIT/ML VIAL. SQ SCH ×2 (08:21→20:43)
[2020-12-15] MEDS: CEPHALEXIN 250 MG CAPSULE. PO SCH ×2 (08:22→20:21)
[2020-12-15] MEDS: ASPIRIN ENTERIC COATED 81 MG TABLET.DR. PO SCH (08:22)
[2020-12-15] MEDS: LOSARTAN POTASSIUM 50 MG TABLET. PO SCH (08:22)
[2020-12-15] MEDS: CLOPIDOGREL BISULFATE 75 MG TABLET PO SCH (08:22)
[2020-12-15] MEDS: hydroCHLOROthiazide 25 MG TABLET PO SCH (08:22)
[2020-12-15] MEDS: cloNIDine HCL 0.3 MG TABLET PO SCH (08:23)
[2020-12-15] MEDS: DICLOFENAC SODIUM 1% TOPICAL GEL 100GM TUBE. TP SCH ×2 (08:23→20:23)
[2020-12-15] MEDS: METOPROLOL TART IMMED RELEASE 50 MG TABLET. PO SCH ×2 (08:23→20:22)
[2020-12-15] MEDS: PANTOPRAZOLE 40 MG TABLET.DR. PO SCH (08:23)
[2020-12-15] MEDS: NYSTATIN TOPICAL POWDER 15GM BOTTLE. TP SCH ×2 (08:23→20:22)
[2020-12-15] MEDS: HYDROcodone/APAP 7.5/325MG 1 TAB TABLET PO PRN ×2 (08:42→20:22)
[2020-12-15] MEDS: ONDANSETRON ODT 4 MG TAB.RAPDIS. PO PRN (08:42)
--- NOTE | 2020-12-15 09:03 | PDOC ---
PROGRESS NOTES Date of Service DATE: 12/15/20 TIME: 09:01 Subjective Subjective She admits pain in her bottom area. Objective Objective Vital Signs Date Time Temp Pulse Resp B/P (MAP) Pulse Ox O2 Delivery O2 Flow Rate FiO2 12/15/20 08:23 60 101/51 12/15/20 07:00 96.8 17 94 Room Air 96.8 Intake and Output 12/15/20 07:00 Intake Total 750 ml Output Total 1400 ml Balance -650 ml Intake Oral 750 ml Output Urine Total 1400 ml # Bowel Movements 4 Physical Exam Physical Exam She is supine in bed and alert and she requires maximal help with bed mobility and transfers and agrees to go to SNF. Assessment Assessment Problems Medical Problems: (1) Chronic renal disease, stage II Status: Acute (2) Person under investigation for COVID-19 Status: Acute (3) Swelling of right lower extremity Status: Acute (4) Weakness Status: Acute Plan Plan of Care To SNF when arrangements are completed. Comment Review of Relevant I have reviewed the following items fartun (where applicable) has been applied. Labs Laboratory Tests Test 12/14/20 08:25 12/14/20 09:25 Magnesium Level 1.8 mg/dL (1.8-2.4) White Blood Count 9.5 x10^3/uL (4.0-11.0) Red Blood Count 2.82 x10^6/uL (3.50-5.40) Hemoglobin 9.4 g/dL (12.0-15.5) Hematocrit 28.2 % (36.0-47.0) Mean Corpuscular Volume 100 fL (79-100) Mean Corpuscular Hemoglobin 34 pg (25-35) Mean Corpuscular Hemoglobin Concent 34 g/dL (31-37) Red Cell Distribution Width 15.2 % (11.5-14.5) Platelet Count 382 x10^3/uL (140-400) Neutrophils (%) (Auto) 79 % (31-73) Lymphocytes (%) (Auto) 11 % (24-48) Monocytes (%) (Auto) 7 % (0-9) Eosinophils (%) (Auto) 4 % (0-3) Basophils (%) (Auto) 0 % (0-3) Neutrophils # (Auto) 7.5 x10^3/uL (1.8-7.7) Lymphocytes # (Auto) 1.0 x10^3/uL (1.0-4.8) Monocytes # (Auto) 0.7 x10^3/uL (0.0-1.1) Eosinophils # (Auto) 0.3 x10^3/uL (0.0-0.7) Basophils # (Auto) 0.0 x10^3/uL (0.0-0.2) Sodium Level 140 mmol/L (136-145) Potassium Level 4.7 mmol/L (3.5-5.1) Chloride Level 107 mmol/L (98-107) Carbon Dioxide Level 26 mmol/L (21-32) Anion Gap 7 (6-14) Blood Urea Nitrogen 29 mg/dL (7-20) Creatinine 1.4 mg/dL (0.6-1.0) Estimated GFR (Cockcroft-Gault) 36.4 BUN/Creatinine Ratio 21 (6-20) Glucose Level 75 mg/dL (70-99) Calcium Level 8.8 mg/dL (8.5-10.1) Total Bilirubin 0.3 mg/dL (0.2-1.0) Aspartate Amino Transf (AST/SGOT) 62 U/L (15-37) Alanine Aminotransferase (ALT/SGPT) 117 U/L (14-59) Alkaline Phosphatase 81 U/L (46-116) Total Protein 4.7 g/dL (6.4-8.2) Albumin 1.4 g/dL (3.4-5.0) Albumin/Globulin Ratio 0.4 (1.0-1.7) Laboratory Tests Test 12/14/20 09:25 White Blood Count 9.5 x10^3/uL (4.0-11.0) Red Blood Count 2.82 x10^6/uL (3.50-5.40) Hemoglobin 9.4 g/dL (12.0-15.5) Hematocrit 28.2 % (36.0-47.0) Mean Corpuscular Volume 100 fL (79-100) Mean Corpuscular Hemoglobin 34 pg (25-35) Mean Corpuscular Hemoglobin Concent 34 g/dL (31-37) Red Cell Distribution Width 15.2 % (11.5-14.5) Platelet Count 382 x10^3/uL (140-400) Neutrophils (%) (Auto) 79 % (31-73) Lymphocytes (%) (Auto) 11 % (24-48) Monocytes (%) (Auto) 7 % (0-9) Eosinophils (%) (Auto) 4 % (0-3) Basophils (%) (Auto) 0 % (0-3) Neutrophils # (Auto) 7.5 x10^3/uL (1.8-7.7) Lymphocytes # (Auto) 1.0 x10^3/uL (1.0-4.8) Monocytes # (Auto) 0.7 x10^3/uL (0.0-1.1) Eosinophils # (Auto) 0.3 x10^3/uL (0.0-0.7) Basophils # (Auto) 0.0 x10^3/uL (0.0-0.2) Sodium Level 140 mmol/L (136-145) Potassium Level 4.7 mmol/L (3.5-5.1) Chloride Level 107 mmol/L (98-107) Carbon Dioxide Level 26 mmol/L (21-32) Anion Gap 7 (6-14) Blood Urea Nitrogen 29 mg/dL (7-20) Creatinine 1.4 mg/dL (0.6-1.0) Estimated GFR (Cockcroft-Gault) 36.4 BUN/Creatinine Ratio 21 (6-20) Glucose Level 75 mg/dL (70-99) Calcium Level 8.8 mg/dL (8.5-10.1) Total Bilirubin 0.3 mg/dL (0.2-1.0) Aspartate Amino Transf (AST/SGOT) 62 U/L (15-37) Alanine Aminotransferase (ALT/SGPT) 117 U/L (14-59) Alkaline Phosphatase 81 U/L (46-116) Total Protein 4.7 g/dL (6.4-8.2) Albumin 1.4 g/dL (3.4-5.0) Albumin/Globulin Ratio 0.4 (1.0-1.7) Medications Current Medications Enoxaparin Sodium (Lovenox 60mg Syringe) 60 mg 1X ONCE SQ Last administered on 12/13/20at 00:38; Start 12/13/20 at 00:30; Stop 12/13/20 at 00:31; Status DC Ondansetron HCl (Zofran) 4 mg PRN Q8HRS PRN IV NAUSEA/VOMITING 1ST CHOICE Last administered on 12/13/20at 18:27; Start 12/13/20 at 00:45; Stop 12/14/20 at 00:44; Status DC Acetaminophen/ Hydrocodone Bitart (Lortab 10/325) 1 tab PRN Q4HRS PRN PO SEVERE PAIN 7-10 Last administered on 12/14/20at 03:43; Start 12/13/20 at 03:45; Stop 12/14/20 at 09:31; Status DC Acetaminophen (Tylenol) 650 mg PRN Q6HRS PRN PO MILD PAIN / TEMP > 100.3'F; Start 12/13/20 at 11:00 Aspirin (Ecotrin) 81 mg DAILYWBKFT PO Last administered on 12/15/20at 08:22; Start 12/13/20 at 12:00 Vitamin D (Vitamin D3) 2,000 unit DAILY PO Last administered on 12/15/20at 08:21; Start 12/13/20 at 12:00 Clonidine HCl (Catapres) 0.3 mg BID PO ; Start 12/13/20 at 12:00; Status Cancel Clopidogrel Bisulfate (Plavix) 75 mg DAILY PO Last administered on 12/15/20at 08:22; Start 12/13/20 at 11:00 Diclofenac Sodium (Voltaren) 1 pauline BID TP ; Start 12/13/20 at 12:00 Diltiazem HCl (Cardizem 24hr Cd) 120 mg DAILY PO ; Start 12/13/20 at 12:00; Status Cancel Hydrochlorothiazide (Hydrodiuril) 25 mg DAILY PO ; Start 12/13/20 at 12:00; Status Cancel Acetaminophen/ Hydrocodone Bitart (Lortab 7.5/325) 1 tab PRN Q6HRS PRN PO MODERATE PAIN Last administered on 12/15/20at 08:42; Start 12/13/20 at 11:00 Lactobacillus Rhamnosus (Culturelle) 1 cap BID PO Last administered on 12/15/20at 08:21; Start 12/13/20 at 12:00 Mirtazapine (Remeron) 15 mg QHS PO Last administered on 12/14/20at 20:01; Start 12/13/20 at 21:00 Fish Oil (Fish Oil) 1,000 mg BID PO ; Start 12/13/20 at 12:00; Stop 12/14/20 at 09:29; Status DC Ondansetron HCl (Zofran Odt) 4 mg BID PRN PO NAUSEA/VOMITING Last administered on 12/15/20at 08:42; Start 12/13/20 at 11:00 Pantoprazole Sodium (Protonix) 40 mg DAILYAC PO Last administered on 12/15/20 08:23; Start 12/13/20 at 11:30 Triamcinolone Acetonide (Kenalog 0.1%) 1 pauline PRN BID PRN TP RASH; Start 12/13/20 at 11:11 Atorvastatin Calcium (Lipitor) 80 mg QHS PO Last administered on 12/14/20at 20:00; Start 12/13/20 at 21:00 Citalopram Hydrobromide (CeleXA) 20 mg DAILY PO Last administered on 12/15/20 08:21; Start 12/13/20 at 12:00 Losartan Potassium (Cozaar) 100 mg DAILY PO ; Start 12/13/20 at 12:00; Status Cancel Heparin Sodium (Porcine) (Heparin Sodium) 5,000 unit Q12HR SQ Last administered on 12/15/20 08:21; Start 12/13/20 at 12:00 Cephalexin HCl (Keflex) 500 mg BID PO Last administered on 12/15/20at 08:22; Start 12/13/20 at 12:00 Metoprolol Tartrate (Lopressor) 100 mg BID PO ; Start 12/13/20 at 12:00; Status Cancel Clonidine HCl (Catapres) 0.3 mg BID PO Last administered on 12/15/20 08:23; Start 12/13/20 at 21:00 Diltiazem HCl (Cardizem 24hr Cd) 120 mg DAILY PO Last administered on 12/15/20 08:22; Start 12/14/20 at 09:00 Metoprolol Tartrate (Lopressor) 100 mg BID PO Last administered on 12/15/20 08:23; Start 12/13/20 at 21:00 Hydrochlorothiazide (Hydrodiuril) 25 mg DAILY PO Last administered on 12/15/20at 08:22; Start 12/14/20 at 09:00 Losartan Potassium (Cozaar) 100 mg DAILY PO Last administered on 12/15/20at 08:22; Start 12/14/20 at 09:00 Vitamin A/Vitamin D (Vitamin A & D Ointment) 1 pauline PRN Q4HRS PRN TP SKIN PROTECTION Last administered on 12/14/20at 11:33; Start 12/14/20 at 09:30 Furosemide (Lasix) 20 mg 1X ONCE IVP Last administered on 12/14/20at 17:53; Start 12/14/20 at 17:00; Stop 12/14/20 at 17:01; Status DC Nystatin (Nystop) 1 pauline BID TP Last administered on 12/15/20at 08:23; Start 12/14/20 at 21:00; Stop 12/21/20 at 20:59 Active Scripts Active Tylenol (Acetaminophen) 325 Mg Tablet 650 Mg PO PRN Q6HRS PRN 14 Days Ondansetron Odt (Ondansetron) 4 Mg Tab.rapdis 4 Mg PO BID PRN 7 Days Culturelle (Lactobacillus Rhamnosus Gg) 1 Each Cap.sprink 1 Cap PO BID 14 Days Pantoprazole Sodium (Pantoprazole Sodium) 40 Mg Tablet. 40 Mg PO DAILYAC 30 Days Aspirin Ec (Aspirin) 81 Mg Tablet. 81 Mg PO DAILYWBKFT 30 Days Reported Hydrocodone-Apap 7.5-325 (Hydrocodone Bit/Acetaminophen) 1 Tab Tablet 1 Tab PO PRN Q6HRS PRN Clonidine Hcl 0.3 Mg Tablet 0.3 Mg PO BID Triamcinolone Acetonide 0.1% Oint (Triamcinolone Acetonide) 15 Gm Oint...g. 1 Pauline TP BID MIX WITH EUCERIN DIRECTED BY PHYSICIAN Vitamin D3 (Cholecalciferol (Vitamin D3)) 1,000 Unit Tablet 2 Tab PO DAILY Clopidogrel (Clopidogrel Bisulfate) 75 Mg Tablet 1 Tab PO DAILY Mirtazapine 15 Mg Tablet 1 Tab PO QHS Metoprolol Tartrate 100 Mg Tablet 1 Tab PO BID Losartan Potassium 100 Mg Tablet 100 Mg PO DAILY Escitalopram Oxalate 10 Mg Tablet 1 Tab PO DAILY Hydrochlorothiazide Capsule (Hydrochlorothiazide) 12.5 Mg Capsule 25 Mg PO DAILY Cardizem Cd (Diltiazem Hcl) 240 Mg Cap.er.24h 0.5 Cap PO DAILY Atorvastatin Calcium 80 Mg Tablet 1 Tab PO DAILY Vitals/I & O Vital Sign - Last 24 Hours 12/14/20 12/14/20 12/14/20 12/14/20 09:36 10:40 11:00 15:00 Temp 98.3 97.1 98.3 97.1 Pulse 60 54 Resp 19 20 18 20 B/P (MAP) 118/59 (78) 118/58 (78) Pulse Ox 98 98 98 98 O2 Delivery Room Air Room Air Room Air Room Air 12/14/20 12/14/20 12/14/20 12/14/20 17:54 18:55 19:55 20:00 Temp 97.9 97.9 Pulse 57 Resp 22 19 18 B/P (MAP) 117/58 (77) Pulse Ox 98 98 97 O2 Delivery Room Air Room Air Room Air Room Air 12/14/20 12/14/20 12/14/20 12/14/20 23:23 23:24 23:36 23:58 Temp 98.2 98.2 Pulse 88 88 88 Resp 18 20 B/P (MAP) 136/61 136/61 136/61 (86) Pulse Ox 98 O2 Delivery Room Air Room Air 12/15/20 12/15/20 12/15/20 12/15/20 00:36 03:25 03:35 07:00 Temp 97.4 96.8 97.4 96.8 Pulse 58 60 53 Resp 16 18 17 B/P (MAP) 80/44 (56) 101/51 (68) 104/56 (72) Pulse Ox 94 O2 Delivery Room Air Room Air 12/15/20 12/15/20 12/15/20 12/15/20 08:22 08:22 08:23 08:23 Pulse 60 60 60 60 B/P (MAP) 101/51 101/51 101/51 101/51 Intake and Output 12/14/20 12/14/20 12/15/20 15:00 23:00 07:00 Intake Total 500 ml 250 ml Output Total 600 ml 600 ml 200 ml Balance -100 ml -350 ml -200 ml Justifications for Admission Other Justification ALEX DALY MD Dec 15, 2020 09:03
[2020-12-15] MEDS ORDERED: LOSA-73 PO (09:35)
--- NOTE | 2020-12-15 09:39 | PDOC ---
IM PROGRESS NOTES- Subjective Subjective Continues to have some weakness. Did walk with PT yesterday. Objective Vitals/I&O Vital Signs Date Time Temp Pulse Resp B/P (MAP) Pulse Ox O2 Delivery O2 Flow Rate FiO2 12/15/20 08:23 60 101/51 12/15/20 07:00 96.8 17 94 Room Air 96.8 I & O 12/14/20 12/14/20 12/15/20 15:00 23:00 07:00 Intake Total 500 ml 250 ml Output Total 600 ml 600 ml 200 ml Balance -100 ml -350 ml -200 ml Physical Exam Physical Exam General appearance - alert,well appearing, and in no distress and oriented to person, place, and time Mental Status - alert, oriented to person, place, and time, affect appropriate to mood Head - normal Chest -decreased breath sounds at bases Heart - S1 and S2 normal Abdomen - soft, non tender Neurological - alert and oriented Musculoskeletal -pain with movement of lumbar spine Extremities -3+ edema bilateral Skin - warm and dry Meds Current Medications Medications (Trade) Dose Ordered Sig/Mackenzie Route PRN Reason Start Time Stop Time Status Last Admin Dose Admin Furosemide (Lasix) 20 mg 1X ONCE IVP 12/14/20 17:00 12/14/20 17:01 DC 12/14/20 17:53 Nystatin (Nystop) 1 sae BID TP 12/14/20 21:00 12/21/20 20:59 12/15/20 08:23 Assessment Assessment 1. Congestive heart failure. Blood pressure is somewhat on the low side, so I will resume some of the medications tomorrow. BNP is elevated, but clinically appears to be stable. 2. Weakness, multifactorial including due to osteoarthritis, physical deconditioning and lumbar radiculopathy and lumbar spinal stenosis. 3. Lymphedema. 4. Hypertension. 5. Severe malnutrition. 6. Escherichia coli urinary tract infection 7. Osteoarthritis. 8. Chronic lymphedema of the lower extremities. 9. Hypertension with chronic kidney disease stage 3. PLAN: 1. Congestive heart failure. Consult Dr. Isabel for cardiology evaluation and management. Resume some of the medications tomorrow because of low blood pressure today. 2. Weakness and lumbar spinal stenosis and lumbar radiculopathy. Start PT/OT once COVID-19 is ruled out. Currently, she is in the COVID unit. Discussed with patient. Patient states that she would like to get few weeks of acute zach ab and then if no improvement she will consider surgery. Consult Dr. Lopez for rehab evaluation and management. 3. Lymphedema. Continue present treatment. 4. Escherichia coli urinary tract infection. Continue cephalexin. 5. Osteoarthritis. Continue hydrocodone, PT/OT. For details, please refer to the orders. COVID-19 test is negative Because of low blood pressure decrease losartan to 50 mg daily and hold clonidine and metoprolol if systolic blood pressure less than 110. Discussed with . Patient should go to a snf unit. Discharge when bed available. Discharge management 35 minutes. Plan Plan For more details regarding further plans, please refer to the orders. Justifications for Admission Other Justification MARLY CHAVARRIA MD Dec 15, 2020 09:39
--- NOTE | 2020-12-15 10:57 | NUR ---
SW following for discharge planning. Spoke with RN and reviewed chart. Spoke with Luli from [facility] and they have accepted this patient clinically and submitted for insurance authorization. Pt COVID negative. SW awaiting insurance approval. Met with pt who remains agreeable to this discharge plan. Pt did as about a referral to [facility]. SW advised, they don't accept pt's [employer]. SW following.
[2020-12-15] MEDS: ACETAMINOPHEN 325 MG TABLET. PO PRN (14:22)
--- NOTE | 2020-12-15 15:12 | PDOC ---
WILL[employer] 12/15/20 1512: CARDIO Progress Notes Date and Time Date of Service 12/15/2020 Time of Evaluation 1330 Subjective Subjective: No Chest Pain, No shortness of breath, No Palpitations Vitals Vitals Vital Signs Date Time Temp Pulse Resp B/P (MAP) Pulse Ox O2 Delivery O2 Flow Rate FiO2 12/15/20 11:00 96.0 78 17 86/47 (60) 100 Room Air 96.0 Weight Weight [ ] Input and Output Intake and Output Intake and Output 12/15/20 07:00 Intake Total 750 ml Output Total 1400 ml Balance -650 ml Intake Oral 750 ml Output Urine Total 1400 ml # Bowel Movements 4 Physical Exam HEENT: Neck Supple W Full Motion Chest: Symmetric LUNGS: Clear to Auscultation Heart: RRR (SR) Abdomen: Soft N/T Extremities: No Calf Tenderness Neurology: alert, oriented, follow commands Assessment Assessment 1. Chronic LE lymphedema 2. Mild acute on chronic CHF: compensated 3. Hypertension: at low end 4. JUAN CARLOS on CKD: Cr better 5. PAFIB/flutter; maintaining SR 6. CAD s/p remote CABG in 2000 with subsequent stents in 2014: clinically stable. 7. Hyperlipidemia: Recommendations 1. Continue HCTZ. BP is marginally low. Decrease clonidine and losartan. Stop Cardizem 2. Compression stocking 3. ASA unknown AFIB burden. Consider MCOT and note any pato episodes 4. Secondary prevention including ASA, Plavix, statin, and BB therapy 5. She has not been seen in our office since [address] Nicole on January 13 8:45AM 6. Anticipate SNU tomorrow. Justicifation of Admission Dx: Justifications for Admission: Justification of Admission Dx: Yes LISA NICOLE MD 12/15/20 1900: CARDIO Progress Notes Assessment Assessment Patient seen and examined. Agree with EXTRUSION BENDER's assessment and plan. Mild acute on chronic probably diastolic HF better compensated with diuresis PAF maintaining SR CAD clinically stable Plan for 2D echo and ischemic evaluation as outpatient WILLI[employer] Dec 15, 2020 15:12 LISA NICOLE MD Dec 15, 2020 19:00
[2020-12-15] MEDS: ATORVASTATIN CALCIUM 40 MG TABLET. PO SCH (20:21)
[2020-12-15] MEDS: MIRTAZAPINE 15 MG TABLET PO SCH (20:21)
[2020-12-15] MEDS ORDERED: cloNIDine HCL 0.1 MG TABLET PO SCH (21:00)
[2020-12-16 03:00] VITALS: BP 89/21
[2020-12-16] MEDS: HYDROcodone/APAP 7.5/325MG 1 TAB TABLET PO PRN (06:44)
[2020-12-16 07:00] VITALS: BP 107/53
[2020-12-16] MEDS: ASPIRIN ENTERIC COATED 81 MG TABLET.DR. PO SCH (08:06)
[2020-12-16] MEDS: LACTOBACILLUS RHAMNOSUS GG 1 CAPSULE. PO SCH (08:06)
[2020-12-16] MEDS: CHOLECALCIFEROL (VITAMIN D3) 1,000 UNIT TABLET PO SCH (08:06)
[2020-12-16] MEDS: NYSTATIN TOPICAL POWDER 15GM BOTTLE. TP SCH (08:06)
[2020-12-16] MEDS: CEPHALEXIN 250 MG CAPSULE. PO SCH (08:06)
[2020-12-16] MEDS: PANTOPRAZOLE 40 MG TABLET.DR. PO SCH (08:07)
[2020-12-16] MEDS: CITALOPRAM 20 MG TABLET. PO SCH (08:07)
[2020-12-16] MEDS: CLOPIDOGREL BISULFATE 75 MG TABLET PO SCH (08:08)
[2020-12-16] MEDS: HEPARIN for SUB-Q USE 5,000 UNIT/ML VIAL. SQ SCH (08:10)
[2020-12-16 08:11] VITALS: BP 89/21
[2020-12-16] MEDS: METOPROLOL TART IMMED RELEASE 50 MG TABLET. PO SCH (08:11)
[2020-12-16] MEDS: DICLOFENAC SODIUM 1% TOPICAL GEL 100GM TUBE. TP SCH (08:11)
[2020-12-16] MEDS: hydroCHLOROthiazide 25 MG TABLET PO SCH (08:11)
[2020-12-16] MEDS ORDERED: cloNIDine HCL 0.1 MG TABLET PO SCH (09:00)
[2020-12-16] MEDS ORDERED: LOSARTAN POTASSIUM 50 MG TABLET. PO SCH (09:00)
--- NOTE | 2020-12-16 09:24 | PDOC ---
IM PROGRESS NOTES- Subjective Subjective Continues to have some weakness. Did walk with PT yesterday. Objective Vitals/I&O Vital Signs Date Time Temp Pulse Resp B/P (MAP) Pulse Ox O2 Delivery O2 Flow Rate FiO2 12/16/20 08:11 52 89/21 12/16/20 07:00 98.2 18 100 Room Air 98.2 I & O 12/15/20 12/15/20 12/16/20 15:00 23:00 07:00 Intake Total 500 ml 700 ml 0 ml Balance 500 ml 700 ml 0 ml Physical Exam Physical Exam General appearance - alert,well appearing, and in no distress and oriented to person, place, and time Mental Status - alert, oriented to person, place, and time, affect appropriate to mood Head - normal Chest -decreased breath sounds at bases Heart - S1 and S2 normal Abdomen - soft, non tender Neurological - alert and oriented Musculoskeletal -pain with movement of lumbar spine Extremities -1+ edema bilateral Skin - warm and dry Assessment Assessment 1. Congestive heart failure. Blood pressure is somewhat on the low side, so I will resume some of the medications tomorrow. BNP is elevated, but clinically appears to be stable. 2. Weakness, multifactorial including due to osteoarthritis, physical deconditioning and lumbar radiculopathy and lumbar spinal stenosis. 3. Lymphedema. 4. Hypertension. 5. Severe malnutrition. 6. Escherichia coli urinary tract infection 7. Osteoarthritis. 8. Chronic lymphedema of the lower extremities. 9. Hypertension with chronic kidney disease stage 3. PLAN: 1. Congestive heart failure. Consult Dr. Isabel for cardiology evaluation and management. Resume some of the medications tomorrow because of low blood pressure today. 2. Weakness and lumbar spinal stenosis and lumbar radiculopathy. Start PT/OT once COVID-19 is ruled out. Currently, she is in the COVID unit. Discussed with patient. Patient states that she would like to get few weeks of acute re hab and then if no improvement she will consider surgery. Consult Dr. Lopez for rehab evaluation and management. 3. Lymphedema. Continue present treatment. 4. Escherichia coli urinary tract infection. Continue cephalexin. Discontinue cephalexin on discharge. Patient has finished treatment. 5. Osteoarthritis. Continue hydrocodone, PT/OT. For details, please refer to the orders. COVID-19 test is negative Because of low blood pressure discontinue losartan, clonidine and Cardizem. Hold metoprolol or hydrochlorothiazide if systolic blood pressure less than 110. Weakness may be due to spinal stenosis as well as low blood pressure. Discussed with . Patient should go to a fdc unit. . Discharge management 35 minutes. Plan Plan For more details regarding further plans, please refer to the orders. Justifications for Admission Other Justification MARLY CHAVARRIA MD Dec 16, 2020 09:24
--- NOTE | 2020-12-16 09:26 | PDOC ---
PROGRESS NOTES Date of Service DATE: 12/16/20 TIME: 09:24 Subjective Subjective No new complaints. Objective Objective Vital Signs Date Time Temp Pulse Resp B/P (MAP) Pulse Ox O2 Delivery O2 Flow Rate FiO2 12/16/20 08:11 52 89/12/16/20 07:00 98.2 18 100 Room Air 98.2 Intake and Output 12/16/20 07:00 Intake Total 1200 ml Balance 1200 ml Intake Oral 1200 ml # Voids 1 Physical Exam Physical Exam She is supine in bed and seems to be comfortable but still requires significant assistance for mobility and most of her self care. Assessment Assessment Problems Medical Problems: (1) Chronic renal disease, stage II Status: Acute (2) Person under investigation for COVID-19 Status: Acute (3) Swelling of right lower extremity Status: Acute (4) Weakness Status: Acute Plan Plan of Care To SNF when arrangements are completed. Comment Review of Relevant I have reviewed the following items fartun (where applicable) has been applied. Labs Laboratory Tests Test 12/14/20 09:25 White Blood Count 9.5 x10^3/uL (4.0-11.0) Red Blood Count 2.82 x10^6/uL (3.50-5.40) Hemoglobin 9.4 g/dL (12.0-15.5) Hematocrit 28.2 % (36.0-47.0) Mean Corpuscular Volume 100 fL (79-100) Mean Corpuscular Hemoglobin 34 pg (25-35) Mean Corpuscular Hemoglobin Concent 34 g/dL (31-37) Red Cell Distribution Width 15.2 % (11.5-14.5) Platelet Count 382 x10^3/uL (140-400) Neutrophils (%) (Auto) 79 % (31-73) Lymphocytes (%) (Auto) 11 % (24-48) Monocytes (%) (Auto) 7 % (0-9) Eosinophils (%) (Auto) 4 % (0-3) Basophils (%) (Auto) 0 % (0-3) Neutrophils # (Auto) 7.5 x10^3/uL (1.8-7.7) Lymphocytes # (Auto) 1.0 x10^3/uL (1.0-4.8) Monocytes # (Auto) 0.7 x10^3/uL (0.0-1.1) Eosinophils # (Auto) 0.3 x10^3/uL (0.0-0.7) Basophils # (Auto) 0.0 x10^3/uL (0.0-0.2) Sodium Level 140 mmol/L (136-145) Potassium Level 4.7 mmol/L (3.5-5.1) Chloride Level 107 mmol/L (98-107) Carbon Dioxide Level 26 mmol/L (21-32) Anion Gap 7 (6-14) Blood Urea Nitrogen 29 mg/dL (7-20) Creatinine 1.4 mg/dL (0.6-1.0) Estimated GFR (Cockcroft-Gault) 36.4 BUN/Creatinine Ratio 21 (6-20) Glucose Level 75 mg/dL (70-99) Calcium Level 8.8 mg/dL (8.5-10.1) Total Bilirubin 0.3 mg/dL (0.2-1.0) Aspartate Amino Transf (AST/SGOT) 62 U/L (15-37) Alanine Aminotransferase (ALT/SGPT) 117 U/L (14-59) Alkaline Phosphatase 81 U/L (46-116) Total Protein 4.7 g/dL (6.4-8.2) Albumin 1.4 g/dL (3.4-5.0) Albumin/Globulin Ratio 0.4 (1.0-1.7) Medications Current Medications Enoxaparin Sodium (Lovenox 60mg Syringe) 60 mg 1X ONCE SQ Last administered on 12/13/20at 00:38; Start 12/13/20 at 00:30; Stop 12/13/20 at 00:31; Status DC Ondansetron HCl (Zofran) 4 mg PRN Q8HRS PRN IV NAUSEA/VOMITING 1ST CHOICE Last administered on 12/13/20at 18:27; Start 12/13/20 at 00:45; Stop 12/14/20 at 00:44; Status DC Acetaminophen/ Hydrocodone Bitart (Lortab 10/325) 1 tab PRN Q4HRS PRN PO SEVERE PAIN 7-10 Last administered on 12/14/20at 03:43; Start 12/13/20 at 03:45; Stop 12/14/20 at 09:31; Status DC Acetaminophen (Tylenol) 650 mg PRN Q6HRS PRN PO MILD PAIN / TEMP > 100.3'F Last administered on 12/15/20at 14:22; Start 12/13/20 at 11:00 Aspirin (Ecotrin) 81 mg DAILYWBKFT PO Last administered on 12/16/20at 08:06; Start 12/13/20 at 12:00 Vitamin D (Vitamin D3) 2,000 unit DAILY PO Last administered on 12/16/20 08:06; Start 12/13/20 at 12:00 Clonidine HCl (Catapres) 0.3 mg BID PO ; Start 12/13/20 at 12:00; Status Cancel Clopidogrel Bisulfate (Plavix) 75 mg DAILY PO Last administered on 12/16/20 08:08; Start 12/13/20 at 11:00 Diclofenac Sodium (Voltaren) 1 pauline BID TP ; Start 12/13/20 at 12:00 Diltiazem HCl (Cardizem 24hr Cd) 120 mg DAILY PO ; Start 12/13/20 at 12:00; Status Cancel Hydrochlorothiazide (Hydrodiuril) 25 mg DAILY PO ; Start 12/13/20 at 12:00; Status Cancel Acetaminophen/ Hydrocodone Bitart (Lortab 7.5/325) 1 tab PRN Q6HRS PRN PO MODERATE PAIN Last administered on 12/16/20at 06:44; Start 12/13/20 at 11:00 Lactobacillus Rhamnosus (Culturelle) 1 cap BID PO Last administered on 12/16/20at 08:06; Start 12/13/20 at 12:00 Mirtazapine (Remeron) 15 mg QHS PO Last administered on 12/15/20at 20:21; Start 12/13/20 at 21:00 Fish Oil (Fish Oil) 1,000 mg BID PO ; Start 12/13/20 at 12:00; Stop 12/14/20 at 09:29; Status DC Ondansetron HCl (Zofran Odt) 4 mg BID PRN PO NAUSEA/VOMITING Last administered on 12/15/20at 08:42; Start 12/13/20 at 11:00 Pantoprazole Sodium (Protonix) 40 mg DAILYAC PO Last administered on 12/16/20 08:07; Start 12/13/20 at 11:30 Triamcinolone Acetonide (Kenalog 0.1%) 1 pauline PRN BID PRN TP RASH; Start 12/13/20 at 11:11 Atorvastatin Calcium (Lipitor) 80 mg QHS PO Last administered on 12/15/20at 20:21; Start 12/13/20 at 21:00 Citalopram Hydrobromide (CeleXA) 20 mg DAILY PO Last administered on 12/16/20at 08:07; Start 12/13/20 at 12:00 Losartan Potassium (Cozaar) 100 mg DAILY PO ; Start 12/13/20 at 12:00; Status Cancel Heparin Sodium (Porcine) (Heparin Sodium) 5,000 unit Q12HR SQ Last administered on 12/16/20 08:10; Start 12/13/20 at 12:00 Cephalexin HCl (Keflex) 500 mg BID PO Last administered on 12/16/20at 08:06; Start 12/13/20 at 12:00 Metoprolol Tartrate (Lopressor) 100 mg BID PO ; Start 12/13/20 at 12:00; Status Cancel Clonidine HCl (Catapres) 0.3 mg BID PO Last administered on 12/15/20 08:23; Start 12/13/20 at 21:00; Stop 12/15/20 at 12:12; Status DC Diltiazem HCl (Cardizem 24hr Cd) 120 mg DAILY PO Last administered on 12/15/20at 08:22; Start 12/14/20 at 09:00; Stop 12/15/20 at 15:08; Status DC Metoprolol Tartrate (Lopressor) 100 mg BID PO Last administered on 12/15/20at 08:23; Start 12/13/20 at 21:00 Hydrochlorothiazide (Hydrodiuril) 25 mg DAILY PO Last administered on 12/15/20 08:22; Start 12/14/20 at 09:00 Losartan Potassium (Cozaar) 100 mg DAILY PO Last administered on 12/15/20at 08:22; Start 12/14/20 at 09:00; Stop 12/15/20 at 09:34; Status DC Vitamin A/Vitamin D (Vitamin A & D Ointment) 1 pauline PRN Q4HRS PRN TP SKIN PROTECTION Last administered on 12/14/20at 11:33; Start 12/14/20 at 09:30 Furosemide (Lasix) 20 mg 1X ONCE IVP Last administered on 12/14/20at 17:53; Start 12/14/20 at 17:00; Stop 12/14/20 at 17:01; Status DC Nystatin (Nystop) 1 pauline BID TP Last administered on 12/16/20at 08:06; Start 12/14 at 21:00; Stop 12/21/20 at 20:59 Losartan Potassium (Cozaar) 50 mg DAILY PO ; Start 12/16/20 at 09:00 Clonidine HCl (Catapres) 0.1 mg BID PO ; Start 12/15/20 at 21:00; Stop 12/15/20 at 15:06; Status DC Clonidine HCl (Catapres) 0.1 mg BID PO ; Start 12/16/20 at 09:00; Stop 12/16/20 at 09:22; Status DC Active Scripts Active Tylenol (Acetaminophen) 325 Mg Tablet 650 Mg PO PRN Q6HRS PRN 14 Days Ondansetron Odt (Ondansetron) 4 Mg Tab.rapdis 4 Mg PO BID PRN 7 Days Culturelle (Lactobacillus Rhamnosus Gg) 1 Each Cap.sprink 1 Cap PO BID 14 Days Pantoprazole Sodium (Pantoprazole Sodium) 40 Mg Tablet. 40 Mg PO DAILYAC 30 Days Aspirin Ec (Aspirin) 81 Mg Tablet. 81 Mg PO DAILYWBKFT 30 Days Reported Hydrocodone-Apap 7.5-325 (Hydrocodone Bit/Acetaminophen) 1 Tab Tablet 1 Tab PO PRN Q6HRS PRN Triamcinolone Acetonide 0.1% Oint (Triamcinolone Acetonide) 15 Gm Oint...g. 1 Pauline TP BID MIX WITH EUCERIN DIRECTED BY PHYSICIAN Vitamin D3 (Cholecalciferol (Vitamin D3)) 1,000 Unit Tablet 2 Tab PO DAILY Clopidogrel (Clopidogrel Bisulfate) 75 Mg Tablet 1 Tab PO DAILY Mirtazapine 15 Mg Tablet 1 Tab PO QHS Metoprolol Tartrate 100 Mg Tablet 1 Tab PO BID Escitalopram Oxalate 10 Mg Tablet 1 Tab PO DAILY Hydrochlorothiazide Capsule (Hydrochlorothiazide) 12.5 Mg Capsule 25 Mg PO DAILY Atorvastatin Calcium 80 Mg Tablet 1 Tab PO DAILY Vitals/I & O Vital Sign - Last 24 Hours 2/212/15/20 12/15/20 12/15/20 11:00 15:00 19:00 20:00 Temp 96.0 96.2 97.0 96.0 96.2 97.0 Pulse 78 51 48 Resp 17 17 17 B/P (MAP) 86/47 (60) 99/50 (66) 88/55 (66) Pulse Ox 100 97 100 O2 Delivery Room Air Room Air Room Air Room Air 12/15/20 12/15/20 12/15/20 12/15/20 20:22 20:22 21:45 23:00 Temp 96.1 96.1 Pulse 51 53 Resp 17 B/P (MAP) 99/50 90/52 (65) Pulse Ox 100 O2 Delivery Room Air Room Air Room Air 12/16/20 12/16/20 12/16/20 12/16/20 03:00 06:44 07:00 08:10 Temp 98.2 98.2 Pulse 52 66 52 Resp 16 18 B/P (MAP) 89/21 (43) 107/53 (71) Pulse Ox 100 100 O2 Delivery Room Air Room Air Room Air 12/16/20 12/16/20 08:11 08:11 Pulse 52 52 B/P (MAP) Intake and Output 12/15/20 12/15/20 12/16/20 15:00 23:00 07:00 Intake Total 500 ml 700 ml 0 ml Balance 500 ml 700 ml 0 ml Justifications for Admission Other Justification ALEX DALY MD Dec 16, 2020 09:26
[2020-12-16] MEDS: ONDANSETRON ODT 4 MG TAB.RAPDIS. PO PRN (09:41)
--- NOTE | 2020-12-16 10:07 | NUR ---
SW following for discharge planning. Spoke with RN and reviewed chart. Spoke with Luli from [facility] and insurance authorization approved. Pt COVID negative. Pt to discharge to [facility] today, 12/16 at 11:30am. Discharge orders faxed. Clinicals ready to be sent with pt. Pt notified. RN to call report. No further SW needs at this time.
[2020-12-16] MEDS: ACETAMINOPHEN 325 MG TABLET. PO PRN (11:20)
[2020-12-30] MEDS ORDERED: CEFD300C PO (10:17)
[2020-12-30] MEDS ORDERED: CLON0.1T PO (10:17)
[2020-12-30] MEDS ORDERED: METR500T PO (10:17)
[2020-12-30] MEDS ORDERED: HYDR-2869 PO (10:17)
[2020-12-30] MEDS ORDERED: POTA20TA4 PO (10:17)
[2020-12-30] MEDS ORDERED: NYST15PO2 TP (10:17)
--- NOTE | 2021-01-07 10:48 | PDOC3 ---
IM DISCHARGE SUMMARY Date of Admission Date of Admission Date of Admission: Dec 13, 2020 at 01:06 Date of Discharge Date of Discharge December 16, 2020 Primary Diagnosis Primary Diagnosis 1. Congestive heart failure. Blood pressure is somewhat on the low side, so I will resume some of the medications tomorrow. BNP is elevated, but clinically appears to be stable. 2. Weakness, multifactorial including due to osteoarthritis, physical deconditioning and lumbar radiculopathy and lumbar spinal stenosis. 3. Lymphedema. 4. Hypertension. 5. Severe malnutrition. 6. Escherichia coli urinary tract infection 7. Osteoarthritis. 8. Chronic lymphedema of the lower extremities. 9. Hypertension with chronic kidney disease stage 3. Consults Consults Will Isabel MD; Lalit Lopez MD Brief hospital course Brief hospital course This 80-year-old female who was recently discharged from this institution on 12/04 after being treated for acute urinary tract infection and frequent falls was in the process of moving to a retirement permanently. However, she has become very weak and has not been able to get up. She also has had increased swelling, especially of her right lower extremity. She was recently treated for acute E. coli UTI. She is still taking cephalexin. Previously, she had lumbar spinal stenosis with lumbar radiculopathy diagnosed during the previous admission, but the patient did not want any surgery. In the Emergency Room, the patient was evaluated and because of the congestive heart failure and weakness, the patient was admitted for further evaluation and management. Venous Doppler of the right lower extremity did not show any DVT. She has chronic lymphedema. For more details regarding the past history, family history, social history, surgical history and other details, please refer to History and Physical. 1. Congestive heart failure. Consult Dr. Isabel for cardiology evaluation and management. Resume some of the medications tomorrow because of low blood pressure today. 2. Weakness and lumbar spinal stenosis and lumbar radiculopathy. Start PT/OT once COVID-19 is ruled out. Currently, she is in the COVID unit. Discussed with patient. Patient states that she would like to get few weeks of acute rehab and then if no improvement she will consider surgery. Consult Dr. Lopez for rehab evaluation and management. 3. Lymphedema. Continue present treatment. 4. Escherichia coli urinary tract infection. Continue cephalexin. Discontinue cephalexin on discharge. Patient has finished treatment. 5. Osteoarthritis. Continue hydrocodone, PT/OT. For details, please refer to the orders. COVID-19 test is negative Because of low blood pressure discontinue losartan, clonidine and Cardizem. H old metoprolol or hydrochlorothiazide if systolic blood pressure less than 110. Weakness may be due to spinal stenosis as well as low blood pressure. Discussed with . The patient is [facility]. Condition at the time of discharge is improving.. Discharge management 35 minutes. Medications Medications reviewed and reconciled for discharge. Allergy Allergies Coded Allergies Type Severity Reaction Last Updated Verified ciprofloxacin Allergy Severe 07/10/20 Yes morphine Allergy Intermediate 02/17/19 Yes senna Allergy Intermediate 07/10/20 Yes meperidine Adverse Reaction Intermediate 07/10/20 Yes Follow up in 5 days. DISPOSITION: [facility] facility Comments Discharge Management - 35 minutes. For other details please refer to discharge instructions Justicifation of Admission Dx: Justifications for Admission: Justification of Admission Dx: Yes MARLY CHAVARRIA MD Jan 07, 2021 10:48
== END 2020-12-16 11:40 | DRG 291 ==
LOC: ER 22:01 → 6 SOUTH 12-13 01:06
PROVIDERS: ADMIT Internal Medicine; ATTEND Internal Medicine
DX: I13.0 Hypertensive heart and chronic kidney disease with heart failure and stage 1 through stage 4 chronic kidney disease, or unspecified chronic kidney disease (principal); E43 Unspecified severe protein-calorie malnutrition; I50.31 Acute diastolic (congestive) heart failure; N17.9 Acute kidney failure, unspecified; N39.0 Urinary tract infection, site not specified; I48.92 Unspecified atrial flutter; G89.29 Other chronic pain; M47.812 Spondylosis without myelopathy or radiculopathy, cervical region; M54.16 Radiculopathy, lumbar region; M48.061 Spinal stenosis, lumbar region without neurogenic claudication; M19.012 Primary osteoarthritis, left shoulder; M19.011 Primary osteoarthritis, right shoulder; M17.0 Bilateral primary osteoarthritis of knee; M70.62 Trochanteric bursitis, left hip; G62.9 Polyneuropathy, unspecified; N18.30 Chronic kidney disease, stage 3 unspecified; I89.0 Lymphedema, not elsewhere classified; B96.20 Unspecified Escherichia coli [E. coli] as the cause of diseases classified elsewhere; I50.9 Heart failure, unspecified; K21.9 Gastro-esophageal reflux disease without esophagitis; E78.00 Pure hypercholesterolemia, unspecified; E78.5 Hyperlipidemia, unspecified; F17.210 Nicotine dependence, cigarettes, uncomplicated; I25.10 Atherosclerotic heart disease of native coronary artery without angina pectoris; I48.0 Paroxysmal atrial fibrillation; Z20.822 Contact with and (suspected) exposure to COVID-19; Z80.3 Family history of malignant neoplasm of breast; Z82.49 Family history of ischemic heart disease and other diseases of the circulatory system; Z60.2 Problems related to living alone; Z87.440 Personal history of urinary (tract) infections; Z90.13 Acquired absence of bilateral breasts and nipples; Z90.710 Acquired absence of both cervix and uterus; Z95.1 Presence of aortocoronary bypass graft; I25.2 Old myocardial infarction; Z90.49 Acquired absence of other specified parts of digestive tract; Z88.1 Allergy status to other antibiotic agents; Z88.5 Allergy status to narcotic agent; Z88.8 Allergy status to other drugs, medicaments and biological substances
CPT/HCPCS: 36415; 71045; 80053; 83735; 83880; 84484; 85025; 93971; 96372; 96374; 96376; J1644; J1650; J1940; J2405; U0003; 97110-GP; 97116-GP; 97530-GP; 97535-GO; 99285-25; G0378